=== PATIENT | female | born 1980 | race Caucasian/White ===

== ENCOUNTER 2023-07-26 16:45 | Outpatient (OUT) | payer OTHER, SELFPAY ==
[2023-07-26 17:04] LABS: Basophils Absolute Auto 0.1 10^3/uL (0.0-0.1); Basophils Percent Auto 1.8 % (0.2-2.0); Eosinophils Percent Auto 0.5 % (0.9-7.0); Hematocrit 41.1 % (36.0-48.0); Hemoglobin 13.7 g/dL (12.0-16.0); Lymphocytes Absolute Auto 1.6 10^3/uL (1.2-3.8); Lymphocytes Percent Auto 27.5 % (20.5-60.0); Mean Corpuscular HGB Conc 33.3 g/dL (29.9-35.2); Mean Corpuscular Hemoglobin 30.1 pg (26.7-34.0); Mean Corpuscular Volume 90.3 fL (81.0-99.0); Mean Platelet Volume 9.7 fL (9.5-13.5); Monocytes Absolute Auto 0.6 10^3/uL (0.3-0.8); Monocytes Percent Auto 10.4 % (1.7-12.0); Neutrophils Absolute Auto 3.4 10^3/uL (1.4-6.5); Neutrophils Percent Auto 59.8 % (43.0-75.0); Platelet Count 326 10^3/uL (150-450); Red Blood Count 4.55 10^6/uL (4.20-5.40); Red Cell Distribution Width 12.1 % (11.0-15.0); White Blood Count 5.7 10^3/uL (4.0-11.0)
[2023-07-26 17:48] LABS: Anion Gap 15.7; BUN Creatinine Ratio 18.1; Calcium 8.6 mg/dL (8.5-10.1); Carbon Dioxide 25.7 mmol/L (21.0-32.0); Chloride 101 mmol/L (98-107); Estimated GFR (African America >60 (>=60); Estimated GFR (Non-African Ame >60 (>=60); Glucose 77 mg/dL (74-106); Potassium 3.4 mmol/L (3.5-5.1); Sodium 139 mmol/L (136-145)
[2023-07-28 12:09] LABS: ANA Direct Negative (Negative)
== END 2023-07-26 16:46 | disposition home or self-care (01) ==
LOC: LAB 16:47
PROVIDERS: PCP Family Medicine; Visit Provider Family Medicine
DX: D89.89 Other specified disorders involving the immune mechanism, not elsewhere classified (principal)
CPT/HCPCS: 36415; 80048; 84443; 85025; 86038

== ENCOUNTER 2024-03-07 20:02 | Outpatient (REF) | payer OTHER, SELFPAY ==
--- OUTSIDE RECORDS SUMMARY | 2024-03-07 20:10 | XMS_ITS | CCD ---
Author Organization [facility] Care Team Providers Care Solid Die Cutter Name Role Phone Leslie Bates Unavailable LEONA ., DR PERALTA Admitting Unavailable LEONA ., DR PERALTA Attending Unavailable JANA, DR LESLIE Worrell Primary Care Unavailable LEONA ., DR PERALTA Consulting Unavailable ZIEBER, DR MADI Crow Consulting Unavailable KATHYA MENDOZA Consulting Unavailable LEONA ., DR PERALTA Admitting Unavailable LEONA ., DR PERALTA Attending Unavailable JANA, DR LESLIE Worrlel Primary Care Unavailable LEONA ., DR PERALTA Consulting Unavailable LEONA ., DR PERALTA Admitting Unavailable LEONA ., DR PERALTA Attending Unavailable BATES, DR LESLIE Worrell Primary Care Unavailable LEONA ., DR PERALTA Consulting Unavailable ANNA GOULD Consulting Unavailable ALVINIKE ROBERSON Consulting Unava ilable LEONA ., DR PERALTA Admitting Unavailable LEONA ., DR PERALTA Attending Unavailable BATES, DR LESLIE Worrell Primary Care Unavailable LEONA ., DR PERALTA Consulting Unavailable LEONA ., DR PERALTA Admitting Unavailable LEONA ., DR PERALTA Attending Unavailable LEONA ., DR PERALTA Primary Care Unavailable SHOBONIER, DR RICK Chi Consulting Unavailable LEONA ., DR PERALTA Consulting Unavailable LEONA ., DR PERALTA Admitting Unavailable LEONA ., DR PERALTA Attending Unavailable LEONA ., DR PERALTA Primary Care Unavailable LEONA ., DR PERALTA Consulting Unavailable ZIEBER, DR MADI Crow Consulting Unavailable JANA, DR LESLIE Worrell Admitting Unavailable JANA, DR LESLIE Worrell Attending Unavailable JANA, DR LESLIE Worrell Primary Care Unavailable JANA, DR LESLIE Worrell Consulting Unavailable Jesús Gallardo Unavailable Lorena Newell Unavailable MD Leslie Bates Primary Care Provider MD Kylie Sands Attending Provider Leslie Bates Primary Care Unavailable Kylie Sands Attending Unavailable Kylie Sands Admitting Unavailable FABIAN MEEKS Attending Unavailable ANDREA GRIMM Attending Unavailable KYLIE SANDS Referring Unavailable KELBLEY, PAULETTE Attending Unavailable HALSAMREEN, KYLIE G Referring Unavailable KELBLEY, PAULETTE Attending Unavailable HALADAY, KYLIE G Referring Unavailable KELBLEY, PAULETTE Attending Unavailable HALADAY, KYLIE G Referring Unavailable KELBLEY, PAULETTE Attending Unavailable HALADANaheed, KYLIE G Referring Unavailable KELBLEY, PAULETTE Attending Unavailable HALADANaheed, KYLIE G Referring Unavailable KELBLEY, PAULETTE Attending Unavailable HALADANaheed, KYLIE G Referring Unavailable KELBLEY, PAULETTE Attending Unavailable HALADANaheed, KYLIE G Referring Unavailable Allergies Allergy Classification Reported Allergen(s) Allergy Type Date of Onset Reaction(s) Facility (3 sources) patient allergy list reviewed by nurse or physicia Propensity to adverse reactions 6 Comment:Done [facility] Other (3 sources) Allergies Reconciled Propensity to adverse reactions 1 Unknown [facility] Other Medications Current Medications Medication Drug Class(es) Dates Sig (Normalized) Sig (Original) [id number] 200 actuat albuterol 0.09 mg/actuat metered dose inhaler (19 sources) beta2-Adrenergic Agonist Start: 11-23-2023 take 1 puff(s) by inhalation every four hours Albuterol Sulfate Active 2 PUFF INHALATION Every 4 hours November 23, 2023 1:00am Start: 09-28-2022 take 2 puff(s) by in halation every four hours as needed Albuterol Sulfate HFA 108 (90 Base) MCG/ACT 2 puff Inhalation every 4 hrs prn Sep, Not-Taking/PRN Start: 09-28-2022 take 2 puff(s) by in halation every four hours as needed Albuterol Sulfate HFA 108 (90 Base) MCG/ACT 2 puff Inhalation every 4 hrs prn Sep, Not-Taking Start: 09-28-2022 take 2 puff(s) by in halation every four hours as needed Albuterol Sulfate HFA 108 (90 Base) MCG/ACT 2 puff Inhalation every 4 hrs prn Sep, Not-Taking ALPRAZolam 0.25 mg oral tablet (19 sources) Benzodiazepine Start: 11-23-2023 take 0.25 mg by mouth four times daily Alprazolam Active 0.25 MG PO Four times daily November 23, 2023 1:00am Start: 04-09-2023 take 1 tablet by scot th four times daily ALPRAZolam 0.25 MG take 1 tablet by mouth four times a day if needeD for 7 Mar, Active Start: 12-21-2022 take 1 tablet by scot th four times daily ALPRAZolam 0.25 MG take 1 tablet by mouth four times a day if needed for 7 Dec, Active amoxicillin 875 mg / clavulanate 125 mg oral tablet (1 source) Penicillin-class Antibacterial Start: 11-23-2023 take 1 tablet by mouth twice daily Amoxicillin-Pot Clavulanate Active 1 TAB PO Twice daily November 23, 2023 1:00am amphetamine aspartate 5 mg / amphetamine sulfate 5 mg / dextroamphetamine saccharate 5 mg / dextroamphetamine sulfate 5 mg oral tablet (20 sources) Central Nervous System Stimulant Start: 11-09-2023 End: 01-06-2024 take 20 mg by mouth twice daily Dextroamphetamine-A mphetamine Active 20 MG PO Twice daily 60 January 06, 2024 Start: 10-11-2023 take 1 tablet by scot every twelve hours Adderall 20 MG 1 tablet Orally Twice a day for 30 days Sep, Active Start: 09-09-2023 take 1 tablet by scot th every twelve hours Adderall 20 MG 1 tablet Orally Twice a day for 30 days Aug, Active Start: 08-14-2023 take 1 tablet by scot th every twelve hours Adderall 20 MG 1 tablet Orally Twice a day for 30 days Jul, Active Start: 07-16-2023 take 1 tablet by scot th every twelve hours Adderall 20 MG 1 tablet Orally Twice a day for 30 days Jun, Active Start: 06-14-2023 take 1 tablet by scot every twelve hours Adderall 20 MG 1 tablet Orally Twice a day for 30 days May, Active Start: 05-17-2023 take 1 tablet by scot th every twelve hours Adderall 20 MG 1 tablet Orally Twice a day for 30 days Apr, Active Start: 04-21-2023 take 1 tablet by scot th every twelve hours Adderall 20 MG 1 tablet Orally Twice a day for 30 days Apr, Active Start: 02-22-2023 take 1 tablet by scot th every twelve hours Adderall 20 MG 1 tablet Orally Twice a day for 30 days Feb, Active Start: 01-22-2023 take 1 tablet by scot th every twelve hours Adderall 20 MG 1 tablet Orally Twice a day for 30 days January, Active Start: 12-28-2022 take 1 tablet by scot th every twelve hours Adderall 20 MG 1 tablet Orally Twice a day for 30 days Dec, Active Start: 12-28-2022 take 1 tablet by scot th every twelve hours Adderall 15 MG 1 tablet Orally Twice a day for 30 days Dec, Active Aspirin / butalbital / Caffeine (18 sources) take 1 capsule by mouth every four hours as needed Fiorinal 50-325-40 MG 1 capsule as needed Orally every 4 hrs Active aspirin 325 mg / butalbital 50 mg / caffeine 40 mg oral capsule (1 source) Platelet Aggregation Inhibitor, Barbiturate, Nonsteroidal Anti-inflammatory Drug, Central Nervous System Stimulant, Methylxanthine Start: 11-23-19 take 1 capsule by mouth every four hours Butalbital-Aspiri n-Caffeine Active 1 CAP PO Every 4 hours November 23, 2023 1:00am ciprofloxacin 3 mg/ml ophthalmic solution (15 sources) Quinolone Antimicrobial Start: 01-29-20 Start: 01-28-2023 Claritin-D 12 Hour 5-120 MG (15 sources) Start: 01-19-2023 take 5-120 mg by mouth twice daily Claritin-D 12 Hour 5-120 MG 1 tablet Orally twice a day for 30 days January, Active ketoconazole 20 mg/ml medicated shampoo (10 sources) Azole Antifungal Start: 11-23-2023 Ketoconazole Active 1 APPLIC TOPICAL EVERY 2 WEEKS November 23, 2023 1:00am Start: 06-17-2023 Ketoconazole 2 % as directed Externally twice a week for 30 days May, Active Start: 06-17-2023 Ketoconazole 2 % as directed Externally twice a week for 30 days May, Active 12 hr loratadine 5 mg / pseudoephedrine sulfate 120 mg extended release oral tablet (2 sources) alpha-Adrenergic Agonist Start: 01-19-2023 take 1 tablet by mouth every twelve hours Claritin-D 12 Hour 5-120 MG 1 tablet Orally twice a day for 30 days January, Active mupirocin 0.02 mg/mg topical ointment (10 sources) RNA Synthetase Inhibitor Antibacterial Start: 11-23-2023 Mupirocin Active 1 APPLIC TOPICAL Three times daily November 23, 2023 1:00am Start: 06-17-2023 Mupirocin 2 % 1 application Externally Three times a day for 10 days May, Active tiZANidine 4 mg oral tablet (19 sources) Central alpha-2 Adrenergic Agonist Start: 11-23-2023 take 1 tablet by mouth once daily at bedtime Tizanidine (Zanaflex) 4 mg tablet Active 4 MG PO Daily at bedtime November 23, 2023 1:00am take 1 tablet by scot once daily at bedtime Zanaflex 4 mg 1 tablet Orally qhs PRN Active 24 hr venlafaxine 75 mg extended release oral capsule (19 sources) Serotonin and Norepinephrine Reuptake Inhibitor Start: 11-23-2023 take 1 capsule by mouth once daily Venlafaxine (Effexor Xr) 75 mg capsule,extended release 24hr Active 75 MG PO Daily November 23, 2023 1:00am take 1 capsule by mo [facility] every twenty-four hours Effexor XR 75 MG 1 capsule with food Orally Once a day Active Completed/Discontinued Medications Medication Drug Class(es) Dates Sig (Normalized) Sig (Original) azithromycin 250 mg oral tablet (6 sources) Macrolide Antimicrobial Start: 3 Azithromycin 250 MG as directed Orally 2 tabs po today, then 1 tab daily x 4 more days for 5 Sep, Not-Taking biotin 1 mg oral tablet (6 sources) take 1 tablet by mouth every twelve hours Biotin 1000 MCG 1 tablet Orally bid Not-Taking cefdinir 300 mg oral capsule (18 sources) Cephalosporin Antibacterial Start: 3 Cefdinir 300 MG as directed Orally bid for 7 days Dec, Not-Taking/PRN cyproheptadine hydrochloride 4 mg oral tablet (6 sources) take 1 tablet by mouth once daily at bedtime Cyproheptadine HCl 4 mg 1 tablet Orally qhs Not-Taking methIMAzole 5 mg oral tablet (6 sources) Thyroid Hormone Synthesis Inhibitor Start: 6 take 1 tablet by mouth once daily at mealtime methIMAzole 5 mg 1 tablet with food Orally Once a day except Wednesday for 30 day(s) Nov, Not-Taking methylPREDNISolone 4 mg oral tablet (18 sources) Corticosteroid Start: 3 methylPREDNISolone 4 MG as directed Orally daily for 6 days Apr, Not-Taking/PRN Start: 09-28-2022 methylPREDNISo lone 4 MG as directed Orally for 6 days Sep, Not-Taking 24 hr metoprolol succinate 25 mg extended release oral tablet (6 sources) beta-Adrenergic Phuc Start: 11-19-2015 take 1 tablet by mouth every twelve hours Toprol XL 25 MG 1 tablet Orally bid for 90 days Nov, Not-Taking ondansetron 4 mg oral tablet (6 sources) Serotonin-3 Receptor Antagonist Start: 10-13-2022 take 1 tablet by mouth three times daily as needed Ondansetron HCl 4 MG 1 tablet Orally tid prn for 5 days Sep, Not-Taking predniSONE 20 mg oral tablet (6 sources) Start: 11-19-2015 take 1 tablet by mouth every twenty-four hours predniSONE 20 MG 1 tablet with food or milk Orally Once a day for 30 days Nov, Not-Taking sulfamethoxazole 800 mg / trimethoprim 160 mg oral tablet (10 sources) Dihydrofolate Reductase Inhibitor Antibacterial, Sulfonamide Antimicrobial Start: 05-26-2023 take 1 tablet by mouth every twelve hours Bactrim DS 800-160 MG 1 tablet Orally Twice a day for 10 day(s) May, Not-Taking/PRN sprinkle 24 hr topiramate 150 mg extended release oral capsule (6 sources) take 1 tablet by mouth once daily at bedtime Topamax 150 mg 1 tablet Orally qhs Not-Taking triamcinolone acetonide 1 mg/ml topical cream (12 sources) Corticosteroid Start: 04-30-2023 Triamcinolone Acetonide 0.1 % 1 application Externally Twice a day for 10 days Apr, Not-Taking/PRN Start: 04-30-2023 Triamcinolone Acetonide 0.1 % 1 application Externally Twice a day for 10 days Apr, Not-Taking Problems Active Problems Problem Classification Problem Date Documented Da te Episodic/Chronic Abdominal pain (3 sources) Pelvic and perineal pain; Translations: [Pelvic and perineal pain] Episodic Allergic reactions (1 source) Unspecified contact dermatitis, unspecified cause Episodic Anxiety disorders (7 sources) Anxiety disorder; Translations: [Anxiety disorder, unspecified] Onset: 10-11-2015 11-23-2023 Chronic Attention-deficit, conduct, and disruptive behavior disorders (20 sources) Adult attention deficit hyperactivity disorder ; Translations: [Attention-deficit hyperactivity disorder, unspecified type] 11-09-2023 Chronic Attention-deficit, conduct, and disruptive behavior disorders (9 sources) Attention-deficit hyperactivity disorder, unspecified type Chronic Attention-deficit, conduct, and disruptive behavior disorders (3 sources) Attention deficit hyperactivity disorder; Translations: [Attention-deficit hyperactivity disorder, unspecified type] Chronic Cardiac dysrhythmias (20 sources) Palpitations; Translations: [Palpitations] Onset: 04-20-2017 11-23-2023 Episodic Chronic obstructive pulmonary disease and bronchiectasis (3 sources) Bronchitis; Translations: [Bronchitis, not specified as acute or chronic] Episodic Genitourinary symptoms and ill-defined conditions (3 sources) Genuine stress incontinence; Translations: [Stress incontinence (female) (male)] Chronic Headache; including migraine (4 sources) Migraine without aura, not refractory ; Translations: [Migraine, unspecified, not intractable, without status migrainosus] Onset: 10-11-2015 11-23-2023 Chronic Immunity disorders (9 sources) Autoimmune disease; Translations: [Other specified disorders involving the immune mechanism, not elsewhere classified] Chronic Lymphadenitis (1 source) Nonspecific lymphadenitis, unspecified Episodic Malaise and fatigue (12 sources) Other fatigue; Translations: [Malaise and fatigue] Onset: 10-11-2015 Episodic Menstrual disorders (20 sources) Irregular periods; Translations: [Irregular menstruation, unspecified] Onset: 07-31-2022 Chronic Mood disorders (4 sources) Premenstrual dysphoric disorder; Translations: [Premenstrual dysphoric disorder] Onset: 08-03-2022 Chronic Nausea and vomiting (3 sources) Nausea; Translations: [Nausea] Episodic Other connective tissue disease (1 source) Myalgia, unspecified site; Translations: [Myalgia, unspecified site] Onset: 01-11-2024 Episodic Other female genital disorders (1 source) Abnormal uterine and vaginal bleeding, unspecified; Translations: [ABNORMAL UTERINE VAGINAL BLEED UNS] Onset: 08-03-2022 Chronic Other female genital disorders (3 sources) Premenstrual tension syndrome; Translations: [Premenstrual tension syndromes] Onset: 05-06-2017 Chronic Other female genital disorders (3 sources) Abnormal uterine bleeding; Translations: [Abnormal uterine and vaginal bleeding, unspecified] Chronic Other gastrointestinal disorders (1 source) Irritable bowel syndrome with diarrhea; Translations: [IRRITABLE BOWEL SYND W/DIARRHEA] Onset: 08-03-2022 Chronic Other gastrointestinal disorders (3 sources) Irritable bowel syndrome with diarrhea; Translations: [Irritable bowel syndrome with diarrhea] Chronic Other gastrointestinal disorders (3 sources) Flatulence, eructation and gas pain; Translations: [Abdominal distension (gaseous)] Episodic Other gastrointestinal disorders (3 sources) Diarrhea; Translations: [Diarrhea, unspecified] Episodic Other lower respiratory disease (3 sources) Cough; Translations: [Cough, unspecified] Episodic Other nutritional; endocrine; and metabolic disorders (19 sources) Weight loss; Translations: [Abnormal weight loss] 11-23-2023 Episodic Other nutritional; endocrine; and metabolic disorders (3 sources) Body mass index less than 20; Translations: [Body mass index (BMI) 19.9 or less, adult] Episodic Other skin disorders (2 sources) Rash and other nonspecific skin eruption Episodic Other upper respiratory disease (3 sources) Allergic rhinitis; Translations: [Allergic rhinitis, unspecified] Chronic Other upper respiratory infections (3 sources) Chronic sinusitis; Translations: [Chronic sinusitis, unspecified] Chronic Other upper respiratory infections (6 sources) Acute pharyngitis; Translations: [Acute pharyngitis, unspecified] Onset: 11-01-2015 Episodic Ovarian cyst (4 sources) Unspecified ovarian cyst, left side; Translations: [Cyst of left ovary] Onset: 07-23-2022 Episodic Skin and subcutaneous tissue infections (1 source) Impetigo, unspecified Episodic Substance-related disorders (4 sources) Nicotine dependence, cigarettes, uncomplicated; Translations: [Tobacco user] Onset: 08-03-2022 Chronic Thyroid disorders (20 sources) Subclinical hyperthyroidism; Translations: [Thyrotoxicosis, unspecified without thyrotoxic crisis or storm] Onset: 10-11-2015 11-23-2023 Chronic Unclassified (1 source) CONTACT W/AND (SUSP) EXPOS COVID-19; Translations: [CONTACT W/AND (SUSP) EXPOS COVID-19] Onset: 08-03-2022 Past or Other Problems Problem Classification Problem Date Documented Date Episodic/Chronic Acute bronchitis (3 sources) Acute bronchitis; Translations: [Acute bronchitis, unspecified] Onset: 09-17-2017 Episodic Immunizations and screening for infectious disease (1 source) Encounter for screening for human papillomavirus (HPV); Translations: [ENC SCREENING HUMAN PAPILLOMAVIRUS] Onset: 04-08-2022 Episodic Influenza (3 sources) Upper respiratory tract infection due to Influenza; Translations: [Influenza due to unidentified influenza virus with other respiratory manifestations] Onset: 12-17-2015 Episodic Other nutritional; endocrine; and metabolic disorders (3 sources) Underweight; Translations: [Underweight] Onset: 04-20-2017 Episodic Other nutritional; endocrine; and metabolic disorders (3 sources) Abnormal weight loss; Translations: [Abnormal weight loss] Onset: 04-20-2017 Episodic Other screening for suspected conditions (not mental disorders or infectious disease) (16 sources) Other abnormal and inconclusive findings on diagnostic imaging of breast; Translations: [Encounter for screening mammogram for malignant neoplasm of breast] Onset: 10-11-2015 Episodic Residual codes; unclassified (3 sources) Sleep disorder; Translations: [Persistent disorder of initiating or maintaining sleep] Onset: 04-20-2017 Episodic Unclassified (3 sources) care; Translations: [Supervision of other normal ] Onset: 02-02-2007 Results Test Name Value Interpretation Reference Range Facility Alanine aminotransferase [En zymatic activity/volume] in Serum or PlasmaOrdered By: Kylie Sands on 01-11-2024 ALT [Catalytic activity/Vol] 24 U/L [facility] Albumin [Mass/volume] in Ser um or Plasma by Bromocresol green (BCG) dye binding methoOrdered By: Kylie Sands on 01-11-2024 Albumin BCG dye [Mass/Vol] 4.2 g/dL 3.5-5.7 [facility] Alkaline phosphatase [Enzyma tic activity/volume] in Serum or PlasmaOrdered By: Kylie Sands on 01-11-2024 ALP [Catalytic activity/Vol] 65 U/L 34-104 [facility] Aspartate aminotransferase [ Enzymatic activity/volume] in Serum or PlasmaOrdered By: Kylie Sands on 01-11-2024 AST [Catalytic activity/Vol] 22 U/L 13-39 [facility] Basophils Auto (Bld) [#/Vol] Ordered By: Kylie Sands on 01-11-2024 Basophils (Bld) [#/Vol] 0.1 10*3/uL 0.0-0.2 [facility] Basophils/100 WBC Auto (Bld) Ordered By: Kylie Sands on 01-11-2024 Basophils/100 WBC (Bld) 2.4 % . F [facility] Bilirubin.total [Mass/volume ] in Serum or PlasmaOrdered By: Kylie Sands on 01-11-2024 Bilirubin [Mass/Vol] 0.3 mg/dL 0.3-1.0 [facility] C reactive protein [Mass/vol ume] in Serum or PlasmaOrdered By: Kylie Sands on 01-11-2024 CRP [Mass/Vol] < 0.5 mg/dL 0.0-0.5 [facility] C-Reactive Proteinon 024 CRP [Mass/Vol] mg/L Normal 0.0-0.5 [facility] Comment on above: Result Comment: PERF ORMED BY: [place] [id number] PATHOLOGIST CONSULTING SOFTWARE ENGINEER DARIUS LOPEZ M.D. Performed By: #### E SR, CK, CMP, CRP, CBC #### [address] Calcium [Mass/volume] in Ser um or PlasmaOrdered By: Kylie Sands on 01-11-2024 Calcium [Mass/Vol] 8.9 mg/dL 8.6-10.3 [facility] Carbon dioxide, total [Moles /volume] in Serum or PlasmaOrdered By: Kylie Sands on 01-11-2024 CO2 [Moles/Vol] 31.6 mmol/L 21.0-31.0 [facility] Chloride [Moles/volume] in S asad or PlasmaOrdered By: Kylie Sands on 01-11-2024 Chloride [Moles/Vol] 103 mmol/L 98-107 [facility] Complete Blood Count Auto Di ffon 01-11-2024 Basophils (Bld) [#/Vol] 0.1 10*3/uL Normal 0.0-0.2 [facility] Comment on above: Performed By: #### E SR, CK, CMP, CRP, CBC #### [facility] [address] Basophils/100 WBC (Bld) 2.4 % Normal . T efr [facility] Comment on above: Performed By: #### E SR, CK, CMP, CRP, CBC #### [facility] [address] Eosinophils (Bld) [#/Vol] 0.1 10*3/uL Normal 0.0-0.45 [facility] Comment on above: Performed By: #### E SR, CK, CMP, CRP, CBC #### [address] Eosinophils/100 WBC (Bld) 1.8 % Normal . [facility] Comment on above: Performed By: #### E SR, CK, CMP, CRP, CBC #### [address] Erythrocyte distribution width (RBC) [Ratio] 13.4 % Normal 11.9-15.3 [facility] Comment on above: Performed By: #### E SR, CK, CMP, CRP, CBC #### [address] Hematocrit (Bld) [Volume fraction] 39.2 % Normal 34.0-46.4 [facility] Comment on above: Performed By: #### E SR, CK, CMP, CRP, CBC #### [address] Hemoglobin (Bld) [Mass/Vol] 13.1 g/dL Normal 11.8-15.4 [facility] Comment on above: Performed By: #### E SR, CK, CMP, CRP, CBC #### [address] Lymphocytes (Bld) [#/Vol] 1.4 10*3/uL Normal 1.00-4.8 [facility] Comment on above: Performed By: #### E SR, CK, CMP, CRP, CBC #### [address] Lymphocytes/100 WBC (Bld) 25.1 % Normal . [facility] Comment on above: Performed By: #### E SR, CK, CMP, CRP, CBC #### [address] MCH (RBC) [Entitic mass] 29.7 pg Normal 24.7-34.3 [facility] Comment on above: Performed By: #### E SR, CK, CMP, CRP, CBC #### [address] MCV (RBC) [Entitic vol] 89.2 fL Normal 80-100 [facility] Comment on above: Performed By: #### E SR, CK, CMP, CRP, CBC #### [address] Mean Corpuscular HGB Conc 33.4 g/dL Normal 32.0-35.0 [facility] Comment on above: Performed By: #### E SR, CK, CMP, CRP, CBC #### [address] Monocytes (Bld) [#/Vol] 0.5 10*3/uL Normal 0.0-0.8 [facility] Comment on above: Performed By: #### E SR, CK, CMP, CRP, CBC #### [address] Monocytes/100 WBC (Bld) 8.3 % Normal . T fer [facility] Comment on above: Performed By: #### E SR, CK, CMP, CRP, CBC #### [address] Neutrophils (Bld) [#/Vol] 3.4 10*3/uL Normal 1.8-7.7 [facility] Comment on above: Performed By: #### E SR, CK, CMP, CRP, CBC #### [address] Neutrophils/100 WBC (Bld) 62.4 % Normal . [facility] Comment on above: Performed By: #### E SR, CK, CMP, CRP, CBC #### [address] NRBC% 0.1 /100{WBC} Normal 0-0.5 [facility] Comment on above: Performed By: #### E SR, CK, CMP, CRP, CBC #### [address] Platelet mean volume (Bld) [Entitic vol] 9.0 fL Normal 6.3-10.7 [facility] Comment on above: Performed By: #### E SR, CK, CMP, CRP, CBC #### [place] [address] [place] Platelets (Bld) [#/Vol] 322 10*3/uL Normal 150-450 [facility] Comment on above: Performed By: #### E SR, CK, CMP, CRP, CBC #### [place] [address] [place] RBC (Bld) [#/Vol] 4.39 10*6/uL Normal 3.60-5.00 [facility] Comment on above: Performed By: #### E SR, CK, CMP, CRP, CBC #### [place] [address] [place] WBC (Bld) [#/Vol] 5.5 10*3/uL Normal 3.8-11.6 [facility] Comment on above: Performed By: #### E SR, CK, CMP, CRP, CBC #### [address] Comprehensive Metabolic Pane tyron 01-11-2024 Albumin [Mass/Vol] 4.2 g/dL Normal 3.5-5.7 [facility] Comment on above: Performed By: #### E SR, CK, CMP, CRP, CBC #### [address] Albumin/Globulin [Mass ratio] 1.8 {ratio} Normal [facility] Comment on above: Performed By: #### E SR, CK, CMP, CRP, CBC #### [address] ALP [Catalytic activity/Vol] 65 U/L Normal 34-104 [facility] Comment on above: Performed By: #### E SR, CK, CMP, CRP, CBC #### [address] ALT [Catalytic activity/Vol] 24 U/L Normal 7-52 [facility] Comment on above: Performed By: #### E SR, CK, CMP, CRP, CBC #### [address] Anion gap [Moles/Vol] 8.7 mmol/L Normal 6.0-15.0 [facility] Comment on above: Performed By: #### E SR, CK, CMP, CRP, CBC #### [address] AST [Catalytic activity/Vol] 22 U/L Normal 13-39 [facility] Comment on above: Performed By: #### E SR, CK, CMP, CRP, CBC #### [address] Bilirubin [Mass/Vol] 0.3 mg/dL Normal 0.3-1.0 [facility] Comment on above: Performed By: #### E SR, CK, CMP, CRP, CBC #### [address] Calcium [Mass/Vol] 8.9 mg/dL Normal 8.6-10.3 [facility] Comment on above: Performed By: #### E SR, CK, CMP, CRP, CBC #### [address] Chloride [Moles/Vol] 103 mmol/L Normal 98-107 [facility] Comment on above: Performed By: #### E SR, CK, CMP, CRP, CBC #### [address] CO2 [Moles/Vol] 31.6 mmol/L High 21.0-31.0 [facility] Comment on above: Performed By: #### E SR, CK, CMP, CRP, CBC #### [address] Creatinine [Mass/Vol] 0.60 mg/dL Normal 0.60-1.20 [facility] Comment on above: Performed By: #### E SR, CK, CMP, CRP, CBC #### [address] GFR/1.73 sq M.predicted MDRD (S/P/Bld) [Vol rate/Area] mL/min/{1.73_m2} Normal [facility] Comment on above: Performed By: #### E SR, CK, CMP, CRP, CBC #### [address] Globulin (S) [Mass/Vol] 2.4 g/dL Normal T [facility] Comment on above: Performed By: #### E SR, CK, CMP, CRP, CBC #### [address] Glucose [Mass/Vol] 82 mg/dL Normal 70-100 [facility] Comment on above: Result Comment: [place] Glucose Reference Range is dependent on time and content of last meal. Glucose of more than 200 mg/dL in a nonstressed, ambulatory subject supports the diagnosis of Diabetes Mellitus. ADA recommended reference range Performed By: #### E SR, CK, CMP, CRP, CBC #### [address] Potassium [Moles/Vol] 4.3 mmol/L Normal 3.5-5.1 [facility] Comment on above: Performed By: #### E SR, CK, CMP, CRP, CBC #### [facility] [address] [place] [address] [place] Protein [Mass/Vol] 6.6 g/dL Normal 6.4-8.9 [facility] Comment on above: Performed By: #### E SR, CK, CMP, CRP, CBC #### [address] Sodium [Moles/Vol] 139 mmol/L Normal 136-145 [facility] Comment on above: Performed By: #### E SR, CK, CMP, CRP, CBC #### [place] [address] [place] Urea nitrogen [Mass/Vol] 18 mg/dL Normal 7-25 [facility] Comment on above: Performed By: #### E SR, CK, CMP, CRP, CBC #### [address] Creatine Kinaseon 01-11-2024 CK [Catalytic activity/Vol] 257 U/L High [facility] Comment on above: Result Comment: PERF ORMED BY: [place] [id number] PATHOLOGIST CONSULTING SOFTWARE ENGINEER DARIUS LOPEZ M.D. Performed By: #### E SR, CK, CMP, CRP, CBC #### [place] [address] [place] Creatine kinase [Enzymatic a ctivity/volume] in Serum or PlasmaOrdered By: Kylie Sands on 01-11-2024 CK [Catalytic activity/Vol] 257 U/L - [facility] Creatinine [Mass/volume] in Serum or PlasmaOrdered By: Kylie Sands on 01-11-2024 Creatinine [Mass/Vol] 0.60 mg/dL 0.60-1.20 [facility] Eosinophils Auto (Bld) [#/Vo l]Ordered By: Kylie Sands on 01-11-2024 Eosinophils (Bld) [#/Vol] 0.1 10*3/uL 0.0-0.45 [facility] Eosinophils/100 WBC Auto (Bl d)Ordered By: Kylie Sands on 01-11-2024 Eosinophils/100 WBC (Bld) 1.8 % . [facility] Erythrocyte Sedimentation Ra shekhar 01-11-2024 ESR (Bld) [Velocity] 3 mm/h Normal 0-19 [facility] Comment on above: Result Comment: PERF ORMED BY: [place] [id number] PATHOLOGIST CONSULTING SOFTWARE ENGINEER DARIUS LOPEZ M.D. Performed By: #### E SR, CK, CMP, CRP, CBC #### [facility] [address] Erythrocyte distribution wid th Auto (RBC) [Ratio]Ordered By: Kylie Sands on 01-11-2024 Erythrocyte distribution width (RBC) [Ratio] 13.4 % 11.9-15.3 [facility] Erythrocyte sedimentation ra te by Photometric methodOrdered By: Klyie Sands on 01-11-2024 ESR Photometric method (Bld) [Velocity] 3 mm/hr 0-19 [facility] Globulin Calc (S) [Mass/Vol] Ordered By: Kylie Sands on 01-11-2024 Globulin (S) [Mass/Vol] 2.4 g/dL [facility] Glucose [Mass/volume] in Ser um or PlasmaOrdered By: Kylie Sands on 01-11-2024 Glucose [Mass/Vol] 82 mg/dL 70-100 [facility] Comment on above: ADA recommended refe rence rangeRandom Glucose Reference Range is dependent on time and content of last meal. Glucose of more than 200 mg/dL in a nonstressed, ambulatory subject supports the diagnosis of Diabetes Mellitus. Hematocrit Auto (Bld) [Volum e fraction]Ordered By: Kylie Sands on 01-11-2024 Hematocrit (Bld) [Volume fraction] 39.2 % 34.0-46.4 [facility] Hemoglobin [Mass/volume] in BloodOrdered By: Kylie Sands on 01-11-2024 Hemoglobin (Bld) [Mass/Vol] 13.1 g/dL 11.8-15.4 [facility] Leukocytes [#/volume] correc maurice for nucleated erythrocytes in Blood by Automated counOrdered By: Kylie Sands on 01-11-2024 WBC corrected for nucl RBC Auto (Bld) [#/Vol] 5.5 10*3/uL 3.8-11.6 [facility] Lymphocytes Auto (Bld) [#/Vo l]Ordered By: Kylie Sands on 01-11-2024 Lymphocytes (Bld) [#/Vol] 1.4 10*3/uL 1.00-4.8 [facility] Lymphocytes/100 WBC Auto (Bl d)Ordered By: Kylie Sands on 01-11-2024 Lymphocytes/100 WBC (Bld) 25.1 % . [facility] MCH Auto (RBC) [Entitic mass ]Ordered By: Kylie Sands on 01-11-2024 MCH (RBC) [Entitic mass] 29.7 pg 24.7-34.3 [facility] MCHC Auto (RBC) [Mass/Vol]Or dered By: Kylie Sands on 01-11-2024 MCHC (RBC) [Mass/Vol] 33.4 g/dL 32.0-35.0 [facility] MCV Auto (RBC) [Entitic vol] Ordered By: Kylie Sands on 01-11-2024 MCV (RBC) [Entitic vol] 89.2 fL 80-100 [facility] Monocytes Auto (Bld) [#/Vol] Ordered By: Kylie Sands on 01-11-2024 Monocytes (Bld) [#/Vol] 0.5 10*3/uL 0.0-0.8 [facility] Monocytes/100 WBC Auto (Bld) Ordered By: Kylie Sands on 01-11-2024 Monocytes/100 WBC (Bld) 8.3 % . [facility] Neutrophils Auto (Bld) [#/Vo l]Ordered By: Kylie Sands on 01-11-2024 Neutrophils (Bld) [#/Vol] 3.4 10*3/uL 1.8-7.7 [facility] Neutrophils/100 WBC Auto (Bl d)Ordered By: Kylie Sands on 01-11-2024 Neutrophils/100 WBC (Bld) 62.4 % . [facility] No Panel InformationOrdered By: Kylie Sands on 01-11-2024 Estimated GFR (CKD-EPI) > 60.0 mL/Min [facility] Creatinine Clearance (Chem N/A [facility] Nucleated erythrocytes [Pres ence] in Blood by Automated countOrdered By: Kylie Sands on 01-11-2024 Nucleated RBC Auto Ql (Bld) 0.1 /100{WBC} 0-0.5 [facility] Platelet mean volume Auto (B ld) [Entitic vol]Ordered By: Kylie Sands on 01-11-2024 Platelet mean volume (Bld) [Entitic vol] 9.0 fL 6.3-10.7 [facility] Platelets Auto (Bld) [#/Vol] Ordered By: Kylie Sands on 01-11-2024 Platelets (Bld) [#/Vol] 322 10*3/uL 150-450 [facility] Potassium [Moles/volume] in Serum or PlasmaOrdered By: Kylie Sands on 01-11-2024 Potassium [Moles/Vol] 4.3 mmol/L 3.5-5.1 [facility] Protein [Mass/volume] in Ser um or PlasmaOrdered By: Kylie Sands on 01-11-2024 Protein [Mass/Vol] 6.6 g/dL 6.4-8.9 [facility] RBC Auto (Bld) [#/Vol]Ordere d By: Kylie Sands on 01-11-2024 RBC (Bld) [#/Vol] 4.39 10*6/uL 3.60-5.00 [place] Serum or plasma albumin/glob ulin mass ratioOrdered By: Kylie Sands on 01-11-2024 Albumin/Globulin [Mass ratio] 1.8 {ratio} [facility] Serum or plasma anion gap de terminationOrdered By: Kylie Sands on 01-11-2024 Anion gap [Moles/Vol] 8.7 mmol/L 6.0-15.0 [facility] Sodium [Moles/volume] in Ser um or PlasmaOrdered By: Kylie Sands on 01-11-2024 Sodium [Moles/Vol] 139 mmol/L 136-145 [facility] Urea nitrogen [Mass/volume] in Serum or PlasmaOrdered By: Kylie Sands on 01-11-2024 Urea nitrogen [Mass/Vol] 18 mg/dL 7-25 [facility] WBC Auto (Bld) [#/Vol]Ordere d By: Kylie Sands on 01-11-2024 WBC (Bld) [#/Vol] 5.5 10*3/uL 3.8-11.6 [facility] FSHon 01-19-2023 FSH 8.7 mIU/mL Normal [facility] Comment on above: Result Comment: Adul t Female: Follicular phase 3.5 - 12.5 Ovulation phase 4.7 - 21.5 Luteal phase 1.7 - 7.7 Postmenopausal 25.8 - 134.8 Performed By: #### [facility] #### [facility] [address] [address] [address] Haydee Chne LUTEINIZING HORMONE (LH)on 0 01-19-2023 LH 9.1 mIU/mL Normal [facility] Comment on above: Result Comment: Adul t Female: Follicular phase 2.4 - 12.6 Ovulation phase 14.0 - 95.6 Luteal phase 1.0 - 11.4 Postmenopausal 7.7 - 58.5 Performed By: #### L [facility] ####[facility] [address] [place], [place] [address]RfDr. Haydee Chen CBC AUTO DIFFon 01-18-2023 BASO # 0.1 103/ul Normal 0.0-0.1 [facility] Comment on above: Performed By: #### C BC #### [facility] [address] [place], [place] [address] Dr. Haydee Chen Basophils/100 WBC (Bld) 1.3 % Normal 0.2-2.0 [facility] Comment on above: Performed By: #### C BC #### [facility] [address] [place] [address] Dr. Haydee Chen EO # 0.1 103/ul Normal 0.0-0.7 [facility] Comment on above: Performed By: #### C BC #### [facility] [address] [place] [address] Dr. Haydee Chen Eosinophils/100 WBC (Bld) 1.3 % Normal 0.9-7.0 [facility] Comment on above: Performed By: #### C BC #### [facility] [address] [place] [address] Dr. Haydee Chen Erythrocyte distribution width (RBC) [Ratio] 12.3 % Normal 11.0-15.0 [facility] Comment on above: Performed By: #### C BC #### [facility] [address] [place] [address] Dr. Haydee Chne Hematocrit (Bld) [Volume fraction] 37.0 % Normal 36.0-48.0 [facility] Comment on above: Performed By: #### C BC #### [facility] [address] [place] [address] Dr. Haydee Chen Hemoglobin (Bld) [Mass/Vol] 12.1 g/dL Normal 12.0-16.0 [facility] Comment on above: Performed By: #### C BC #### [facility] [address] [place] [address] Dr. Haydee Chen IG # 0.01 10e3/ul Normal 0.00-0.03 [facility] Comment on above: Performed By: #### C BC #### [facility] [address] [place] [address] Dr. Haydee Chen IG % 0.2 % Normal 0.0-0.5 [facility] Comment on above: Performed By: #### C BC #### [facility] [address] [place] [address] Dr. Haydee Chen LYMPH # 1.6 103/ul Normal 1.2-3.8 [facility] Comment on above: Performed By: #### C BC #### [facility] [address] [place] [address] Dr. Haydee Chen Lymphocytes/100 WBC (Bld) 29.9 % Normal 20.5-60.0 [facility] Comment on above: Performed By: #### C BC #### [facility] [address] [place] [address] Dr. Haydee Chen MANUAL DIFF REQ NO Normal [facility] Comment on above: Performed By: #### C BC #### [facility] [address] [place] [address] Dr. Haydee Chen MCH (RBC) [Entitic mass] 29.6 pg Normal 26.7-34.0 [facility] Comment on above: Performed By: #### C BC #### [facility] [address] [place] [address] Dr. Haydee Chen MCHC (RBC) [Mass/Vol] 32.7 g/dL Normal 29.9-35.2 [facility] Comment on above: Performed By: #### C BC #### [facility] [address] [place] [address] Dr. Haydee Chen MCV (RBC) [Entitic vol] 90.5 fL Normal 81.0-99.0 [facility] Comment on above: Performed By: #### C BC #### [facility] [address] [place] [address] Dr. Haydee Chen MONO # 0.3 103/ul Normal 0.3-0.8 [facility] Comment on above: Performed By: #### C BC #### [facility] [address] [place] [address] Dr. Haydee Chen Monocytes/100 WBC (Bld) 6.0 % Normal 1.7-12.0 [facility] Comment on above: Performed By: #### C BC #### [facility] [address] [place] [address] Dr. Haydee Chen NEUT # 3.2 103/ul Normal 1.4-6.5 [facility] Comment on above: Performed By: #### C BC #### [facility] [address] [address] [address] Haydee Chen Neutrophils/100 WBC (Bld) 61.3 % Normal 43.0-75.0 [facility] Comment on above: Performed By: #### C BC #### [facility] [address] [address] [address] Haydee Chen Platelet mean volume (Bld) [Entitic vol] 9.8 fL Normal 9.5-13.5 [facility] Comment on above: Performed By: #### C BC #### [facility] [address] [address] [address] Haydee Chen PLT 294 103/ul Normal 150-450 [facility] Comment on above: Performed By: #### C BC #### [facility] [address] [place] [address] Dr. Haydee Chen RBC 4.09 106/ul Critically low 4.20-5.40 [facility] Comment on above: Performed By: #### C BC #### [facility] [address] [place] [address] Dr. Haydee Chen WBC 5.2 103/ul Normal 4.0-11.0 [facility] Comment on above: Performed By: #### C BC #### [facility] [address] [place] [address] Dr. Haydee Chen FERRITINon 01-18-2023 Ferritin [Mass/Vol] 8.0 ng/mL Normal 6.2-137.0 [facility] Comment on above: Performed By: #### F ERR, FT4 #### [facility] [address] [place] [address] Dr. Haydee Chen FREE T4on 01-18-2023 Free T4 [Mass/Vol] 0.72 ng/dL Critically low 0.76-1.46 [facility] Comment on above: Performed By: #### F ERR, FT4 #### [facility] [address] [place] [address] Dr. Haydee Chen TSHon 01-18-2023 TSH 1.127 uIU/mL Normal 0.358-3.740 [facility] [place] Comment on above: Performed By: #### T #### [facility] [address] [address] [address] Haydee Chen MG MAMM DX 3D LT CADon 11-30 MG MAMM DX 3D LT CAD Patient: AGUSTO MADDOX Exam Date: 11/30/2022 : 1980 Gender:F Ordering : DR FABIAN MEEKS . Admission #: [id number] Family : Order #: [id number] CLICK HERE TO VIEW EXAM RADIOLOGY REPORT PROCEDURE: MAMMOGRAM DIAGNOSTIC 3D LEFT CAD, 11/30/2022, 09:57 ULTRASOUND BREAST LEFT LIMITED, 11/30/2022, 10:40 COMPARISON: MG MAMM SCREEN HARMONY W CAD, 04/25/2020. MG MAMM SCREEN HARMONY W CAD, 11/11/2018. MG MAMM HARMONY SCRN W CAD DIG, 05/20/2015. MG MAMM SCREEN 3D HARMONY CAD, 08/06/2022. INDICATIONS: Abnormal findings on diagnostic imaging of breast Calculator Name NCI Breast Cancer Risk Assessment Tool 5 Year Breast Cancer Risk 0.90% Lifetime Breast Cancer Risk 10.70% Personal Breast Cancer No Personal Ovarian Cancer No Treatments None Family Cancers None LOCATION: [facility] BREAST COMPOSITION: Extremely dense, which lowers the sensitivity of mammography. FINDINGS: DIAGNOSTIC CATEGORY 2--BENIGN FINDING: LEFT BREAST: Mammographic views demonstrate a 2.1 cm partially circumscribed mass versus cyst within the mid breast. Ultrasound evaluation demonstrates a 2.1 x 1.7 x 1.0 cm benign appearing simple cyst at the 12 o'clock position, 0.5 cm from the nipple. Annual screening mammography is recommended. RECOMMENDATIONS: ROUTINE MAMMOGRAM AND CLINICAL EVALUATION IN 12 MONTHS. PLEASE NOTE: A NORMAL MAMMOGRAM DOES NOT EXCLUDE THE POSSIBILITY OF BREAST CANCER. A CLINICALLY SUSPICIOUS PALPABLE LUMP SHOULD BE BIOPSIED. Dictated by: Madi Mason M.D. on 11/30/2022 at 10:38 Approved by: Madi Mason M.D. on 11/30/2022 at 10:47 Normal [facility] US BREAST LEFT LIMITEDon US BREAST LEFT LIMITED Patient: AGUSTO MADDOX Exam Date: 11/30/2022 : 1980 Gender:F Ordering : DR FABIAN MEEKS . Admission #: [id number] Family : Order #: [id number] CLICK HERE TO VIEW EXAM RADIOLOGY REPORT PROCEDURE: MAMMOGRAM DIAGNOSTIC 3D LEFT CAD, 11/30/2022, 09:57 ULTRASOUND BREAST LEFT LIMITED, 11/30/2022, 10:40 COMPARISON: MG MAMM SCREEN HARMONY W CAD, 04/25/2020. MG MAMM SCREEN HARMONY W CAD, 11/11/2018. MG MAMM HARMONY SCRN W CAD DIG, 05/20/2015. MG MAMM SCREEN 3D HARMONY CAD, 08/06/2022. INDICATIONS: Abnormal findings on diagnostic imaging of breast Calculator Name NCI Breast Cancer Risk Assessment Tool 5 Year Breast Cancer Risk 0.90% Lifetime Breast Cancer Risk 10.70% Personal Breast Cancer No Personal Ovarian Cancer No Treatments None Family Cancers None LOCATION: [facility] BREAST COMPOSITION: Extremely dense, which lowers the sensitivity of mammography. FINDINGS: DIAGNOSTIC CATEGORY 2--BENIGN FINDING: LEFT BREAST: Mammographic views demonstrate a 2.1 cm partially circumscribed mass versus cyst within the mid breast. Ultrasound evaluation demonstrates a 2.1 x 1.7 x 1.0 cm benign appearing simple cyst at the 12 o'clock position, 0.5 cm from the nipple. Annual screening mammography is recommended. RECOMMENDATIONS: ROUTINE MAMMOGRAM AND CLINICAL EVALUATION IN 12 MONTHS. PLEASE NOTE: A NORMAL MAMMOGRAM DOES NOT EXCLUDE THE POSSIBILITY OF BREAST CANCER. A CLINICALLY SUSPICIOUS PALPABLE LUMP SHOULD BE BIOPSIED. Dictated by: Madi Mason M.D. on 11/30/2022 at 10:38 Approved by: Madi Mason M.D. on 11/30/2022 at 10:47 Normal [facility] MG MAMM SCREEN 3D HARMONY CADon 08-06-2022 MG MAMM SCREEN 3D HARMONY CAD Patient: AGUSTO MADDOX Exam Date: 08/06/2022 : 1980 Gender:F Ordering : DR FABIAN MEEKS . Admission #: [id number] Family : Order #: [id number] CLICK HERE TO VIEW EXAM RADIOLOGY REPORT PROCEDURE: MAMMOGRAM SCREENING 3D BILATERAL CAD COMPARISON: MG MAMM SCREEN HARMONY W CAD, 11/11/2018. MG MAMM SCREEN HARMONY W CAD, 04/25/2020. INDICATIONS: Screening for malignant neoplasm of breast Calculator Name NCI Breast Cancer Risk Assessment Tool 5 Year Breast Cancer Risk 0.90% Lifetime Breast Cancer Risk 10.70% Personal Breast Cancer No Personal Ovarian Cancer No Treatments None Family Cancers None LOCATION: [facility] BREAST COMPOSITION: Extremely dense, which lowers the sensitivity of mammography. FINDINGS: DIAGNOSTIC CATEGORY 0--INCOMPLETE: NEED ADDITIONAL IMAGING EVALUATION. Scattered benign-appearing calcifications are present. RIGHT BREAST: No significant suspicious finding. LEFT BREAST: New well-circumscribed 1.5 cm nodule identified in the upper inner quadrant anterior mid breast. Spot imaging and ultrasound follow-up recommended. RECOMMENDATIONS: ADDITIONAL MAMMOGRAPHIC VIEWS REQUIRED: LEFT BREAST - compression upper inner ULTRASOUND: LEFT BREAST PLEASE NOTE: A NORMAL MAMMOGRAM DOES NOT EXCLUDE THE POSSIBILITY OF BREAST CANCER. A CLINICALLY SUSPICIOUS PALPABLE LUMP SHOULD BE BIOPSIED. Dictated by: Rick Wilson MD on 08/07/2022 at 10:32 Approved by: Rick Wilson MD on 08/07/2022 at 10:35 Normal [facility] CBC AUTO DIFFon 07-29-2022 BASO # 0.1 103/ul Normal 0.0-0.1 [facility] Comment on above: Performed By: #### C BC #### [facility] [address] [place] [address] Dr. Haydee Chen Basophils/100 WBC (Bld) 1.2 % Normal 0.2-2.0 [facility] Comment on above: Performed By: #### C BC #### [facility] [address] [place] [address] Dr. Haydee Chen EO # 0.1 103/ul Normal 0.0-0.7 [facility] Comment on above: Performed By: #### C BC #### [facility] [address] [place] [address] Dr. Haydee Chen Eosinophils/100 WBC (Bld) 1.6 % Normal 0.9-7.0 [facility] Comment on above: Performed By: #### C BC #### [facility] [address] [place] [address] Dr. Haydee Chen Erythrocyte distribution width (RBC) [Ratio] 12.2 % Normal 11.0-15.0 [facility] Comment on above: Performed By: #### C BC #### [facility] [address] [place] [address] Dr. Haydee Chen Hematocrit (Bld) [Volume fraction] 36.6 % Normal 36.0-48.0 [facility] Comment on above: Performed By: #### C BC #### [facility] [address] [place] [address] Dr. Haydee Chen Hemoglobin (Bld) [Mass/Vol] 12.1 g/dL Normal 12.0-16.0 [facility] Comment on above: Performed By: #### C BC #### [facility] [address] [place] [address] Dr. Haydee Chen IG # 0.01 10e3/ul Normal 0.00-0.03 [facility] Comment on above: Performed By: #### C BC #### [facility] [address] [place] [address] Dr. Haydee Chen IG % 0.2 % Normal 0.0-0.5 [facility] Comment on above: Performed By: #### C BC #### [facility] [address] [place] [address] Dr. Haydee Chen LYMPH # 1.9 103/ul Normal 1.2-3.8 [facility] Comment on above: Performed By: #### C BC #### [facility] [address] [place] [address] Dr. Haydee Chen Lymphocytes/100 WBC (Bld) 32.2 % Normal 20.5-60.0 [facility] Comment on above: Performed By: #### C BC #### [facility] [address] [place] [address] Dr. Haydee Chen MANUAL DIFF REQ NO Normal [facility] Comment on above: Performed By: #### C BC #### [facility] [address] [place] [address] Dr. Haydee Chen MCH (RBC) [Entitic mass] 29.7 pg Normal 26.7-34.0 [facility] Comment on above: Performed By: #### C BC #### [facility] [address] [address] [address] Haydee Chen MCHC (RBC) [Mass/Vol] 33.1 g/dL Normal 29.9-35.2 [facility] Comment on above: Performed By: #### C BC #### [facility] [address] [place] [address] Dr. Haydee Chen MCV (RBC) [Entitic vol] 89.7 fL Normal 81.0-99.0 [facility] Comment on above: Performed By: #### C BC #### [facility] [address] [place] [address] Dr. Haydee Chen MONO # 0.5 103/ul Normal 0.3-0.8 [facility] Comment on above: Performed By: #### C BC #### [facility] [address] [place] [address] Dr. Haydee Chen Monocytes/100 WBC (Bld) 9.2 % Normal 1.7-12.0 [facility] Comment on above: Performed By: #### C BC #### [facility] [address] [place] [address] Dr. Haydee Chen NEUT # 3.2 103/ul Normal 1.4-6.5 [facility] Comment on above: Performed By: #### C BC #### [facility] [address] [place] [address] Dr. Haydee Chen Neutrophils/100 WBC (Bld) 55.6 % Normal 43.0-75.0 [facility] Comment on above: Performed By: #### C BC #### [facility] [address] [place] [address] Dr. Haydee Chen Platelet mean volume (Bld) [Entitic vol] 9.4 fL Critically low 9.5-13.5 [facility] Comment on above: Performed By: #### C BC #### [facility] [address] [place] [address] Dr. Haydee Chen PLT 316 103/ul Normal 150-450 [facility] Comment on above: Performed By: #### C BC #### [facility] [address] [place], [place] [id number] Dr. Haydee Chen RBC 4.08 106/ul Critically low 4.20-5.40 [facility] Comment on above: Performed By: #### C BC #### [facility] [address] [address] [address] Haydee Chen WBC 5.8 103/ul Normal 4.0-11.0 [facility] Comment on above: Performed By: #### C BC #### [facility] [address] [place] [address] Dr[address] Haydee Chen [facility]on SARS-CoV-2 (COVID-19) RNA SARAH+probe Ql (Unsp spec) Not detected Normal NOT DETECTED [facility] Comment on above: Result Comment: This test is not yet approved or cleared by the [place] FDA. When there are no FDA-approved or cleared tests available, and other criteria are met, FDA can make tests available under an emergency access mechanism called an Emergency Use Authorization (EUA). The EUA for this test is supported by the [employer] Sales Representative of Health and Human Service's (HHS's) declaration that circumstances exist to justify the emergency use of in vitro diagnostics for the detection and/or diagnosis of the virus that causes COVID-19. This EUA will remain in effect (meaning this test can be used) for the duration of the COVID-19 declaration justifying emergency of IVDs, unless it is terminated or revoked by FDA (after which the test may no longer be used). When diagnostic testing is negative, the possibility of a false negative should be considered in the context of a patient's recent exposures and the presence of clinical signs and symptoms consistent with SARS-CoV-2. Performed By: #### C VDTBH ####[facility] [address] [place] [id number] Chen PREG QUANT HCGon 07-29-2022 HCG QUANT <1 Normal [facility] Comment on above: Performed By: #### T SH, PREGQNT ####[facility] [address] [place] [id number] Chen HCG RANGE SEE BELOW Normal [facility] Comment on above: Result Comment: 5-50 0.2-1 WEEK 50-500 1-2 WEEKS 100-5,000 2-3 WEEKS 500-10,000 3-4 WEEKS 1,000-50,000 4-5 WEEKS 10,000-100,000 5-6 WEEKS 15,000-200,000 6-8 WEEKS 10,000-100,000 2-3 MONTHS Performed By: #### T SH, PREGQNT ####[facility] [address] [place] [address]Dr. Haydee Chen PROTIMEon 07-29-2022 INR Coag (PPP) [Relative time] 0.97 {INR} Normal [facility] Comment on above: Performed By: #### P T, PTT #### [facility] [address] [place] [address] Dr. Haydee Chen INR GUIDELINES SEE BELOW Normal [facility] Comment on above: Result Comment: VINCE RED INR: 2.0 - 3.0 CONDITIONS NOT LISTED BELOW 2.5 - 3.5 FOR PROSTHETIC HEART VALVE REPLACEMENT 2.5 - 3.5 RECURRENT THROMBOSIS Performed By: #### P T, PTT #### [facility] [address] [place] [address] Dr. Haydee Chen PT Coag (PPP) [Time] 10.5 s Normal 9.0-11.6 [facility] Comment on above: Performed By: #### P T, PTT #### [facility] [address] [place] [address] Dr. Haydee Chen PTTon 07-29-2022 aPTT Coag (Bld) [Time] 30.2 s Normal 22.3-36.2 [facility] Comment on above: Performed By: #### P T, PTT #### [facility] [address] [place] [address] Dr. Haydee Chen TSHon 07-29-2022 TSH 1.062 uIU/mL Normal 0.358-3.740 [facility] [place] Comment on above: Performed By: #### T SH, PREGQNT ####[facility] [address] [place] [address]Dr. Haydee Chen US PELVIS AND TRANSVAGon US PELVIS AND TRANSVAG EXAMINATION: US PELVIS AND TRANSVAG HISTORY: Pelvic and perineal pain ; heavy, irregular periods for one and half years COMPARISON: Ultrasound pelvis 04/25/2020 TECHNIQUE: Transabdominal and transvaginal sonographic examination. FINDINGS: UTERUS: Normal size and appearance. Uterus size: 8.4 x 4.1 x 7.1 cm ENDOMETRIUM: Normal homogeneous appearance. Endometrial thickness: 7 mm RIGHT OVARY: Normal size and appearance. Duplex Doppler demonstrates normal waveform and flow; resistive index 0.7. Ovary size: 3.3 x 1.8 x 2.4 cm LEFT OVARY: Contains a 3.3 cm predominantly anechoic cyst. Duplex Doppler demonstrates normal waveform and flow; resistive index 0.7. Ovary size: 4.8 x 2.8 x 4.1 cm CUL-DE-SAC: Unremarkable. No significant free fluid. BLADDER: Unremarkable. OTHER: None. IMPRESSION: 1. Left ovary contains a 3.3 cm cyst favoring benign etiology. Consider follow-up ultrasound evaluation in 6 weeks to document regression. 2. Unremarkable uterus and endometrium. No suspicious findings to account for patient's symptoms. Electronically authenticated by: MADI MASON Date: 2022-07-21 11:45 Normal [facility] PAP ACOG PANEL 2: 30 to 65on 04-11-2022 . . Normal [facility] Comment on above: Result Comment: Perf ormed at: WB Performed By: #### [id number] ####[facility] [address] [place] [id number] Chen Age Gdln ACOG Testing 30-65 Normal [facility] Comment on above: Performed By: #### [id number] ####[facility] [address] [place], [place] [address]GeAshley Chen DIAGNOSIS: Comment Normal [facility] Comment on above: Result Comment: NEGA TIVE FOR INTRAEPITHELIAL LESION OR MALIGNANCY. Performed at: WB Performed By: #### [id number] ####[facility] [address] [place] [id number] Chen HPV Aptima Negative Normal Negative [facility] Comment on above: Result Comment: This nucleic acid amplification test detects fourteen high-risk HPV types (16,18,31,33,35,39,45,51,52,56,58,59,66,68) without differentiation. Performed at: =G Performed By: #### [id number] ####[facility] [address] [place] [address]DrAshley Chen Methodology: Comment [facility] [place] [facility] Comment on above: Result Comment: This liquid based ThinPrep(R) pap test was screened with the use of an image guided system. Performed at: WB Performed By: #### [id number] ####[facility] [address] [place] [address]DrAshley Chen Note: Comment [facility] [place] [facility] Comment on above: Result Comment: The Pap smear is a screening test designed to aid in the detection of premalignant and malignant conditions of the uterine cervix. It is not a diagnostic procedure and should not be used as the sole means of detecting cervical cancer. Both false-positive and false-negative reports do occur. . Performed at: WB Performed By: #### [id number] ####[facility] [address] [place] [address]Dr. Haydee Chen Performed by: Comment Normal [facility] [place] Comment on above: Result Comment: Tracy Sweeney, Independent Insurance Adjuster (ASCP) Performed at: WB Performed By: #### [id number] ####[facility] [address] [place], [place] [address]DrAshley Chen Specimen adequacy: Comment Normal [facility] Comment on above: Result Comment: Sati sfactory for evaluation. Endocervical and/or squamous metaplastic cells (endocervical component) are present. Performed at: WB Performed By: #### 4 [id number] ####[facility] [address] [place] [address]DrAshley Chen Physician Referralon 021 Physician Referral [id number] #1.00CD:127 Normal [facility] Physician Referralon 021 Physician Referral [id number] #1.00CD:127 Normal [facility] Vital Signs Date Time Vital Sign Value Performing Clinician Facility 11-23-2023 11:37-0500 Body height 162.56 cm MD Leslie Bates Work Phone: [facility] 11-23-2023 11:37-0500 Body mass index (BMI) [Ratio] 19.1 kg/m2 MD Leslie Bates Work Phone: [facility] 11-23-2023 11:37-0500 Body weight 50.4 kg MD Leslie Bates Work Phone: [facility] 11-23-2023 11:37-0500 Diastolic blood pressure 88 mm[Hg] MD Leslie Bates Work Phone: [facility] 11-23-2023 11:37-0500 Heart rate 96 /min MD Leslie Bates Work Phone: [facility] 11-23-2023 11:37-0500 Systolic blood pressure 125 mm[Hg] MD Leslie Bates Work Phone: [facility] 07-23-2023 11:45-0400 Body height 162.56 cm Leslie Bates Other [facility] Other 07-23-2023 11:45-0400 Body mass index (BMI) [Ratio] 19.36 kg/m2 Leslie Bates Other [facility] Other 07-23-2023 11:45-0400 Body weight 51.17 kg Leslie Bates Other [facility] Other 07-23-2023 11:45-0400 Diastolic blood pressure 70 mm[Hg] Leslie Bates Other [facility] Other 07-23-2023 11:45-0400 Systolic blood pressure 142 mm[Hg] Leslie Bates Other [facility] Other 06-17-2023 15:40-0400 Body height 162.56 cm Lorena Newell Other [facility] Other 06-17-2023 15:40-0400 Body mass index (BMI) [Ratio] 19.12 kg/m2 Lorena Newell Other [facility] Other 06-17-2023 15:40-0400 Body temperature 97.8 [degF] Lorena Newell Other [facility] Other 06-17-2023 15:40-0400 Body weight 50.53 kg Lorena Newell Other [facility] Other 06-17-2023 15:40-0400 Diastolic blood pressure 78 mm[Hg] Lorena Newell Other [facility] Other 06-17-2023 15:40-0400 Respiratory rate 18 /min Lorena Newell Other [facility] Other 06-17-2023 15:40-0400 SaO2% (BldA) [Mass fraction] 98 % Lorena Newell Other [facility] Other 06-17-2023 15:40-0400 Systolic blood pressure 134 mm[Hg] Lorena Newell Other [facility] Other 01-14-2023 15:45-0400 Body height 162.56 cm Leslie Bates Other [facility] Other 01-14-2023 15:45-0400 Body mass index (BMI) [Ratio] 19.39 kg/m2 Leslie Bates Other [facility] Other 01-14-2023 15:45-0400 Body weight 51.26 kg Leslie Bates Other [facility] Other 01-14-2023 15:45-0400 Diastolic blood pressure 60 mm[Hg] Leslie Bates Other [facility] Other 01-14-2023 15:45-0400 SaO2% (BldA) [Mass fraction] 99 % Leslie Bates Other [facility] Other 01-14-2023 15:45-0400 Systolic blood pressure 108 mm[Hg] Leslie Bates Other [facility] Other Encounters Encounter Date Encounter Type Care Provider Facility Start: 02-17-2024 End: 02-17-2024 ambulatory PAULETTE KELBLEY Not Available Start: 02-15-2024 End: 02-15-2024 ambulatory PAULETTE KELBLEY Not Available Start: 02-10-2024 End: 02-10-2024 ambulatory PAULETTE KELBLEY Not Available Start: 02-08-2024 End: 02-08-2024 ambulatory PAULETTE KELBLEY Not Available Start: 02-03-2024 End: 02-03-2024 ambulatory PAULETTE KELBLEY Not Available Start: 02-01-2024 End: 02-01-2024 ambulatory PAULETTE KELBLEY Not Available Start: 01-27-2024 End: 01-27-2024 ambulatory PAULETTE KELBLEY Not Available Start: 01-25-2024 End: 01-26-2024 ambulatory ANDREA GRIMM Not Available Start: 01-11-2024 End: 01-11-2024 ambulatory Leslie Bates Facility:[facility] Start: 01-11-2024 End: 01-11-2024 ambulatory MD Leslie Bates Work Phone: [facility] Work Phone: Start: 01-11-2024 End: 01-11-2024 Patient encounter procedure MD Leslie Bates Work Phone: [facility] [address] Work Phone: Start: 11-23-2023 End: 11-23-2023 Patient encounter procedure MD Leslie Bates Work Phone: [facility] Physician [facility] Work Phone: Start: 11-15-2023 End: 11-15-2023 ambulatory FABIAN MEEKS Not Available Start: 11-09-2023 Non-patient / Non-visit MD Adeline Bates Work Phone: [facility] Physician [facility] Professional [employer] Work Phone: Start: 10-08-2023 End: 10-08-2023 ambulatory Leslie Bates Other [facility] Other Start: 10-08-2023 Encounter by [employer] Leslie Bates [facility] Start: 09-09-2023 End: 09-09-2023 ambulatory Leslie Bates Other [facility] Other Start: 09-09-2023 Encounter by [employer] Leslie Bates [facility] Start: 08-13-2023 End: 08-13-2023 ambulatory Leslie Bates Other [facility] Other Start: 08-13-2023 Telephone encounter Leslie Bates [facility] Start: 08-05-2023 End: 08-05-2023 ambulatory Leslie Bates Other [facility] Other Start: 08-05-2023 Telephone encounter Leslie Bates [facility] Start: 07-27-2023 End: 07-27-2023 ambulatory Leslie Bates Other [facility] Other Start: 07-27-2023 Telephone encounter Leslie Bates [facility] Start: 07-23-2023 End: 07-23-2023 ambulatory Leslie Bates Other [facility] Other Start: 07-23-2023 Office outpatient vi sit 15 minutes Leslie Bates [facility] Start: 07-20-2023 End: 07-20-2023 ambulatory Leslie Bates Other [facility] Other Start: 07-20-2023 Telephone encounter Leslie Bates [facility] [place] Start: 07-16-2023 End: 07-16-2023 ambulatory Leslie Bates Other [facility] Other Start: 07-16-2023 Telephone encounter Leslie Bates [facility] Start: 06-17-2023 End: 06-17-2023 ambulatory Lorena Newell Other [facility] Other Start: 06-17-2023 Office outpatient vi sit 15 minutes Lorena Newell [facility] Start: 05-26-2023 End: 05-26-2023 ambulatory Leslie Bates Other [facility] Other Start: 05-26-2023 Office outpatient vi sit 15 minutes Leslie Bates [facility] Start: 05-17-2023 End: 05-17-2023 ambulatory Leslie Bates Other [facility] Other Start: 05-17-2023 Encounter by deja Bates [facility] Start: 05-04-2023 End: 05-04-2023 ambulatory Leslie Bates Other [facility] Other Start: 05-04-2023 Telephone encounter Leslie Bates [facility] Start: 04-21-2023 End: 04-21-2023 ambulatory Jesús Gallardo Other [facility] Other Start: 04-21-2023 Telephone encounter Jesús Gallardo [facility] Start: 02-22-2023 End: 02-22-2023 ambulatory Leslie Bates Other [facility] Other Start: 02-22-2023 Telephone encounter Leslie Bates [facility] Start: 01-28-2023 End: 01-28-2023 ambulatory Leslie Bates Other [facility] Other Start: 01-28-2023 Telephone encounter Leslie Bates [facility] Start: 01-22-2023 End: 01-22-2023 ambulatory Leslie Bates Other [facility] Other Start: 01-22-2023 Telephone encounter Leslie Bates [facility] Start: 01-19-2023 End: 01-19-2023 ambulatory Leslie Bates Other [facility] Other Start: 01-19-2023 Telephone encounter Leslie Bates [facility] Start: 01-18-2023 End: 01-19-[address] LESLIE BATES Facility:[facility] Start: 01-14-2023 End: 01-14-2023 ambulatory Leslie Bates Other [facility] Other Start: 01-14-2023 Office outpatient vi sit 25 minutes Leslie Bates [facility] Start: 11-30-2022 End: 12-01-[address] FABIAN MEEKS . Facility:[facility] Start: 09-13-2022 Gynecological examination normal Jesús Gallardo Other [facility] Other Start: 09-13-2022 Pre-procedure evalua tion check Jesús Gallardo Other [facility] Other Start: 08-06-2022 End: 08-07-[address] FABIAN MEEKS . Facility:[facility] Start: 08-03-2022 Encounter for preprocedural laboratory examination DR FABIAN MEEKS . [facility] Start: 07-31-2022 End: 07-31-[address] FABIAN MEEKS . Facility:[facility] Start: 07-29-2022 End: 07-30-[address] FABIAN MEEKS . Facility:[facility] Start: 07-29-2022 End: 07-30-2022 Encounter for preprocedural laboratory examination DR FABIAN MEEKS . Facility:[facility] Start: 07-23-2022 Encounter for other preprocedural examination DR FABIAN MEEKS . [facility] Start: 07-21-2022 End: 07-22-[address] FABIAN MEEKS . Facility:[facility] Start: 07-21-2022 End: 07-22-2022 Encounter for other preprocedural examination DR FABIAN MEEKS . Facility:[facility] Start: 06-25-2022 Adult health examination Yaya landers Sami Other [facility] Other Start: 04-07-2022 End: 04-07-[address] FABIAN MEEKS . Facility: Procedures Date Procedure Procedure Detail Performing Clinician Depression screening Arely Galladro Other Screening for malign ant neoplasm of breast Jesús Sami Other Viral screening Jesús gonzalez Other Plan of Treatment Date Care Activity Detail Author Start: 11-25-2023 Patient referral [facility] [place] [facility] Work Phone: Patient referral [facility] Work Phone: Immunizations Immunization Date Immunization Notes Care Provider Fa cili 05-25-2020 influenza virus vaccine, split virus (incl. purified surface antigen) Jesús Sami Other [facility] Other 05-25-2020 influenza virus vaccine, unspecified formulation MD Leslie Bates Work Phone: [facility] 05-22-2014 influenza, seasonal, injectable Leslie Bates Other [facility] NEGATED: Highlighted row has not occurred!11-19-2015 pneumococcal polysaccharide vaccine, 23 valent Leslie Bates Other [facility] Other Payers Date Payer Category Payer Self-pay 1980 Unknown [id number] 2.16.84 [id number] 1978 Unknown [id number] 2.16.84 0.1.128435.3.579.2.593 1978 Unknown [id number] 2.16.84 0.1.972828.3.579.2.593 1978 Unknown [id number] 2.16.84 0.1.424390.3.579.2.593 1978 Unknown [id number] 2.16.84 0.1.175125.3.579.2.593 1978 Unknown [id number] 2.16.84 0.1.990035.3.579.2.593 1978 Unknown [id number] 2.16.84 0.1.978499.3.579.2.593 1978 Unknown [id number] 2.16.84 0.1.946124.3.579.2.1259 1978 Unknown [id number] 2.16.84 0.1.390307.3.579.2.9 1978 Unknown [id number] 2.16.84 0.1.104221.3.579.2.1259 1978 Unknown [id number] 2.16.84 0.1.680831.3.579.2.1259 1978 Unknown [id number] 2.16.84 0.1.292939.3.579.2.1259 1978 Unknown [id number] 2.16.84 0.1.324323.3.579.2.1259 1978 Unknown [id number] 2.16.84 0.1.359888.3.579.2.1259 1978 Unknown [id number] 2.16.84 0.1.103781.3.579.2.1259 1978 Unknown [id number] 2.16.84 0.1.145946.3.579.2.1259 1959 Unknown [id number] 2. 16.840.1.486823.19 Unknown [id number] 2.16.8 40.1.764380.3.579.2.531 Social History Date Type Detail Facility Sex Assigned At [facility] Other Start: 07-23-2023 Tobacco smoking stat [facility] Smoker (finding) [facility] Start: 1980 Sex Assigned At Female F [facility] Clinical Notes 07-31-2022 to 10-08-2023 Note Date & Type Note Facility 10-08-2023 Evaluation note Encounter Date Diagnosis Assessment Notes Sep, Adult ADHD (ICD-10 - F90.9) [facility] Other 12-21-2023 Evaluation note* Encounter Date Diagnosis Assessment Notes Treatment Notes Treatment Clinical Notes Aug, Adult ADHD (ICD-10 - F90.9) [facility] Other 11-24-2023 Evaluation note* Encounter Date Diagnosis Assessment Notes Treatment Notes Treatment Clinical Notes Jul, Adult ADHD (ICD-10 - F90.9) [facility] Other 11-03-2023 Evaluation note* Encounter Date Diagnosis Assessment Notes Treatment Notes Treatment Clinical Notes Jul, Autoimmune disorder (ICD-10 - D89.89) She has been to dermatology several times. She states she had a pathology report after a punch biopsy was done on her scalp. She was told that the pathology report was normal. She has understandably been under stress questioning if she has mold in her house, her pets are ill. She questions if her family members have this problem as well. Agrees to blood test to rule out any other autoimmune abnormalities as she has sores in her mouth as well as linear areas of erythema on her arms bald area in the center of her scalp. Jul, Rash and nonspecific skin eruption (ICD-10 - R21) Advise she is very mild shampoo such as baby shampoo or dove products Gave her the number for Dr. Chavarria's office for a second opinion. No further antifungal creams or shampoos on her scalp at this time she gave me verbal consent to forward this information to Dr. Chavarria [facility] Other 10-27-2023 Evaluation note* Encounter Date Diagnosis Assessment Notes Treatment Notes Treatment Clinical Notes Jun, Adult ADHD (ICD-10 - F90.9) [facility] Other 09-28-2023 Evaluation note* Encounter Date Diagnosis Assessment Notes Treatment Notes Treatment Clinical Notes May, Rash and nonspecific skin eruption (ICD-10 - R21) Discussed diagnosis with patient today in office. Patient has finished steroids and antibiotics with no improvement of symptoms. I advised patient that I can send her in Rx of mupirocin to apply to laceration that has been caused by surface trauma. Advised patient that she needs to stop picking at the area, as she is causing herself an increase in infection. Advised patient that we can send in Rx of ketoconazole shampoo to see if this improves symptoms overall. Recommended follow-up with PCP or Derm in 1 week. Advised patient that she needs to monitor for worsening signs/symptoms of infection, pus or drainage from site, odor, red streaking, fevers, or if any new or concerning symptoms arise. Patient verbalizes understanding and is agreeable with treatment plan [facility] Other 09-06-2023 Evaluation note* Encounter Date Diagnosis Assessment Notes Treatment Notes Treatment Clinical Notes May, Impetigo (ICD-10 - L01.00) Discussed differential. Unsure how she could have impetigo but will treat based on the yellow appearance at the surface of the dermis. She will call and followup w dermatology. [facility] Other 08-28-2023 Evaluation note* Encounter Date Diagnosis Assessment Notes Treatment Notes Treatment Clinical Notes Apr, Adult ADHD (ICD-10 - F90.9) [facility] Other 08-15-2023 Evaluation note* Encounter Date Diagnosis Assessment Notes Treatment Notes Treatment Clinical Notes Apr, Contact dermatitis, unspecified contact dermatitis type, unspecified trigger (ICD-10 - L25.9) [facility] Other 08-02-2023 Evaluation note* Encounter Date Diagnosis Assessment Notes Treatment Notes Treatment Clinical Notes Apr, Adult ADHD (ICD-10 - F90.9) [facility] Other 06-05-2023 Evaluation note* Encounter Date Diagnosis Assessment Notes Treatment Notes Treatment Clinical Notes Feb, Adult ADHD (ICD-10 - F90.9) [facility] Other 05-05-2023 Evaluation note* Encounter Date Diagnosis Assessment Notes Treatment Notes Treatment Clinical Notes January, Adult ADHD (ICD-10 - F90.9) [facility] Other 04-27-2023 Evaluation note* Encounter Date Diagnosis Assessment Notes Treatment Notes Treatment Clinical Notes Dec, Other fatigue (ICD-10 - R53.83) Discussed possible metabolic causes Dec, Irregular menses (ICD-10 - N92.6) will check hormones - followup w cotton opener Dec, Adult ADHD (ICD-10 - F90.9) will increase dose with next rx Dec, Cervical lymphadenitis (ICD-10 - I88.9) antibiotic prescribed. Work note given. [facility] Other 11-11-2022 NoteOPERATIVE NOTE OPERATION DATE: 07/31/2022 PROCEDURE: Kathe endometrial ablation. PREOPERATIVE DIAGNOSIS: Menorrhagia. POSTOPERATIVE DIAGNOSIS: Menorrhagia. ANESTHESIA: General. SURGEON: Fabian Meeks D.O. [employer] INTERNSHIP: None. BLOOD LOSS: 5 mL. URINE OUTPUT: Yellow and clear. SPECIMEN: None. FINDING: Normal appearing cavity. No gross evidence of polyps, fibroids, malignancy. Both ostia seen. PROCEDURE: The patient was taken back to the OR where she was prepped and draped in the normal sterile fashion after being placed in the dorsal lithotomy position, after being placed under general anesthesia without difficulty. A weighted speculum was placed into the vagina. The anterior lip was grasped with a single tooth tenaculum. The patient was then sounded to approximated 8 cm. The patient's cervix was gently dilated using Hegar dilators. The hysteroscope was passed through the cervix into the uterus where both ostia were seen. No gross evidence of polyps, fibroids or malignancy. The cervical length was noted to be 4 cm. The total cavity length is 4 cm. The Kathe ablation apparatus was set to approximately 4 cm in length. This was placed through the cervix and into the uterus. After the seal was tested, at that time the total ablation of 120 seconds was performed with the Kathe without difficulty. All instruments were removed from the vagina. Excellent hemostasis noted. Sponge and lap count correct times 2. Patient taken to recovery in stable condition.[facility] complaint+Reason for visit Narrative* Chief Complaint Amb Documentation autoimmune issues - referrals Reason for Visit Autoimmune disorder [facility] Work Phone[facility] Other Evaluation note* Diagnosis Onset Date Resolution Status Autoimmune disorder acute [facility] Work Phone: History general Narrative - Reported* Type Description Date Medical History ANXIETY Medical History FATIGUE Medical History MIGRAINE Medical History subclinical hyperthyroidism Surgical History 2006 Hospitalization History SEE SURGICAL HX [facility] Other Summary Purpose Family History No Family History Records Found Relationship Condition Age at Onset Recorded Date/T laury Not Specified Hypertension Unknown Family history of mental disorder Unknown Advance Directives No Advanced Directives Records Found Advance Directive Response Recorded Date/ Time Advance Directives No November 22 24 10:18am Reason for Referral Reason *FU 05/11 Puritis and response from OV on 04/30. Diagnosis 1 Contact dermatitis, unspecified contact dermatitis type, unspecified trigger (L25.9) Referral Organization [facility] Referring Provider First Name Leslie Referring Provider Last Name Jana Referring Provider [facility] Referred Organization [facility] Referred Provider Kim Fuentes Referred Address [address],[place], [place],[address] Referred Provider Specialty Dermatology Referral Priority Routine General Notes Ema Mensah 12:57:31 PM >received today, attachments made, notes locked, referral faxed Additional Source Comments INFORMATION SOURCE (unrecogn ized section and content) DATE CREATED AUTHOR 11/04/2021 Reaves Meiaoju [facility] DATE CREATED AUTHOR AUTHOR'S ORGANIZ ATION 01/23/2023 [facility] DATE CREATED AUTHOR AUTHOR'S ORGANIZ ATION 01/18/2024 [facility] DATE CREATED AUTHOR AUTHOR'S ORGANANA ATION 02/18/2024 [facility] EPIC REASON FOR VISIT (unrecogniz ed section and content) not feeling well, medication discussionrefillrefillPink EyerefillrefillreferralNew Refill RequestRash getting worseRASH ON SCALP SPREADING TO ARMSRefillPTRashlabslabRefillNew Refill RequestNew Refill Request Care Teams (unrecognized sec tion and content) Team Status: Active Member Role Status Dates Leslie Bates MD Primary Care Provider Active Team Status: Active Member Role Status Dates Leslie Bates MD Primary Care Provider Active Start: November 09, 2023 BARRETT Lindsey Attending Provider Active Start : November 09, 2023 Team Status: Inactive Member Role Status Dates Leslie Bates MD Primary Care Provide r, Attending Provider Active Start: November 23, 2023 End: November 23, 2023 Team Status: Inactive Member Role Status Dates Leslie Bates MD Primary Care Provider Active Start: January 11, 2024 End: January 11, 2024 Kylie Sands MD Attending Provider Active St art: January 11, 2024 End: January 11, 2024 Goals (unrecognized section and content) Goals may be documented in a n alternate section FOR RECORDS PERTAINING TO PATIENTS WHO ARE OR HAVE BEEN ENROLLED IN A CHEMICAL DEPENDENCY/SUBSTANCEABUSE PROGRAM, SOME INFORMATION MAY BE OMITTED. This clinical summary was aggregated from multiple sources. Caution should be exercised in using it in the provision of clinical care. This summary normalizes information from multiple sources, and as a consequence, information in this document may materially change the coding, format and clinical context of patient data. In addition, data may be omitted in some cases. CLINICAL DECISIONS SHOULD BE BASED ON THE PRIMARY CLINICAL RECORDS. [facility] [employer] [facility]. provides no warranty or guarantee of the accuracy or completeness of information in this document.
[2024-03-13 11:08] LABS: Age Gdln ACOG Testing Note (.); HPV Aptima Negative (Negative); IGP, Aptima HPV, rfx 16/18,45 Note (.)
== END 2024-03-07 20:03 | disposition home or self-care (01) ==
LOC: LAB 20:02
PROVIDERS: PCP Family Medicine; Visit Provider Obstetrics & Gynecology
DX: Z01.419 Encounter for gynecological examination (general) (routine) without abnormal findings (principal)
CPT/HCPCS: 87624; 88175

== ENCOUNTER 2024-06-29 15:59 | Outpatient (OUT) | payer OTHER, SELFPAY ==
--- OUTSIDE RECORDS SUMMARY | 2024-06-29 16:05 | XMS_ITS | CCD ---
Author Organization [facility] Care Team Providers Care Branch Maker Name Role Phone Leslie Bates Unavailable LEONA [...] LEONA ., DR PERALTA Primary Care Unavailable FRANKLIN, DR RICK Chi Consulting Unavailable LEONA ., [...] Sands Attending Unavailable Kylie Sands Admitting Unavailable LEONADALLASY Attending Unavailable SOLTON, ANDREA T Attending Unavailable HELIO, KYLIE Edmonds Referring Unavailable KELBLEY, PAULETTE Attending Unavailable HALADAY, [...] Attending Unavailable HALADAY, KYLIE G Referring Unavailable LEONADALLASY Attending Unavailable Allergies Allergy Classification Reported Allergen(s) Allergy Type Date of Onset Reaction(s) Facility (3 sources) patient allergy list reviewed by nurse or physicia Propensity to adverse reactions 6 Comment:Done Mabaya Other (3 sources) Allergies Reconciled Propensity to adverse reactions 1 Unknown Mabaya Other Medications Current Medications Medication Drug Class(es) Dates Sig (Normalized) Sig (Original) [id number] 200 actuat albuterol 0.09 mg/actuat metered dose [...] Start: 10-11-2023 take 1 tablet by scot th every [...] Start: 06-14-2023 take 1 tablet by scot th every [...] solution (15 sources) Quinolone Antimicrobial Start: 01-29-20 23 Start: 01-28-2023 Claritin-D 12 Hour 5-120 MG [...] 2023 1:00am take 1 capsule by mo [facility] every twenty-four hours Effexor XR 75 MG [...] on 01-11-2024 ALT [Catalytic activity/Vol] 24 U/L 7-52 [facility] Albumin [Mass/volume] in Ser um or Plasma by Bromocresol green (BCG) dye binding methoOrdered By: Kylie Sands on 01-11-2024 Albumin BCG dye [Mass/Vol] 4.2 g/dL 3.5-5.7 [facility] Alkaline phosphatase [Enzyma tic activity/volume] in Serum or PlasmaOrdered By: Kylie Sands on 01-11-2024 ALP [Catalytic activity/Vol] 65 U/L 34-104 [facility] Aspartate aminotransferase [ Enzymatic activity/volume] in Serum or PlasmaOrdered By: Kylie Sands on 01-11-2024 AST [Catalytic activity/Vol] 22 U/L 13-39 [facility] Basophils Auto (Bld) [#/Vol] Ordered By: Kylie Sands on 01-11-2024 Basophils (Bld) [#/Vol] 0.1 10*3/uL 0.0-0.2 [facility] Basophils/100 WBC Auto (Bld) Ordered By: Kylie Sands on 01-11-2024 Basophils/100 WBC (Bld) 2.4 % . [facility] Bilirubin.total [Mass/volume ] in Serum or PlasmaOrdered By: Kylie Sands on 01-11-2024 Bilirubin [Mass/Vol] 0.3 mg/dL 0.3-1.0 [facility] C reactive protein [Mass/vol ume] in Serum or PlasmaOrdered By: Kylie Sands on 01-11-2024 CRP [Mass/Vol] < 0.5 mg/dL 0.0-0.5 [facility] C-Reactive Proteinon 024 CRP [Mass/Vol] mg/L Normal 0.0-0.5 [facility] Comment on above: Result Comment: PERF ORMED BY: [place] [address] PATHOLOGIST PLATE STRAIGHTENER DARIUS LOPEZ M.D. Performed By: #### E SR, CK, CMP, CRP, CBC #### [address] Calcium [Mass/volume] in Ser um or PlasmaOrdered By: Kylie Sands on 01-11-2024 Calcium [Mass/Vol] 8.9 mg/dL 8.6-10.3 [facility] Carbon dioxide, total [Moles /volume] in Serum or PlasmaOrdered By: Kylie Sands on 01-11-2024 CO2 [Moles/Vol] 31.6 mmol/L 21.0-31.0 [facility] Chloride [Moles/volume] in S asad or PlasmaOrdered By: Kylie Sands on 01-11-2024 Chloride [Moles/Vol] 103 mmol/L 98-107 [facility] Complete Blood Count Auto Di ffon 01-11-2024 Basophils (Bld) [#/Vol] 0.1 10*3/uL Normal 0.0-0.2 [facility] Comment on above: Performed By: #### E SR, CK, CMP, CRP, CBC #### [facility] [address] Basophils/100 WBC (Bld) 2.4 % Normal . T fer [facility] Comment on above: Performed By: #### E SR, CK, CMP, CRP, CBC #### [facility] [address] Eosinophils (Bld) [#/Vol] 0.1 10*3/uL Normal 0.0-0.45 [facility] Comment on above: Performed By: #### E SR, CK, CMP, CRP, CBC #### [address] Eosinophils/100 WBC (Bld) 1.8 % Normal . [facility] Comment on above: Performed By: #### E SR, CK, CMP, CRP, CBC #### [facility] [address] Erythrocyte distribution width (RBC) [Ratio] 13.4 % Normal 11.9-15.3 [facility] Comment on above: Performed By: #### E SR, CK, CMP, CRP, CBC #### [facility] [address] Hematocrit (Bld) [Volume fraction] 39.2 % Normal 34.0-46.4 [facility] Comment on above: Performed By: #### E SR, CK, CMP, CRP, CBC #### [address] Hemoglobin (Bld) [Mass/Vol] 13.1 g/dL Normal 11.8-15.4 [facility] Comment on above: Performed By: #### E SR, CK, CMP, CRP, CBC #### [address] Lymphocytes (Bld) [#/Vol] 1.4 10*3/uL Normal 1.00-4.8 [facility] Comment on above: Performed By: #### E SR, CK, CMP, CRP, CBC #### [address] Lymphocytes/100 WBC (Bld) 25.1 % Normal . [facility] Comment on above: Performed By: #### E SR, CK, CMP, CRP, CBC #### [address] MCH (RBC) [Entitic mass] 29.7 pg Normal 24.7-34.3 [facility] Comment on above: Performed By: #### E SR, CK, CMP, CRP, CBC #### [address] MCV (RBC) [Entitic vol] 89.2 fL Normal 80-100 [facility] Comment on above: Performed By: #### E SR, CK, CMP, CRP, CBC #### [address] Mean Corpuscular HGB Conc 33.4 g/dL Normal 32.0-35.0 [facility] Comment on above: Performed By: #### E SR, CK, CMP, CRP, CBC #### [address] Monocytes (Bld) [#/Vol] 0.5 10*3/uL Normal 0.0-0.8 [facility] Comment on above: Performed By: #### E SR, CK, CMP, CRP, CBC #### [place] [id number] [place] Monocytes/100 WBC (Bld) 8.3 % Normal . [facility] Comment on above: Performed By: #### E SR, CK, CMP, CRP, CBC #### [address] Neutrophils (Bld) [#/Vol] 3.4 10*3/uL Normal 1.8-7.7 [facility] Comment on above: Performed By: #### E SR, CK, CMP, CRP, CBC #### [address] Neutrophils/100 WBC (Bld) 62.4 % Normal . [facility] Comment on above: Performed By: #### E SR, CK, CMP, CRP, CBC #### [address] NRBC% 0.1 /100{WBC} Normal 0-0.5 [facility] Comment on above: Performed By: #### E SR, CK, CMP, CRP, CBC #### [address] Platelet mean volume (Bld) [Entitic vol] 9.0 fL Normal 6.3-10.7 [facility] Comment on above: Performed By: #### E SR, CK, CMP, CRP, CBC #### [place] [address] [place] Platelets (Bld) [#/Vol] 322 10*3/uL Normal 150-450 [facility] Comment on above: Performed By: #### E SR, CK, CMP, CRP, CBC #### [place] [address] [place] RBC (Bld) [#/Vol] 4.39 10*6/uL Normal 3.60-5.00 [facility] Comment on above: Performed By: #### E SR, CK, CMP, CRP, CBC #### [place] [address] [place] WBC (Bld) [#/Vol] 5.5 10*3/uL Normal 3.8-11.6 [facility] Comment on above: Performed By: #### E SR, CK, CMP, CRP, CBC #### [address] Comprehensive Metabolic Pane tyron 01-11-2024 Albumin [Mass/Vol] 4.2 g/dL Normal 3.5-5.7 [facility] Comment on above: Performed By: #### E SR, CK, CMP, CRP, CBC #### [address] Albumin/Globulin [Mass ratio] 1.8 {ratio} Normal [facility] Comment on above: Performed By: #### E SR, CK, CMP, CRP, CBC #### [address] ALP [Catalytic activity/Vol] 65 U/L Normal 34-104 [facility] Comment on above: Performed By: #### E SR, CK, CMP, CRP, CBC #### [address] ALT [Catalytic activity/Vol] 24 U/L Normal 7-52 [facility] Comment on above: Performed By: #### E SR, CK, CMP, CRP, CBC #### [address] Anion gap [Moles/Vol] 8.7 mmol/L Normal 6.0-15.0 [facility] Comment on above: Performed By: #### E SR, CK, CMP, CRP, CBC #### [address] AST [Catalytic activity/Vol] 22 U/L Normal 13-39 [facility] Comment on above: Performed By: #### E SR, CK, CMP, CRP, CBC #### [address] Bilirubin [Mass/Vol] 0.3 mg/dL Normal 0.3-1.0 [facility] Comment on above: Performed By: #### E SR, CK, CMP, CRP, CBC #### [address] Calcium [Mass/Vol] 8.9 mg/dL Normal 8.6-10.3 [facility] Comment on above: Performed By: #### E SR, CK, CMP, CRP, CBC #### [address] Chloride [Moles/Vol] 103 mmol/L Normal 98-107 [facility] Comment on above: Performed By: #### E SR, CK, CMP, CRP, CBC #### [address] CO2 [Moles/Vol] 31.6 mmol/L High 21.0-31.0 [facility] Comment on above: Performed By: #### E SR, CK, CMP, CRP, CBC #### [address] Creatinine [Mass/Vol] 0.60 mg/dL Normal 0.60-1.20 [facility] Comment on above: Performed By: #### E SR, CK, CMP, CRP, CBC #### [address] GFR/1.73 sq M.predicted MDRD (S/P/Bld) [Vol rate/Area] mL/min/{1.73_m2} Normal [facility] Comment on above: Performed By: #### E SR, CK, CMP, CRP, CBC #### [address] Globulin (S) [Mass/Vol] 2.4 g/dL Normal [facility] Comment on above: Performed By: #### E SR, CK, CMP, CRP, CBC #### [address] Glucose [Mass/Vol] 82 mg/dL Normal 70-100 [facility] Comment on above: Result Comment: [place] Glucose Reference Range is dependent on time and content of last meal. Glucose of more than 200 mg/dL in a nonstressed, ambulatory subject supports the diagnosis of Diabetes Mellitus. ADA recommended reference range Performed By: #### E SR, CK, CMP, CRP, CBC #### [address] Potassium [Moles/Vol] 4.3 mmol/L Normal 3.5-5.1 [facility] Comment on above: Performed By: #### E SR, CK, CMP, CRP, CBC #### [address] Protein [Mass/Vol] 6.6 g/dL Normal 6.4-8.9 [facility] Comment on above: Performed By: #### E SR, CK, CMP, CRP, CBC #### [address] Sodium [Moles/Vol] 139 mmol/L Normal 136-145 [facility] Comment on above: Performed By: #### E SR, CK, CMP, CRP, CBC #### [address] Urea nitrogen [Mass/Vol] 18 mg/dL Normal 7-25 [facility] Comment on above: Performed By: #### E SR, CK, CMP, CRP, CBC #### [address] Creatine Kinaseon 01-11-2024 CK [Catalytic activity/Vol] 257 U/L High [facility] Comment on above: Result Comment: PERF ORMED BY: [place] [address] PATHOLOGIST PLATE STRAIGHTENER DARIUS LOPEZ M.D. Performed By: #### E SR, CK, CMP, CRP, CBC #### [place] [address] [place] Creatine kinase [Enzymatic a ctivity/volume] in Serum or PlasmaOrdered By: Kyile Sands on 01-11-2024 CK [Catalytic activity/Vol] 257 U/L 30-223 [facility] Creatinine [Mass/volume] in Serum or PlasmaOrdered By: Kylie Sands on 01-11-2024 Creatinine [Mass/Vol] 0.60 mg/dL 0.60-1.20 [facility] Eosinophils Auto (Bld) [#/Vo l]Ordered By: Kylie Sands on 01-11-2024 Eosinophils (Bld) [#/Vol] 0.1 10*3/uL 0.0-0.45 [facility] Eosinophils/100 WBC Auto (Bl d)Ordered By: Kylie Sands on 01-11-2024 Eosinophils/100 WBC (Bld) 1.8 % . [facility] Erythrocyte Sedimentation Ra shekhar 01-11-2024 ESR (Bld) [Velocity] 3 mm/h Normal 0-19 [facility] Comment on above: Result Comment: PERF ORMED BY: [place] [address] PATHOLOGIST PLATE STRAIGHTENER DARIUS LOPEZ M.D. Performed By: #### E SR, CK, CMP, CRP, CBC #### [address] Erythrocyte distribution wid th Auto (RBC) [Ratio]Ordered By: Kylie Sands on 01-11-2024 Erythrocyte distribution width (RBC) [Ratio] 13.4 % 11.9-15.3 [facility] Erythrocyte sedimentation ra te by Photometric methodOrdered By: Kylie Sands on 01-11-2024 ESR Photometric method (Bld) [Velocity] 3 mm/hr 0-19 [facility] Globulin Calc (S) [Mass/Vol] Ordered By: Kylie Sands on 01-11-2024 Globulin (S) [Mass/Vol] 2.4 g/dL [facility] Glucose [Mass/volume] in Ser um or PlasmaOrdered By: Kylie Sands on 01-11-2024 Glucose [Mass/Vol] 82 mg/dL 70-100 [facility] Comment on above: ADA recommended refe rence rangeRandom Glucose Reference Range is dependent on time and content of last meal. Glucose of more than 200 mg/dL in a nonstressed, ambulatory subject supports the diagnosis of Diabetes Mellitus. Hematocrit Auto (Bld) [Volum e fraction]Ordered By: Kylie Sands on 01-11-2024 Hematocrit (Bld) [Volume fraction] 39.2 % 34.0-46.4 [facility] Hemoglobin [Mass/volume] in BloodOrdered By: Kylie Sands on 01-11-2024 Hemoglobin (Bld) [Mass/Vol] 13.1 g/dL 11.8-15.4 [facility] Leukocytes [#/volume] correc maurice for nucleated erythrocytes in Blood by Automated counOrdered By: Kylie Sands on 01-11-2024 WBC corrected for nucl RBC Auto (Bld) [#/Vol] 5.5 10*3/uL 3.8-11.6 [facility] Lymphocytes Auto (Bld) [#/Vo l]Ordered By: Kylie Sands on 01-11-2024 Lymphocytes (Bld) [#/Vol] 1.4 10*3/uL 1.00-4.8 [facility] Lymphocytes/100 WBC Auto (Bl d)Ordered By: Kylie Sands on 01-11-2024 Lymphocytes/100 WBC (Bld) 25.1 % . [facility] MCH Auto (RBC) [Entitic mass ]Ordered By: Kylie Sands on 01-11-2024 MCH (RBC) [Entitic mass] 29.7 pg 24.7-34.3 [facility] MCHC Auto (RBC) [Mass/Vol]Or dered By: Kylie Sands on 01-11-2024 MCHC (RBC) [Mass/Vol] 33.4 g/dL 32.0-35.0 [facility] MCV Auto (RBC) [Entitic vol] Ordered By: Kylie Sands on 01-11-2024 MCV (RBC) [Entitic vol] 89.2 fL 80-100 [facility] Monocytes Auto (Bld) [#/Vol] Ordered By: Kylie Sands on 01-11-2024 Monocytes (Bld) [#/Vol] 0.5 10*3/uL 0.0-0.8 [facility] Monocytes/100 WBC Auto (Bld) Ordered By: Kylie Sands on 01-11-2024 Monocytes/100 WBC (Bld) 8.3 % . [facility] Neutrophils Auto (Bld) [#/Vo l]Ordered By: Kylie Sands on 01-11-2024 Neutrophils (Bld) [#/Vol] 3.4 10*3/uL 1.8-7.7 [facility] Neutrophils/100 WBC Auto (Bl d)Ordered By: Kylie Sands on 01-11-2024 Neutrophils/100 WBC (Bld) 62.4 % . [facility] No Panel InformationOrdered By: Kylie Sands on 01-11-2024 Estimated GFR (CKD-EPI) > 60.0 mL/Min [facility] Creatinine Clearance (Chem N/A [facility] Nucleated erythrocytes [Pres ence] in Blood by Automated countOrdered By: Kylie Sands on 01-11-2024 Nucleated RBC Auto Ql (Bld) 0.1 /100{WBC} 0-0.5 [facility] Platelet mean volume Auto (B ld) [Entitic vol]Ordered By: Kylie Sands on 01-11-2024 Platelet mean volume (Bld) [Entitic vol] 9.0 fL 6.3-10.7 [facility] Platelets Auto (Bld) [#/Vol] Ordered By: Kylie Sands on 01-11-2024 Platelets (Bld) [#/Vol] 322 10*3/uL 150-450 [facility] Potassium [Moles/volume] in Serum or PlasmaOrdered By: Kylie Sands on 01-11-2024 Potassium [Moles/Vol] 4.3 mmol/L 3.5-5.1 [facility] Protein [Mass/volume] in Ser um or PlasmaOrdered By: Kylie Sands on 01-11-2024 Protein [Mass/Vol] 6.6 g/dL 6.4-8.9 [facility] RBC Auto (Bld) [#/Vol]Ordere d By: Kylie Sands on 01-11-2024 RBC (Bld) [#/Vol] 4.39 10*6/uL 3.60-5.[address] [facility] Serum or plasma albumin/glob ulin mass ratioOrdered By: Kylie Sands on 01-11-2024 Albumin/Globulin [Mass ratio] 1.8 {ratio} [facility] Serum or plasma anion gap de terminationOrdered By: Kylie Sands on 01-11-2024 Anion gap [Moles/Vol] 8.7 mmol/L 6.0-15.0 [facility] Sodium [Moles/volume] in Ser um or PlasmaOrdered By: Kylie Sands on 01-11-2024 Sodium [Moles/Vol] 139 mmol/L 136-145 [facility] Urea nitrogen [Mass/volume] in Serum or PlasmaOrdered By: Kylie Sands on 01-11-2024 Urea nitrogen [Mass/Vol] 18 mg/dL 7-25 [facility] WBC Auto (Bld) [#/Vol]Ordere d By: Kylie Sands on 01-11-2024 WBC (Bld) [#/Vol] 5.5 10*3/uL 3.8-11.6 [facility] FSHon 01-19-2023 FSH 8.7 mIU/mL Normal [facility] Comment on above: Result Comment: Adul t Female: Follicular phase 3.5 - 12.5 Ovulation phase 4.7 - 21.5 Luteal phase 1.7 - 7.7 Postmenopausal 25.8 - 134.8 Performed By: #### L [facility] #### [facility] [address] [address] [address] Haydee Chen LUTEINIZING HORMONE (LH)on 0 01-19-2023 LH 9.1 mIU/mL Normal [facility] Comment on above: Result Comment: Adul t Female: Follicular phase 2.4 - 12.6 Ovulation phase 14.0 - 95.6 Luteal phase 1.0 - 11.4 Postmenopausal 7.7 - 58.5 Performed By: #### L [facility] ####[facility] [address], [place] [address]SrDr. Haydee Chen CBC AUTO DIFFon 01-18-2023 BASO # 0.1 103/ul Normal 0.0-0.1 [facility] Comment on above: Performed By: #### C BC #### [facility] [address] [place], [place] [address] Dr. Haydee Chen Basophils/100 WBC (Bld) 1.3 % Normal 0.2-2.0 [facility] Comment on above: Performed By: #### C BC #### [facility] [address] [place] [address] Dr. Haydee Chen EO # 0.1 103/ul Normal 0.0-0.7 [facility] Comment on above: Performed By: #### C BC #### [facility] [address] [place] [address] Dr. Haydee Chen Eosinophils/100 WBC (Bld) 1.3 % Normal 0.9-7.0 [facility] Comment on above: Performed By: #### C BC #### [facility] [address] [place] [address] Dr. Haydee Chen Erythrocyte distribution width (RBC) [Ratio] 12.3 % Normal 11.0-15.0 [facility] Comment on above: Performed By: #### C BC #### [facility] [address] [place] [address] Dr. Haydee Chen Hematocrit (Bld) [Volume fraction] 37.0 % Normal 36.0-48.0 [facility] Comment on above: Performed By: #### C BC #### [facility] [address] [place] [address] Dr. Haydee Chen Hemoglobin (Bld) [Mass/Vol] 12.1 g/dL Normal 12.0-16.0 [facility] Comment on above: Performed By: #### C BC #### [facility] [address] [place] [address] Dr. Haydee Chen IG # 0.01 10e3/ul Normal 0.00-0.03 [facility] Comment on above: Performed By: #### C BC #### [facility] [address] [place] [address] Dr. Haydee Chen IG % 0.2 % Normal 0.0-0.5 [facility] Comment on above: Performed By: #### C BC #### [facility] [address] [place] [address] Dr. Haydee Chen LYMPH # 1.6 103/ul Normal 1.2-3.8 [facility] Comment on above: Performed By: #### C BC #### [facility] [address] [place] [address] Dr. Haydee Chen Lymphocytes/100 WBC (Bld) 29.9 % Normal 20.5-60.0 [facility] Comment on above: Performed By: #### C BC #### [facility] [address] [place] [address] Dr. Haydee Chen MANUAL DIFF REQ NO Normal [facility] Comment on above: Performed By: #### C BC #### [facility] [address] [place] [address] Dr. Haydee Chen MCH (RBC) [Entitic mass] 29.6 pg Normal 26.7-34.0 [facility] Comment on above: Performed By: #### C BC #### [facility] [address] [place] [address] Dr. Haydee Chen MCHC (RBC) [Mass/Vol] 32.7 g/dL Normal 29.9-35.2 [facility] Comment on above: Performed By: #### C BC #### [facility] [address] [place] [address] Dr. Haydee Chen MCV (RBC) [Entitic vol] 90.5 fL Normal 81.0-99.0 [facility] Comment on above: Performed By: #### C BC #### [facility] [address] [place] [address] Dr. Haydee Chen MONO # 0.3 103/ul Normal 0.3-0.8 [facility] Comment on above: Performed By: #### C BC #### [facility] [address] [place] [address] Dr. Haydee Chen Monocytes/100 WBC (Bld) 6.0 % Normal 1.7-12.0 [facility] Comment on above: Performed By: #### C BC #### [facility] [address] [place] [address] Dr. Haydee Chen NEUT # 3.2 103/ul Normal 1.4-6.5 [facility] Comment on above: Performed By: #### C BC #### [facility] [address] [place] [address] Dr. Haydee Chen Neutrophils/100 WBC (Bld) 61.3 % Normal 43.0-75.0 [facility] Comment on above: Performed By: #### C BC #### [facility] [address] [place] [address] Dr. Haydee Chen Platelet mean volume (Bld) [Entitic vol] 9.8 fL Normal 9.5-13.5 [facility] Comment on above: Performed By: #### C BC #### [facility] [address] [place] [address] Dr. Haydee Chen PLT 294 103/ul Normal 150-450 [facility] Comment on above: Performed By: #### C BC #### [facility] [address] [place] [address] Dr. Haydee Chen RBC 4.09 106/ul Critically low 4.20-5.40 [facility] Comment on above: Performed By: #### C BC #### [facility] [address] [place] [address] Dr. Haydee Chen WBC 5.2 103/ul Normal 4.0-11.0 [facility] Comment on above: Performed By: #### C BC #### [facility] [address] [place] [address] Dr. Haydee Chen FERRITINon 01-18-2023 Ferritin [Mass/Vol] 8.0 ng/mL Normal 6.2-137.0 [facility] Comment on above: Performed By: #### F ERR, FT4 #### [facility] [address] [place] [address] Dr. Haydee Chen FREE T4on 01-18-2023 Free T4 [Mass/Vol] 0.72 ng/dL Critically low 0.76-1.46 [facility] Comment on above: Performed By: #### F ERR, FT4 #### [facility] [address] [place] [address] Dr. Haydee Chen TSHon 01-18-2023 TSH 1.127 uIU/mL Normal 0.358-3.740 [facility] Comment on above: Performed By: #### T #### [facility] [address] [address] [address] Haydee Chen MG MAMM DX 3D LT CADon 11-30 MG MAMM DX 3D LT CAD Patient: AGUSTO MADDOX Exam Date: 11/30/2022 : 1980 Gender:F Ordering : DR FABIAN MEEKS . Admission #: [id number] Family : Order #: [id number] CLICK HERE TO VIEW EXAM RADIOLOGY REPORT [...] Treatments None Family Cancers None LOCATION: The [facility] BREAST COMPOSITION: Extremely dense, which lowers the [...] M.D. on 11/30/2022 at 10:47 Normal [facility] US BREAST LEFT LIMITEDon US BREAST LEFT LIMITED Patient: AGUSTO MADDOX Exam Date: 11/30/2022 : 1980 Gender:F Ordering : DR FABIAN MEEKS . Admission #: [id number] Family : Order #: [id number] CLICK HERE TO VIEW EXAM RADIOLOGY REPORT [...] Treatments None Family Cancers None LOCATION: The [facility] BREAST COMPOSITION: Extremely dense, which lowers the [...] M.D. on 11/30/2022 at 10:47 Normal [facility] MG MAMM SCREEN 3D HARMONY CADon 08-06-2022 MG MAMM SCREEN 3D HARMONY CAD Patient: AGUSTO MADDOX Exam Date: 08/06/2022 : 1980 Gender:F Ordering : DR FABIAN MEEKS . Admission #: [id number] Family : Order #: [id number] CLICK HERE TO VIEW EXAM RADIOLOGY REPORT [...] Treatments None Family Cancers None LOCATION: The [facility] BREAST COMPOSITION: Extremely dense, which lowers the [...] MD on 08/07/2022 at 10:35 Normal [facility] CBC AUTO DIFFon 07-29-2022 BASO # 0.1 103/ul Normal 0.0-0.1 [facility] Comment on above: Performed By: #### C BC #### [facility] [address] [address] [address] Haydee Chen Basophils/100 WBC (Bld) 1.2 % Normal 0.2-2.0 [facility] Comment on above: Performed By: #### C BC #### [facility] [address] [address] [address] Haydee Chen EO # 0.1 103/ul Normal 0.0-0.7 [facility] Comment on above: Performed By: #### C BC #### [facility] [address] [address] [address] Haydee Chen Eosinophils/100 WBC (Bld) 1.6 % Normal 0.9-7.0 [facility] Comment on above: Performed By: #### C BC #### [facility] [address] [address] [address] Haydee Chen Erythrocyte distribution width (RBC) [Ratio] 12.2 % Normal 11.0-15.0 [facility] Comment on above: Performed By: #### C BC #### [facility] [address] [place] [address] Dr. Haydee Chen Hematocrit (Bld) [Volume fraction] 36.6 % Normal 36.0-48.0 [facility] Comment on above: Performed By: #### C BC #### [facility] [address] [place] [address] Dr. Haydee Chen Hemoglobin (Bld) [Mass/Vol] 12.1 g/dL Normal 12.0-16.0 [facility] Comment on above: Performed By: #### C BC #### [facility] [address] [place] [address] Dr. Haydee Chen IG # 0.01 10e3/ul Normal 0.00-0.03 [facility] Comment on above: Performed By: #### C BC #### [facility] [address] [place] [address] Dr. Haydee Chen IG % 0.2 % Normal 0.0-0.5 [facility] Comment on above: Performed By: #### C BC #### [facility] [address] [place] [address] Dr. Haydee Chen LYMPH # 1.9 103/ul Normal 1.2-3.8 [facility] Comment on above: Performed By: #### C BC #### [facility] [address] [place] [address] Dr. Haydee Chen Lymphocytes/100 WBC (Bld) 32.2 % Normal 20.5-60.0 [facility] Comment on above: Performed By: #### C BC #### [facility] [address] [place] [address] Dr. Haydee Chen MANUAL DIFF REQ NO Normal [facility] Comment on above: Performed By: #### C BC #### [facility] [address] [place] [address] Dr. Haydee Chen MCH (RBC) [Entitic mass] 29.7 pg Normal 26.7-34.0 [facility] Comment on above: Performed By: #### C BC #### [facility] [address] [address] [address] Haydee Chen MCHC (RBC) [Mass/Vol] 33.1 g/dL Normal 29.9-35.2 [facility] Comment on above: Performed By: #### C BC #### [facility] [address] [address] [address] Haydee Chen MCV (RBC) [Entitic vol] 89.7 fL Normal 81.0-99.0 [facility] Comment on above: Performed By: #### C BC #### [facility] [address] [place] [address] Dr. Haydee Chen MONO # 0.5 103/ul Normal 0.3-0.8 [facility] Comment on above: Performed By: #### C BC #### [facility] [address] [place] [address] Dr. Haydee Chen Monocytes/100 WBC (Bld) 9.2 % Normal 1.7-12.0 [facility] Comment on above: Performed By: #### C BC #### [facility] [address] [place] [address] Dr. Haydee Chen NEUT # 3.2 103/ul Normal 1.4-6.5 [facility] Comment on above: Performed By: #### C BC #### [facility] [address] [place] [address] Dr. Haydee Chen Neutrophils/100 WBC (Bld) 55.6 % Normal 43.0-75.0 [facility] Comment on above: Performed By: #### C BC #### [facility] [address] [place] [address] Dr. Haydee Chen Platelet mean volume (Bld) [Entitic vol] 9.4 fL Critically low 9.5-13.5 [facility] Comment on above: Performed By: #### C BC #### [facility] [address] [place] [address] Dr. Haydee Chen PLT 316 103/ul Normal 150-450 [facility] Comment on above: Performed By: #### C BC #### [facility] [address] [place], [place] [address] Dr. Haydee Chen RBC 4.08 106/ul Critically low 4.20-5.[address] [facility] Comment on above: Performed By: #### C BC #### [facility] [address] [place], [place] [address] Dr. Haydee Chen WBC 5.8 103/ul Normal 4.0-11.0 [facility] Comment on above: Performed By: #### C BC #### [facility] [id number] Haydee Chen [facility]on SARS-CoV-2 (COVID-19) RNA SARAH+probe Ql (Unsp spec) Not detected Normal NOT DETECTED [facility] Comment on above: Result Comment: This test is not yet approved or cleared by the [place] FDA. When there are no FDA-approved or cleared tests available, and other criteria are met, FDA can make tests available under an emergency access mechanism called an Emergency Use Authorization (EUA). The EUA for this test is supported by the Assessment Coordinator of Health and Human Service's (HHS's) declaration [...] with SARS-CoV-2. Performed By: #### C VDTBH ####[facility] [address] [id number] Chen PREG QUANT HCGon 07-29-2022 HCG QUANT <1 Normal [facility] Comment on above: Performed By: #### T SH, PREGQNT ####[facility] [address] [id number] Chen HCG RANGE SEE BELOW Normal [facility] Comment on above: Result Comment: 5-50 0.2-1 WEEK 50-500 1-2 WEEKS 100-5,000 2-3 WEEKS 500-10,000 3-4 WEEKS 1,000-50,000 4-5 WEEKS 10,000-100,000 5-6 WEEKS 15,000-200,000 6-8 WEEKS 10,000-100,000 2-3 MONTHS Performed By: #### T SH, PREGQNT ####[facility] [address] [address]Dr. Haydee Chen PROTIMEon 07-29-2022 INR Coag (PPP) [Relative time] 0.97 {INR} Normal [facility] Comment on above: Performed By: #### P T, PTT #### [facility] [address] [place] [address] Dr. Haydee Chen INR GUIDELINES SEE BELOW Normal [facility] Comment on above: Result Comment: VINCE RED INR: 2.0 - 3.0 CONDITIONS NOT LISTED BELOW 2.5 - 3.5 FOR PROSTHETIC HEART VALVE REPLACEMENT 2.5 - 3.5 RECURRENT THROMBOSIS Performed By: #### P T, PTT #### [facility] [address] [place] [address] Dr. Haydee Chen PT Coag (PPP) [Time] 10.5 s Normal 9.0-11.6 [facility] Comment on above: Performed By: #### P T, PTT #### [facility] [address] [place] [address] Dr. Haydee Chen PTTon 07-29-2022 aPTT Coag (Bld) [Time] 30.2 s Normal 22.3-36.2 [facility] Comment on above: Performed By: #### P T, PTT #### [facility] [address] [place] [address] Dr. Haydee Chen TSHon 07-29-2022 TSH 1.062 uIU/mL Normal 0.358-3.740 [facility] Comment on above: Performed By: #### T SH, PREGQNT ####[facility] [address] [address]DrAshley Chen US PELVIS AND TRANSVAGon US PELVIS [...] by: MADI MASON Date: 2022-07-21 11:45 Normal [facility] PAP ACOG PANEL 2: 30 to 65on 04-11-2022 . . Normal [facility] Comment on above: Result Comment: Perf ormed at: WB Performed By: #### 4 [id number] ####[facility] [address] [address]DrAshley Chen Age Gdln ACOG Testing 30-65 Normal [facility] Comment on above: Performed By: #### 4 [id number] ####[facility] [address] [place], [place] [address]VlAshley Chen DIAGNOSIS: Comment Normal [facility] Comment on above: Result Comment: NEGA TIVE FOR INTRAEPITHELIAL LESION OR MALIGNANCY. Performed at: WB Performed By: #### 4 [id number] ####[facility] [address] [place], [place] [address]YsAshley Chen HPV Aptima Negative Normal Negative [facility] Comment on above: Result Comment: This nucleic acid amplification test detects fourteen high-risk HPV types (16,18,31,33,35,39,45,51,52,56,58,59,66,68) without differentiation. Performed at: =G Performed By: #### 4 [id number] ####[facility] [address] [address]DrAshley Chen Methodology: Comment Normal [facility] Comment on above: Result Comment: This liquid based ThinPrep(R) pap test was screened with the use of an image guided system. Performed at: WB Performed By: #### 4 [id number] ####[facility] [address] [place], [place] [address]DrAshley Chen Note: Comment [facility] Comment on above: Result Comment: The Pap smear is a screening test designed to aid in the detection of premalignant and malignant conditions of the uterine cervix. It is not a diagnostic procedure and should not be used as the sole means of detecting cervical cancer. Both false-positive and false-negative reports do occur. . Performed at: WB Performed By: #### 4 [id number] ####[facility] [address] [place], [place] [address]DrAshley Chen Performed by: Comment Normal [facility] Comment on above: Result Comment: Tracy Sweeney, Manufacturing Quality Inspector (ASCP) Performed at: WB Performed By: #### 4 [id number] ####[facility] [address] [place], [place] [address]DrAshley Chen Specimen adequacy: Comment Normal [facility] Comment on above: Result Comment: Sati sfactory for evaluation. Endocervical and/or squamous metaplastic cells (endocervical component) are present. Performed at: WB Performed By: #### 4 [id number] ####[facility] [address] [address]DrAshley Chen Physician Referralon 021 Physician Referral [id number] #1.00CD:127 Normal [facility] Physician Referralon 021 Physician Referral [id number] #1.00CD:127 Normal [facility] Vital Signs Date Time Vital Sign Value Performing Clinician Facility 11-23-2023 11:37-0500 Body height 162.56 cm MD Leslie Bates Work Phone: [facility] 11-23-2023 11:37-0500 Body mass index (BMI) [Ratio] 19.1 kg/m2 MD Leslie Bates Work Phone: [facility] 11-23-2023 11:37-0500 Body weight 50.4 kg MD Leslie Bates Work Phone: [facility] 11-23-2023 11:37-0500 Diastolic blood pressure 88 mm[Hg] MD Leslie Bates Work Phone: [facility] 11-23-2023 11:37-0500 Heart rate 96 /min MD Leslie Bates Work Phone: [facility] 11-23-2023 11:37-0500 Systolic blood pressure 125 mm[Hg] MD Leslie Bates Work Phone: [facility] 07-23-2023 11:45-0400 Body height 162.56 cm Leslie Bates Other [facility] [employer] Other 07-23-2023 11:45-0400 Body mass index (BMI) [Ratio] 19.36 kg/m2 Leslie Bates Other [employer] [facility] [employer] Other 07-23-2023 11:45-0400 Body weight 51.17 kg Leslie Bates Other [facility] Other 07-23-2023 11:45-0400 Diastolic blood pressure 70 mm[Hg] Leslie Bates Other [facility] Other 07-23-2023 11:45-0400 Systolic blood pressure 142 mm[Hg] Leslie Bates Other [facility] Other 06-17-2023 15:40-0400 Body height 162.56 cm Lorena Newell Other [facility] Other 06-17-2023 15:40-0400 Body mass index (BMI) [Ratio] 19.12 kg/m2 Lorena Newell Other [facility] Other 06-17-2023 15:40-0400 Body temperature 97.8 [degF] Lorena Newell Other [facility] Other 06-17-2023 15:40-0400 Body weight 50.53 kg Lorena Newell Other [facility] Other 06-17-2023 15:40-0400 Diastolic blood pressure 78 mm[Hg] Lorena Newell Other [facility] Other 06-17-2023 15:40-0400 Respiratory rate 18 /min Lorena Newell Other [facility] Other 06-17-2023 15:40-0400 SaO2% (BldA) [Mass fraction] 98 % Lorena Newell Other [facility] Other 06-17-2023 15:40-0400 Systolic blood pressure 134 mm[Hg] Lorena Newell Other [facility] Other 01-14-2023 15:45-0400 Body height 162.56 cm Leslie Bates Other [facility] Other 01-14-2023 15:45-0400 Body mass index (BMI) [Ratio] 19.39 kg/m2 Leslie Bates Other [facility] Other 01-14-2023 15:45-0400 Body weight 51.26 kg Leslie Bates Other [facility] Other 01-14-2023 15:45-0400 Diastolic blood pressure 60 mm[Hg] Leslie Bates Other [facility] Other 01-14-2023 15:45-0400 SaO2% (BldA) [Mass fraction] 99 % Leslie Bates Other [facility] Other 01-14-2023 15:45-0400 Systolic blood pressure 108 mm[Hg] Leslie Bates Other [facility] Other Encounters Encounter Date Encounter Type Care Provider Facility Start: 03-07-2024 End: 03-07-2024 ambulatory FABIAN LEONA Not Available Start: 02-17-2024 End: 02-17-2024 ambulatory PAULETTE KELBLEY [...] Start: 01-11-2024 End: 01-11-2024 ambulatory Leslie Bates Facility:[facility] Start: 01-11-2024 End: 01-11-2024 ambulatory MD Leslie Bates Work Phone: [facility] Work Phone: Start: 01-11-2024 End: 01-11-2024 Patient encounter procedure MD Leslie Bates Work Phone: [facility] [address] Work Phone: Start: 11-23-2023 End: 11-23-2023 Patient encounter procedure MD Leslie Bates Work Phone: [facility] Phys[facility] Work Phone: Start: 11-15-2023 End: 11-15-2023 ambulatory FABIAN MEEKS Not Available Start: 11-09-2023 Non-patient / Non-visit MD Adeline Bates Work Phone: [facility] [employer] Work Phone: Start: 10-08-2023 End: 10-08-2023 ambulatory Leslie Bates Other [facility] Other Start: 10-08-2023 Encounter by [employer] Leslie Bates [facility] Start: 09-09-2023 End: 09-09-2023 ambulatory Leslie Bates Other [facility] Other Start: 09-09-2023 Encounter by [email or web address] link Leslie Bates [facility] Start: 08-13-2023 End: 08-13-2023 ambulatory Leslie Bates Other [facility] Other Start: 08-13-2023 Telephone encounter Leslie Bates [facility] Start: 08-05-2023 End: 08-05-2023 ambulatory Leslie Bates Other [facility] Other Start: 08-05-2023 Telephone encounter Leslie Bates [facility] Start: 07-27-2023 End: 07-27-2023 ambulatory Leslie Bates Other [facility] Other Start: 07-27-2023 Telephone encounter Leslie Jana [facility] Start: 07-23-2023 End: 07-23-2023 ambulatory Leslie Bates Other [facility] Other Start: 07-23-2023 Office outpatient vi sit 15 minutes Leslie Bates [facility] Start: 07-20-2023 End: 07-20-2023 ambulatory Leslie Bates Other [facility] Other Start: 07-20-2023 Telephone encounter Leslie Jana [facility] [place] Start: 07-16-2023 End: 07-16-2023 ambulatory Leslie Bates Other [facility] Other Start: 07-16-2023 Telephone encounter Leslie Jana [facility] Start: 06-17-2023 End: 06-17-2023 ambulatory Lorena New[place] Other [facility] Other Start: 06-17-2023 Office outpatient vi sit 15 minutes Lorena New[place] [facility] [place] Start: 05-26-2023 End: 05-26-2023 ambulatory Leslie Bates Other [facility] Other Start: 05-26-2023 Office outpatient vi sit 15 minutes Leslie Bates [facility] Start: 05-17-2023 End: 05-17-2023 ambulatory Leslie Bates Other [facility] Other Start: 05-17-2023 Encounter by compute [employer] link Leslie Bates [facility] Start: 05-04-2023 End: 05-04-2023 ambulatory Leslie Bates Other [facility] Other Start: 05-04-2023 Telephone encounter Leslie Jana [facility] Start: 04-21-2023 End: 04-21-2023 ambulatory Jesús Gallardo Other [facility] Other Start: 04-21-2023 Telephone encounter Jesús Gallardo FP [facility] Start: 02-22-2023 End: 02-22-2023 ambulatory Leslie Bates Other [facility] Other Start: 02-22-2023 Telephone encounter Leslie Bates [facility] Start: 01-28-2023 End: 01-28-2023 ambulatory Leslie Bates Other [facility] Other Start: 01-28-2023 Telephone encounter Leslie Bates [facility] Start: 01-22-2023 End: 01-22-2023 ambulatory Leslie Bates Other [facility] Other Start: 01-22-2023 Telephone encounter Leslie Bates [facility] Start: 01-19-2023 End: 01-19-2023 ambulatory Leslie Bates Other [facility] Other Start: 01-19-2023 Telephone encounter Leslie Bates [facility] Start: 01-18-2023 End: 01-19-[address] LESLIE BATES Facility:[facility] Start: 01-14-2023 End: 01-14-2023 ambulatory Leslie Bates Other [facility] Other Start: 01-14-2023 Office outpatient vi sit 25 minutes Leslie Bates [facility] Start: 11-30-2022 End: 12-01-[address] FABIAN MEEKS . Facility:[facility] Start: 09-13-2022 Gynecological examination normal Jesús Gallardo Other [facility] Other Start: 09-13-2022 Pre-procedure evalua tion check Jesús Gallardo Other [facility] Other Start: 08-06-2022 End: 08-07-[address] FABIAN MEEKS . Facility:[facility] Start: 08-03-2022 Encounter for preprocedural laboratory examination DR FABIAN MEEKS . [facility] Start: 07-31-2022 End: 07-31-[address] FABIAN MEEKS . Facility:[facility] Start: 07-29-2022 End: 07-30-[address] FABIAN MEEKS . Facility:[facility] Start: 07-29-2022 End: 07-30-2022 Encounter for preprocedural laboratory examination DR FABIAN MEEKS . Facility:[facility] Start: 07-23-2022 Encounter for other preprocedural examination DR FABIAN MEEKS . [facility] Start: 07-21-2022 End: 07-22-[address] FABIAN MEEKS . Facility: Start: 07-21-2022 End: 07-22-2022 Encounter for other preprocedural examination DR FABIAN MEEKS . Facility: Start: 06-25-2022 Adult health examination Yaya Gallardo Other [facility] Other Start: 04-07-2022 End: 04-07-[address] FABIAN MEEKS . Facility: Procedures Date Procedure Procedure Detail Performing Clinician Depression screening Arely Gallardo Other Screening for malign ant neoplasm of breast Jesús Gallardo Other Viral screening Jesús gonzalez Other Plan of Treatment Date Care Activity Detail Author Start: 11-25-2023 Patient referral [facility] Work Phone: Patient referral [facility] Work Phone: Immunizations Immunization Date Immunization Notes Care Provider Fa cility 05-25-2020 influenza virus vaccine, split virus (incl. purified surface antigen) Jesús Gallardo Other [facility] Other 05-25-2020 influenza virus vaccine, unspecified formulation MD Leslie Bates Work Phone: [facility] 05-22-2014 influenza, seasonal, injectable Leslie Bates Other [facility] NEGATED: Highlighted row has not occurred!11-19-2015 pneumococcal polysaccharide vaccine, 23 valent Leslie Jana Other [facility] [employer] Other Payers Date Payer Category Payer Self-pay 1980 Unknown [id number] 2.16.84 [id number] 1980 Unknown [id number] 2.16.84 0.1.928559.3.579.2.593 1980 Unknown [id number] 2.16.84 0.1.383412.3.579.2.593 1980 Unknown [id number] 2.16.84 0.1.552610.3.579.2.593 1980 Unknown [id number] 2.16.84 0.1.715518.3.579.2.593 1980 Unknown [id number] 2.16.84 0.1.278274.3.579.2.593 1980 Unknown [id number] 2.16.84 0.1.951656.3.579.2.593 1980 Unknown [id number] 2.16.84 0.1.693097.3.579.2.1259 1980 Unknown [id number] 2.16.84 0.1.850669.3.579.2.1259 1978 Unknown [id number] 2.16.84 0.1.986914.3.579.2.1259 1978 Unknown [id number] 2.16.84 0.1.092100.3.579.2.1259 1978 Unknown [id number] 2.16.84 0.1.322690.3.579.2.1259 1978 Unknown [id number] 2.16.84 0.1.558264.3.579.2.1259 1978 Unknown [id number] 2.16.84 0.1.355857.3.579.2.1259 1978 Unknown [id number] 2.16.84 0.1.303715.3.579.2.1259 1978 Unknown [id number] 2.16.84 0.1.734528.3.579.2.1259 1978 Unknown [id number] 2.16.84 0.1.933798.3.579.2.1259 1978 Unknown [id number] 2.16.84 0.1.927935.3.579.2.1259 1959 Unknown [id number] 2. 16.840.1.087128.19 Unknown [id number] 2.16.8 40.1.751596.3.579.2.531 Social History Date Type Detail Facility Sex Assigned At [facility] [employer] Other Start: 07-23-2023 Tobacco smoking stat [facility] Smoker (finding) [facility] Start: 1980 Sex Assigned At Female [facility] Clinical Notes 07-31-2022 to 10-08-2023 Note Date & Type Note Facility 10-08-2023 Evaluation note Encounter Date Diagnosis Assessment Notes Sep, Adult ADHD (ICD-10 - F90.9) [facility] [facility] [employer] Other 12-21-2023 Evaluation note* Encounter Date Diagnosis Assessment Notes Treatment Notes Treatment Clinical Notes Aug, Adult ADHD (ICD-10 - F90.9) [facility] [employer] Other 11-24-2023 Evaluation note* Encounter Date Diagnosis Assessment Notes Treatment Notes Treatment Clinical Notes Jul, Adult ADHD (ICD-10 - F90.9) [facility] [employer] Other 11-03-2023 Evaluation note* Encounter Date Diagnosis [...] to forward this information to Dr. Chavarria Mabaya Other 10-27-2023 Evaluation note* Encounter Date Diagnosis Assessment Notes Treatment Notes Treatment Clinical Notes Jun, Adult ADHD (ICD-10 - F90.9) [facility] Other 09-28-2023 Evaluation note* Encounter Date Diagnosis [...] understanding and is agreeable with treatment plan [facility] Other 09-06-2023 Evaluation note* Encounter Date Diagnosis Assessment Notes Treatment Notes Treatment Clinical Notes May, Impetigo (ICD-10 - L01.00) Discussed differential. Unsure how she could have impetigo but will treat based on the yellow appearance at the surface of the dermis. She will call and followup w dermatology. [facility] Other 08-28-2023 Evaluation note* Encounter Date Diagnosis Assessment Notes Treatment Notes Treatment Clinical Notes Apr, Adult ADHD (ICD-10 - F90.9) [facility] Other 08-15-2023 Evaluation note* Encounter Date Diagnosis Assessment Notes Treatment Notes Treatment Clinical Notes Apr, Contact dermatitis, unspecified contact dermatitis type, unspecified trigger (ICD-10 - L25.9) [facility] Other 08-02-2023 Evaluation note* Encounter Date Diagnosis Assessment Notes Treatment Notes Treatment Clinical Notes Apr, Adult ADHD (ICD-10 - F90.9) [facility] Other 06-05-2023 Evaluation note* Encounter Date Diagnosis Assessment Notes Treatment Notes Treatment Clinical Notes Feb, Adult ADHD (ICD-10 - F90.9) [facility] Other 05-05-2023 Evaluation note* Encounter Date Diagnosis Assessment Notes Treatment Notes Treatment Clinical Notes January, Adult ADHD (ICD-10 - F90.9) [facility] Other 04-27-2023 Evaluation note* Encounter Date Diagnosis Assessment Notes Treatment Notes Treatment Clinical Notes Dec, Other fatigue (ICD-10 - R53.83) Discussed possible metabolic causes Dec, Irregular menses (ICD-10 - N92.6) will check hormones - followup w tow motor driver Dec, Adult ADHD (ICD-10 - F90.9) will increase dose with next rx Dec, Cervical lymphadenitis (ICD-10 - I88.9) antibiotic prescribed. Work note given. M[facility]aya Other 11-11-2022 NoteOPERATIVE NOTE OPERATION DATE: 07/31/2022 PROCEDURE: Kathe endometrial ablation. PREOPERATIVE DIAGNOSIS: Menorrhagia. POSTOPERATIVE DIAGNOSIS: Menorrhagia. ANESTHESIA: General. SURGEON: Fabian Meeks D.O. WHOLESALE REPRESENTATIVE: None. BLOOD LOSS: 5 mL. URINE OUTPUT: [...] Patient taken to recovery in stable condition.[facility] complaint+Reason for visit Narrative* Chief Complaint Amb Documentation autoimmune issues - referrals Reason for Visit Autoimmune disorder [facility] Work Phone: Evaluation noteNo InformationNortNew [facility]ec[facility] [employer] Other Evaluation note* Diagnosis Onset Date Resolution Status Autoimmune disorder acute [facility] Work Phone: History general Narrative - Reported* Type Description Date Medical History ANXIETY Medical History FATIGUE Medical History MIGRAINE Medical History subclinical hyperthyroidism Surgical History 2006 Hospitalization History SEE SURGICAL HX [facility] [employer] Other Summary Purpose Family History No Family [...] dermatitis type, unspecified trigger (L25.9) [facility]erral [facility] Referring Provider First Name Leslie Referring Provider Last Name Jana Referring Provider Specialty Family [facility] Referred Organization Dermatology Denisse schafer Referred Provider Kim Fuentes Referred Address [address],[place],[address] Referred Provider Specialty Dermatology Referral Priority Routine General Notes Ema Mensah 12:57:31 PM >received today, attachments made, notes locked, referral faxed Additional Source Comments INFORMATION SOURCE (unrecogn ized section and content) DATE CREATED AUTHOR 11/04/2021 Jean Paul Ramirez [facility] DATE CREATED AUTHOR AUTHOR'S ORGANIZ ATION 01/23/2023 [facility] DATE CREATED AUTHOR AUTHOR'S ORGANIZ ATION 01/18/2024 [facility] DATE CREATED AUTHOR AUTHOR'S ORGANIZ ATION 03/08/2024 [facility] EPIC REASON FOR VISIT [...] BE BASED ON THE PRIMARY CLINICAL RECORDS. [facility] [employer] provides no warranty or guarantee of the accuracy or completeness of information in this document.
[2024-06-29 17:01] LABS: Alanine Aminotransferase 30 U/L (14-59); Albumin Level 3.4 g/dL (3.4-5.0); Alkaline Phosphatase 74 U/L (46-116); Anion Gap 10.3; Aspartate Amino Transferase 16 U/L (15-37); Bilirubin Total 0.5 mg/dL (0.2-1.0); C Reactive Protein <0.50 mg/dL (<=0.50); Carbon Dioxide 30.1 mmol/L (21.0-32.0); Chloride 101 mmol/L (98-107); Estimated GFR (African America >60 (>=60 mL/min/1.73m^2); Estimated GFR (Non-African Ame >60 (>=60 mL/min/1.73m^2); Globulin 3.3 g/dL; Glucose 98 mg/dL (74-106); Potassium 3.4 mmol/L (3.5-5.1); Sodium 138 mmol/L (136-145); TSH W/ REFLEX FT4 0.703 uIU/mL (0.358-3.740); Total Protein 6.7 g/dL (6.4-8.2)
[2024-07-01 07:13] LABS: Rheumatoid Factor (RF) <10.0 IU/mL (<14.0)
[2024-07-03 12:08] LABS: Antinuclear Antibodies, IFA Positive (.)
== END 2024-06-29 16:00 | disposition home or self-care (01) ==
LOC: LAB 16:01
PROVIDERS: PCP Family Medicine; Visit Provider Family Medicine
DX: D89.89 Other specified disorders involving the immune mechanism, not elsewhere classified (principal); R53.83 Other fatigue; R00.2 Palpitations; I88.9 Nonspecific lymphadenitis, unspecified
CPT/HCPCS: 36415; 80053; 84443; 85652; 86038; 86140; 86431

== ENCOUNTER 2025-06-07 13:47 | Outpatient (REF) | payer OTHER, SELFPAY ==
--- OUTSIDE RECORDS SUMMARY | 2025-06-07 09:30 | XMS_ITS | Encounter Summary ---
Author Organization [facility] Address [address] [place] [address] Care Team Providers Care Upper Stitcher Name Role Phone Leslie Norman MD Unavailable Leslie Norman MD Primary Care Provider [phone] Reason for Visit * Reason Comments Well Women Visit Encounter Details Date Type Department Care Team (Latest Contact Info) Description 06/07/2025 9:30 AM EDT Procedure Visit [facility] [address] [place] [phone] Zaira Altman PA [address] [place], [place] [id number] Well woman exam with routine gynecological exam; Breast cancer screening by mammogram; Mood changes Social History Tobacco Use Types Packs/Day Years Used Date Smoking Tobacco: Former Cigarettes 0.5 29 1 09/30/1993 - 07/31/2023 Smokeless Tobacco: Never Alcohol Use Standard Drinks/Week Comments Not Currently 0 (1 standard drink = 0.6 oz pur e alcohol) Comments No Sex and Gender Information Value Date Recorded Sex Assigned at Female 06/28/2023 2:02 PM EDT Legal Sex Female 7:12 PM EDT Gender Identity Female 06/28/2023 2:02 PM EDT Sexual Orientation Straight 06/28/2023 2: 02 PM EDT documented as of this encounter Progress Notes * TRESSA Lord - 06/07/2025 9:30 AM EDT Reason for Appointment: Patient ID: Glenny King is a 44 y.o. female who presents for Well Women Visit Patient presents today for Annual Exam. MEDICATIONS Current Outpatient Medications Medication Instructions amphetamine-dextroamphetamine (Adderall) 20 MG tablet 1 tablet, 2 times daily buPROPion SR (WELLBUTRIN SR) 300 mg, Oral, Nightly, Do not crush, chew, or split. cetirizine-pseudoephedrine (ZyrTEC-D) 5-120 MG 12 hr tablet 1 tablet, Oral, 2 times daily fluticasone (Flonase) 50 MCG/ACT nasal spray 2 sprays, Each Nostril, Daily, Shake gently. Before first use, prime pump. After use, clean tip and replace cap. Ubrogepant (UBRELVY PO) As needed venlafaxine XR (EFFEXOR XR) 150 mg, Oral, Daily, Do not crush or chew. ALLERGIES No Known Allergies PROBLEMS Active Ambulatory Problems Diagnosis Date Noted Abnormal mammogram of left breast 06/22/2024 Adult ADHD 06/22/2024 Anxiety 06/22/2024 Cervical lymphadenitis 06/22/2024 Chronic sinusitis 06/22/2024 Cyst of ovary 06/22/2024 Resolved Ambulatory Problems Diagnosis Date Noted No Resolved Ambulatory Problems Past Medical History: Diagnosis Date ADHD (attention deficit hyperactivity disorder) Allergic rhinitis 2008 Dental disease 2008 Dizziness Occasionally since childhood Dysmenorrhea Ear problems March 2023 Fatigue 2013 Fibroid Fibromyalgia GERD (gastroesophageal reflux disease) 2004 Headache Frequent headaches since childhood HL (hearing loss) Occasional hearing impacted by ear wax. 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 FAMILY HISTORY Family History Problem Relation Name Age of Onset Hyperlipidemia Mother Venus Mendoza Hypertension Mother Venus Mendoza Migraines Mother Venus Mendoza Breast cancer Mother Venus Mendoza Cancer Mother Venus Mendoza Rashes / Skin problems Mother Venus Mendoza Hypertension Father Carlyle Samuel Hyperlipidemia Father Carlyle Samuel Hearing loss Father Carlyle Samuel Arthritis Maternal Grandmother Depression Maternal Grandmother Other (Degenerative Disc Disease) Maternal Grandmother Cancer Paternal Grandmother Chantell Samuel Alcohol abuse Paternal Grandfather Cancer Mother's Brother Bill Tea Thyroid disease Father's Sister Mikaela Fields Rashes / Skin problems Sister Mayuri Bupp SURGICAL HISTORY Past Surgical History: Procedure Laterality Date SECTION, LOW TRANSVERSE 08/29/2007 ENDOMETRIAL ABLATION 07/31/2022 OTHER SURGICAL HISTORY 07/31/2022 Ablation SINUS SURGERY WISDOM TOOTH EXTRACTION 1994 wisdom teeth REVIEW OF SYSTEMS Review of Systems: Review of Systems Constitutional: Negative. HENT: Negative. Eyes: Negative. Respiratory: Negative. Cardiovascular: Negative. Gastrointestinal: Negative. Genitourinary: Negative. Musculoskeletal: Negative. Skin: Negative. Neurological: Negative. All other systems reviewed and are negative. Hematological: Negative. Endocrine: Negative. Allergic/Immunologic: Negative. OBJECTIVE Objective: Physical Exam Constitutional: Appearance: Normal appearance. She is well-developed. Genitourinary: Vulva normal. Right Adnexa: not tender and no mass present. Left Adnexa: not tender and no mass present. No cervical discharge. Breasts: Breasts are soft. Right: Normal. Left: Normal. HENT: Head: Normocephalic. Nose: Nose normal. Mouth/Throat: Mouth: Mucous membranes are moist. Cardiovascular: Rate and Rhythm: Normal rate and regular rhythm. Pulmonary: Effort: Pulmonary effort is normal. Breath sounds: Normal breath sounds. Abdominal: General: Bowel sounds are normal. There is no distension. Palpations: Abdomen is soft. Tenderness: There is no abdominal tenderness. There is no guarding or rebound. Musculoskeletal: General: No swelling. Normal range of motion. Cervical back: Normal range of motion. Right lower leg: No edema. Left lower leg: No edema. Neurological: General: No focal deficit present. Mental Status: She is alert and oriented to person, place, and time. Skin: General: Skin is warm and dry. Psychiatric: Mood and Affect: Mood normal. Behavior: Behavior normal. Vitals and nursing note reviewed. Exam conducted with a caddie supervisor present. Vitals: Estimated body mass index is 19.74 kg/m?? as calculated from the following: Height as of 10/06/24: 5' 4 . Weight as of 10/06/24: 115 lb. BP: No LMP recorded. ASSESSMENT & PLAN ICD-10-CM 1. Well woman exam with routine gynecological exam Z01.419 THIN PREP TIS PAP AND HR HPV DNA 2. Breast cancer screening by mammogram Z12.31 Bilateral screening mammogram Bilateral screening mammogram 3. Mood changes R45.86 buPROPion SR (Wellbutrin SR) 150 MG 12 hr tablet Annual: Patient presents today for an annual exam. Patient states she is doing well and has complaints of having periods even after her ablation. Pt states she had an ablation over 2 yrs ago and is still having periods, although her periods are not as heavy as they were prior to the ablation. Nevertheless,she is over the fact of still having a period. Zaira Altman discussed a Hysterectomy procedure and patient desires to go forth with the Hysterectomy procedure. Pt will see our supervisor webbing at this visit to set up a Pre-op. Pt also discussed that the Wellbutrin is not helping her mood. Pt is currently at 150 mg tablet along w/Effexor. Zaira Altman raised her Wellbutrin to 300 mg. Pap was obtained without difficulty and patient given mammogram order to have scheduled/obtained. Orders Placed This Encounter Procedures Bilateral screening mammogram Follow Up: Patient is to return in one year for annual unless needed otherwise. Documented by Alice Buchanan MA on behalf of: TRESSA Lord documented in this encounter Plan of Treatment Upcoming Encounters Date Type Department Care Team (Late st Contact Info) Description 08/27/2025 8:50 AM EST Consult [facility] [place] [facility] [address] [place] [address] [place] [phone] Wilbur Meeks DO [address] [place], [place] [id number] 06/12/2026 11:00 AM EDT Procedure Visit [facility] [place] [facility] [address] [place] [address] Zaria Altman PA [address] [place] [address] Scheduled Orders Name Type Priority Associated Diagnoses Orde r Schedule Bilateral screening mammogram Imaging Routine Breast cancer screening by mammogram Expected: 06/07/2025 (Approximate), Expires: 08/07/2026 THIN PREP TIS PAP AND HR HPV DNA Pathology and Cytology Routine Well woman exam with routine gynecological exam Ordered: 06/07/2025 documented as of this encounter Visit Diagnoses Diagnosis Well woman exam with routine gynecological exam Routine gynecological examination Breast cancer screening by mammogram Mood changes Unspecified episodic mood disorder documented in this encounter Care Teams Upper Stitcher Relationship Specialty Start Date End Date Leslie Norman MD [address] [facility] [place] [phone] PCP - General Family Medicine 08/22/24 Leslie Norman MD Referring Physician Family Medicine 07/03/24 documented as of this encounter
--- OUTSIDE RECORDS SUMMARY | 2025-06-07 13:50 | XMS_ITS | Encounter Summary ---
Author Organization [facility] Address [address] [place] [address] Care Team Providers Care Dry Goods Clerk Name Role Phone Leslie Norman MD Unavailable Leslie Norman MD Primary Care Provider [phone] Encounter Details Date Type Department Care Team (Late Contact Info) Description 06/07/2025 Bamboo flowsheet [facility] [place] [facility] [address] [facility] [place] [address] Zaira Altman PA [address] [place], [place] [address] Social History Tobacco Use Types Packs/Day Years [...] PM EDT documented as of this encounter Plan of Treatment Upcoming Encounters Date Type Department Care Team (Late st Contact Info) Description 08/27/2025 8:50 AM EST Consult [facility] [place] [facility] [address] [place] [address] Wilbur Meeks DO [address] [facility] [place] [address] 06/12/2026 11:00 AM EDT Procedure Visit [facility] [place] [facility] [address] [facility] [place] [phone] Zaira Altman PA [address] [place] [address] documented as of this encounter Visit Diagnoses Not on filedocumented in this encounter Care Teams Dry Goods Clerk Relationship Specialty Start Date End Date Leslie Norman MD [address] [facility] [place] [phone] PCP - General Family Medicine 08/22/24 Leslie Norman MD Referring Physician Family Medicine 07/03/24 documented as of this encounter
--- OUTSIDE RECORDS SUMMARY | 2025-06-07 13:50 | XMS_ITS | Encounter Summary ---
Author Organization [facility] Address [address] [place] [address] Care Team Providers Care Network Cable Installer Name Role Phone Leslie Norman MD Unavailable Leslie Norman MD Primary Care Provider [phone] Reason for Visit * Reason Onset Date Comments Med Refill 11/19/2023 Encounter Details Date Type Department Care Team (Late st Contact Info) Description 11/19/2023 Refill [facility] [place] [address] Wilbur Meeks DO [facility] [place], [place] [address] Social History Tobacco Use Types Packs/Day Years Used Date Smoking Tobacco: Never Smokeless Tobacco: Never Alcohol Use Standard Drinks/Week Comments Never 0 (1 standard drink = 0.6 oz pur e alcohol) Comments Unknown Sex and Gender Information Value Date Recorded Sex Assigned at Female 06/28/2023 2:02 PM EDT Legal Sex Female 7:12 PM EDT Gender Identity Female 06/28/2023 2:02 PM EDT Sexual Orientation Straight 06/28/2023 2: 02 PM EDT documented as of this encounter Plan of Treatment Upcoming Encounters Date Type Department Care Team (Late st Contact Info) Description 08/27/2025 8:50 AM EST Consult N[facility] [address] [place] [address] Wilbur Meeks DO [address] [place] [address] 06/12/2026 11:00 AM EDT Procedure Visit [facility] [place] [facility] [address] [facility] [place] [address] Zaira Altman PA [address] [facility] [place] [address] documented as of this encounter Visit Diagnoses Not on filedocumented in this encounter Care Teams Network Cable Installer Relationship Specialty Start Date End Date Leslie Norman MD [address] [facility] [place] [address] PCP - General Family Medicine 08/22/24 Leslie Norman MD Referring Physician Family Medicine 07/03/24 documented as of this encounter
--- OUTSIDE RECORDS SUMMARY | 2025-06-07 13:50 | XMS_ITS | Clinical Summary ---
Author Organization [facility] Address [id number] [address] [place] [address] Care Team Providers Care Cloth Desizing Range Operator Chief Name Role Phone Unavailable Primary Care Provider Unavailabl e Social History Tobacco Use Types Packs/Day Years Used Date Smoking Tobacco: Never Assessed Childcare Answer Date Recorded Childcare Unknown 03/01/2019 Employment Answer Date Recorded Employment Unknown 03/01/2019 Comments Unknown Sex and Gender Information Value Date Recorded Sex Assigned at Not on file Legal Sex Female 12:08 PM EDT Gender Identity Not on file Sexual Orientation Not on file Plan of Treatment Health Maintenance Due Date Last Done Comments Depression Screening 1990 Tobacco Screening 1990 Adult BMI Screening 1996 DTaP,Tdap and Td Vaccines (1 - Tdap) 1997 Pap Smear 1999 Influenza Vaccine 05/21/2025 Medical Devices Not on file
--- OUTSIDE RECORDS SUMMARY | 2025-06-07 13:50 | XMS_ITS | Encounter Summary ---
Author Organization [facility] Address [address] [place] [address] Care Team Providers Care Courier Delivery Driver Name Role Phone Leslie Norman MD Unavailable Leslie Norman MD Primary Care Provider [phone] Encounter Details Date Type Department Care Team (Late st Contact Info) Description 08/07/2024 Abstract [facility] [address] [place] [address] Wilbur Meeks DO [address] [place] [address] Rosanne [place], [place] [address] Social History Tobacco Use Types Packs/Day Years [...] 08/27/2025 8:50 AM EST Consult [facility] [address] [place] [address] Wilbur Meeks DO [address] [place] [address] 06/12/2026 11:00 AM EDT Procedure Visit [facility] [place] [facility] [address] [facility] [place] [address] Zaira Altman PA [address] [facility] [place] [address] documented as of this encounter Visit Diagnoses Not on filedocumented in this encounter Care Teams Courier Delivery Driver Relationship Specialty Start Date End Date Leslie Norman MD [address] [facility] [place] [address] PCP - General Family Medicine 08/22/24 Leslie Norman MD Referring Physician Family Medicine 07/03/24 documented as of this encounter
--- OUTSIDE RECORDS SUMMARY | 2025-06-07 13:50 | XMS_ITS | Encounter Summary ---
Author Organization [facility] Address [address] [place] [address] Care Team Providers Care Sample Tailor Name Role Phone Leslie Norman MD Unavailable Leslie Norman MD Primary Care Provider [phone] Encounter Details Date Type Department Care Team (Late st Contact Info) Description 03/14/2024 Orders Only [facility] [place] [facility] [address] [place] [address] Rosemarie Carpenter LPN [address] [place] [address] Social History Tobacco Use Types Packs/Day Years [...] 8:50 AM EST Consult [facility] [place] [facility] [address] [place] [address] Wilbur Meeks DO [address] [facility] [place] [address] 06/12/2026 11:00 AM EDT Procedure Visit [facility] [place] [facility] [address] [facility] [place] [phone] Zaira Altman PA [address] [facility] [place] [address] documented as of this encounter Procedures Procedure Name Priority Date/Time Associated Diagnosis Comments PAP SMEAR Routine 03/07/2024 12:00 AM EDT documented in this encounter Results * Pap Smear (03/07/2024 12:00 AM EDT) Swab Cervical swab / Unknown us Constantino Nurse [facility] LAB CYTOLOGY ORDERABLES Final Result EXTERNAL LAB documented in this encounter Visit Diagnoses Not on filedocumented in this encounter Care Teams Sample Tailor Relationship Specialty Start Date End Date Leslie Norman MD [address] [facility] [place] [address] PCP - General Family Medicine 08/22/24 Leslie Norman MD Referring Physician Family Medicine 07/03/24 documented as of this encounter
--- OUTSIDE RECORDS SUMMARY | 2025-06-07 13:50 | XMS_ITS | Encounter Summary ---
Author Organization [facility] Address [address] [place] [address] Care Team Providers Care Reference Librarian Name Role Phone Leslie Norman MD Unavailable Leslie Norman MD Primary Care Provider [phone] Encounter Details Date Type Department Care Team (Late st Contact Info) Description 03/08/2024 Abstract [facility] [address] [place] [address] Wilbur Meeks DO [address] [place] [address] [place], [place] [address] Social History Tobacco Use Types Packs/Day Years [...] 08/27/2025 8:50 AM EST Consult [facility] [address] [facility] [place] [address] Wilbur Meeks DO [address] [place] [address] 06/12/2026 11:00 AM EDT Procedure Visit [facility] [place] [facility] [address] [facility] [place] [phone] Zaira Altman PA [address] [facility] [place] [address] documented as of this encounter Visit Diagnoses Not on filedocumented in this encounter Care Teams Reference Librarian Relationship Specialty Start Date End Date Leslie Norman MD [address] [facility] [place] [address] PCP - General Family Medicine 08/22/24 Leslie Norman MD Referring Physician Family Medicine 07/03/24 documented as of this encounter
--- OUTSIDE RECORDS SUMMARY | 2025-06-07 13:50 | XMS_ITS | Clinical Summary ---
Author Organization [facility] Healthcare Address [address] [place] [address] Care Team Providers Care Gambreler Helper Name Role Phone Leslei Norman MD Unavailable Leslie Norman MD Primary Care Provider [phone] Allergies No known active allergies Medications amphetamine-dext roamphetamine (Adderall) 20 MG tablet Take 1 tablet by mouth in the morning and 1 tablet before bedtime. 4 Active Ubrogepant (UBRELVY PO) Take by mouth if needed Active fluticasone (Flonase) 50 MCG/ACT nasal sprayIndications :Chronic pansinusitis Administer 2 sprays into each nostril Daily Shake gently. Before first use, prime pump. After use, clean tip and replace cap. 48 g 3 4 025 Active cetirizine-pseud oephedrine (ZyrTEC-D) 5-120 MG 12 hr tabletIndication s:Chronic pansinusitis Take 1 tablet by mouth in the morning and 1 tablet before bedtime. 60 tablet 11 4 025 Active venlafaxine XR (Effexor XR) 150 MG 24 hr capsuleIndicatio ns:Depression with anxiety Take 1 capsule (150 mg) by mouth Daily Do not crush or chew. 30 capsule 3 5 Active buPROPion SR (Wellbutrin SR) 150 MG 12 hr tabletIndication s:Mood changes Take 2 tablets (300 mg) by mouth at bedtime Do not crush, chew, or split. 30 tablet 11 5 026 Active buPROPion SR (Wellbutrin SR) 150 MG 12 hr tabletIndication s:Mood changes Take 1 tablet (150 mg) by mouth at bedtime Do not crush, chew, or split. 30 tablet 11 5 025 Discontin ued(Reord er) Active Problems Problem Noted Date Diagnosed Date Abnormal mammogram of left breast 06/22/2024 Adult ADHD 06/22/2024 Anxiety 06/22/2024 Cervical lymphadenitis 06/22/2024 Chronic sinusitis 06/22/2024 Cyst of ovary 06/22/2024 Encounters Date Type Department Care Team Description 06/07/2025 9:30 AM EDT Procedure Visit [facility] [address] [address] [place] [address] Zaira Altman PA Well woman exam with routine gynecological exam; Breast cancer screening by mammogram; Mood changes 06/07/2025 Bamboo flowsheet [facility] [address] [place] [address] Zaira Altman PA 05/07/2025 [facility]ill [facility] [address] [facility] [place] [address] Alice Buchanan MA Mood changes from Last 3 Months Immunizations Immunization Administration Dates Next Due Influenza, injectable, quadrivalent, preservativ e free 05/25/2020,05/22/2019 Family History Medical History Relation Name Comments Hearing loss Father Carlyle Samuel Hyperlipidemia Father Carlyle Samuel Hypertension Father Carlyle Samuel Thyroid disease Father's Sister Mikaela Fields Arthritis Maternal Grandmother Degenerative Disc Disease Maternal Grandmother Depression Maternal Grandmother Breast cancer Mother Venus Gressman Cancer Mother Venus Gressman Hyperlipidemia Mother Venus Gressman Hypertension Mother Venus Gressman Migraines Mother Venus Gressman Rashes / Skin problems Mother Venus Gressman Cancer Mother's Brother Bill Tea Alcohol abuse Paternal Grandfather Cancer Paternal Grandmother Chantell Samuel Rashes / Skin problems Sister Mayuri Bupp Relation Name Status Comments Father Carlyle Samuel Alive Father's Sister Mikaela Diamond Maternal Grandfather Maternal Grandmother Mother Venus Mendoza Alive Mother's Brother Felipe Tea Paternal Grandfather Paternal Grandmother Chantell Samuel Sibling Alive Sister Mayuri Bupp Social History Tobacco Use Types Packs/Day Years Used Date Smoking Tobacco: Former Cigarettes 0.5 29 1 09/30/1993 - 07/31/2023 Smokeless Tobacco: Never Tobacco Cessation:Counseling Given: Not Answered Alcohol Use Standard Drinks/Week Comments Not Currently 0 (1 standard drink = 0.6 oz pur e alcohol) Comments No Sex and Gender Information Value Date Recorded Sex Assigned at Female 06/28/2023 2:02 PM EDT Legal Sex Female 7:12 PM EDT Gender Identity Female 06/28/2023 2:02 PM EDT Sexual Orientation Straight 06/28/2023 2: 02 PM EDT Last Filed Vital Signs Vital Sign Reading Time Taken Comments Blood Pressure 124/76 10/06/2024 1:07 PM EST Pulse 117 10/06/2024 1:07 PM EST Temperature - - Respiratory Rate - - Oxygen Saturation - - Inhaled Oxygen Concentration - - Weight 52.2 kg (115 lb) 10/06/2024 1:07 PM EST Height 162.6 cm (5' 4 ) 10/06/2024 1:07 PM EST Body Mass Index 19.74 10/06/2024 1:07 PM EST Plan of Treatment Upcoming Encounters Date Type Department Care Team (Late st Contact Info) Description 08/27/2025 8:50 AM EST Consult [facility] [address] [facility] [place] [address] Fabian Meeks DO [address] [facility] [address] [place], [place] [id number] 06/12/2026 11:00 AM EDT Procedure Visit [facility] [address] [facility] [place] [address] Zaira Altman PA [address] [facility] [address] [place], [place] [id number] Health Maintenance Due Date Last Done Comments CT Colonography 1978 Colonoscopy 1978 Colorectal Cancer Screening 1978 FIT-DNA 1978 FIT 1978 FOBT 1978 Sigmoidoscopy 1978 HPV/Cotest 2008 Mammogram 12/01/2023 11/30/2022, 08/17/2022, 07/21 Influenza Vaccine (#1) 2025 , 05/22/2019, 05/22/2014, Additional history exists Cervical Cancer Screening 03/07/2027 Pap Smear 03/07/2027 03/07/2024 Procedures Procedure Name Priority Date/Time Associated Diagnosis Comments PAP SMEAR Routine 03/07/2024 12:00 AM EDT BI MAMMOGRAM DIAGNOSTIC TOMOSYNTHESIS LEFT Routine 11/30/2022 from Last 3 Months or Most Recently Relevant to Health Maintenance Results * Pap Smear (03/07/2024 12:00 AM EDT) Swab Cervical swab / Unknown Constantino Nurse [facility] LAB CYTOLOGY ORDERABLES Final Result EXTERNAL LAB * Left diagnostic mammogram with tomosynthesis (11/30/2022) Anatomical Region Laterality Modality Breast Left Mammography Narrative 11/30/2022 12:00 AM EDT PERFORMED AT [facility] LOCATION:[address] Patient: VARSHA Sandra Exam Date: 11/30/2022 : 1980 Gender:F Ordering : DR FABIAN MEEKS . Admission #: [id number] Family : Order #: [id number] CLICK HERE TO VIEW EXAM RADIOLOGY REPORT PROCEDURE: MAMMOGRAM DIAGNOSTIC 3D LEFT CAD 11/30/2022 09:57 ULTRASOUND BREAST LEFT LIMITED 11/30/2022 10:40 COMPARISON: MG MAMM SCREEN HARMONY W CAD 04/25/2020. MG MAMM SCREEN HARMONY W CAD 11/11/2018. MG MAMM HARMONY SCRN W CAD DIG 05/20/2015. MG MAMM SCREEN 3D HARMONY CAD 08/06/2022. INDICATIONS: Abnormal findings on diagnostic imaging of breast Calculator Name NCI Breast Cancer Risk Assessment Tool 5 Year Breast Cancer Risk 0.90% Lifetime Breast Cancer Risk 10.70% Personal Breast Cancer No Personal Ovarian Cancer No Treatments None Family Cancers None LOCATION: [facility] BREAST COMPOSITION: Extremely dense which lowers the sensitivity of mammography. FINDINGS: DIAGNOSTIC CATEGORY 2--BENIGN FINDING: LEFT BREAST: Mammographic views demonstrate a 2.1 cm partially circumscribed mass versus cyst within the mid breast. Ultrasound evaluation demonstrates a 2.1 x 1.7 x 1.0 cm benign appearing simple cyst at the 12 o''clock position 0.5 cm from the nipple. Annual screening mammography is recommended. RECOMMENDATIONS: ROUTINE MAMMOGRAM AND CLINICAL EVALUATION IN 12 MONTHS. PLEASE NOTE: A NORMAL MAMMOGRAM DOES NOT EXCLUDE THE POSSIBILITY OF BREAST CANCER. A CLINICALLY SUSPICIOUS PALPABLE LUMP SHOULD BE BIOPSIED. Dictated by: Madi Mason M.D. on 11/30/2022 at 10:38 Approved by: Madi Mason M.D. on 11/30/2022 at 10:47 Procedure Note CONVERSION, GENERIC - 03/26/2023 PERFORMED AT [facility] LOCATION:[address] Patient: VARSHA Sandra Exam Date: 11/30/2022 : 1980 Gender:F Ordering : DR FABIAN MEEKS . Admission #: [id number] Family : Order #: [id number] CLICK HERE TO VIEW EXAM RADIOLOGY REPORT PROCEDURE: MAMMOGRAM DIAGNOSTIC 3D LEFT CAD 11/30/2022 09:57 ULTRASOUND BREAST LEFT LIMITED 11/30/2022 10:40 COMPARISON: MG MAMM SCREEN HARMONY W CAD 04/25/2020. MG MAMM SCREEN HARMONY W CAD 11/11/2018. MG MAMM HARMONY SCRN W CAD DIG 05/20/2015. MG MAMM SCREEN 3D HARMONY CAD 08/06/2022. INDICATIONS: Abnormal findings on diagnostic imaging of breast Calculator Name NCI Breast Cancer Risk Assessment Tool 5 Year Breast Cancer Risk 0.90% Lifetime Breast Cancer Risk 10.70% Personal Breast Cancer No Personal Ovarian Cancer No Treatments None Family Cancers None LOCATION: [facility] BREAST COMPOSITION: Extremely dense which lowers the sensitivity of mammography. FINDINGS: DIAGNOSTIC CATEGORY 2--BENIGN FINDING: LEFT BREAST: Mammographic views demonstrate a 2.1 cm partiallycircumscribed mass versus cyst within the mid breast. Ultrasound evaluation demonstrates a 2.1 x 1.7 x 1.0 cm benign appearing simple cyst at the 12 o''clock position 0.5 cm from the nipple. Annual screening mammography is recommended. RECOMMENDATIONS: ROUTINE MAMMOGRAM AND CLINICAL EVALUATION IN 12 MONTHS. PLEASE NOTE: A NORMAL MAMMOGRAM DOES NOT EXCLUDE THE POSSIBILITY OFBREAST CANCER. A CLINICALLY SUSPICIOUS PALPABLE LUMP SHOULD BE BIOPSIED. Dictated by: Madi Mason M.D. on 11/30/2022 at 10:38 Approved by: Madi Mason M.D. on 11/30/2022 at 10:47 Fabian Meeks DO IMG BI PROCEDURES Final Result from Last 3 Months or Most Recently Relevant to Health Maintenance Insurance [employer] Care Teams Gambreler Helper Relationship Specialty Start Date End Date Leslie Norman MD [address] [place] [id number] PCP - General Family Medicine 08/22/24 Leslie Norman MD Referring Physician Family Medicine 07/03/24
--- OUTSIDE RECORDS SUMMARY | 2025-06-07 13:58 | XMS_ITS | CCD ---
Author Organization [facility] Care Team Providers Care Counseling Aide Name Role Phone Tyler Bates Unavailable LEONA ., DR PERALTA Admitting Unavailable LEONA ., DR PERALTA Attending Unavailable BATES, DR TYLER Worrell Primary Care Unavailable LEONA ., DR PERALTA Consulting Unavailable ZIEBER, DR YOLANDA Crow Consulting Unavailable MENDOZAKATHYA AMECZUA Consulting Unavailable LEONA ., DR PERALTA Admitting Unavailable LEONA ., DR PERALTA Attending Unavailable BATES, DR TYLER Worrell Primary Care Unavailable LEONA ., DR PERALTA Consulting Unavailable LEONA ., DR PERALTA Admitting Unavailable LEONA ., DR PERALTA Attending Unavailable BATES, DR TYLER Worrell Primary Care Unavailable LEONA ., DR PERALTA Consulting Unavailable ANNA GOULD Consulting Unavailable ALVIN, IKE CANDELARIA Consulting Unava ilable LEONA ., DR PERALTA Admitting Unavailable LEONA ., DR PERALTA Attending Unavailable BATES, DR TYLER Worrell Primary Care Unavailable LEONA ., DR PERALTA Consulting Unavailable LEONA ., DR PERALTA Admitting Unavailable LEONA ., DR PERALTA Attending Unavailable LEONA ., DR PERALTA Primary Care Unavailable [place], DR RICK Chi Consulting Unavailable LEONA ., DR PERALTA Consulting Unavailable LEONA ., DR PERALTA Admitting Unavailable LEONA ., DR PERALTA Attending Unavailable LEONA ., DR PERALTA Primary Care Unavailable LEONA ., DR PERALTA Consulting Unavailable ZIEBER, DR YOLANDA Crow Consulting Unavailable JANA, DR TYLER Worrell Admitting Unavailable JANA, DR TYLER Worrell Attending Unavailable JANA, DR TYLER Worrell Primary Care Unavailable BATES, DR TYLER Worrell Consulting Unavailable Jesús Gallardo Unavailable Lorena Newell Unavailable MD Tyler Bates Primary Care Provider MD Kylie Sands Attending Provider [phone] Tyler Bates Primary Care Unavailable Haladay, Kylie Attending Unavailable Haladay, Kylie Admitting Unavailable Tyler Bates MD Unavailable Tyler Bates MD Primary Care Provider Timmis, Perri H Admitting Unavailable Timmis, Perri H Attending Unavailable Timmis, Perri H Referring Unavailable TYLER BATES Primary Care Physician [phone] Timmis, Perri H Admitting Unavailable Timmis, Perri H Attending Unavailable Timmis, Perri H Referring Unavailable Timmis, Perri H Admitting Unavailable Timmis, Perri H Attending Unavailable Timmis, Perri H Referring Unavailable Timmis, Perri H Admitting Unavailable Timmis, Perri H Attending Unavailable Timmis, Perri H Referring Unavailable LEONA, WILBUR Attending [facility]available [facility] Attending Unavailable HALADAY, KYLIE G Referring Unavailable [...] Attending Unavailable HALADAY, KYLIE G Referring Unavailable LEONA, WILBUR Attending Unavailable TIMMIS, PERRI H Attending Unavailable TYLER BATES Referring Unavailable TIMMIS, PERRI H Referring Unavailable TIMMIS, PERRI H Attending Unavailable TIMMIS, PERRI H Attending Unavailable TIMMIS, PERRI H Attending Unavailable Tyler Bates MD Unavailable Tyler Bates MD Primary Care Provider Allergies Allergy Classification Reported Allergen(s) Allergy Type Date of Onset Reaction(s) Facility (3 sources) patient allergy list reviewed by nurse or physicia Propensity to adverse reactions 6 Comment:Done Months Of Me Other (3 sources) Allergies Reconciled Propensity to adverse reactions 1 Unknown Months Of Me Other (1 source) No Known Medication Allergies; Translations: [No Known Medication Allergies] Propensity to adverse reactions (disorder) [facility] Repository Medications Current Medications Medication Drug Class(es) Dates Sig (Normalized) Sig (Original) [id number] 200 actuat albuterol 0.09 mg/actuat metered dose [...] if needed for 7 Dec, Active amoxicillin 500 mg oral capsule (3 sources) Penicillin-class Antibacterial Start: 06-19-2024 End: 07-03-2024 amoxicillin (Amoxil) 500 MG capsule Twice daily 06/19/2024 07/03/2024 Discontinued (Therapy completed) amoxicillin 875 mg / clavulanate 125 mg oral tablet (6 sources) Penicillin-class Antibacterial Start: 10-04-2024 End: 10-18-2024 take 1 tablet by mouth in the morning amoxicillin-clavu lanate (Augmentin) 875-125 MG tablet Indications: Chronic pansinusitis Take 1 tablet (875 mg) by mouth in the morning and 1 tablet (875 mg) before bedtime. Do all this for 14 days. 28 tablet 10/04/2024 10/18/2024 Active Start: 07-03-2024 End: 08-02-2024 take 1 tablet by mouth in the morning amoxicillin-clavulanate (Augmentin) 875-125 MG tablet Indications: Chronic pansinusitis Take 1 tablet (875 mg) by mouth in the morning and 1 tablet (875 mg) before bedtime. 60 tablet 07/03/2024 08/02/2024 Active Start: 11-23-2023 take 1 tablet by scot th twice daily Amoxicillin-Pot Clavulanate Active 1 TAB PO Twice daily November 23, 2023 1:00am amphetamine aspartate 5 mg / amphetamine sulfate 5 mg / dextroamphetamine saccharate 5 mg / dextroamphetamine sulfate 5 mg oral tablet (20 sources) Central Nervous System Stimulant Start: 11-09-2023 End: 01-06-2024 take 1 tablet by mouth in the morning amphetamine-dextroamphetamine (Adderall) 20 MG tablet Take 1 tablet by mouth in the morning and 1 tablet before bedtime. 11/09/2023 Active Start: 10-11-2023 take 1 tablet by scot [...] Every 4 hours November 23, 2023 1:00am 12 hr buPROPion hydrochloride 150 mg extended release oral tablet (18 sources) Aminoketone Start: 06-07-20 End: 06-07-20 26 take 2 tablets by mouth every twelve hours at bedtime buPROPion SR (Wellbutrin SR) 150 MG 12 hr tablet Indications: Mood changes Take 2 tablets (300 mg) by mouth at bedtime Do not crush, chew, or split. 30 tablet 11 06/07/2025 06/07/2026 Active Start: 08-29-2024 take 1 tablet by scot once daily buPROPion 150 mg ER Tab 150 mg = 1 tab(s), Oral, Daily, Refills(s) 0, Depression Start Date: 08/29/24 Status: Ordered Start: 05-08-2024 End: 05-07-2026 take 1 tablet by mouth every twelve hours at bedtime buPROPion SR (Wellbutrin SR) 150 MG 12 hr tablet Indications: Mood changes Take 1 tablet (150 mg) by mouth at bedtime Do not crush, chew, or split. 30 tablet 11 05/07/2025 06/07/2025 Discontinued (Reorder) cetirizine hydrochloride 10 mg oral tablet (3 sources) Histamine-1 Receptor Antagonist End: 07-03-2024 cetirizine (ZyrTEC) 10 MG tablet Take by mouth. 07/03/2024 Discontinued Zyrtec-D (16 sources) alpha-Adrenergic Agonist, Histamine-1 Receptor Antagonist Start: 08-29-2024 take 1 tablet by mouth once daily Zyrtec-D 1 tab(s), Oral, Daily, Refill(s) 0, Allergy symptoms Start Date: 08/29/24 Status: Ordered Start: 07-03-2024 End: 07-03-2025 take 1 tablet by mouth once in the morning, then take 1 tablet by mouth every twelve hours at bedtime cetirizine-pseudoephedrine (ZyrTEC-D) 5-120 MG 12 hr tablet Indications: Chronic pansinusitis Take 1 tablet by mouth in the morning and 1 tablet before bedtime. 60 tablet 11 07/03/2024 07/03/2025 Active ciprofloxacin 3 mg/ml ophtha lmic solution (15 sources) Quinolone Antimicrobial Start: 01-28-2023 Start: 01-28-2023 Claritin-D 12 Hour 5-120 MG (15 sources) Start: 01-19-2023 take 5-120 mg by mouth twice daily Claritin-D 12 Hour 5-120 MG 1 tablet Orally twice a day for 30 days January, Active Flonase (16 sources) Corticosteroid Start: 08-29-2024 Flonase Refill (s) 0, Allergy symptoms Start Date: 08/29/24 Status: Ordered Start: 07-03-2024 End: 07-03-2025 take 2 spray(s) nasal route once daily fluticasone (Flonase) 50 MCG/ACT nasal spray Indications: Chronic pansinusitis Administer 2 sprays into each nostril Daily Shake gently. Before first use, prime pump. After use, clean tip and replace cap. 48 g 3 07/03/2024 07/03/2025 Active ketoconazole 20 mg/ml medicated shampoo (10 [...] a day for 10 days May, Active predniSONE 20 mg oral tablet (8 sources) Start: 07-03-2024 End: 07-09-2024 take 1 tablet by mouth in the morning predniSONE (Deltasone) 20 MG tablet Indications: Chronic pansinusitis Take 1 tablet (20 mg) by mouth in the morning and 1 tablet (20 mg) before bedtime. Do all this for 6 days. 12 tablet 07/03/2024 07/09/2024 Active Start: 11-19-2015 take 1 tablet by scot th every twenty-four hours predniSONE 20 MG 1 tablet with food or milk Orally Once a day for 30 days Nov, Not-Taking Probiotic Formula (Bacillus Coagulans) (2 sources) Start: 08-29-2024 Probiotic Form chun (Bacillus Coagulans) Refill(s) 0, Prophylaxis Start Date: 08/29/24 Status: Ordered tiZANidine 4 mg oral tablet (19 sources) Central alpha-2 Adrenergic Agonist Start: 11-23-2023 take 1 tablet by mouth once daily at bedtime Tizanidine (Zanaflex) 4 mg tablet Active 4 MG PO Daily at bedtime November 23, 2023 1:00am take 1 tablet by [facility] once daily at bedtime Zanaflex 4 mg 1 tablet Orally qhs PRN Active Ubrogepant (UBRELVY PO) (15 sources) Ubrogepant (UBRE LVY PO) Take by mouth if needed Active 24 hr venlafaxine 150 mg extended release oral capsule (20 sources) Serotonin and Norepinephrine Reuptake Inhibitor Start: 02-22-20 take 1 capsule by mouth once daily venlafaxine XR (Effexor XR) 150 MG 24 hr capsule Indications: Depression with anxiety Take 1 capsule (150 mg) by mouth Daily Do not crush or chew. 30 capsule 3 02/21/2025 Active Start: 05-17-2024 End: 10-15-2024 take 1 capsule by mouth once daily venlafaxine XR (Effexor XR) 150 MG 24 hr capsule Indications: Depression with anxiety Take 1 capsule (150 mg) by mouth Daily Do not crush or chew. 30 capsule 3 07/17/2024 10/15/2024 Active Start: 11-23-2023 take 1 capsule by [facility] once daily Venlafaxine (Effexor Xr) 75 mg capsule,extended release 24hr Active 75 MG PO Daily November 23, 2023 1:00am take 1 capsule by [facility] every twenty-four hours Effexor XR 75 MG [...] mg oral tablet (18 sources) Corticosteroid Start: methylPREDNISolone 4 MG as directed Orally daily [...] tid prn for 5 days Sep, Not-Taking sulfamethoxazole 800 mg / trimethoprim 160 [...] contact dermatitis, unspecified cause Episodic Anxiety disorders (20 sources) Anxiety disorder; Translations: [Anxiety disorder, unspecified] Onset: 10-11-2015 11-23-2023 Chronic Attention-deficit, conduct, and disruptive behavior disorders (20 sources) Adult attention deficit hyperactivity disorder ; Translations: [Attention-deficit hyperactivity disorder, unspecified type] Onset: 06-22-2024 11-09-2023 Chronic Attention-deficit, conduct, and disruptive behavior disorders (9 sources) Attention-deficit hyperactivity disorder, unspecified type Chronic Attention-deficit, conduct, and disruptive behavior disorders (3 sources) Attention deficit hyperactivity disorder; Translations: [Attention-deficit hyperactivity disorder, unspecified type] Chronic Attention-deficit, conduct, and disruptive behavior disorders (2 sources) Attention deficit hyperactivity disorder, predominantly inattentive type 08-29-2024 Chronic Cardiac dysrhythmias (20 sources) Palpitations; Translations: [Palpitations] Onset: 04-20-2017 11-23-2023 Episodic Chronic obstructive pulmonary disease and bronchiectasis (3 sources) Bronchitis; Translations: [Bronchitis, not specified as acute or chronic] Episodic Genitourinary symptoms and ill-defined conditions (3 sources) Genuine stress incontinence; Translations: [Stress incontinence (female) (male)] Chronic Headache; including migraine (6 sources) Migraine without aura, not refractory ; Translations: [Migraine, unspecified, not intractable, without status migrainosus] Onset: 10-11-2015 11-23-2023 Chronic Headache; including migraine (4 sources) Headache; Translations: [Nonintractable headache, unspecified chronicity pattern, unspecified headache type] 07-03-2024 Episodic Immunity disorders (11 sources) Autoimmune disease; Translations: [Other specified disorders involving the immune mechanism, not elsewhere classified] Chronic Malaise and fatigue (12 sources) Other fatigue; Translations: [Malaise and fatigue] Onset: 10-11-2015 Episodic Menstrual disorders (20 sources) Irregular periods; Translations: [Irregular menstruation, unspecified] Onset: 07-31-2022 Chronic Mood disorders (6 sources) Premenstrual dysphoric disorder; Translations: [Premenstrual dysphoric disorder] Onset: 08-03-2022 08-29-2024 Chronic Mood disorders (1 source) Disturbance in mood; Translations: [Emotional lability] 06-07-2025 Episodic Nausea and vomiting (3 sources) Nausea; Translations: [Nausea] Episodic Other connective tissue disease (1 source) Myalgia, unspecified site; Translations: [Myalgia, unspecified site] Onset: 01-11-2024 Episodic Other ear and sense organ disorders (2 sources) Bilateral hearing loss; Translations: [Unspecified hearing loss, bilateral] 07-03-2024 Chronic Other female genital disorders (1 source) Abnormal [...] sources) Cough; Translations: [Cough, unspecified] Episodic Other nervous system disorders (2 sources) Atypical facial pain; Translations: [Atypical facial pain] 10-06-2024 Episodic Other nutritional; endocrine; and metabolic disorders (19 sources) Weight loss; Translations: [Abnormal weight loss] 11-23-2023 Episodic Other nutritional; endocrine; and metabolic disorders (3 sources) Body mass index less than 20; Translations: [Body mass index (BMI) 19.9 or less, adult] Episodic Other screening for suspected conditions (not mental disorders or infectious disease) (20 sources) Other abnormal and inconclusive findings on diagnostic imaging of breast; Translations: [Encounter for screening mammogram for malignant neoplasm of breast] Onset: 10-11-2015 Episodic Other skin disorders (2 sources) Rash and other nonspecific skin eruption Episodic Other upper respiratory disease (3 sources) Allergic rhinitis; Translations: [Allergic rhinitis, unspecified] Chronic Other upper respiratory disease (5 sources) Deviated nasal septum; Translations: [Deviated nasal septum] Onset: 09-07-2024 08-22-2024 Episodic Other upper respiratory disease (4 sources) Alvaro bullosa; Translations: [Other specified disorders of nose and nasal sinuses] 08-22-2024 Episodic Other upper respiratory disease (5 sources) Hypertrophy of nasal turbinates; Translations: [Hypertrophy of nasal turbinates] Onset: 09-07-2024 08-22-2024 Episodic Other upper respiratory disease (1 source) Disorder of the nose; Translations: [Other specified disorders of nose and nasal sinuses] Onset: 09-07-2024 Episodic Other upper respiratory infections (20 sources) Chronic sinusitis; Translations: [Chronic sinusitis, unspecified] Onset: 06-22-2024 06-22-2024 Chronic Other upper respiratory infections (6 sources) Acute pharyngitis; Translations: [Acute pharyngitis, unspecified] Onset: 11-01-2015 Episodic Skin and subcutaneous tissue infections (1 [...] with other respiratory manifestations] Onset: 12-17-2015 Episodic Lymphadenitis (16 sources) Nonspecific lymphadenitis, unspecified; Translations: [Cervical lymphadenitis] Onset: 06-22-2024 Episodic Other nutritional; endocrine; and metabolic disorders (3 sources) Underweight; Translations: [Underweight] Onset: 04-20-2017 Episodic Other nutritional; endocrine; and metabolic disorders (3 sources) Abnormal weight loss; Translations: [Abnormal weight loss] Onset: 04-20-2017 Episodic Ovarian cyst (19 sources) Unspecified ovarian cyst, left side; Translations: [Cyst of left ovary] Onset: 07-23-2022 06-22-2024 Episodic Residual codes; unclassified (3 sources) Sleep disorder; Translations: [Persistent disorder of initiating or maintaining sleep] Onset: 04-20-2017 Episodic Unclassified (3 sources) care; Translations: [Supervision of other normal ] Onset: 02-02-2007 Results Test Name Value Interpretation Reference Range Facility Operative Reporton Operative Report Operative Report SURGERY DATE: 09/07/2024 PREOPERATIVE DIAGNOSIS: Deviated nasal septum, right alvaro bullosa, right inferior turbinate hypertrophy POSTOPERATIVE DIAGNOSIS: Deviated nasal septum, right alvaro bullosa, right inferior turbinate hypertrophy OPERATION: Septoplasty, removal of right alvaro bullosa, and right inferior turbinate mucosal resection ANESTHESIA: General endotracheal COMPLICATIONS: None FINDINGS: Deviated nasal septum to the left with a large septal spur impacting the lateral nasal wall, right alvaro bullosa, and right inferior turbinate hypertrophy INDICATIONS: This 44-year-old woman presented with chronic left facial pain and pressure consistent with Sluder pain due to a large nasal septal spur. She also had a large alvaro bullosa and inferior turbinate hypertrophy on the opposite side which needed to be removed in order to allow for reduction of the septal deviation. PROCEDURE: The patient identified in the Holding Area and taken back to the Operating Room, where she was placed in a supine position after induction of general endotracheal anesthesia. The face was draped in a sterile fashion. Afrin-soaked pledgets were placed in each side of the nose, and after allowing adequate time for decongestion the nose was copiously irrigated bilaterally. Attention was then turned to the right nose. The nose was approached with the nasoendoscope and lidocaine 1% with 1:100,000 epinephrine injected into the alvaro bullosa. After waiting adequate time for hemostasis, the alvaro bullosa was incised with curved scissors to the right and removed with ethmoid forceps. The posterior root of the turbinate was prophylactically cauterized to minimize the risk of postoperative bleeding. Then lidocaine 1% with 1:100,000 epinephrine was injected into the nasal septum bilaterally as well as the right inferior turbinate. After waiting adequate time for hemostasis, the right inferior turbinate was approached with a nasal speculum. A stab incision was made anteriorly and a Crane elevator used to create a tunnel on the medial surface of the turbinate bone. Then a 2.0 mm microdebrider was used to incinerate the submucosal tissues of the turbinate, and the turbinate was outfractured with a long nasal speculum. A left-sided [place] incision was then made, and a mucoperichondrial and mucoperiosteal flap was elevated on the left-hand side. The bony cartilaginous junction was then , and the mucoperiosteal flap was elevated on the right-hand side. Then, using cutting and grabbing Adarsh-Fly forceps, the bony septum was removed. Careful dissection around the large septal spur was performed in order to minimize tearing of the septal mucosa. Then, using a chisel anteriorly, the deviated anterior portion of the septum was freed, and a large septal spur was removed. A small inferior strut of cartilaginous septum was incised with a 15 blade to allow the nasal septum to lie more freely over the premaxilla crest. The septal flaps on both sides of the nose were then copiously irrigated. The [place] incision was closed with a 5-0 Caprosyn suture, and then bilateral ventilating Silastic splints were coated with antibiotic ointment, placed in the nose, and then sutured in place using a 2-0 nylon transseptal stitch. There was good dorsal and tip support at the end of the procedure, and the patient was awakened and taken to the Recovery Room in good condition. Padma Pedroza Jr. Dictated: 09/07/2024 [id number] Transcribed: 09/07/2024 [facility] Comment on above: Result Comment: Elec tronically Signed By: Madeline SAMANIEGO, Perri Phelps\.br\Date and Time Signed: 09/28/24 08:31 EST Surgical Pathology Reporton 09-12-2024 Surgical Pathology Report [facility] [address] [place] [address]- Surgical Pathology Report Collected Date/Time: 09/07/2024 09:54 EST Pathologist: Kylie Varela MD Received Date/Time: 09/07/2024 11:10 EST Madeline SAMANIEGO, Perri Walker MD, Perri Phelps 07 Surgical Pathology Report - 09/12/2024 15:08 EST - Auth (Verified) Final Diagnosis A: RIGHT ALVARO BULLOSA, EXCISION: MILD TO FOCAL MODERATE NONSPECIFIC CHRONIC SINUSITIS; ALVARO BULLOSA EXCISION B: SEPTUM, REMOVAL: GROSS ONLY SEGMENTS OF PRINCIPALLY FLAT CARTILAGINOUS AND OSSEOUS TISSUE CONSISTENT WITH NASAL SEPTUM: CLINICALLY DEVIATED NASAL SEPTUM C: RIGHT INFERIOR TURBINATE SOCK, CURETTAGE: SPARSE FRAGMENTS OF RESPIRATORY EPITHELIUM AND GLANDULAR MUCOSA WITH FOCAL MILD NONSPECIFIC CHRONIC INFLAMMATION; MILD NONSPECIFIC CHRONIC SINUSITIS (Electronic Signature) Kylie Varela MD 09/12/2024 15:08 Clinical Information Deviated nasal septum Pre-Op Diagnosis: Deviated nasal septum Procedure: Septoplasty Post-Op Diagnosis: Deviated nasal septum, right alvaro bullosa, right inferior turbinate hypertrophy Specimen(s) Received A.Right alvaro bullosa B.Septum C.Right inferior turbinate sock Gross Description A: Received in formalin labeled with patient name, number, and right alvaro bullosa is a segment of turbinate measuring 3 x 0.8 x 0.8 cm. Specimen is serially sectioned and submitted in one cassette after decalcification. B: Received in formalin labeled with patient name, number, and septum. The specimen consists of multiple segments of osseous and cartilaginous tissue which in aggregate measure 3 x 2 x 1 cm. No lesions are grossly identified. No tissue is submitted. (Gross only) C: Received in formalin labeled with patient name, number, and right inferior turbinate sock. Received in a sock-like material are multiple fragments of cameron/red/pink tissue measuring in aggregate 2.7 x 1 x 0.1 cm. The specimen is entirely submitted in one cassette. (DC) DC:[facility] Microscopic Description Microscopic examination performed unless gross only specified. Normal [facility] Comment on above: Performed By: #### [id number] #### [facility] [address] [place] [address] Main OR Intraoperative Recor don 09-11-2024 Main OR Intraoperative Record Main OR Intraoperative Record IntraOp Document Type FT Summary Primary Physician: Perri Walker MD Finalized Date/Time: 09/11/24 07:22:26 Pt. Name: AGUSTO KING /Sex: 1980 Female Med Rec #: [id number] Physician: Perri Walker MD Financial #: [id number] Pt. Type: A Room/Bed: [facility] Admit/Disch: 09/07/24 07:36:37 - 09/07/24 12:25:00 Institution: Case Times FT Entry 1 Patient Times In Room 09/07/24 09:24:00 Out Room 09/07/24 10:28:00 Procedure Times Start 09/07/24 09:50:00 Stop 09/07/24 10:22:00 Anesthesia Times Start 09/07/24 09:24:00 Stop 09/07/24 10:28:00 Last Modified By: Demetrius Oden Ii 09/07/24 10:28:19 General Comments: 09/11/24 Chart opened to review and send charges [facility]oth CSFA Case Attendance FT Entry 1 Entry 2 Entry 3 Case Attendee Candie TAO, PROMOTIONS MANAGER, Perri Lynn MD, Alfons Ii F NAshley Role Performed PROMOTIONS MANAGER Surgeon - Primary Supervisor Laboratory Animal Facility - Primary Time In 09/07/24 09:24:00 09/07/24 09:24:00 09/07/24 09:25:00 Time Out 09/07/24 10:28:00 09/07/24 10:28:00 09/07/24 10:28:00 Procedure SEPTOPLASTY(.), SEPTOPLASTY(.), SEPTOPLASTY(.), ANTROSTOMY TURBINECTOMY ANTROSTOMY TURBINECTOMY ANTROSTOMY TURBINECTOMY ETHMOIDECTOMY(Right ) ETHMOIDECTOMY(Right ) ETHMOIDECTOMY(Right ) Comments , ANESTHESIA PRECEPTOR PIPE FITTER AMMONIA Last Modified By: Jeniffer Jones CST, Alfons Ii F Letrondo, Alfons Ii F 09/11/24 07:15:35 09/07/24 10:28:20 09/07/24 10:28:20 Entry 4 Entry 5 Entry 6 Case Attendee Myke LAMBERT, Lucero Castillo CST, Marianna Hamm RN, Fritz Gonzalez Role Performed Supervisor Laboratory Animal Facility - Primary Scrub - Primary Supervisor Laboratory Animal Facility - Relief Time In 09/07/24 09:24:00 09/07/24 09:24:00 09/07/24 09:24:00 Time Out 09/07/24 10:28:00 09/07/24 10:28:00 09/07/24 09:42:00 Procedure SEPTOPLASTY(.), SEPTOPLASTY(.), SEPTOPLASTY(.), ANTROSTOMY TURBINECTOMY ANTROSTOMY TURBINECTOMY ANTROSTOMY TURBINECTOMY ETHMOIDECTOMY(Right ) ETHMOIDECTOMY(Right ) ETHMOIDECTOMY(Right ) Comments IN ORIENTATION BREAK RELIEF Last Modified By: Demetrius Oden Ii, Alfons Ii F Roth CST, Liane E 09/07/24 10:28:20 09/07/24 10:28:20 09/11/24 07:15:35 Perioperative Protocols FT Pre-Care Text: Implements protective measures prior to operative or invasive procedure, confirms identity before the operative or invasive procedure, verifies operative procedure, surgical site, and laterality Entry 1 Procedure(s) SEPTOPLASTY(.), Patient Identity Birthday, ID Band ANTROSTOMY TURBINECTOMY Verified (select at Check, Patient ETHMOIDECTOMY(Right ) least 2): Participation Consents / H and P Anesthesia Consent, Operative Site Present Verified H&P, Surgery/Procedure Marking Verified Consent Surgical Site Yes Laterality Verified Yes Verified Procedure Verified Yes Correct Patient Yes Position Verified Availability Equipment, Medication, Prep Dry No Verified (If X-ray Applicable) PreOp Antibiotic No Time Out Candie TAO, PROMOTIONS MANAGER, Madeline Becerril MD, Perri , Demetrius Oden Ii, Myke LAMBERT, Jonathan Melendez CST, Hansel Pierre RN, Fritz Gonzalez Time Out Complete 09/07/24 09:41:00 Outcomes Met? Yes Last Modified By: Demetrius Oden Ii 09/07/24 09:43:01 Post-Care Text: The patient is free from signs and symptoms of injury caused by extraneous objects Allergy Information FT Pre-Care Text: Verifies allergies Entry 1 Allergies Reviewed? Yes Allergies Reviewed Self/Patient With Outcomes Met? Yes Last Modified By: Nickdo Demetrius Dayton Hernandez 09/07/24 09:13:49 Post-Care Text: The patient received appropriate medication(s) safely administered during the perioperative period Surgical Procedures FT Entry 1 Entry 2 Procedure Description Procedure SEPTOPLASTY ANTROSTOMY TURBINECTOMY ETHMOIDECTOMY Modifiers . Right Surgeon Description SEPTOPLASTY, RIGHT SEPTOPLASTY, RIGHT REMOVAL CONCHAE REMOVAL CONCHAE BULLOSA, RIGHT INFERIOR BULLOSA, RIGHT INFERIOR TURBINATE SUBMUCOSAL TURBINATE SUBMUCOSAL RESECTION RESECTION Primary Procedure Yes No Primary Surgeon Madeline SAMANIEGO, Perri Walker MD, Perri Phelps Start 09/07/24 09:50:00 09/07/24 09:50:00 Stop 09/07/24 10:22:00 09/07/24 10:22:00 Anesthesia Type General General Surgical Service ENT ENT Wound Class 2 - Clean-Contaminated 2 - Clean-Contaminated Last Modified By: Demetrius Oden Ii, Alfons Ii F 09/07/24 10:23:07 09/07/24 10:23:04 General Case Data FT Pre-Care Text: Classifies surgical wound, implements aseptic technique, initiates traffic control Entry 1 Case Information OR OR 2 FT Case Level Level 3 Wound Class 2 - Clean-Contaminated Specialty ENT ASA Class 2 Preop Diagnosis DEVIATED NASAL SEPTUM Postop Same As Preop Yes Postop Diagnosis DEVIATED NASAL SEPTUM Outcomes Met? Yes Last Modified By: Jeniffer Jones CST 09/11/24 07:22:24 Post-Care Text: The patient is free from signs and symptoms of infection Skin Assessment (Pre Procedure) FT (more content not included)... Normal [facility] B hCG [place] 09-07-2024 Beta HCG ( test) Ql Negative Normal [facility] Comment on above: Performed By: #### 2 [id number] #### [facility] [address] [place] [address] Discharge Instructionson Discharge Instructions Discharge Instructions AGUSTO KING :1980 Visit Date:09/07/2024 Inpatient Discharge Instructions Your Care Team Admitting Physician - Perri Walker MD Referring Physician - Madeline SAMANIEGO, Perri Phelps Reason for Your Visit DEVIATED NASAL SEPTUM Your Diagnosis Alvaro bullosa DNS (deviated nasal septum) Hypertrophy of inferior nasal turbinate This Is Your Medications List amphetamine-dextroa mphetamine (Adderall 20 mg Tab) bacillus coagulans-inulin (Probiotic Formula (Bacillus Coagulans)) buPROPion (buPROPion 150 mg ER Tab) cetirizine-pseudoep hedrine (Zyrtec-D) fluticasone nasal (Flonase) venlafaxine (venlafaxine 150 mg Cap-ER) Procedure History section, Extraction of wisdom tooth, Laparoscopy, surgical, ablation of uterine fibroid(s) including intraoperative ultrasound guidance and monitoring, radiofrequency. What to do next Instructions From Your Doctor Event Name Event Result Discharge Instructions Freetext Keep head elevatedNo strenuous activityNo nose blowing Discharge Activity Expect mild pain, Expect minimal amount of drainage and/or bleeding, Activity as tolerated Discharge Diet(s) Regular Call Your Doctor For Persistent or heavy bleeding Discharge Instructions Discharge Instructions New Follow Up Appointments after Discharge Follow Up with Perri Walker When: In 8 days 09/15/2024 EST Where: [address] [place] [address], [address] [place] [id number] Business (1) Medications What How Much When Instructions Next Dose Unchanged amphetamine-dextroa mphetamine (Adderall 20 mg Tab) 1 Tablets By Mouth 2 times a day Unchanged bacillus coagulans-inulin (Probiotic Formula (Bacillus Coagulans)) Unchanged buPROPion (buPROPion 150 mg ER Tab) 1 Tablets By Mouth Every day Unchanged cetirizine-pseudoep hedrine (Zyrtec-D) 1 Tablets By Mouth Every day Unchanged fluticasone nasal (Flonase) Unchanged venlafaxine (venlafaxine 150 mg Cap-ER) 1 Capsules By Mouth Every day Test Results No qualifying data available. Allergies No Known Medication Allergies Problems Ongoing - Any problem that you are currently receiving treatment for. ADD (attention deficit disorder) Anxiety Autoimmune disease Depression Migraines Education Materials Septoplasty, Care After The following information offers guidance on how to care for yourself after your procedure. Your health care provider may also give you more specific instructions. If you have problems or questions, contact your health care provider. What can I expect after the procedure? After the procedure, it is common to have: ??? A mild headache. ??? A stuffy nose. ??? A feeling of fullness in your ears. ??? Bloody fluid coming from your nose. Follow these instructions at home: Medicines ??? Take [id number] and prescription medicines only as told by your health care provider. ??? If you were prescribed an antibiotic medicine, take it as told by your health care provider. Do not stop using the antibiotic even if you start to feel better. ??? Ask your health care provider if the medicine prescribed to you: ? Requires you to avoid driving or using machinery. ? Can cause constipation. You may need to take these actions to prevent or treat constipation: ? Drink enough fluid to keep your urine pale yellow. ? Take [id number]-[id number] or prescription medicines. ? Eat foods that are high in fiber, such as beans, whole grains, and fresh fruits and vegetables. ? Limit foods that are high in fat and processed sugars, such as fried or sweet foods. What to avoid ??? Avoid eating hot and spicy foods for several days after surgery or as told by your health care provider. ??? Do not blow your nose for 2 weeks after surgery or as told by your health care provider. ??? Avoid strenuous activities for 2 weeks. These include activities such as running or playing sports. These activities can cause nosebleeds. ??? Avoid straining when having a bowel movement. Straining can cause a nosebleed. ??? Avoid very hot or steamy showers for several days after surgery or as told by your health care provider. ??? Do not lift anything that is heavier than 10 lb (4.5 kg) until your health care provider says that it is safe. General instructions ??? Raise (elevate) your head while you are lying down. ??? If you have nasal splints, follow your health care provider's instructions about removal. ??? If your nose was packed with gauze, follow your health care provider's instructions about removal. ??? Do not push a dressing into your nose or replace the removable packing after it has been removed. ??? Keep all follow-up visits. This is important. Contact a health care provider if you: ??? Develop swelling or increased pain in your nose. ??? Have yel (more content not included)... Normal [facility] Comment on above: Result Comment: Elec tronically Signed By: Mattie LAMBERT, Vida Hernandez\.br\Date and Time Signed: 09/07/24 11:26 EST Inpatient Patient Summaryon 09-07-2024 Inpatient Patient Summary Inpatient Patient Summary [address] [address] [facility] Clinical Discharge Instructions PERSON INFORMATION Name: AGUSTO KING PHYSICIANS Admitting Physician: Perri Walker MD Attending Physician: Perri Walker MD PCP: TYLER BATES MD Discharge Diagnosis: Alvaro bullosa; DNS (deviated nasal septum); Hypertrophy of inferior nasal turbinate Comment: PATIENT EDUCATION INFORMATION Instructions: Medication Leaflets: Follow up: With: Address: When: Perir Walker [address] [place] [address], [facility] [address], [address] [place] [address] Business (1) In 8 days 09/15/2024 MEDICATION LIST Medications to Continue with No Changes Other Medications amphetamine-dextroa mphetamine (Adderall 20 mg Tab) 1 Tablets By Mouth 2 times a day., ADD bacillus coagulans-inulin (Probiotic Formula (Bacillus Coagulans)) buPROPion (buPROPion 150 mg ER Tab) 1 Tablets By Mouth every day. cetirizine-pseudoep hedrine (Zyrtec-D) 1 Tablets By Mouth every day. fluticasone nasal (Flonase) venlafaxine (venlafaxine 150 mg Cap-ER) 1 Capsules By Mouth every day. Comment: Normal [facility] Main OR PACU I Recordon 08-20 Main OR PACU I Record Main OR PACU I Record PACU Phase I Document Type FT Summary Primary Physician: Perri Walker MD Finalized Date/Time: 09/07/24 10:57:55 Pt. Name: AGUSTO KING /Sex: 1980 Female Med Rec #: [id number] Physician: Perri Walker MD Financial #: [id number] Pt. Type: A Room/Bed: [place] [address] Admit/Disch: 09/07/24 07:36:37 - Institution: Case Times PACU I FT Pre-Care Text: Identifies barriers to communication and implements measures to provide psychological support Develops individualized plan of care, and ensures continuity of care Maintains patient's dignity and privacy, and maintains patient confidentiality Identifies and reports philosophical, cultural, and spiritual beliefs and values Identifies individual values and wishes concerning care Implements aseptic technique, and administers prescribed antibiotic therapy and immunizing agents as ordered Evaluates postoperative tissue perfusion Implements thermoregulation measures, and monitors body temperature Evaluates postoperative respiratory status Evaluates postoperative cardiac status Evaluates postoperative neurological status Assesses pain control, collaborated in initiating patient-controlled analgesia and implements alternative methods of pain control Verifies allergies, administers prescribed medications and solutions, evaluates response to medications Entry 1 In PACU I 09/07/24 10:28:00 Discharge from PACU 09/07/24 10:58:00 I Outcomes Met? Yes Last Modified By: Nadine Joyce RN 09/07/24 10:57:31 Post-Care Text: The patient demonstrates knowledge of the expected response to the operative or invasive procedure The patient's care is consistent with the individualized perioperative plan of care The patient's right to privacy is maintained The patient's value system, lifestyle, ethnicity, and culture are considered, respected, and incorporated into the perioperative plan of care The patient participates in decisions affecting his or her perioperative plan of care The patient is free from signs and symptoms of infection The patient has wound/tissue perfusion consistent with or improved from baseline levels established preoperatively The patient is at or returning to normothermia at the conclusion of the immediate postoperative period The patient's respiratory function is consistent with or improved from baseline levels established preoperatively The patient's cardiovascular status is consistent with or improved from baseline levels established preoperatively The patient's cardiovascular status is consistent with or improved from baseline levels established preoperatively The patient demonstrates and/or reports adequate pain control throughout the perioperative period The patient received appropriate medication(s), safely administered during the perioperative period Acuity Level PACU I FT Entry 1 Start Time 09/07/24 10:28:00 Stop Time 09/07/24 10:58:00 Acuity Level Acuity Level I Last Modified By: Nadine Joyce RN 09/07/24 10:57:47 Finalized By: Nadine Joyce RN Document Signatures Signed By: Nadine Joyce RN 09/07/24 10:57 Nadine Joyce RN 09/07/24 10:57 Normal [facility] Main OR PACU II Recordon Main OR PACU II Record Main OR PACU II Record PACU Phase II Document Type FT Summary Primary Physician: Perri Walker MD Finalized Date/Time: 09/07/24 12:26:42 Pt. Name: FERNANDOAGUSTO/Sex: 1980 Female Med Rec #: [id number] Physician: Perri Walker MD Financial #: [id number] Pt. Type: A Room/Bed: [facility] Admit/Disch: 09/07/24 07:36:37 - Institution: Case Times PACU II FT Pre-Care Text: Identifies barriers to communication and implements measures to provide psychological support and determines knowledge level Develops individualized plan of care, and ensures continuity of care Maintains patient's dignity and privacy, and maintains patient confidentiality Identifies and reports philosophical, cultural, and spiritual beliefs and values Identifies individual values and wishes concerning care administers prescribed antibiotic therapy and immunizing agents as ordered, Evaluates postoperative tissue perfusion Implements thermoregulation measures, and monitors body temperature Evaluates postoperative respiratory status Evaluates postoperative cardiac status Evaluates postoperative neurological status Assesses pain control, collaborated in initiating patient-controlled analgesia and implements alternative methods of pain control Verifies allergies, administers prescribed medications and solutions, evaluates response to medications Entry 1 In PACU II 09/07/24 11:05:00 Discharge from PACU 09/07/24 12:25:00 II Last Modified By: Maddi Lau RN 09/07/24 12:26:40 Post-Care Text: The patient demonstrates knowledge of the expected response to the operative or invasive procedure The patient's care is consistent with the individualized perioperative plan of care The patient's right to privacy is maintained The patient's value system, lifestyle, ethnicity, and culture are considered, respected, and incorporated into the perioperative plan of care The patient participates in decisions affecting his or her perioperative plan of care. The patient is free from signs and symptoms of infection The patient has wound/tissue perfusion consistent with or improved from baseline levels established preoperatively The patient is at or returning to normothermia at the conclusion of the immediate postoperative period The patient's respiratory function is consistent with or improved from baseline levels established preoperatively The patient's cardiovascular status is consistent with or improved from baseline levels established preoperatively The patient's neurological status is consistent with or improved from baseline levels established preoperatively The patient demonstrates and/or reports adequate pain control throughout the perioperative period The patient received appropriate medication(s), safely administered during the perioperative period Finalized By: Maddi Lau RN Document Signatures Signed By: Maddi Lau RN 09/07/24 12:26 [facility] Main OR Preoperative Recordo n 09-07-2024 Main OR Preoperative Record Main OR Preoperative Record PreOp Document Type FT Summary Primary Physician: Perri Walker MD Finalized Date/Time: 09/07/24 10:28:36 Pt. Name: FERNANDOAGUSTO./Sex: 1980 Female Med Rec #: [id number] Physician: Perri Walker MD Financial #: [id number] Pt. Type: A Room/Bed: [place] [address] Admit/Disch: 09/07/24 07:36:37 - Institution: Case Times PreOp FT Pre-Care Text: Verifies consent for planned procedure, identifies individual values and wishes concerning care, includes family members in perioperative teaching Entry 1 Patient Times. In Pre Surgery 09/07/24 07:40:00 Out Pre Surgery 09/07/24 09:22:00 Outcomes Met? Yes Last Modified By: Demetrius Oden Ii 09/07/24 10:28:35 Post-Care Text: The patient participates in decisions affecting his or her perioperative plan of care Finalized By: Demetrius Oden Ii Document Signatures Signed By: Demetrius Oden Ii 09/07/24 10:28 [facility] Outpatient Surgery Discharge Instructionon 09-07-2024 Outpatient Surgery Discharge Instruction Outpatient Surgery Discharge Instruction [address] [address] Patient Discharge Instructions PERSON INFORMATION Name: AGUSTO KING Date of : 1980 Current Date: 09/07/2024 10:47:25 PHYSICIANS Admitting Physician: Perri Walker MD Discharge Diagnosis: Alvaro bullosa; DNS (deviated nasal septum); Hypertrophy of inferior nasal turbinate AGUSTO KING has been given the following list of follow-up instructions, prescriptions, and patient education materials: PATIENT FOLLOW-UP INFORMATION Diet: Regular Discharge Activity: Expect mild pain, Expect minimal amount of drainage and/or bleeding, Activity as tolerated Call Your Doctor For: Persistent or heavy bleeding Additional Instructions: Keep head elevated No strenuous activity No nose blowing IF UNABLE TO CONTACT YOUR PHYSICIAN AND YOU FEEL IT IS AN EMERGENCY, GO TO THE NEAREST EMERGENCY ROOM OR CALL 911 I, AGUSTO KING, have received the attached patient education materials/instructi ons and have verbalized understanding: May we do a follow up call? Yes No I was present when discharge instructions were given Patient Signature Date Clinican/Nurse Signature Date Follow up: With: Address: When: Perri Walker [address] [place] [address] [address], [address] [place] [address] Business (1) In 8 days 09/15/2024 Pharmacy Information: You may receive a survey from Yanci Connor asking you to rate your care experience. Your feedback is important and will help us understand what we do well and how we can improve the quality of care we provide to you, your loved ones and our community. It???s an honor to serve you. Thank you for choosing [facility] HERE ARE THE MEDICATION CHANGES THAT OCCURRED DURING YOUR HOSPITAL STAY Medications to Continue with No Changes Other Medications amphetamine-dextroa mphetamine (Adderall 20 mg Tab) 1 Tablets By Mouth 2 times a day., ADD bacillus coagulans-inulin (Probiotic Formula (Bacillus Coagulans)) buPROPion (buPROPion 150 mg ER Tab) 1 Tablets By Mouth every day. cetirizine-pseudoep hedrine (Zyrtec-D) 1 Tablets By Mouth every day. fluticasone nasal (Flonase) venlafaxine (venlafaxine 150 mg Cap-ER) 1 Capsules By Mouth every day. PATIENT EDUCATION INFORMATION Instructions: Medication Leaflets: Normal [facility] SEROLOGYOrdered By: Antonella stovall on 09-07-2024 Beta HCG ( test) Ql Negative (09/07/24 8:19 AM) Normal [facility] BMPon 08-29-2024 Anion gap [Moles/Vol] 10 mmol/L Normal 6-16 [facility] Comment on above: Performed By: #### 2 [id number] #### [facility] [address] [place] [address] Calcium [Mass/Vol] 8.9 mg/dL Normal 8.9-11.1 [facility] Comment on above: Performed By: #### 2 [id number] #### [facility] [address] [place] [address] Chloride [Moles/Vol] 105 mmol/L Normal 101-111 [facility] Comment on above: Performed By: #### 2 [id number] #### [facility] [address] [place] [address] CO2 [Moles/Vol] 27 mmol/L Normal 21-31 [facility] Comment on above: Performed By: #### 2 [id number] #### [facility] [address] [place] [address] Creatinine [Mass/Vol] 0.6 mg/dL Normal 0.5-1.3 [facility] Comment on above: Performed By: #### 2 [id number] #### [facility] [address] [place] [address] Glucose [Mass/Vol] 112 mg/dL Normal 55-199 [facility] Comment on above: Performed By: #### 2 [id number] #### [facility] [address] [place] [address] Potassium [Moles/Vol] 3.5 mmol/L Normal 3.5-5.3 [facility] Comment on above: Performed By: #### 2 [id number] #### [facility] [address] [place] [address] Sodium [Moles/Vol] 138 mmol/L Normal 135-145 [facility] Comment on above: Performed By: #### 2 [id number] #### [facility] [address] [place] [address] Urea nitrogen [Mass/Vol] 16 mg/dL Normal 5-21 [facility] Comment on above: Performed By: #### 2 [id number] #### [facility] [address] [place] [address] Urea nitrogen/Creatinine [Mass ratio] 27 No Units High 10-20 [facility] Comment on above: Performed By: #### 2 [id number] #### [facility] [address] [place] [address] CBC w/ Auto Diffon 4 Basophils/100 WBC (Bld) 1.5 % Normal 0.0-2.0 [facility] Comment on above: Performed By: #### 2 [id number] #### [facility] [address] [place] [address] Basophils/Leukocytes Auto (Bld) [Pure # fraction] 0.1 E9/L Normal 0.0-0.2 [facility] Comment on above: Performed By: #### 2 [id number] #### [facility] [address] [place] [address] Eosinophils (Bld) [#/Vol] 0.1 E9/L Normal 0.0-0.5 [facility] Comment on above: Performed By: #### 2 [id number] #### [facility] [address] [place] [address] Eosinophils/100 WBC (Bld) 2.2 % Normal 0.0-8.0 [facility] Comment on above: Performed By: #### 2 [id number] #### [facility] [address] [place] [address] Erythrocyte distribution width (RBC) [Ratio] 13.2 % Normal 10.9-14.2 [facility] Comment on above: Performed By: #### 2 [id number] #### [facility] [address] [place] [address] Hematocrit (Bld) [Volume fraction] 39.8 % Normal 34.0-46.0 [facility] Comment on above: Performed By: #### 2 [id number] #### [facility] [address] [place] [address] Hemoglobin (Bld) [Mass/Vol] 13.7 g/dL Normal 12.0-16.0 [facility] Comment on above: Performed By: #### 2 [id number] #### [facility] [address] [place] [address] Lymphocytes (Bld) [#/Vol] 1.3 E9/L Normal 1.0-4.0 [facility] Comment on above: Performed By: #### 2 [id number] #### [facility] [address] [place] [address] Lymphocytes/100 WBC (Bld) 21.9 % Normal 14.0-50.0 [facility] Comment on above: Performed By: #### 2 [id number] #### [facility] [address] [place] [address] MCH (RBC) [Entitic mass] 31.3 pg Normal 27.0-34.0 [facility] Comment on above: Performed By: #### 2 [id number] #### [facility] [address] [place] [address] MCHC (RBC) [Mass/Vol] 34.4 g/dL Normal 31.4-36.0 [facility] Comment on above: Performed By: #### 2 [id number] #### [facility] [address] [place] [address] MCV (RBC) [Entitic vol] 90.9 fL Normal 80.0-100.0 [facility] Comment on above: Performed By: #### 2 [id number] #### [facility] [address] [place] [address] Monocytes (Bld) [#/Vol] 0.4 E9/L Normal 0.2-1.0 [facility] Comment on above: Performed By: #### 2 [id number] #### [facility] [address] [place] [address] Neutrophils (Bld) [#/Vol] 3.8 E9/L Normal 2.0-7.5 [facility] Comment on above: Performed By: #### 2 [id number] #### [facility] [address] [place] [address] Neutrophils/100 WBC (Bld) 67.2 % Normal 36.0-75.0 [facility] Comment on above: Performed By: #### 2 [id number] #### [facility] [address] [place] [address] Platelet mean volume (Bld) [Entitic vol] 8.4 fL Normal 6.4-10.8 [facility] Comment on above: Performed By: #### 2 [id number] #### [facility] [address] [place] [address] Platelets (Bld) [#/Vol] 330.0 E9/L Normal 150.0-500.0 [facility] Comment on above: Performed By: #### 2 [id number] #### [facility] [address] [place] [address] RBC (Bld) [#/Vol] 4.4 E12/L Normal 4.3-5.9 [facility] Comment on above: Performed By: #### 2 [id number] #### [facility] [address] [place] [address] WBC corrected for nucl RBC Auto (Bld) [#/Vol] 5.7 E9/L Normal 4.0-11.0 [facility] Comment on above: Performed By: #### 2 [id number] #### [facility] [address] [place] [address] CHEMISTRYOrdered By: SYSTEM SYSTEM on 08-29-2024 Anion gap [Moles/Vol] 10 mmol/L Normal 6 - 16 mEq/L R emisol Chem Calcium [Mass/Vol] 8.9 mg/dL Normal 8.9 - 11. 1 mg/dL [facility] Chloride [Moles/Vol] 105 mmol/L Normal 101 - 1 11 mmol/L [facility] CO2 [Moles/Vol] 27 mmol/L Normal 21 - 31 mmol/L [facility] Creatinine [Mass/Vol] 0.6 mg/dL Normal 0.5 - 1.3 mg/dL [facility] eGFR 112 mL/min/1.73 m2 Normal >=59mL/mi n/1 .73 m2 [facility] Glucose [Mass/Vol] 112 mg/dL Normal 55 - 199 mg/dL [facility] Potassium [Moles/Vol] 3.5 mmol/L Normal 3.5 - 5.3 mmol/L [facility] Sodium [Moles/Vol] 138 mmol/L Normal 135 - 145 mmol/L [facility] Urea nitrogen [Mass/Vol] 16 mg/dL Normal 5 - 21 mg/d L [facility] Urea nitrogen/Creatinine [Mass ratio] 27 mg/mg High 10 - 20 [facility] COAGULATIONOrdered By: Magalis Arellano on 08-29-2024 aPTT Coag (PPP) [Time] 31.2 s Normal 25.1 - 36.5 second(s) [facility] Auto Coag Comment on above: Interpretive Data: P arameter 15 days - 4 weeks 1 - 5 months 6 - 11 months 1 - 5 years 6 - 10 years 11 - 17 years PTT Mean: 35.4 (27.6-45.6) Mean: 33.5 (24.8-40.7) Mean: 32.4 (25.1-40.7) Mean: 31.6 (24.0-39.2) Mean: 31.6 (26.9-38.7) Mean: 31.0 (24.6-38.4) Pediatric Reference ranges were obtained from a study by Ty Stovall et al. prepared from 1437 samples obtained at 7 different centers using the same coagulation reagent and instrumentation as [facility]. Currently there are no coagulation studies available worldwide for children to 14 days, and no normal ranges. Heparin therapeutic range (represented by Anti-Factor Xa activity of 0.2 - 0.4 U/mL) corresponds to PTT of 56.6 - 109.0 sec. INR Coag (PPP) [Relative time] 0.89 {INR} Invalid Interpretation Code [facility] Auto Coag Comment on above: Interpretive Data: I NR results are specifically intended to assess patients stabilized on long-term Anticoagulation therapy suggested INR s Less Intensive Anticoagulation 2.0 3.0 Conventional Range 3.0 4.5 PT Coag (PPP) [Time] 10.0 s Normal 9.4 - 1 2.5 second(s) [facility] Auto Coag Comment on above: Interpretive Data: 1 5 days - 4 weeks 1 - 5 months 6 -11 months 1-5 years 6-10 years 11 -17 years Mean: 11.2 (9.5-12.6) Mean: 11.0 (9.7-12.8) Mean: 11.0 (9.8-13.0) Mean: 11.3 (9.9-13.4) Mean: 11.7 (10.0-14.6) Mean: 11.8 (10.0 - 14.1) Pediatric Reference ranges were obtained from a study by Ty Stovall et al. prepared from 1437 samples obtained at 7 different centers using the same coagulation reagent and instrumentation as [facility]. Currently there are no coagulation studies available worldwide for children to 14 days, and no normal ranges. [facility] CBC W/ AUTO DIFFon 08-20 EOSINOPHILS/100 LEUKOCYTES:NFR:PT:BLD:QN :AUTOMATED COUNT 2.2 % 0.0 - 8.0 % [facility] EOSINOPHILS:NCNC:PT:BLD: QN: 0.1 [facility] BASOPHILS/LEUKOCYTES:NFR .DF:PT:BLD:QN:AUTOMATED COUNT 0.1 [facility] ERYTHROCYTE MEAN CORPUSCULAR HEMOGLOBIN CONCENTRATION:MCNC:PT:RB C:QN 34.4 [facility] ERYTHROCYTE MEAN CORPUSCULAR HEMOGLOBIN:ENTMASS:PT:RB C:QN 31.3 pg 27.0 - 34.0 pg [facility] ERYTHROCYTE MEAN CORPUSCULAR VOLUME:ENTVOL:PT:RBC:QN: AUTOMATED COUNT 90.9 fL 80.0 - 100.0 fL [facility] ERYTHROCYTES:NCNC:PT:BLD :QN:AUTOMATED COUNT 4.4 [facility] HEMOGLOBIN:MCNC:PT:BLD:Q N: 13.7 [facility] LEUKOCYTES 5.7 [facility] MONOCYTES:NCNC:PT:BLD:QN :AUTOMATED COUNT 0.4 [facility] NEUTROPHILS:NCNC:PT:BLD: QN:AUTOMATED COUNT 3.8 [facility] PLATELETS:NCNC:PT:BLD:QN :AUTOMATED COUNT 330 [facility] LYMPHOCYTES:NCNC:PT:BLD: QN: 1.3 [facility] Original Ordering Provider: MD Perri ROMO [facility] HEMATOLOGYOrdered By: SYSTEM SYSTEM on 08-29-2024 Basophils/100 WBC (Bld) 1.5 % Normal 0.0 - 2.0 % [facility] Basophils/Leukocytes Auto (Bld) [Pure # fraction] 0.1 E9/L Normal 0.0 - 0.2 E9/L [facility] Eosinophils (Bld) [#/Vol] 0.1 E9/L Normal 0.0 - 0.5 E9/L [facility] Eosinophils/100 WBC (Bld) 2.2 % Normal 0.0 - 8.0 % [facility] Erythrocyte distribution width (RBC) [Ratio] 13.2 % Normal 10.9 - 14.2 % [facility] Hematocrit (Bld) [Volume fraction] 39.8 % Normal 34.0 - 46.0 % [facility] Hemoglobin (Bld) [Mass/Vol] 13.7 g/dL Normal 12.0 - 16.0 gm/dL [facility] Lymphocytes (Bld) [#/Vol] 1.3 E9/L Normal 1.0 - 4.0 E9/L [facility] Lymphocytes/100 WBC (Bld) 21.9 % Normal 14.0 - 50.0 % [facility] MCH (RBC) [Entitic mass] 31.3 pg Normal 27. 0 - 34.0 pg [facility] MCHC (RBC) [Mass/Vol] 34.4 g/dL Normal 31.4 - 36.0 gm/dL [facility] MCV (RBC) [Entitic vol] 90.9 fL Normal 80.0 - 100.0 fL [facility] Monocytes (Bld) [#/Vol] 0.4 E9/L Normal 0.2 - 1.0 E9/L [facility] Monocytes/100 WBC (Bld) 7.2 % Normal 4.0 - 14.0 % [facility] Neutrophils (Bld) [#/Vol] 3.8 E9/L Normal 2.0 - 7.5 E9/L [facility] Neutrophils/100 WBC (Bld) 67.2 % Normal 36.0 - 75.0 % [facility] Platelet mean volume (Bld) [Entitic vol] 8.4 fL Normal 6.4 - 10.8 fL [facility] Platelets (Bld) [#/Vol] 330.0 E9/L Normal 150. 0 - 500.0 E9/L [facility] RBC (Bld) [#/Vol] 4.4 E12/L Normal 4.3 - 5.9 E12/L [facility] WBC corrected for nucl RBC Auto (Bld) [#/Vol] 5.7 E9/L Normal 4.0 - 11.0 E9/L [facility]e PT & PTTon 08-29-2024 aPTT Coag (PPP) [Time] 31.2 second(s) Normal 25.1-36.5 [facility] Comment on above: Result Comment: Para meter 15 days - 4 weeks 1 - 5 months 6 - 11 months 1 - 5 years 6 - 10 years 11 - 17 years PTT Mean: 35.4 (27.6-45.6) Mean: 33.5 (24.8-40.7) Mean: 32.4 (25.1-40.7) Mean: 31.6 (24.0-39.2) Mean: 31.6 (26.9-38.7) Mean: 31.0 (24.6-38.4) Pediatric Reference ranges were obtained from a study by Ty Stovall et al. prepared from 1437 samples obtained at 7 different centers using the same coagulation reagent and instrumentation as [facility]. Currently there are no coagulation studies available worldwide for children to 14 days, and no normal ranges. Heparin therapeutic range (represented by Anti-Factor Xa activity of 0.2 - 0.4 U/mL) corresponds to PTT of 56.6 - 109.0 sec. Performed By: #### 1 [id number] #### [facility] [address] [place] [address] INR Coag (PPP) [Relative time] 0.89 {INR} Invalid Interpretation Code [facility] Comment on above: Result Comment: INR results are specifically intended to assess patients stabilized on long-term Anticoagulation therapy suggested INR???s ???Less Intensive Anticoagulation??? 2.0 ??? 3.0 Conventional Range 3.0 ??? 4.5 Performed By: #### 1 [id number] #### [facility] [address] [place] [address] PT Coag (PPP) [Time] 10.0 second(s) Normal 9.4-12.5 [facility] Comment on above: Result Comment: 15 d ays - 4 weeks 1 - 5 months 6 -11 months 1-5 years 6-10 years 11 -17 years Mean: 11.2 (9.5-12.6) Mean: 11.0 (9.7-12.8) Mean: 11.0 (9.8-13.0) Mean: 11.3 (9.9-13.4) Mean: 11.7 (10.0-14.6) Mean: 11.8 (10.0 - 14.1) Pediatric Reference ranges were obtained from a study by Ty Stovall et al. prepared from 1437 samples obtained at 7 different centers using the same coagulation reagent and instrumentation as [facility]. Currently there are no coagulation studies available worldwide for children to 14 days, and no normal ranges. Performed By: #### 1 [id number] #### [facility] [address] [place] [address] eGFRon 08-29-2024 eGFR 112 mL/min/1.73 m2 Normal >=59 [facility] Comment on above: Performed By: #### 1 [id number] #### [facility] [address] [place] [address] CT MAXILLOFACIAL WO IV CONTR Harry 08-10-2024 CT MAXILLOFACIAL WO IV CONTRAST CT MAXILLOFACIAL WO IV CONTRAST INDICATION: Chronic pansinusitis, hearing loss, headaches COMPARISONS: None TECHNIQUE: 2.5 mm axial images were obtained through the paranasal sinuses. Coronal and sagittal reformatted images were produced and reviewed. FINDINGS: MAXILLARY SINUSES: Clear. ETHMOID AIR CELLS: Clear. FRONTAL SINUSES: Clear. SPHENOID SINUSES: Clear. INFUNDIBULUM/OSTIOM EATAL COMPLEX: The infundibula are patent. SPHENOETHMOIDAL RECESSES: Clear. NASAL CAVITY: No mass or osseous destructive lesion. Small alvaro bullosa of the right middle nasal turbinate is seen. NASAL SEPTUM: There is leftward deviation of the mid nasal septum with prominent leftward spurring. TMJ: Normal. IMPRESSION: No paranasal sinusitis identified. Nasal septal deviation/spurring. Incidental small alvaro bullosa of the right middle nasal turbinate. Dictated on: 08/11/2024 2:55 PM This report has been electronically signed and approved by the interpreting Radiologist. Normal Not Available Comment on above: Order Comment: Rachael edwards pt for [employer] CT maxillofacial without contrast at [facility] for mid 2023 Alanine aminotransferase [En zymatic activity/volume] in Serum or PlasmaOrdered By: Kylie Sands on 04-23-2024 ALT [Catalytic activity/Vol] 24 U/L 7-52 [facility] Albumin [Mass/volume] in Ser um or Plasma by Bromocresol green (BCG) dye binding methoOrdered By: Kylie Sands on 01-11-2024 Albumin BCG dye [Mass/Vol] 4.2 g/dL 3.5-5.7 [facility] Alkaline phosphatase [Enzyma tic activity/volume] in Serum or PlasmaOrdered By: Kylie Sands on 01-11-2024 ALP [Catalytic activity/Vol] 65 U/L 34-104 [facility] Aspartate aminotransferase [ Enzymatic activity/volume] in Serum or PlasmaOrdered By: Kylie Sands on 01-11-2024 AST [Catalytic activity/Vol] 22 U/L 13-39 [facility] Basophils Auto (Bld) [#/Vol] Ordered By: Kylie Sands on 01-11-2024 Basophils (Bld) [#/Vol] 0.1 10*3/uL 0.0-0.2 [facility] Basophils/100 WBC Auto (Bld) Ordered By: Kylie Sands on 01-11-2024 Basophils/100 WBC (Bld) 2.4 % . [facility] Bilirubin.total [Mass/volume ] in Serum or PlasmaOrdered By: Kylie Sands on 01-11-2024 Bilirubin [Mass/Vol] 0.3 mg/dL 0.3-1.0 [facility] C reactive protein [Mass/vol ume] in Serum or PlasmaOrdered By: Kylie Sands on 01-11-2024 CRP [Mass/Vol] < 0.5 mg/dL 0.0-0.5 [facility] C-Reactive Proteinon 024 CRP [Mass/Vol] mg/L Normal 0.0-0.5 [facility] Comment on above: Result Comment: PERF ORMED BY: [place] [address] PATHOLOGIST NURSE ORTHOPEDIC DARIUS LOPEZ M.D. Performed By: #### E SR, CK, CMP, CRP, CBC #### [address] Calcium [Mass/volume] in Ser um or PlasmaOrdered By: Kylie Sands on 01-11-2024 Calcium [Mass/Vol] 8.9 mg/dL 8.6-10.3 [facility] Carbon dioxide, total [Moles /volume] in Serum or PlasmaOrdered By: Kylie Sands on 01-11-2024 CO2 [Moles/Vol] 31.6 mmol/L 21.0-31.0 [facility] Chloride [Moles/volume] in S asad or PlasmaOrdered By: Kylie Sands on 01-11-2024 Chloride [Moles/Vol] 103 mmol/L 98-107 [facility] Complete Blood Count Auto Di ffon 01-11-2024 Basophils (Bld) [#/Vol] 0.1 10*3/uL Normal 0.0-0.2 [facility] Comment on above: Performed By: #### E SR, CK, CMP, CRP, CBC #### [facility] [address] Basophils/100 WBC (Bld) 2.4 % Normal . T fer [facility] Comment on above: Performed By: #### E SR, CK, CMP, CRP, CBC #### [facility] [address] [place] [address] [place] Eosinophils (Bld) [#/Vol] 0.1 10*3/uL Normal 0.0-0.45 [facility] Comment on above: Performed By: #### E SR, CK, CMP, CRP, CBC #### [facility] [address] [place] [address] [place] Eosinophils/100 WBC (Bld) 1.8 % Normal . [facility] Comment on above: Performed By: #### E SR, CK, CMP, CRP, CBC #### [facility] [address] [place] [address] [place] Erythrocyte distribution width (RBC) [Ratio] 13.4 % Normal 11.9-15.3 [facility] Comment on above: Performed By: #### E SR, CK, CMP, CRP, CBC #### [facility] [address] [place] [address] [place] Hematocrit (Bld) [Volume fraction] 39.2 % Normal 34.0-46.4 [facility] Comment on above: Performed By: #### E SR, CK, CMP, CRP, CBC #### [address] Hemoglobin (Bld) [Mass/Vol] 13.1 g/dL Normal 11.8-15.4 [facility] Comment on above: Performed By: #### E SR, CK, CMP, CRP, CBC #### [address] Lymphocytes (Bld) [#/Vol] 1.4 10*3/uL Normal 1.00-4.8 [facility] Comment on above: Performed By: #### E SR, CK, CMP, CRP, CBC #### [address] Lymphocytes/100 WBC (Bld) 25.1 % Normal . [facility] Comment on above: Performed By: #### E SR, CK, CMP, CRP, CBC #### [address] MCH (RBC) [Entitic mass] 29.7 pg Normal 24.7-34.3 [facility] Comment on above: Performed By: #### E SR, CK, CMP, CRP, CBC #### [address] MCV (RBC) [Entitic vol] 89.2 fL Normal 80-100 T he [facility] Comment on above: Performed By: #### E SR, CK, CMP, CRP, CBC #### [address] Mean Corpuscular HGB Conc 33.4 g/dL Normal 32.0-35.0 [facility] Comment on above: Performed By: #### E SR, CK, CMP, CRP, CBC #### [address] Monocytes (Bld) [#/Vol] 0.5 10*3/uL Normal 0.0-0.8 [facility] Comment on above: Performed By: #### E SR, CK, CMP, CRP, CBC #### [address] Monocytes/100 WBC (Bld) 8.3 % Normal . T he [facility] Comment on above: Performed By: #### E SR, CK, CMP, CRP, CBC #### [address] Neutrophils (Bld) [#/Vol] 3.4 10*3/uL Normal 1.8-7.7 [facility] Comment on above: Performed By: #### E SR, CK, CMP, CRP, CBC #### [address] Neutrophils/100 WBC (Bld) 62.4 % Normal . [facility] Comment on above: Performed By: #### E SR, CK, CMP, CRP, CBC #### [address] NRBC% 0.1 /100{WBC} Normal 0-0.5 [facility] Comment on above: Performed By: #### E SR, CK, CMP, CRP, CBC #### [address] Platelet mean volume (Bld) [Entitic vol] 9.0 fL Normal 6.3-10.7 [facility] Comment on above: Performed By: #### E SR, CK, CMP, CRP, CBC #### [address] Platelets (Bld) [#/Vol] 322 10*3/uL Normal 150-450 [facility] Comment on above: Performed By: #### E SR, CK, CMP, CRP, CBC #### [address] RBC (Bld) [#/Vol] 4.39 10*6/uL Normal 3.60-5.00 [facility] Comment on above: Performed By: #### E SR, CK, CMP, CRP, CBC #### [address] WBC (Bld) [#/Vol] 5.5 10*3/uL Normal 3.8-11.6 [facility] Comment on above: Performed By: #### E SR, CK, CMP, CRP, CBC #### [address] Comprehensive Metabolic Pane tyron 01-11-2024 Albumin [Mass/Vol] 4.2 g/dL Normal 3.5-5.7 [facility] Comment on above: Performed By: #### E SR, CK, CMP, CRP, CBC #### [address] Albumin/Globulin [Mass ratio] 1.8 {ratio} Normal [facility] Comment on above: Performed By: #### E SR, CK, CMP, CRP, CBC #### [address] ALP [Catalytic activity/Vol] 65 U/L Normal 34-104 [facility] Comment on above: Performed By: #### E SR, CK, CMP, CRP, CBC #### [address] ALT [Catalytic activity/Vol] 24 U/L Normal 7-52 [facility] Comment on above: Performed By: #### E SR, CK, CMP, CRP, CBC #### [address] Anion gap [Moles/Vol] 8.7 mmol/L Normal 6.0-15.0 [facility] Comment on above: Performed By: #### E SR, CK, CMP, CRP, CBC #### [address] AST [Catalytic activity/Vol] 22 U/L Normal 13-39 [facility] Comment on above: Performed By: #### E SR, CK, CMP, CRP, CBC #### [address] Bilirubin [Mass/Vol] 0.3 mg/dL Normal 0.3-1.0 [facility] Comment on above: Performed By: #### E SR, CK, CMP, CRP, CBC #### [address] Calcium [Mass/Vol] 8.9 mg/dL Normal 8.6-10.3 [facility] Comment on above: Performed By: #### E SR, CK, CMP, CRP, CBC #### [address] Chloride [Moles/Vol] 103 mmol/L Normal 98-107 [facility] Comment on above: Performed By: #### E SR, CK, CMP, CRP, CBC #### [address] CO2 [Moles/Vol] 31.6 mmol/L High 21.0-31.0 [facility] Comment on above: Performed By: #### E SR, CK, CMP, CRP, CBC #### [address] Creatinine [Mass/Vol] 0.60 mg/dL Normal 0.60-1.20 [facility] Comment on above: Performed By: #### E SR, CK, CMP, CRP, CBC #### [address] GFR/1.73 sq M.predicted MDRD (S/P/Bld) [Vol rate/Area] mL/min/{1.73_m2} Normal [facility] Comment on above: Performed By: #### E SR, CK, CMP, CRP, CBC #### [place] [address] [place] Globulin (S) [Mass/Vol] 2.4 g/dL Normal [facility] Comment on above: Performed By: #### E SR, CK, CMP, CRP, CBC #### [address] Glucose [Mass/Vol] 82 mg/dL Normal 70-100 [facility] Comment on above: Result Comment: [place] om Glucose Reference Range is dependent on time and content of last meal. Glucose of more than 200 mg/dL in a nonstressed, ambulatory subject supports the diagnosis of Diabetes Mellitus. ADA recommended reference range Performed By: #### E SR, CK, CMP, CRP, CBC #### [facility] [address] Potassium [Moles/Vol] 4.3 mmol/L Normal 3.5-5.1 [facility] Comment on above: Performed By: #### E SR, CK, CMP, CRP, CBC #### [facility] [address] [place] [address] [place] Protein [Mass/Vol] 6.6 g/dL Normal 6.4-8.9 [facility] Comment on above: Performed By: #### E SR, CK, CMP, CRP, CBC #### [place] [address] [place] Sodium [Moles/Vol] 139 mmol/L Normal 136-145 [facility] Comment on above: Performed By: #### E SR, CK, CMP, CRP, CBC #### [place] [address] [place] Urea nitrogen [Mass/Vol] 18 mg/dL Normal 7-25 [facility] Comment on above: Performed By: #### E SR, CK, CMP, CRP, CBC #### [place] [address] [place] Creatine Kinaseon 01-11-2024 CK [Catalytic activity/Vol] 257 U/L High 30-223 [facility] Comment on above: Result Comment: PERF ORMED BY: [place] [address] PATHOLOGIST NURSE ORTHOPEDIC DARIUS LOPEZ M.D. Performed By: #### E SR, CK, CMP, CRP, CBC #### [place] [address] [place] Creatine kinase [Enzymatic a ctivity/volume] in Serum or PlasmaOrdered By: Kylie Sands on 01-11-2024 CK [Catalytic activity/Vol] 257 U/L 30-223 [facility] Creatinine [Mass/volume] in Serum or PlasmaOrdered By: Kylie Sands on 01-11-2024 Creatinine [Mass/Vol] 0.60 mg/dL 0.60-1.20 [facility] Eosinophils Auto (Bld) [#/Vo l]Ordered By: Kylie Sands on 01-11-2024 Eosinophils (Bld) [#/Vol] 0.1 10*3/uL 0.0-0.45 [facility] Eosinophils/100 WBC Auto (Bl d)Ordered By: Kylie Sands on 01-11-2024 Eosinophils/100 WBC (Bld) 1.8 % . [facility] Erythrocyte Sedimentation Ra shekhar 01-11-2024 ESR (Bld) [Velocity] 3 mm/h Normal 0-19 [facility] Comment on above: Result Comment: PERF ORMED BY: [facility] [address] [place] [id number] PATHOLOGIST NURSE ORTHOPEDIC DARIUS LOPEZ M.D. Performed By: #### E SR, CK, CMP, CRP, CBC #### [facility] [address] Erythrocyte distribution wid th Auto (RBC) [Ratio]Ordered By: Kylie Sands on 01-11-2024 Erythrocyte distribution width (RBC) [Ratio] 13.4 % 11.9-15.3 [facility] Erythrocyte sedimentation ra te by Photometric methodOrdered By: Kylie Sands on 01-11-2024 ESR Photometric method (Bld) [Velocity] 3 mm/hr 0-19 [facility] Globulin Calc (S) [Mass/Vol] Ordered By: Kylie Sands on 01-11-2024 Globulin (S) [Mass/Vol] 2.4 g/dL [facility] Glucose [Mass/volume] in Ser um or PlasmaOrdered By: Kylie Sands on 01-11-2024 Glucose [Mass/Vol] 82 mg/dL 70-100 [facility] Comment on above: ADA recommended refe rence rangeRandom Glucose Reference Range is dependent on time and content of last meal. Glucose of more than 200 mg/dL in a nonstressed, ambulatory subject supports the diagnosis of Diabetes Mellitus. Hematocrit Auto (Bld) [Volum e fraction]Ordered By: Kylie Sands on 01-11-2024 Hematocrit (Bld) [Volume fraction] 39.2 % 34.0-46.4 [facility] Hemoglobin [Mass/volume] in BloodOrdered By: Kylie Sands on 01-11-2024 Hemoglobin (Bld) [Mass/Vol] 13.1 g/dL 11.8-15.4 [facility] Leukocytes [#/volume] correc maurice for nucleated erythrocytes in Blood by Automated counOrdered By: Kylie Sands on 01-11-2024 WBC corrected for nucl RBC Auto (Bld) [#/Vol] 5.5 10*3/uL 3.8-11.6 [facility] Lymphocytes Auto (Bld) [#/Vo l]Ordered By: Kylie Sands on 01-11-2024 Lymphocytes (Bld) [#/Vol] 1.4 10*3/uL 1.00-4.8 [facility] Lymphocytes/100 WBC Auto (Bl d)Ordered By: Kylie Sands on 01-11-2024 Lymphocytes/100 WBC (Bld) 25.1 % . [facility] MCH Auto (RBC) [Entitic mass ]Ordered By: Kylie Sadns on 01-11-2024 MCH (RBC) [Entitic mass] 29.7 pg 24.7-34.3 [facility] MCHC Auto (RBC) [Mass/Vol]Or dered By: Kylie Sands on 01-11-2024 MCHC (RBC) [Mass/Vol] 33.4 g/dL 32.0-35.0 [facility] MCV Auto (RBC) [Entitic vol] Ordered By: Kylie Sands on 01-11-2024 MCV (RBC) [Entitic vol] 89.2 fL 80-100 [facility] Monocytes Auto (Bld) [#/Vol] Ordered By: Kylie Sands on 01-11-2024 Monocytes (Bld) [#/Vol] 0.5 10*3/uL 0.0-0.8 [facility] Monocytes/100 WBC Auto (Bld) Ordered By: Kylie Sands on 01-11-2024 Monocytes/100 WBC (Bld) 8.3 % . [facility] Neutrophils Auto (Bld) [#/Vo l]Ordered By: Kylie Sands on 01-11-2024 Neutrophils (Bld) [#/Vol] 3.4 10*3/uL 1.8-7.7 [facility] Neutrophils/100 WBC Auto (Bl d)Ordered By: Kylie Sands on 01-11-2024 Neutrophils/100 WBC (Bld) 62.4 % . [facility] No Panel InformationOrdered By: Kylie Sands on 01-11-2024 Estimated GFR (CKD-EPI) > 60.0 mL/Min [facility] Creatinine Clearance (Chem N/A [facility] Nucleated erythrocytes [Pres ence] in Blood by Automated countOrdered By: Kylie Sands on 01-11-2024 Nucleated RBC Auto Ql (Bld) 0.1 /100{WBC} 0-0.5 [facility] Platelet mean volume Auto (B ld) [Entitic vol]Ordered By: Kylie Sands on 01-11-2024 Platelet mean volume (Bld) [Entitic vol] 9.0 fL 6.3-10.7 [facility] Platelets Auto (Bld) [#/Vol] Ordered By: Kylie Sands on 01-11-2024 Platelets (Bld) [#/Vol] 322 10*3/uL 150-450 [facility] Potassium [Moles/volume] in Serum or PlasmaOrdered By: Kylie Sands on 01-11-2024 Potassium [Moles/Vol] 4.3 mmol/L 3.5-5.1 [facility] Protein [Mass/volume] in Ser um or PlasmaOrdered By: Kylie Sands on 01-11-2024 Protein [Mass/Vol] 6.6 g/dL 6.4-8.9 [facility] [facility] RBC Auto (Bld) [#/Vol]Ordere d By: Kylie Sands on 01-11-2024 RBC (Bld) [#/Vol] 4.39 10*6/uL 3.60-5.00 [facility] Serum or plasma albumin/glob ulin mass ratioOrdered By: Kylie Sands on 01-11-2024 Albumin/Globulin [Mass ratio] 1.8 {ratio} [facility] Serum or plasma anion gap de terminationOrdered By: Kylie Sands on 01-11-2024 Anion gap [Moles/Vol] 8.7 mmol/L 6.0-15.0 [facility] Sodium [Moles/volume] in Ser um or PlasmaOrdered By: Kylie Sands on 01-11-2024 Sodium [Moles/Vol] 139 mmol/L 136-145 [facility] Urea nitrogen [Mass/volume] in Serum or PlasmaOrdered By: Kylie Sands on 01-11-2024 Urea nitrogen [Mass/Vol] 18 mg/dL 7-25 [facility] WBC Auto (Bld) [#/Vol]Ordere d By: Kylie Sands on 01-11-2024 WBC (Bld) [#/Vol] 5.5 10*3/uL 3.8-11.6 [facility] FSHon 01-19-2023 FSH 8.7 mIU/mL Normal [facility] Comment on above: Result Comment: Adul t Female: Follicular phase 3.5 - 12.5 Ovulation phase 4.7 - 21.5 Luteal phase 1.7 - 7.7 Postmenopausal 25.8 - 134.8 Performed By: #### L BCFS #### [facility] [address], [place] [address] Dr. Haydee Chen LUTEINIZING HORMONE (LH)on 0 01-19-2023 LH 9.1 mIU/mL Normal [facility] Comment on above: Result Comment: Adul t Female: Follicular phase 2.4 - 12.6 Ovulation phase 14.0 - 95.6 Luteal phase 1.0 - 11.4 Postmenopausal 7.7 - 58.5 Performed By: #### L BCLH ####[facility] [address] [place], [place] [address]KkDr. Haydee Chen CBC AUTO DIFFon 01-18-2023 BASO # 0.1 103/ul Normal 0.0-0.1 [facility] Comment on above: Performed By: #### C BC #### [facility] [address] [place] [address] Dr. Haydee Chen Basophils/100 WBC (Bld) 1.3 % Normal 0.2-2.0 [facility] Comment on above: Performed By: #### C BC #### [facility] [address] [place] [address] Dr. Haydee Chen EO # 0.1 103/ul Normal 0.0-0.7 [facility] Comment on above: Performed By: #### C BC #### [facility] [address] [place] [address] Dr. Haydee Chen Eosinophils/100 WBC (Bld) 1.3 % Normal 0.9-7.0 [facility] Comment on above: Performed By: #### C BC #### [facility] [address] [place] [address] Dr. Haydee Chen Erythrocyte distribution width (RBC) [Ratio] 12.3 % Normal 11.0-15.0 [facility] Comment on above: Performed By: #### C BC #### [facility] [address] [place] [address] Dr. Haydee Chen Hematocrit (Bld) [Volume fraction] 37.0 % Normal 36.0-48.0 [facility] Comment on above: Performed By: #### C BC #### [facility] [address] [place] [address] Dr. Haydee Chen Hemoglobin (Bld) [Mass/Vol] 12.1 g/dL Normal 12.0-16.0 [facility] Comment on above: Performed By: #### C BC #### [facility] [address] [place] [address] Dr. Haydee Chen IG # 0.01 10e3/ul Normal 0.00-0.03 [facility] Comment on above: Performed By: #### C BC #### [facility] [address] [place] [address] Dr. Haydee Chen IG % 0.2 % Normal 0.0-0.5 [facility] Comment on above: Performed By: #### C BC #### [facility] [address] [address] [address] Haydee Chen LYMPH # 1.6 103/ul Normal 1.2-3.8 [facility] Comment on above: Performed By: #### C BC #### [facility] [address] [place] [address] Dr. Haydee Chen Lymphocytes/100 WBC (Bld) 29.9 % Normal 20.5-60.0 [facility] Comment on above: Performed By: #### C BC #### [facility] [address] [place] [address] Dr. Haydee Chen MANUAL DIFF REQ NO Normal [facility] Comment on above: Performed By: #### C BC #### [facility] [address] [place] [address] Dr. Haydee Chen MCH (RBC) [Entitic mass] 29.6 pg Normal 26.7-34.0 [facility] Comment on above: Performed By: #### C BC #### [facility] [address] [place] [address] Dr. Haydee Chen MCHC (RBC) [Mass/Vol] 32.7 g/dL Normal 29.9-35.2 [facility] Comment on above: Performed By: #### C BC #### [facility] [address] [place] [address] Dr. Haydee Chen MCV (RBC) [Entitic vol] 90.5 fL Normal 81.0-99.0 [facility] Comment on above: Performed By: #### C BC #### [facility] [address] [place] [address] Dr. Haydee Cehn MONO # 0.3 103/ul Normal 0.3-0.8 [facility] Comment on above: Performed By: #### C BC #### [facility] [address] [place] [address] Dr. Haydee Chen Monocytes/100 WBC (Bld) 6.0 % Normal 1.7-12.0 [facility] Comment on above: Performed By: #### C BC #### [facility] [address] [address] [address] Haydee Chen NEUT # 3.2 103/ul Normal 1.4-6.5 [facility] Comment on above: Performed By: #### C BC #### [facility] [address] [place] [address] Dr. Haydee Chen Neutrophils/100 WBC (Bld) 61.3 % Normal 43.0-75.0 [facility] Comment on above: Performed By: #### C BC #### [facility] [address] [place] [address] Dr. Haydee Chen Platelet mean volume (Bld) [Entitic vol] 9.8 fL Normal 9.5-13.5 [facility] Comment on above: Performed By: #### C BC #### [facility] [address] [place] [address] Dr. Haydee Chen PLT 294 103/ul Normal 150-450 [facility] Comment on above: Performed By: #### C BC #### [facility] [address] [place] [address] Dr. Haydee Chen RBC 4.09 106/ul Critically low 4.20-5.40 [facility] Comment on above: Performed By: #### C BC #### [facility] [address] [place] [address] Dr. Haydee Chen WBC 5.2 103/ul Normal 4.0-11.0 [facility] Comment on above: Performed By: #### C BC #### [facility] [address] [place] [address] Dr. Haydee Chen FERRITINon 01-18-2023 Ferritin [Mass/Vol] 8.0 ng/mL Normal 6.2-137.0 [facility] Comment on above: Performed By: #### F ERR, FT4 #### [facility] [address] [place] [address] Dr. Haydee Chen FREE T4on 01-18-2023 Free T4 [Mass/Vol] 0.72 ng/dL Critically low 0.76-1.46 [facility] Comment on above: Performed By: #### F ERR, FT4 #### [facility] [address], [place] [address] Dr. Haydee Chen TSHon 01-18-2023 TSH 1.127 uIU/mL Normal 0.358-3.740 [facility] Comment on above: Performed By: #### T #### [facility] [address], [place] [address] Dr. Haydee Chen MG MAMM DX 3D LT CADon 11-30 MG MAMM DX 3D LT CAD Patient: AGUSTO KING Exam Date: 11/30/2022 : 1980 Gender:F Ordering : DR WILBUR MEEKS . Admission #: [id number] Family : Order #: [id number] CLICK HERE TO VIEW EXAM RADIOLOGY REPORT PROCEDURE: MAMMOGRAM DIAGNOSTIC 3D LEFT CAD, 11/30/2022, 09:57 ULTRASOUND BREAST LEFT LIMITED, 11/30/2022, 10:40 COMPARISON: MG MAMM SCREEN ENIO W CAD, 04/25/2020. MG MAMM SCREEN ENIO W CAD, 11/11/2018. MG MAMM ENIO SCRN W CAD DIG, 05/20/2015. MG MAMM SCREEN 3D ENIO CAD, 08/06/2022. INDICATIONS: Abnormal findings on diagnostic imaging of breast Calculator Name NCI Breast Cancer Risk Assessment Tool 5 Year Breast Cancer Risk 0.90% Lifetime Breast Cancer Risk 10.70% Personal Breast Cancer No Personal Ovarian Cancer No Treatments None Family Cancers None LOCATION: [facility] BREAST COMPOSITION: Extremely dense, which lowers the [...] PALPABLE LUMP SHOULD BE BIOPSIED. Dictated by: Yolanda Vela M.D. on 11/30/2022 at 10:38 Approved by: Yolanda Vela M.D. on 11/30/2022 at 10:47 Normal [facility] US BREAST LEFT LIMITEDon US BREAST LEFT LIMITED Patient: AGUSTO KING Exam Date: 11/30/2022 : 1980 Gender:F Ordering : DR WILBUR MEEKS . Admission #: [id number] Family : Order #: [id number] CLICK HERE TO VIEW EXAM RADIOLOGY REPORT PROCEDURE: MAMMOGRAM DIAGNOSTIC 3D LEFT CAD, 11/30/2022, 09:57 ULTRASOUND BREAST LEFT LIMITED, 11/30/2022, 10:40 COMPARISON: MG MAMM SCREEN ENIO W CAD, 04/25/2020. MG MAMM SCREEN ENIO W CAD, 11/11/2018. MG MAMM ENIO SCRN W CAD DIG, 05/20/2015. MG MAMM SCREEN 3D ENIO CAD, 08/06/2022. INDICATIONS: Abnormal findings on diagnostic imaging of breast Calculator Name NCI Breast Cancer Risk Assessment Tool 5 Year Breast Cancer Risk 0.90% Lifetime Breast Cancer Risk 10.70% Personal Breast Cancer No Personal Ovarian Cancer No Treatments None Family Cancers None LOCATION: [facility] BREAST COMPOSITION: Extremely dense, which lowers the [...] PALPABLE LUMP SHOULD BE BIOPSIED. Dictated by: Yolanda Vela M.D. on 11/30/2022 at 10:38 Approved by: Yolanda Vela M.D. on 11/30/2022 at 10:47 Normal [facility] MG MAMM SCREEN 3D ENIO CADon 08-06-2022 MG MAMM SCREEN 3D ENIO CAD Patient: AGUSTO KING Exam Date: 08/06/2022 : 1980 Gender:F Ordering : DR WILBUR MEEKS . Admission #: [id number] Family : Order #: [id number] CLICK HERE TO VIEW EXAM RADIOLOGY REPORT PROCEDURE: MAMMOGRAM SCREENING 3D BILATERAL CAD COMPARISON: MG MAMM SCREEN ENIO W CAD, 11/11/2018. MG MAMM SCREEN ENIO W CAD, 04/25/2020. INDICATIONS: Screening for malignant neoplasm of breast Calculator Name NCI Breast Cancer Risk Assessment Tool 5 Year Breast Cancer Risk 0.90% Lifetime Breast Cancer Risk 10.70% Personal Breast Cancer No Personal Ovarian Cancer No Treatments None Family Cancers None LOCATION: [facility] BREAST COMPOSITION: Extremely dense, which lowers the [...] MD on 08/07/2022 at 10:35 Normal [facility] CBC AUTO DIFFon 07-29-2022 BASO # 0.1 103/ul Normal 0.0-0.1 [facility] Comment on above: Performed By: #### C BC #### [facility] [address] [place] [address] Dr. Haydee Chen Basophils/100 WBC (Bld) 1.2 % Normal 0.2-2.0 [facility] Comment on above: Performed By: #### C BC #### [facility] [address] [place] [address] Dr. Haydee Chen EO # 0.1 103/ul Normal 0.0-0.7 [facility] Comment on above: Performed By: #### C BC #### [facility] [address] [place] [address] Dr. Haydee Chen Eosinophils/100 WBC (Bld) 1.6 % Normal 0.9-7.0 [facility] Comment on above: Performed By: #### C BC #### [facility] [address] [place] [address] Dr. Haydee Chen Erythrocyte distribution width (RBC) [Ratio] 12.2 % Normal 11.0-15.0 [facility] Comment on above: Performed By: #### C BC #### [facility] [address] [place] [address] Dr. Haydee Chen Hematocrit (Bld) [Volume fraction] 36.6 % Normal 36.0-48.0 [facility] Comment on above: Performed By: #### C BC #### [facility] [address] [place] [address] Dr. Haydee Chen Hemoglobin (Bld) [Mass/Vol] 12.1 g/dL Normal 12.0-16.0 [facility] Comment on above: Performed By: #### C BC #### [facility] [address] [place] [address] Dr. Haydee Chen IG # 0.01 10e3/ul Normal 0.00-0.03 [facility] Comment on above: Performed By: #### C BC #### [facility] [address] [place] [address] Dr. Haydee Chen IG % 0.2 % Normal 0.0-0.5 [facility] Comment on above: Performed By: #### C BC #### [facility] [address] [place] [address] Dr. Haydee Chen LYMPH # 1.9 103/ul Normal 1.2-3.8 [facility] Comment on above: Performed By: #### C BC #### [facility] [address] [place] [address] Dr. Haydee Chen Lymphocytes/100 WBC (Bld) 32.2 % Normal 20.5-60.0 [facility] Comment on above: Performed By: #### C BC #### [facility] [address] [place] [address] Dr. Haydee Chen MANUAL DIFF REQ NO Normal [facility] Comment on above: Performed By: #### C BC #### [facility] [address] [place] [address] Dr. Haydee Chen MCH (RBC) [Entitic mass] 29.7 pg Normal 26.7-34.0 [facility] Comment on above: Performed By: #### C BC #### [facility] [address] [place] [address] Dr. Haydee Chen MCHC (RBC) [Mass/Vol] 33.1 g/dL Normal 29.9-35.2 [facility] Comment on above: Performed By: #### C BC #### [facility] [address] [place] [address] Dr. Haydee Chen MCV (RBC) [Entitic vol] 89.7 fL Normal 81.0-99.0 [facility] Comment on above: Performed By: #### C BC #### [facility] [address] [place] [address] Dr. Haydee Chen MONO # 0.5 103/ul Normal 0.3-0.8 [facility] Comment on above: Performed By: #### C BC #### [facility] [address] [place] [address] Dr. Haydee Chen Monocytes/100 WBC (Bld) 9.2 % Normal 1.7-12.0 [facility] Comment on above: Performed By: #### C BC #### [facility] [address] [place] [address] Dr. Haydee Chen NEUT # 3.2 103/ul Normal 1.4-6.5 [facility] Comment on above: Performed By: #### C BC #### [facility] [address] [place] [address] Dr. Haydee Chen Neutrophils/100 WBC (Bld) 55.6 % Normal 43.0-75.0 [facility] Comment on above: Performed By: #### C BC #### [facility] [address] [place] [address] Dr. Haydee Chen Platelet mean volume (Bld) [Entitic vol] 9.4 fL Critically low 9.5-13.5 [facility] Comment on above: Performed By: #### C BC #### [facility] [address] [place] [address] Dr. Haydee Chen PLT 316 103/ul Normal 150-450 [facility] Comment on above: Performed By: #### C BC #### [facility] [address] [id number] Haydee Chen RBC 4.08 106/ul Critically low 4.20-5.40 [facility] Comment on above: Performed By: #### C BC #### [facility] [address] [id number] Haydee Chen WBC 5.8 103/ul Normal 4.0-11.0 [facility] Comment on above: Performed By: #### C BC #### [facility] [address] [id number] Haydee Chen [facility]19 [facility] ([facility])on SARS-CoV-2 (COVID-19) RNA SARAH+probe Ql (Unsp spec) Not detected Normal NOT DETECTED [facility] Comment on above: Result Comment: This test is not yet approved or cleared by the [place] FDA. When there are no FDA-approved or cleared tests available, and other criteria are met, FDA can make tests available under an emergency access mechanism called an Emergency Use Authorization (EUA). The EUA for this test is supported by the [place] of Health and Human Service's (HHS's) declaration [...] with SARS-CoV-2. Performed By: #### C VDTBH ####[facility] [address] [place], [place] [address]KzDr. Haydee Chen PREG QUANT HCGon 07-29-2022 HCG QUANT <1 Normal [facility] Comment on above: Performed By: #### T SH, PREGQNT ####[facility] [address] [place], [place] [address]DyDr. Haydee Chen HCG RANGE SEE BELOW Normal [facility] Comment on above: Result Comment: 5-50 0.2-1 WEEK 50-500 1-2 WEEKS 100-5,000 2-3 WEEKS 500-10,000 3-4 WEEKS 1,000-50,000 4-5 WEEKS 10,000-100,000 5-6 WEEKS 15,000-200,000 6-8 WEEKS 10,000-100,000 2-3 MONTHS Performed By: #### T SH, PREGQNT ####[facility] [address] [place] [id number]. Haydee Chen PROTIMEon 07-29-2022 INR Coag (PPP) [Relative time] 0.97 {INR} Normal [facility] Comment on above: Performed By: #### P T, PTT #### [facility] [address] [place] [address] Dr. Haydee Chen INR GUIDELINES SEE BELOW Normal [facility] Comment on above: Result Comment: VINCE RED INR: 2.0 - 3.0 CONDITIONS NOT LISTED BELOW 2.5 - 3.5 FOR PROSTHETIC HEART VALVE REPLACEMENT 2.5 - 3.5 RECURRENT THROMBOSIS Performed By: #### P T, PTT #### [facility] [address] [place] [address] Dr. Haydee Chen PT Coag (PPP) [Time] 10.5 s Normal 9.0-11.6 [facility] Comment on above: Performed By: #### P T, PTT #### [facility] [address] [place] [address] Dr. Haydee Chen PTTon 07-29-2022 aPTT Coag (Bld) [Time] 30.2 s Normal 22.3-36.2 [facility] Comment on above: Performed By: #### P T, PTT #### [facility] [address] [place] [address] Dr. Haydee Chen TSHon 07-29-2022 TSH 1.062 uIU/mL Normal 0.358-3.740 [facility] Comment on above: Performed By: #### T SH, PREGQNT ####[facility] [address] [place] [address]DrAshley Chen US PELVIS AND TRANSVAGon US PELVIS [...] account for patient's symptoms. Electronically authenticated by: YOLANDA VELA Date: 2022-07-21 11:45 Normal [facility] PAP ACOG PANEL 2: 30 to 65on 04-11-2022 . . Normal [facility] Comment on above: Result Comment: Perf ormed at: [facility] Performed By: #### [id number] ####[facility] [address] [place] [address]DrAshley Chen Age Gdln ACOG Testing 30-65 Normal [facility] Comment on above: Performed By: #### [id number] ####[facility] [address] [place] [id number] Chen DIAGNOSIS: Comment Normal [facility] Comment on above: Result Comment: NEGA TIVE FOR INTRAEPITHELIAL LESION OR MALIGNANCY. Performed at: [facility] Performed By: #### [id number] ####[facility] [address] [place], [place] [address]DrAshley Chen HPV Aptima Negative Normal Negative [facility] Comment on above: Result Comment: This nucleic acid amplification test detects fourteen high-risk HPV types (16,18,31,33,35,39,45,51,52,56,58,59,66,68) without differentiation. Performed at: =G Performed By: #### [id number] ####[place] [address]DrAshley Chen Methodology: Comment Normal [facility] Comment on above: Result Comment: This liquid based ThinPrep(R) pap test was screened with the use of an image guided system. Performed at: [facility] Performed By: #### [id number] ####[place] [address]DrAshley Chen Note: Comment Normal [facility] Comment on above: Result Comment: The Pap smear is a screening test designed to aid in the detection of premalignant and malignant conditions of the uterine cervix. It is not a diagnostic procedure and should not be used as the sole means of detecting cervical cancer. Both false-positive and false-negative reports do occur. . Performed at: [facility] Performed By: #### [id number] ####[facility] [address] [place], [place] [address]DrAshley Chen Performed by: Comment Normal [facility] Comment on above: Result Comment: Tracy Sweeney [employer] (ASCP) Performed at: [facility] Performed By: #### [id number] ####[facility] [address] [place], [place] [address]DrAshley Chen Specimen adequacy: Comment Normal [place] Comment on above: Result Comment: Sati sfactory for evaluation. Endocervical and/or squamous metaplastic cells (endocervical component) are present. Performed at: [facility] Performed By: #### [id number] ####[facility] [address] [place], [place] [address]DrAshley Chen Vital Signs Date Time Vital Sign Value Performing Clinician Facility 10-06-2024 13:07-0500 Body height 162.6 cm Perri Walker MD Work Phone: [facility] 10-06-2024 13:07-0500 Body mass index (BMI) [Ratio] 19.74 kg/m2 Perri Walker MD Work Phone: [facility] 10-06-2024 13:07-0500 Body weight 52.16 kg Perri Walker MD Work Phone: [facility] 10-06-2024 13:07-0500 Diastolic blood pressure 76 mm[Hg] Perri Walker MD Work Phone: [facility] 10-06-2024 13:07-0500 Heart rate 117 /min Perri Walker MD Work Phone: [facility] 10-06-2024 13:07-0500 Systolic blood pressure 124 mm[Hg] Perri Walker MD Work Phone: [facility] 09-15-2024 08:08-0500 Body height 162.6 cm Perri Walker MD Work Phone: [facility] 09-15-2024 08:08-0500 Body mass index (BMI) [Ratio] 19.74 kg/m2 Perri Walker MD Work Phone: [facility] 09-15-2024 08:08-0500 Body weight 52.16 kg Perri Walker MD Work Phone: [facility] 09-15-2024 08:08-0500 Diastolic blood pressure 94 mm[Hg] Perri Walker MD Work Phone: [facility] 09-15-2024 08:08-0500 Heart rate 87 /min Perri Walker MD Work Phone: [facility] 09-15-2024 08:08-0500 Systolic blood pressure 161 mm[Hg] Perri Walker MD Work Phone: [facility] 09-07-2024 11:58-0500 Heart rate 79 /min [facility] 09-07-2024 11:58-0500 SaO2% (BldA) [Mass fraction] 97 % Perri [facility] 09-07-2024 11:57-0500 Diastolic blood pressure 86 mm[Hg] Perri [facility] 09-07-2024 11:57-0500 Mean blood pressure 101 mm[Hg] Perri [facility] 09-07-2024 11:57-0500 Systolic blood pressure 131 mm[Hg] Perri [facility] 09-07-2024 11:05-0500 Heart rate 84 /min Perri [facility] 09-07-2024 11:05-0500 SaO2% (BldA) [Mass fraction] 100 % [facility] 09-07-2024 11:05-0500 Respiratory rate 18 /min [facility] 09-07-2024 11:05-0500 Blood Pressure Location Perri [facility] 09-07-2024 11:05-0500 Diastolic blood pressure 81 mm[Hg] [facility] 09-07-2024 11:05-0500 Mean blood pressure 94 mm[Hg] [facility] 09-07-2024 11:05-0500 Systolic blood pressure 121 mm[Hg] [facility] 09-07-2024 10:58-0500 Body temperature 97.7 [degF] [facility] 09-07-2024 10:58-0500 Diastolic blood pressure 76 mm[Hg] [facility] 09-07-2024 10:58-0500 Heart rate 84 /min [facility] 09-07-2024 10:58-0500 Mean blood pressure 90 mm[Hg] [facility] 09-07-2024 10:58-0500 Respiratory rate 20 /min [facility] 09-07-2024 10:58-0500 SaO2% (BldA) [Mass fraction] 100 % [facility] 09-07-2024 10:58-0500 Systolic blood pressure 119 mm[Hg] [facility] 09-07-2024 10:54-0500 Respiratory rate 21 /min [facility] 09-07-2024 10:50-0500 Mean blood pressure 94 mm[Hg] [facility] 09-07-2024 10:50-0500 Respiratory rate 19 /min [facility] 09-07-2024 10:45-0500 Mean blood pressure 103 mm[Hg] [facility] 09-07-2024 10:37-0500 FIO2 50 1 [facility] 09-07-2024 10:35-0500 Blood Pressure Location Perri [facility] 09-07-2024 10:35-0500 Body temperature 97.7 [degF] [facility] 09-07-2024 10:30-0500 FIO2 100 1 [facility] 09-07-2024 10:25-0500 FIO2 100 1 [facility] 09-07-2024 10:25-0500 Respiratory rate 28 /min [facility] 09-07-2024 10:20-0500 Respiratory rate 11 /min [facility] 09-07-2024 07:54-0500 Blood Pressure Location [facility] 09-07-2024 07:54-0500 Mean blood pressure 88 mm[Hg] [facility] 09-07-2024 07:53-0500 Body temperature 97.7 [degF] [facility] 08-29-2024 08:45-0500 Blood Pressure Location [facility] 08-29-2024 08:45-0500 Diastolic blood pressure 82 mm[Hg] [facility] 08-29-2024 08:45-0500 Heart rate 94 /min [facility] 08-29-2024 08:45-0500 Mean blood pressure 98 mm[Hg] [facility] 08-29-2024 08:45-0500 Systolic blood pressure 129 mm[Hg] [facility] 08-29-2024 08:44-0500 Heart rate 100 /min [facility] 08-29-2024 08:44-0500 SaO2% (BldA) [Mass fraction] 97 % [facility] 08-29-2024 08:44-0500 Respiratory rate 18 /min [facility] 08-29-2024 08:44-0500 Blood Pressure Location [facility] 08-29-2024 08:44-0500 Diastolic blood pressure 73 mm[Hg] [facility] 08-29-2024 08:44-0500 Mean blood pressure 86 mm[Hg] [facility] 08-29-2024 08:44-0500 Systolic blood pressure 111 mm[Hg] [facility] 08-22-2024 08:40-0500 Body height 162.6 cm Perri Walker MD Work Phone: [facility] 08-22-2024 08:40-0500 Body mass index (BMI) [Ratio] 19.74 kg/m2 Perri Walker MD Work Phone: [facility] 08-22-2024 08:40-0500 Body weight 52.16 kg Perri Walker MD Work Phone: [facility] 08-22-2024 08:40-0500 Diastolic blood pressure 85 mm[Hg] Perri Walker MD Work Phone: [facility] 08-22-2024 08:40-0500 Systolic blood pressure 117 mm[Hg] Perri Walker MD Work Phone: [facility] 07-03-2024 10:09-0400 Body height 162.6 cm Perri Walker MD Work Phone: [facility] 07-03-2024 10:09-0400 Body mass index (BMI) [Ratio] 19.4 kg/m2 Perri Walker MD Work Phone: [facility] 07-03-2024 10:09-0400 Body weight 51.26 kg Perri Walker MD Work Phone: [facility] 07-03-2024 10:09-0400 Diastolic blood pressure 84 mm[Hg] Perri Walker MD Work Phone: [facility] 07-03-2024 10:09-0400 Systolic blood pressure 123 mm[Hg] Perri Walker MD Work Phone: [facility] 11-23-2023 11:37-0500 Body height 162.56 cm MD Tyler Bates Work Phone: [facility] 11-23-2023 11:37-0500 Body mass index (BMI) [Ratio] 19.1 kg/m2 MD Tyler Bates Work Phone: [facility] 11-23-2023 11:37-0500 Body weight 50.4 kg MD Tyler Bates Work Phone: [facility] 11-23-2023 11:37-0500 Diastolic blood pressure 88 mm[Hg] MD Tyler Bates Work Phone: [facility] 11-23-2023 11:37-0500 Heart rate 96 /min MD Tyler Bates Work Phone: [facility] 11-23-2023 11:37-0500 Systolic blood pressure 125 mm[Hg] MD Tyler Bates Work Phone: [facility] 07-23-2023 11:45-0400 Body height 162.56 cm Tyler Bates Other [facility] [employer] Other 07-23-2023 11:45-0400 Body mass index (BMI) [Ratio] 19.36 kg/m2 Tylre Bates Other [facility] Other 07-23-2023 11:45-0400 Body weight 51.17 kg Tyler Bates Other [facility] Other 07-23-2023 11:45-0400 Diastolic blood pressure 70 mm[Hg] Tyler Bates Other [facility] [employer] Other 07-23-2023 11:45-0400 Systolic blood pressure 142 mm[Hg] Tyler Bates Other [facility] Other 06-17-2023 15:40-0400 Body height 162.56 cm Lorena Newell Other [facility] Other 06-17-2023 15:40-0400 Body mass index (BMI) [Ratio] 19.12 kg/m2 Lorena Newell Other [facility] Other 06-17-2023 15:40-0400 Body temperature 97.8 [degF] Lorena Newell Other [facility] Other 06-17-2023 15:40-0400 Body weight 50.53 kg Lorena Newell Other [facility] Other 06-17-2023 15:40-0400 Diastolic blood pressure 78 mm[Hg] Lorena Newell Other [facility] Other 06-17-2023 15:40-0400 Respiratory rate 18 /min Lorena Newell Other [facility] Other 06-17-2023 15:40-0400 SaO2% (BldA) [Mass fraction] 98 % Lorena Newell Other [facility] Other 06-17-2023 15:40-0400 Systolic blood pressure 134 mm[Hg] Lorena Newell Other [facility] Other 01-14-2023 15:45-0400 Body height 162.56 cm Tyler Bates Other [facility] Other 01-14-2023 15:45-0400 Body mass index (BMI) [Ratio] 19.39 kg/m2 Tyler Bates Other [facility] Other 01-14-2023 15:45-0400 Body weight 51.26 kg Tyler Bates Other [facility] Other 01-14-2023 15:45-0400 Diastolic blood pressure 60 mm[Hg] Tyler Bates Other [facility] Other 01-14-2023 15:45-0400 SaO2% (BldA) [Mass fraction] 99 % Tyler Bates Other [facility] Other 01-14-2023 15:45-0400 Systolic blood pressure 108 mm[Hg] Tyler Btaes Other [facility] Other Encounters Encounter Date Encounter Type Care Provider Facility Start: 06-07-2025 End: 06-07-2025 Bamboo flowsheet Zaira BUSTILLOS Work Phone: [facility] Start: 06-07-2025 End: 06-07-2025 Bamboo flowsheet Zaira BUSTILLOS Work Phone: [facility] Start: 06-07-2025 End: 06-07-2025 Patient encounter procedure Zaira BUSTILLOS Work Phone: [facility] Work Phone: Start: 06-07-2025 End: 06-07-2025 Periodic preventive med est patient 40-64yrs Zaira BUSTILLOS Work Phone: [facility] Comment on above: Well woman exam with routine gynecological exam; Breast cancer screening by mammogram; Mood changes Start: 10-06-2024 End: 10-06-2024 Bamboo flowsmike Walker MD Work Phone: [facility] Start: 10-06-2024 End: 10-06-2024 Bamboo suyapa Walker MD Work Phone: [facility] Start: 10-06-2024 End: 10-06-2024 Postop follow up visit related to original px Perri Walker MD Work Phone: [facility] Comment on above: Atypical face pain ( CMS/HCC) (Primary Dx) Start: 10-06-2024 End: 10-06-2024 ambulatory PERRI WALKER Not Available Start: 09-15-2024 End: 09-15-2024 Slimo suyapa Walekr MD Work Phone: [facility] Start: 09-15-2024 End: 09-15-2024 Kimberly Walker MD Work Phone: [facility] Start: 09-15-2024 End: 09-15-2024 ambulatory PERRI WALKER Not Available Start: 09-15-2024 End: 09-15-2024 Postop follow up visit related to original raina Walker MD Work Phone: [facility] Comment on above: Hypertrophy of infer ior nasal turbinate (Primary Dx); Alvaro bullosa; DNS (deviated nasal septum) Start: 09-07-2024 End: 09-07-2024 Admission to same day surgery center [facility]ri [facility] Start: 09-07-2024 End: 09-07-2024 ambulatory Perri H Timmis Facility:[facility] Start: 08-29-2024 End: 08-29-2024 Clinisync Result Encounter Perri Walker MD Work Phone: [facility] Unsolicited Start: 08-29-2024 End: 08-29-2024 Clinisync Result Encounter Perri Walker MD Work Phone: [facility] Unsolicited Start: 08-29-2024 End: 08-29-2024 ambulatory Perri H Timmis Facility:[facility] Start: 08-29-2024 End: 08-29-2024 Patient encounter procedure Perri Walker [facility] Start: 08-22-2024 End: 08-22-2024 Bamboo flowsheet Perri Walker MD Work Phone: [facility] Start: 08-22-2024 End: 08-22-2024 Bamboo flowsheet Perri Walker MD Work Phone: [facility] Start: 08-22-2024 End: 08-22-2024 Office outpatient visit 40 minutes Perri Walker MD Work Phone: [facility] Comment on above: Nonintractable heada marcy, unspecified chronicity pattern, unspecified headache type (Primary Dx); DNS (deviated nasal septum); Alvaro bullosa; Hypertrophy of inferior nasal turbinate Start: 08-22-2024 End: 08-22-2024 ambulatory PERRI H TIMMIS Not Available Start: 08-10-2024 End: 08-10-2024 ambulatory PERRI H TIMMIS Not Available Start: 07-03-2024 End: 07-03-2024 Bamboo flowsmike Walker MD Work Phone: [facility] Start: 07-03-2024 End: 07-03-2024 Bamboo flowsheet Perri Walker MD Work Phone: [facility] Start: 07-03-2024 End: 07-03-2024 Office outpatient new 45 minutes Perri Walker MD Work Phone: [facility] Comment on above: Chronic pansinusitis (Primary Dx); Bilateral hearing loss, unspecified hearing loss type; Nonintractable headache, unspecified chronicity pattern, unspecified headache type Start: 07-03-2024 End: 07-03-2024 ambulatory PERRI WALKER Not Available Start: 03-07-2024 End: 03-07-2024 ambulatory WILBUR LEONA Not Available Start: 02-17-2024 End: 02-17-2024 [...] Not Available Start: 01-11-2024 End: 01-11-2024 ambulatory Tyler Bates Facility:[facility] Start: 01-11-2024 End: 01-11-2024 ambulatory MD Tyler Bates Work Phone: [facility] Work Phone: Start: 01-11-2024 End: 01-11-2024 Patient encounter procedure MD Tyler Bates Work Phone: [facility] [address] Work Phone: Start: 11-23-2023 End: 11-23-2023 Patient encounter procedure MD Tyler Bates Work Phone: [facility] Work Phone: Start: 11-15-2023 End: 11-15-2023 ambulatory WILBUR MEEKS Not Available Start: 11-09-2023 Non-patient / Non-visit MD Adeline Bates Work Phone: [facility] [employer] Work Phone: Start: 10-08-2023 End: 10-08-2023 ambulatory Tyler Bates Other [facility] Other Start: 10-08-2023 Encounter by compute r [employer] Tyler Bates [facility] Start: 09-09-2023 End: 09-09-2023 ambulatory Tyler Bates Other [facility] Other Start: 09-09-2023 Encounter by compute r link Tyler Bates [facility] Start: 08-13-2023 End: 08-13-2023 ambulatory Tyler Bates Other [facility] Other Start: 08-13-2023 Telephone encounter Tyler Bates [facility] Start: 08-05-2023 End: 08-05-2023 ambulatory Tyler Bates Other [facility] Other Start: 08-05-2023 Telephone encounter Tyler Bates [facility] Start: 07-27-2023 End: 07-27-2023 ambulatory Tyler Bates Other [facility] Other Start: 07-27-2023 Telephone encounter Tyler Jana [facility] Start: 07-23-2023 End: 07-23-2023 ambulatory Tyler Bates Other [facility] Other Start: 07-23-2023 Office outpatient vi sit 15 minutes Tyler Bates [facility] Start: 07-20-2023 End: 07-20-2023 ambulatory Tyler Bates Other [facility] Other Start: 07-20-2023 Telephone encounter Tyler Bates [facility] Start: 07-16-2023 End: 07-16-2023 ambulatory Tyler Bates Other [facility] Other Start: 07-16-2023 Telephone encounter Tyler Bates [facility] Start: 06-17-2023 End: 06-17-2023 ambulatory Lorena Newell Other [facility] Other Start: 06-17-2023 Office outpatient vi sit 15 minutes Lorena Newell [facility] [place] Start: 05-26-2023 End: 05-26-2023 ambulatory Tyler Bates Other [facility] Other Start: 05-26-2023 Office outpatient vi sit 15 minutes Tyler Batse [facility] Start: 05-17-2023 End: 05-17-2023 ambulatory Tyler Bates Other [facility] Other Start: 05-17-2023 Encounter by deja Bates [facility] Start: 05-04-2023 End: 05-04-2023 ambulatory Tyler Bates Other [facility] Other Start: 05-04-2023 Telephone encounter Tyler Bates [facility] Start: 04-21-2023 End: 04-21-2023 ambulatory Jesús Sami Other [facility] Other Start: 04-21-2023 Telephone encounter Jesús Gallardo [facility] Start: 02-22-2023 End: 02-22-2023 ambulatory Tyler Bates Other [facility] Other Start: 02-22-2023 Telephone encounter Tyler Bates [facility] Start: 01-28-2023 End: 01-28-2023 ambulatory Tyler Bates Other [facility] Other Start: 01-28-2023 Telephone encounter Tyler Bates [facility] Start: 01-22-2023 End: 01-22-2023 ambulatory Tyler Bates Other [facility] Other Start: 01-22-2023 Telephone encounter Tyler Bates [facility] Start: 01-19-2023 End: 01-19-2023 ambulatory Tyler Bates Other [facility] Other Start: 01-19-2023 Telephone encounter Tyler Bates [facility] Start: 01-18-2023 End: 01-19-[address] TYLER BATES Facility:[facility] Start: 01-14-2023 End: 01-14-2023 ambulatory Tyler Bates Other [facility] Other Start: 01-14-2023 Office outpatient vi sit 25 minutes Tyler Bates [facility] Start: 11-30-2022 End: 12-01-[address] WILBUR MEEKS . Facility:[facility] Start: 09-13-2022 Gynecological examin ation normal Jesús Gallardo Other [facility] Other Start: 09-13-2022 Pre-procedure evalua tion check Jesús Gallardo Other [facility] Other Start: 08-06-2022 End: 08-07-[address] WILBUR MEEKS . Facility:[facility] Start: 08-03-2022 Encounter for preprocedural laboratory examination DR WILBUR MEEKS . [facility] Start: 07-31-2022 End: 07-31-[address] WILBUR MEEKS . Facility:[facility] Start: 07-29-2022 End: 07-30-[address] WILBUR MEEKS . Facility:[facility] Start: 07-29-2022 End: 07-30-2022 Encounter for preprocedural laboratory examination DR WILBUR MEEKS . Facility:[facility] Start: 07-23-2022 Encounter for other preprocedural examination DR WILBUR MEEKS . [facility] Start: 07-21-2022 End: 07-22-[address] WILBUR MEEKS . Facility: Start: 07-21-2022 End: 07-22-2022 Encounter for other preprocedural examination DR WILBUR MEEKS . Facility: Start: 06-25-2022 Adult health examination Yaya Gallardo Other [facility] Other Start: 04-07-2022 End: 04-07-[address] WILBUR MEEKS . Facility:[facility] Procedures Date Procedure Procedure Detail Performing Clinician Start: 09-07-2024 Endoscopy of nose Zaina Walker Start: 08-29-2024 [facility] CBC W/ AUTO DIFF H monalisa Walker MD Work Phone: Start: 03-07-2024 Microscopic observat ion [Identifier] in Cervix by Cyto stain Perri Walker MD Work Phone: Start: 11-30-2022 Mammography Perri prakash MD Work Phone: section Perri dominguez Comment on above: 2006 Depression screening Arely Gallardo Other Extraction of wisdom tooth H monalisa Walker Comment on above: 1994 Laps abltj uterine fibroids w/intraop us gdn Perri Walker Comment on above: 2021 Screening for malign ant neoplasm of breast Jesús Gallardo Other Viral screening Jesús gonzalez Other Plan of Treatment Date Care Activity Detail Author Start: 03-07-2027 Screening for malignant neoplasm of cervix [facility] Start: 06-12-2026 End: 06-12-2026 Patient encounter procedure 06/12/2026 11:00 AM EDT Procedure Visit [facility] [address] [address] Zaira Altman, PA [address] [place] [address] [facility] Start: 08-27-2025 End: 08-27-2025 Patient encounter procedure 08/27/2025 8:50 AM EST Consult NELY OJEDA [address] [address] Wilbur Meeks, DO [address] [place] [address] [facility] Start: 06-07-2025 End: 08-07-2026 MG Breast - bilateral Screening Bilateral screening mammogram Imaging Routine Breast cancer screening by mammogram Expected: 06/07/2025 (Approximate), Expires: 08/07/2026 [facility] Work Phone: Comment on above: Expected: 06/07/2025 (Approximate), Expires: 08/07/2026 Start: 06-07-2025 End: 06-07-2025 Patient encounter procedure 06/07/2025 9:30 AM EDT Procedure Visit NELY OJEDA [address] [id number] Zaira Altman, PA [address] [place] [address] Arrived [facility] Comment on above: Arrived Start: 05-21-2025 Influenza vaccination Influenza Vacc ine (#1) [facility] Start: 03-12-2025 End: 03-12-2025 Patient encounter procedure 03/12/2025 11:00 AM EDT Office Visit [facility] [address] [place] [id number] Wilbur Meeks, DO [address] [place], [place] [id number] [facility] Start: 10-06-2024 End: 10-06-2024 Patient encounter procedure 10/06/2024 1:00 PM EST Office Visit NELY Lopez [address] [place] [address] Perri Walker MD [address] [place] [address] [facility] Comment on above: Arrived Start: 09-15-2024 End: 09-15-2024 Patient encounter procedure 09/15/2024 8:00 AM EST Office Visit NELY Lopez [address] [place] [phone] Perri Walker MD [address] [facility] [address] [place] [address] NELY NICOLE Start: 07-03-2024 End: 07-03-2024 Patient encounter procedure 07/03/2024 10:00 AM EDT Office Visit NELY Lopez [address] [place] [address] Perri Walker MD [address] [place] [address] Arrived NELY NICOLE Comment on above: Arrived Start: 05-21-2024 Influenza vaccination Influenza Vacc ine (#1) [facility] Start: 12-01-2023 Screening for malignant neoplasm of breast Mammogram [facility] Start: 11-25-2023 Patient referral [facility] Work Phone: Start: 2008 Screening for malignant neoplasm of cervix HPV/Cotest [facility] Start: 1978 Screening for malignant neoplasm of colon [facility] Patient referral [facility] Work Phone: THIN PREP TIS PAP AN D HR HPV DNA THIN PREP TIS PAP AND HR HPV DNA Pathology and Cytology Routine Well woman exam with routine gynecological exam Ordered: 06/07/2025 [facility] Comment on above: Ordered: 06/07/2025 Immunizations Immunization Date Immunization Notes Care Provider Fa latoshaty 05-25-2020 influenza virus vaccine, split virus (incl. purified surface antigen) Jesús Gallardo Other [place] [employer] Other 05-25-2020 influenza virus vaccine, unspecified formulation MD Tyler Bates Work Phone: [facility] 05-25-2020 influenza, injectabl e, quadrivalent, preservative free Perri Walker MD Work Phone: [facility] 05-22-2019 influenza, injectabl e, quadrivalent, preservative free Perri Walker MD Work Phone: [facility] 05-22-2014 influenza, seasonal, injectable Tyler Bates Other [facility] NEGATED: Highlighted row has not occurred!11-19-2015 pneumococcal polysaccharide vaccine, 23 valent Tyler Bates Other [facility] Other Payers Date Payer Category Payer Self-pay 2023 Private Health Insurance [employer] [id number] 1978 Unknown [id number]. 593 1978 Unknown [id number] 840.1.378427.3.579.2. 593 1978 Unknown [id number] 2.16.840.1.056608.3.579.2. 593 1978 Unknown [id number] 2.16.840.1.483959.3.579.2. 593 1978 Unknown [id number] 2.16.840.1.644055.3.579.2. 593 1978 Unknown [id number] 2.16.840.1.616165.3.579.2. 593 1978 Unknown [id number] 2.16.840.1.098414.3.579.2. 593 1978 Unknown [id number] 2.16.840.1.617860.3.579.2. 727 1978 Unknown [id number] 2.16.840.1.923962.3.579.2. 727 1978 Unknown [id number] 2.16.840.1.944141.3.579.2. 727 1978 Unknown [id number] 2.16.840.1.827803.3.579.2. 1259 1978 Unknown [id number] 2.16.840.1.995073.3.579.2. 1259 1978 Unknown [id number] 2.16.840.1.867383.3.579.2. 1259 1978 Unknown [id number] 2.16.840.1.284106.3.579.2. 1259 1978 Unknown [id number] 2.16.840.1.371451.3.579.2. 1259 1978 Unknown [id number] 2.16.840.1.464381.3.579.2. 1259 1978 Unknown [id number] 2.16.840.1.433559.3.579.2. 1259 1978 Unknown [id number] 2.16.840.1.088648.3.579.2. 1259 1978 Unknown [id number] 2.16.840.1.518065.3.579.2. 1259 1978 Unknown [id number] 2.16.840.1.246018.3.579.2. 1259 1978 Unknown [id number] 2.16.840.1.423289.3.579.2. 9 1978 Unknown [id number] 2.16.840.1.328669.3.579.2. 1259 1978 Unknown [id number] 2.16.840.1.579421.3.579.2. 9 1978 Unknown [id number] 2.16.840.1.598174.3.579.2. 1259 1978 Unknown [id number] 2.16.840.1.886453.3.579.2. 1259 1978 Unknown [id number] 2.16.840.1.580033.3.579.2. 1259 1959 Unknown [id number] 2.16.840.1.105959.19 Unknown [id number] 2.16.840.1.654388.3.579.2. 531 Social History Date Type Detail Facility Start: 02-29-2024 End: 10-06-2024 Sex Assigned At [facility] Start: 07-31-1994 End: 07-31-2023 Tobacco smoking status INIS Smoker (finding) [facility] Start: 1980 Sex Assigned At Female [facility] Start: 02-29-2024 Tobacco smoking stat us INIS Ex-smoker [facility] Start: 07-31-1994 End: 07-31-2023 History of tobacco use Cigarette Smoker [facility] Start: 02-29-2024 End: 10-06-2024 Cigarettes smoked current (pack per day) - Reported 0.5 [facility] Start: 02-29-2024 Tobacco use and exposure Smokeless tobacco non-user [facility] Start: 03-07-2024 End: 10-06-2024 Alcoholic beverage intake Ex-drinker (finding) [facility] Start: 06-28-2023 Gender identity Identifies as female gender (finding) [facility] Start: 06-28-2023 Sexual orientation Heterosexual (fin ding) [facility] Tobacco [facility] Comment on above: former smoker quit 1 year ago Tobacco smoking status No Smokin g Status Entered [facility] Functional Status Date Assessment Result Facility 08-29-2024 Functional Status No [facility] Clinical Notes 07-31-2022 to 06-07-2025 TRESSA Lord - 06/07/2025 9:30 AM Pedrito Walker MD - 10/06/2024 1:00 PM Idris Walker MD - 09/15/2024 8:00 AM EST Note Date & Type Note Facility 06-07-2025 History of Presen t illness Narrative Reason for Appointment: Patient ID: Agusto King is a 44 y.o. female who presents for [facility] Women Visit Patient presents today for Annual [...] 2013 Fibroid Fibromyalgia GERD (gastroesophageal reflux disease) 2005 Headache Frequent headaches since childhood HL (hearing [...] Disc Disease) Maternal Grandmother Cancer Paternal Grandmother [place] Samuel Alcohol abuse Paternal Grandfather Cancer Mother's Brother Bill Tea Thyroid disease Father's Sister Mikaela Diamond Rashes / Skin problems Sister Mayuri Bupp SURGICAL HISTORY Past Surgical History: Procedure Laterality Date SECTION, LOW TRANSVERSE 08/29/2007 ENDOMETRIAL ABLATION 07/31/2022 OTHER SURGICAL HISTORY 07/31/2022 Ablation SINUS SURGERY WISDOM TOOTH EXTRACTION 1995 wisdom teeth REVIEW OF SYSTEMS Review of [...] nursing note reviewed. Exam conducted with a buggy ladle tender present. Vitals: Estimated body mass index is 19.74 kg/m as calculated from the following: Height as [...] as they were prior to the ablation. Nevertheless, she is over the fact of still having a period. Zaira Altman discussed a Hysterectomy procedure and patient desires to go forth with the Hysterectomy procedure. Pt will see our professor of surgery at this visit to set up a [...] of: TRESSA Lord documented in this encounter [facility] 10-06-2024 History of Presen t illness Narrative Subjective Patient ID: Agusto King is a 44 y.o. female who presents for Facial Pain (Facial swelling) Pt reports 2 days ago she developed left facial pain and swelling, as well as gum tenderness. Started on augmentin Family History Problem Relation Name Age of Onset Hyperlipidemia Mother Venuschacho Valeman Hypertension Mother Venuschacho Poll[place]man Migraines Mother Venus Gressman Breast cancer Mother Venus Gressman Cancer Mother Venus Gressman Rashes / Skin problems Mother Venus Gressman Hypertension Father Carlyle Samuel Hyperlipidemia Father Carlyle Samuel Hearing loss Father Carlyle Samuel Arthritis Maternal Grandmother Depression Maternal Grandmother Other (Degenerative Disc Disease) Maternal Grandmother Cancer Paternal Grandmother [place] Samuel Alcohol abuse Paternal Grandfather Cancer Mother's Brother Bill Tea Thyroid disease Father's Sister Mikaela Fields Rashes / Skin problems Sister Mayuri Bupp Active Ambulatory Problems Diagnosis Date Noted Abnormal mammogram of left breast 06/22/2024 Adult ADHD (CMS/[facility]ERLY [facility]) 06/22/2024 Anxiety 06/22/2024 Cervical lymphadenitis 06/22/2024 Chronic sinusitis 06/22/2024 Cyst of ovary 06/22/2024 Resolved Ambulatory Problems Diagnosis Date Noted No Resolved Ambulatory Problems Past Medical History: Diagnosis Date ADHD (attention deficit hyperactivity disorder) (CMS/HCC) Allergic rhinitis 2008 Dental disease 2008 Dizziness Occasionally since childhood Dysmenorrhea Ear problems March 2023 Fatigue 2013 Fibroid Fibromyalgia GERD (gastroesophageal reflux disease) 2004 Headache Frequent headaches since childhood HL (hearing loss) Occasional hearing impacted by ear wax. 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 Do all this for 14 days. 28 tablet 0 amphetamine-dextroamphetamine (Adderall) 20 MG tablet Take 1 tablet by mouth in the morning and 1 tablet before bedtime. buPROPion SR (Wellbutrin SR) 150 MG 12 hr tablet Take 1 tablet (150 mg) by mouth at bedtime Do not crush, chew, or split. 30 tablet 11 cetirizine-pseudoephedrine (ZyrTEC-D) 5-120 MG 12 hr tablet Take 1 tablet by mouth in the morning and 1 tablet before bedtime. 60 tablet 11 fluticasone (Flonase) 50 MCG/ACT nasal spray Administer 2 sprays into each nostril Daily Shake gently. Before first use, prime pump. After use, clean tip and replace cap. 48 g 3 Ubrogepant (UBRELVY PO) Take by mouth if needed venlafaxine XR (Effexor XR) 150 MG 24 hr capsule Take 1 capsule (150 mg) by mouth Daily Do not crush or chew. 30 capsule 3 No current facility-administered medications on file prior to visit. Objective Last Recorded Vitals Vitals: 10/06/24 1307 BP: 124/76 Pulse: (!) 117 ENT Physical Exam Nose Nose comments: Widely patent enio Oral Cavity/Oropharynx OC/OP comments: Marked left gingival erosion. Assessment/Plan Diagnoses and all orders for this visit: Atypical face pain (CMS/HCC) Pt's pain is due to a gingival infection. Finish abx as prescribed and F/U with dentist at the earliest opportunity. Nose looks great. F/U prn documented in this encounter [facility] 09-15-2024 History of Presen t illness Narrative Subjective Patient ID: Agusto King is a 44 y.o. female who presents for Sinusitis and Allergic Rhinitis (S/p sinus surgery [facility] 09/07/24) Pt has no more left facial and head pain Family History Problem Relation Name Age of Onset Hyperlipidemia Mother Venus Mendoza Hypertension Mother Venus Mendoza Migraines Mother Venus Gressman Breast cancer Mother Venus Gressman Cancer Mother Venus Mendoza Rashes / Skin problems Mother Venus Mendoza Hypertension Father Carlyle Samuel Hyperlipidemia Father Carlyle Samuel Hearing loss Father Carlyle Samuel Arthritis Maternal Grandmother Depression Maternal Grandmother Other (Degenerative Disc Disease) Maternal Grandmother Cancer Paternal Grandmother [place] Samuel Alcohol abuse Paternal Grandfather Cancer Mother's Brother Bill Tea Thyroid disease Father's Sister Mikaela Fields Rashes / Skin problems Sister Mayuri Bupp Active Ambulatory Problems Diagnosis Date Noted Abnormal mammogram of left breast 06/22/2024 Adult ADHD (CMS/HCC) 06/22/2024 Anxiety 06/22/2024 Cervical lymphadenitis 06/22/2024 Chronic sinusitis 06/22/2024 Cyst of ovary 06/22/2024 Resolved Ambulatory Problems Diagnosis Date Noted No Resolved Ambulatory Problems Past Medical History: Diagnosis Date ADHD (attention deficit hyperactivity disorder) (CMS/HCC) Allergic rhinitis 2008 Dental disease 2008 Dizziness Occasionally since childhood Dysmenorrhea Ear problems March 2023 Fatigue 2014 Fibroid Fibromyalgia GERD (gastroesophageal reflux disease) 2005 Headache Frequent headaches since childhood HL (hearing loss) Occasional hearing impacted by ear wax. 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 buPROPion SR (Wellbutrin SR) 150 MG 12 hr tablet Take 1 tablet (150 mg) by mouth at bedtime Do not crush, chew, or split. 30 tablet 11 cetirizine-pseudoephedrine (ZyrTEC-D) 5-120 MG 12 hr tablet Take 1 tablet by mouth in the morning and 1 tablet before bedtime. 60 tablet 11 fluticasone (Flonase) 50 MCG/ACT nasal spray Administer 2 sprays into each nostril Daily Shake gently. Before first use, prime pump. After use, clean tip and replace cap. 48 g 3 Ubrogepant (UBRELVY PO) Take by mouth if needed venlafaxine XR (Effexor XR) 150 MG 24 hr capsule Take 1 capsule (150 mg) by mouth Daily Do not crush or chew. 30 capsule 3 No current facility-administered medications on file prior to visit. Objective Last Recorded Vitals Vitals: 09/15/24 0808 BP: (!) 161/94 Pulse: 87 ENT Physical Exam Nose Nose comments: Splints removed and nose suctioned. Widely patent enio Assessment/Plan Diagnoses and all orders for this visit: Hypertrophy of inferior nasal turbinate Lavaro bullosa DNS (deviated nasal septum) Excellent surgical result so far. Start saline irrigations and BID abx oint to each side of the nose documented in this encounter [facility] 09-07-2024 Evaluation + Plan note Extrac maurice from: Title:ANES Post-operative Note---General Author: Samm Figueroa MD Date:09/07/24 Plan Transfer/Discharge: Transfer/Discharge Discharge when meets criteria ( To home ). Extracted from: Title:ANES Pre-operative Note 2022 Author:Samm Mahoney Date:09/07/24 Plan [employer] [employer] (ASA) physical status classification: Class II. Anesthetic Preoperative Plan: Anesthesia General. [facility] 12-19-2024 NoteProgress Note-Physician Patient: AGUSTO KING Age: 44 years Sex: Female : 1980 Associated Diagnoses: None Author: Samm Figueroa MD Postoperative Information Postoperative disposition: Postoperative disposition: To PACU. Optimetrix number: Optimetrix number [id number]. Anesthetic utilized: General. Health Status Allergies: Allergic Reactions (Selected) No Known Medication Allergies Physical Examination Vital Signs 09/07/2024 10:58 EST Temperature Temporal Artery 36.5 DegC Heart Rate Monitored 84 bpm Respiratory Rate Monitored 20 br/min Systolic Blood Pressure 119 mmHg Diastolic Blood Pressure 76 mmHg Mean Arterial Pressure, Cuff 90 mmHg SpO2 100 % Pain Assessment: Controlled. General: Awake, Appropriate. Respiratory: Adequate air exchange. Cardiovascular: Stable. Neurological Assessment Anesthetic outcome No anesthetic complications noted. Adequate pain relief. Review / Management Condition: Stable. Plan Transfer/Discharge: Transfer/Discharge Discharge when meets criteria ( To home ).[facility]:Result Comment: Electronically Signed By: Samm Figueroa MD\.br\Date and Time Signed: 09/07/24 13:28 EST 09-07-2024 NoteProgress Note-Physician Patient: AGUSTO KING Age: 44 years Sex: Female : 1980 Associated Diagnoses: None Author: Samm Figueroa MD Preoperative Information Anesthesia Preop Info: Time patient last ate or drank 09/07/2024 00:00:00. Anesthesia history: Patient history: None. Family history+: None. Informed consent: Signed by patient. Re-evaluation prior to induction: Initial evaluation reviewed: No significant change. Review of Systems Eye Ear/Nose/Mouth/Throat Respiratory: No shortness of breath, No cough. Cardiovascular: Negative. Gastrointestinal: No heartburn. Musculoskeletal Neurologic Health Status Allergies: Allergic Reactions (Selected) No Known Medication Allergies, Allergies (1) Active Severity Reaction No Known Medication Allergies None Documented Current medications: (Selected) Inpatient Medications Ordered Sodium Chloride 0.9% IV Deena 1000 mL 1,000 mL: 1,000 mL, IV, 150 mL/hr, Routine, Start date 247:30:00 EST, 6.7 hour(s), Total volume (mL): 1,000, 52 kg, 1.54, m2 Tylenol with Codeine 300 mg-30 mg Tab: 2 tab(s), Tab, Oral, q4hr PRN Pain 8-10, Routine, Start date09/07/24 10:44:00 EST Documented Medications Documented Adderall 20 mg Tab: 20 mg = 1 tab(s), Oral, BID, Refills(s) 0, Other (see comment) Flonase: Refill(s) 0, Allergy symptoms Probiotic Formula (Bacillus Coagulans): Refill(s) 0, Prophylaxis Zyrtec-D: 1 tab(s), Oral, Daily, Refill(s) 0, Allergy symptoms buPROPion 150 mg ER Tab: 150 mg = 1 tab(s), Oral, Daily, Refills(s) 0, Depression venlafaxine 150 mg Cap-ER: 150 mg = 1 cap(s), Oral, Daily, Refills(s) 0, Home Medications (6) Active Adderall 20 mg Tab 20 mg = 1 tab(s), Oral, BID buPROPion 150 mg ER Tab 150 mg = 1 tab(s), Oral, Daily Flonase Probiotic Formula (Bacillus Coagulans) venlafaxine 150 mg Cap-ER 150 mg = 1 cap(s), Oral, Daily Zyrtec-D 1 tab(s), Oral, Daily , Medications (2) Active Scheduled: (0) Continuous: (1) Sodium Chloride 0.9% 1,000 mL 1,000 mL, IV, 150 mL/hr PRN: (1) acetaminophen-codeine 300 mg-30 mg Tab [F] 2 tab(s), Oral, q4hr Problem list: All Problems ADD (attention deficit disorder) / SNOMED CT 95029444 / Confirmed Anxiety / SNOMED CT 99117539 / Confirmed Autoimmune disease / SNOMED CT 935455713 / Confirmed Depression / SNOMED CT 40958401 / Confirmed Migraines / SNOMED CT 32467370 / Confirmed, Active Problems (5) ADD (attention deficit disorder) Anxiety Autoimmune disease Depression Migraines Histories Past Medical History: No active or resolved past medical history items have been selected or recorded. Family History: No family history items have been selected or recorded. Procedure history: Septoplasty, Right removal, conchae bullosa, Right inferior turbinate submucosal resection ([id number]) on 09/07/2024 at 44 Years. Extraction of wisdom tooth ([id number]). Comments: 08/29/2024 8:50 Krissy Weaver RN 1994 section ([id number]). Comments: 08/29/2024 8:49 Krissy Weaver RN 2006 Uterine ablation ([id number]). Comments: 08/29/2024 8:49 Krissy Weaver RN 2021 Social History Social & Psychosocial Habits Alcohol 08/29/2024 Risk Assessment: Denies Alcohol Use Substance Abuse 08/29/2024 Risk Assessment: Denies Substance Abuse Tobacco Comment: former smoker quit 1 year ago - 08/29/2024 08:Krissy Thompson RN 08/29/2024 Risk Assessment: Denies Tobacco Use . Physical Examination Vital Signs 09/07/2024 11:58 EST Heart Rate Monitored 79 bpm SpO2 97 % 09/07/2024 11:57 EST Systolic Blood Pressure 131 mmHg Diastolic Blood Pressure 86 mmHg Mean Arterial Pressure, Monitered 101 mmHg 09/07/2024 11:05 EST Heart Rate Monitored 84 bpm SpO2 100 % 09/07/2024 11:05 EST Respiratory Rate 18 br/min 09/07/2024 11:05 EST Systolic Blood Pressure 121 mmHg Diastolic Blood Pressure 81 mmHg Blood Pressure Location Right arm Mean Arterial Pressure, Monitered 94 mmHg 09/07/2024 10:58 EST Temperature Temporal Artery 36.5 DegC Heart Rate Monitored 84 bpm Respiratory Rate Monitored 20 br/min Systolic Blood Pressure 119 mmHg Diastolic Blood Pressure 76 mmHg Mean Arterial Pressure, Cuff 90 mmHg SpO2 100 % 09/07/2024 10:54 EST Heart Rate Monitored 87 bpm Respiratory Rate Monitored 21 br/min SpO2 99 % 09/07/2024 10:50 EST Heart Rate Monitored 85 bpm Respiratory Rate Monitored 19 br/min Systolic Blood Pressure 123 mmHg Diastolic Blood Pressure 80 mmHg Mean Arterial Pressure, Cuff 94 mmHg SpO2 99 % 09/07/2024 10:45 EST Heart Rate Monitored 87 bpm Respiratory Rate Monitored 16 br/min Systolic Blood Pressure 138 mmHg Diastolic Blood Pressure 85 mmHg Mean Arterial Pressure, Cuff 103 mmHg SpO2 100 % 09/07/2024 10:40 EST Heart Rate Monitored 76 bpm Respiratory Rate Monitored 17 br/min Systolic Blood Pressure 129 mmHg Diastolic Blood Pressure 80 mmHg (more content not included)...[facility] CenterComment on above:Result Comment: Electronically Signed By: Henry SAMANIEGO, Samm Ordaz\.br\Date and Time Signed: 09/07/24 13:26 [id number] Hospital Discharge instructions Patient Education 09/07/2024 11:25:09 Septoplasty, Care After Septoplasty, Care After The following information offers guidance on how to care for yourself after your procedure. Your health care provider may also give you more specific instructions. If you have problems or questions, contact your health care provider. What can I expect after the procedure? After the procedure, it is common to have: A mild headache. A stuffy nose. A feeling of fullness in your ears. Bloody fluid coming from your nose. Follow these instructions at home: Medicines Take djzi-woa-drgmgtd and prescription medicines only as told by your health care provider. If you were prescribed an antibiotic medicine, take it as told by your health care provider. Do notstop using the antibiotic even if you start to feel better. Ask your health care provider if the medicine prescribed to you: ?Requires you to avoid driving or using machinery. ?Can cause constipation. You may need to take these actions to prevent or treat constipation: ?Drink enough fluid to keep your urine pale yellow. ?Take itmk-jqq-acugmtd or prescription medicines. ?Eat foods that are high in fiber, such as beans, whole grains, and fresh fruits and vegetables. ?Limit foods that are high in fat and processed sugars, such as fried or sweet foods. What to avoid Avoid eating hot and spicy foods for several days after surgery or as told by your health care provider. Do not blow your nose for 2 weeks after surgery or as told by your health care provider. Avoid strenuous activities for 2 weeks. These include activities such as running or playing sports.These activities can cause nosebleeds. Avoid straining when having a bowel movement. Straining can cause a nosebleed. Avoid very hot or steamy showers for several days after surgery or as told by your health care provider. Do not lift anything that is heavier than 10 lb (4.5 kg) until your health care provider says that it is safe. General instructions Raise (elevate) your head while you are lying down. If you have nasal splints, follow your health care provider's instructions about removal. If your nose was packed with gauze, follow your health care provider's instructions about removal. Do not push a dressing into your nose or replace the removable packing after it has been removed. Keep all follow-up visits. This is important. Contact a health care provider if you: Develop swelling or increased pain in your nose. Have yellowish-white fluid (pus) coming from your nose. Have a fever. Have nausea that does not go away. Cannot breathe through your nose after nasal packing and splints have been removed. Get help right away if you: Are short of breath. Feel dizzy or you faint. Have vision changes. Are bleeding heavily from your nose. Vomit every time you eat or drink. Have a severe headache or a stiff neck. Summary After the procedure, it is common to have a mild headache, stuffy nose, feeling of fullness in yourears, and bloody fluid coming from your nose. Follow instructions from your health care provider about food and fluids that you should avoid. Do not blow your nose for 2 weeks after the surgery. Do not lift anything that is heavier than 10 lb (4.5 kg) until your health care provider says that it is safe. This information is not intended to replace advice given to you by your health care provider. Make sure you discuss any questions you have with your health care provider. Document Revised: 05/04/2022 Document Reviewed: 05/04/2022 Elsevier Patient Education 2023 [employer]. 09/07/2024 11:24:38 Post Op Patient Instructions - FT (CUSTOM) Follow Up Care 08/22/2024 09:17:04 With:Perri Walker Address: [address] [place] [address], [address] [place] [phone] Business (1) When:09/15/2024 [facility] 12-19-2024 NotePatient Education - Text ENT Septoplasty, Care After The following information offers guidance on how to care for yourself after your procedure. Your health care provider may also give you more specific instructions. If you have problems or questions, contact your health care provider. What can I expect after the procedure? After the procedure, it is common to have: ??? A mild headache. ??? A stuffy nose. ??? A feeling of fullness in your ears. ??? Bloody fluid coming from your nose. Follow these instructions at home: Medicines ??? Take ohoq-gjf-okttqmo and prescription medicines only as told by your health care provider. ??? If you were prescribed an antibiotic medicine, take it as told by your health care provider. Donot stop using the antibiotic even if you start to feel better. ??? Ask your health care provider if the medicine prescribed to you: ? Requires you to avoid driving or using machinery. ? Can cause constipation. You may need to take these actions to prevent or treat constipation: ? Drink enough fluid to keep your urine pale yellow. ? Take xksf-uuc-msugevu or prescription medicines. ? Eat foods that are high in fiber, such as beans, whole grains, and fresh fruits and vegetables. ? Limit foods that are high in fat and processed sugars, such as fried or sweet foods. What to avoid ??? Avoid eating hot and spicy foods for several days after surgery or as told by your health care provider. ??? Do not blow your nose for 2 weeks after surgery or as told by your health care provider. ??? Avoid strenuous activities for 2 weeks. These include activities such as running or playing sports. These activities can cause nosebleeds. ??? Avoid straining when having a bowel movement. Straining can cause a nosebleed. ??? Avoid very hot or steamy showers for several days after surgery or as told by your health care provider. ??? Do not lift anything that is heavier than 10 lb (4.5 kg) until your health care provider says that it is safe. General instructions ??? Raise (elevate) your head while you are lying down. ??? If you have nasal splints, follow your health care provider's instructions about removal. ??? If your nose was packed with gauze, follow your health care provider's instructions about removal. ??? Do not push a dressing into your nose or replace the removable packing after it has been removed. ??? Keep all follow-up visits. This is important. Contact a health care provider if you: ??? Develop swelling or increased pain in your nose. ??? Have yellowish-white fluid (pus) coming from your nose. ??? Have a fever. ??? Have nausea that does not go away. ??? Cannot breathe through your nose after nasal packing and splints have been removed. Get help right away if you: ??? Are short of breath. ??? Feel dizzy or you faint. ??? Have vision changes. ??? Are bleeding heavily from your nose. ??? Vomit every time you eat or drink. ??? Have a severe headache or a stiff neck. Summary ??? After the procedure, it is common to have a mild headache, stuffy nose, feeling of fullness in your ears, and bloody fluid coming from your nose. ??? Follow instructions from your health care provider about food and fluids that you should avoid. ??? Do not blow your nose for 2 weeks after the surgery. ??? Do not lift anything that is heavier than 10 lb (4.5 kg) until your health care provider says that it is safe. This information is not intended to replace advice given to you by your health care provider. Make sure you discuss any questions you have with your health care provider. Document Revised: 05/04/2022 Document Reviewed: 05/04/2022 [employer] Patient Education ??? 2023 [employer].[facility] 08-22-2024 History of Present illness Narrative* Perri Walker MD - 08/22/2024 8:40 AM EST Subjective Patient ID: Agusto King is a 44 y.o. female who presents for Sinusitis (Follow up CT [facility] 08/10/24) Pt reports she continues to have band-like head pain and pressure. States left side seems to be worse. CT sinus shows no sig sinus dz, buit there is a DNS to the left with a large spur and a large RTconcha and severe RT IT hyp. Review of Systems All other systems reviewed and are negative. Family History Problem Relation Name Age of [...] Disc Disease) Maternal Grandmother Cancer Paternal Grandmother [place] Samuel Alcohol abuse Paternal Grandfather Cancer Mother's Brother Felipe Tea Thyroid disease Father's Sister Mikaela Fields Rashes / Skin problems Sister Mayuri Palaciosp Active Ambulatory Problems Diagnosis Date Noted Abnormal mammogram of left breast 06/22/2024 Adult ADHD (CMS/HCC) 06/22/2024 Anxiety 06/22/2024 Cervical lymphadenitis 06/22/2024 Chronic sinusitis 06/22/2024 Cyst of ovary 06/22/2024 Resolved Ambulatory Problems Diagnosis Date Noted No Resolved Ambulatory Problems Past Medical History: Diagnosis Date ADHD (attention deficit hyperactivity disorder) (CMS/HCC) Allergic rhinitis 2007 Dental disease 2007 Dizziness Occasionally since childhood Dysmenorrhea Ear problems March 2023 Fatigue 2013 Fibroid Fibromyalgia GERD (gastroesophageal reflux disease) 2004 Headache Frequent headaches since childhood HL (hearing loss) Occasional hearing impacted by ear wax. 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 buPROPion SR (Wellbutrin SR) 150 MG 12 hr tablet Take 1 tablet (150 mg) by mouth at bedtime Do not crush, chew, or split. 30 tablet 11 cetirizine-pseudoephedrine (ZyrTEC-D) 5-120 MG 12 hr tablet Take 1 tablet by mouth in the morning and 1 tablet before bedtime. 60 tablet 11 fluticasone (Flonase) 50 MCG/ACT nasal spray Administer 2 sprays into each nostril Daily Shake gently. Before first use, prime pump. After use, clean tip and replace cap. 48 g 3 Ubrogepant (UBRELVY PO) Take by mouth if needed venlafaxine XR (Effexor XR) 150 MG 24 hr capsule Take 1 capsule (150 mg) by mouth Daily Do not crush or chew. 30 capsule 3 No current facility-administered medications on file prior to visit. Objective Last Recorded Vitals Vitals: 08/22/24 0840 BP: 117/85 ENT Physical Exam Constitutional Appearance: patient appears well-developed, well-nourished and well-groomed, Communication/Voice: communication appropriate for developmental age; vocal quality normal; Nose Internal Nose: nasal septal deviation present; Nose comments: DNS to left with RT IT hyp. Respiratory Inspection: breathing unlabored; normal breathing rate; Auscultation: breath sounds are clear; Cardiovascular Inspection: extremities are warm and well perfused; no peripheral edema present; Auscultation: regular rate and rhythm; Assessment/Plan Diagnoses and all orders for this visit: Nonintractable headache, unspecified chronicity pattern, unspecified headache type DNS (deviated nasal septum) Alvaro bullosa Hypertrophy of inferior nasal turbinate Pt has chronic headaches c/w sluder pain. Recommend a septoplasty. She will also need the RT conchabullosa removed and the RT inferior turbinate reduced in order to create space for the septal reduction. Pt expresses understanding there is a risk of severe epistaxis, persistent headachj, and that this should not change the appearance of her nose. [id number] History of Present illness Narrative* Perri Walker MD - 07/03/2024 10:00 AM EDT Subjective Patient ID: Agusto King is a 44 y.o. female who presents for Sinusitis Pt states she has been having postauricular LAD and severe frontal pressure and swelling she statesis causing hair loss. Ears are also full and has ear popping. Tx with amox, but sx have persisted over a year. No imaging. Has seen mult dermatologists for scalp excoriation. Long h/o severe bruxism and has broken mult mouth guards Review of Systems All other systems reviewed and are negative. Family History Problem Relation Name Age of Onset Hyperlipidemia Mother Venus Mendoza Hypertension Mother Venus Mendoza Migraines Mother Venus Mendoza Breast cancer Mother Venus Mendoza Hypertension Father Carlyle Samuel Hyperlipidemia Father Carlyle Samuel Arthritis Maternal Grandmother Depression Maternal Grandmother Other (Degenerative Disc Disease) Maternal Grandmother Cancer Paternal Grandmother [place] Samuel Alcohol abuse Paternal Grandfather Cancer Mother's Brother Bill Tea Thyroid disease Father's Sister Mikaela Fields Active Ambulatory Problems Diagnosis Date Noted Abnormal mammogram of left breast 06/22/2024 Adult ADHD (CMS/HCC) 06/22/2024 Anxiety 06/22/2024 Cervical lymphadenitis 06/22/2024 Chronic sinusitis 06/22/2024 Cyst of ovary 06/22/2024 Resolved Ambulatory Problems Diagnosis Date Noted No Resolved Ambulatory Problems Past Medical History: Diagnosis Date ADHD (attention deficit hyperactivity disorder) ([facility]) Dysmenorrhea Fibroid Fibromyalgia Hyperthyroidism ([facility]) Irritable bowel syndrome Menorrhagia Ovarian cyst, left Seasonal allergies Urinary incontinence Past Surgical History: Procedure Laterality Date SECTION, LOW TRANSVERSE 08/29/2007 ENDOMETRIAL ABLATION 07/31/2022 OTHER SURGICAL HISTORY 07/31/2022 Ablation WISDOM TOOTH EXTRACTION 1995 wisdom teeth No Known Allergies Current Outpatient Medications on File Prior to Visit Medication Sig Dispense Refill amphetamine-dextroamphetamine (Adderall) 20 MG tablet Take 1 tablet by mouth in the morning and 1 tablet before bedtime. buPROPion SR (Wellbutrin SR) 150 MG 12 hr tablet Take 1 tablet (150 mg) by mouth at bedtime Do not crush, chew, or split. 30 tablet 11 cetirizine (ZyrTEC) 10 MG tablet Take by mouth. Ubrogepant (UBRELVY PO) Take by mouth if needed venlafaxine XR (Effexor XR) 150 MG 24 hr capsule Take 1 capsule (150 mg) by mouth Daily Do not crush or chew. 30 capsule 2 [DISCONTINUED] amoxicillin (Amoxil) 500 MG capsule Twice daily No current facility-administered medications on file prior to visit. Objective Last Recorded Vitals Vitals: 07/03/24 1009 BP: 123/84 ENT Physical Exam Constitutional Appearance: patient appears well-developed, well-nourished and well-groomed, Head and Face Appearance: head appears normal and face appears atraumatic; Ear Ear Canals: right ear canal normal; left ear canal normal; Tympanic Membranes: right tympanic membrane normal; left tympanic membrane normal; Nose External Nose: nares patent bilaterally; external nose normal; Internal Nose: septum normal; Oral Cavity/Oropharynx Tongue: normal; Oral mucosa: normal; Hard palate: normal; Soft palate: normal; Tonsils: normal; Neck Neck: neck normal; neck palpation normal; Thyroid: thyroid normal; Respiratory Inspection: breathing unlabored; normal breathing rate; Auscultation: breath sounds are clear; Cardiovascular Inspection: extremities are warm and well perfused; no peripheral edema present; Auscultation: regular rate and rhythm; Assessment/Plan Diagnoses and all orders for this visit: Chronic pansinusitis Bilateral hearing loss, unspecified hearing loss type Nonintractable headache, unspecified chronicity pattern, unspecified headache type Pt has sx c/w chronic (>12 weeks) sinusitis. I will tx with a one mo aggressive sinus regimen, including 4 weeks abx, nasal steroids, prednisone, antihistamines, and BID saline irrigations. If sinus sx persist, and pt has followed regimen, in one month I will obtain an IG CT sinus to evaluate for surgical pathology and plan surgical tx. Check audio Restart night time mouth guard [id number] Evaluation note* Encounter Date Diagnosis Assessment Notes Treatment Notes Treatment Clinical Notes Sep, Adult ADHD (ICD-10 - F90.9) [facility] Me Other 12-21-2023 Evaluation note* Encounter Date Diagnosis Assessment Notes Treatment Notes Treatment Clinical Notes Aug, Adult ADHD (ICD-10 - F90.9) [facility] Me Other 11-24-2023 Evaluation note* Encounter Date Diagnosis Assessment Notes Treatment Notes Treatment Clinical Notes Jul, Adult ADHD (ICD-10 - F90.9) [facility] Me Other 11-03-2023 Evaluation note* Encounter Date Diagnosis [...] to forward this information to Dr. Chavarria [facility] Other 10-27-2023 Evaluation note* Encounter Date Diagnosis Assessment Notes Treatment Notes Treatment Clinical Notes Jun, Adult ADHD (ICD-10 - F90.9) [facility] Me Other 09-28-2023 Evaluation note* Encounter Date Diagnosis [...] understanding and is agreeable with treatment plan [facility] Other 09-06-2023 Evaluation note* Encounter Date Diagnosis Assessment Notes Treatment Notes Treatment Clinical Notes May, Impetigo (ICD-10 - L01.00) Discussed differential. Unsure how she could have impetigo but will treat based on the yellow appearance at the surface of the dermis. She will call and followup w dermatology. [facility] Other 08-28-2023 Evaluation note* Encounter Date Diagnosis Assessment Notes Treatment Notes Treatment Clinical Notes Apr, Adult ADHD (ICD-10 - F90.9) [facility] Me Other 08-15-2023 Evaluation note* Encounter Date Diagnosis Assessment Notes Treatment Notes Treatment Clinical Notes Apr, Contact dermatitis, unspecified contact dermatitis type, unspecified trigger (ICD-10 - L25.9) [facility] Me Other 08-02-2023 Evaluation note* Encounter Date Diagnosis Assessment Notes Treatment Notes Treatment Clinical Notes Apr, Adult ADHD (ICD-10 - F90.9) [facility] Me Other 06-05-2023 Evaluation note* Encounter Date Diagnosis Assessment Notes Treatment Notes Treatment Clinical Notes Feb, Adult ADHD (ICD-10 - F90.9) [facility] Other 05-05-2023 Evaluation note* Encounter Date Diagnosis Assessment Notes Treatment Notes Treatment Clinical Notes January, Adult ADHD (ICD-10 - F90.9) [facility] Me Other 04-27-2023 Evaluation note* Encounter Date Diagnosis Assessment Notes Treatment Notes Treatment Clinical Notes Dec, Other fatigue (ICD-10 - R53.83) Discussed possible metabolic causes Dec, Irregular menses (ICD-10 - N92.6) will check hormones - followup w dry kiln feeder Dec, Adult ADHD (ICD-10 - F90.9) will increase dose with next rx Dec, Cervical lymphadenitis (ICD-10 - I88.9) antibiotic prescribed. Work note given. [facility] Me Other 11-11-2022 NoteOPERATIVE NOTE OPERATION DATE: 07/31/2022 PROCEDURE: Kathe endometrial ablation. PREOPERATIVE DIAGNOSIS: Menorrhagia. POSTOPERATIVE DIAGNOSIS: Menorrhagia. ANESTHESIA: General. SURGEON: Wilbur Meeks D.O. LABORATORY DEVELOPMENT TECHNICIAN: None. BLOOD LOSS: 5 mL. URINE OUTPUT: [...] Patient taken to recovery in stable condition.[facility] complaint+Reason for visit Narrative* Chief Complaint Amb Documentation autoimmune issues - referrals Reason for Visit Autoimmune disorder [facility] Work Phone: Evaluation + Plan note Future Appointments Appointment Date:09/07/2024 01:15:00 PM Scheduled Provider: Location:[facility] Surgical Services Appointment Type:Surgery [facility] Evaluwyyou noteNo [facility] [employer] Other Evaluation note* Diagnosis Onset Date Resolution Status Autoimmune disorder acute [facility] [place] [facility] Work Phone: Evaluation note* Diagnosis Chronic pansinusitis- Primary Other chronic sinusitis Bilateral hearing loss, unspecified hearing loss type Nonintractable headache, unspecified chronicity pattern, unspecified headache type [facility] Diagnosis Nonintractable headache, unspecified chronicity pattern, unspecified headache type- Primary DNS (deviated nasal septum) Deviated nasal septum Alvaro bullosa Hypertrophy of inferior nasal turbinate [facility] Diagnosis Hypertrophy of inferior nasal turbinate- Primary Alvaro bullosa DNS (deviated nasal septum) Deviated nasal septum [facility] Diagnosis Atypical face pain (CMS/HCC)- Primary Atypical face pain [facility] Diagnosis Well woman exam with routine gynecological exam Routine gynecological examination Breast cancer screening by mammogram Mood changes Unspecified episodic mood disorder [facility] Narrative - Reported* Type Description Date Medical History ANXIETY Medical History FATIGUE Medical History MIGRAINE Medical History subclinical hyperthyroidism Surgical History 2007 Hospitalization History SEE SURGICAL HX [facility] Other Hospital course Narrative No data available for this section [facility] Hospital Discharge instructions No data available for this section [facility] Progress note No data available for this section [facility] Summary Purpose Family History Relationship Condition Age at Onset Recorded Date/T laury Not Specified Hypertension Unknown Family history of mental disorder Unknown Advance Directives Advance Directive Response Recorded Date/ Time Advance Directives No November 22 24 10:18am Reason for Referral Reason *FU 05/11 Puritis and response from OV on 04/30. Diagnosis 1 Contact dermatitis, unspecified contact dermatitis type, unspecified trigger (L25.9) Referral Organization [facility] Referring Provider First Name Tyler Referring Provider Last Name Jana Referring Provider Specialty Family [facility] Referred Organization [facility] Referred Provider Kim Fuentes Referred Address [address] [facility] [address],[place],[address] Referred Provider Specialty Dermatology Referral Priority Routine General Notes AlconEma amezcua 12:57:31 PM >received today, attachments made, notes locked, referral faxed Additional Source Comments REASON FOR VISIT (unrecogniz ed section and content) Reason Comments Sinusitis Specialty Diagnoses / Procedures Referred By Anna ramsey Referred To Contact Otolaryngology Diagnoses Nonspecific lymphadenitis, unspecified Chronic sinusitis, unspecified Procedures [place] [facility] [address] [address] Perri Walker MD [address] [facility] [address] [place] [address] Phone: tel: fax: Referral ID Status Reason Start Date Expiration Date Visits Re quested Visits Authorized [id number] Closed 06/20/2024 12/17/2024 1 1 Reason Comments Sinusitis Follow up [facility] Reason Comments Sinusitis Allergic Rhinitis S/p sinus surgery [facility] 09/07/24 Reason Comments Facial Pain Facial swelling Reason Comments [facility] Visit INFORMATION SOURCE (unrecogn ized section and content) DATE CREATED AUTHOR 01/23/2023 [facility] DATE CREATED AUTHOR AUTHOR'S ORGANIZ ATION 01/18/2024 [facility] DATE CREATED AUTHOR AUTHOR'S ORGANIZ ATION 09/01/2024 [facility] DATE CREATED AUTHOR AUTHOR'S ORGANIZ ATION 09/10/2024 [facility] DATE CREATED AUTHOR AUTHOR'S ORGANIZ ATION 09/12/2024 [facility] DATE CREATED AUTHOR AUTHOR'S ORGANIZ ATION 10/03/2024 [facility] DATE CREATED AUTHOR AUTHOR'S ORGANIZ ATION 10/09/[address] [facility] [employer] Care Teams (unrecognized sec tion and content) Team Status: Active Member Role Status Dates Tyler Bates MD Primary Care Provider Active Team Status: Active Member Role Status Dates Tyler Bates MD Primary Care Provider Active Start: November 09, 2023 BARRETT Lindsey Attending Provider Active Start : November 09, 2023 Team Status: Inactive Member Role Status Dates Tyler Bates MD Primary Care Provide r, Attending Provider Active Start: November 23, 2023 End: November 23, 2023 Team Status: Inactive Member Role Status Dates Tyler Bates MD Primary Care Provider Active Start: January 11, 2024 End: January 11, 2024 Kylie Sands MD Attending Provider Active St art: January 11, 2024 End: January 11, 2024 Counseling Aide Relationship Specialty Start Date End Date Tyler Bates MD [address] [facility] [place] [address] Referring Physician Family Medicine 07/03/24 Counseling Aide Relationship Specialty Start Date End Date Tyler Bates MD [address] [place] [address] Referring Physician Family Medicine 07/03/24 Counseling Aide Relationship Specialty Start Date End Date Tyler Bates MD [address] [place] [facility] [address] Referring Physician Family Medicine 07/03/24 Counseling Aide Relationship Specialty Start Date End Date Tyler Bates MD [address] [place] [facility] [address] PCP - General Family Medicine 08/22/24 Tyler Bates MD [address] [place] [facility] [address] Referring Physician Family Medicine 07/03/24 Counseling Aide Relationship Specialty Start Date End Date Tyler Bates MD [address] [place] [facility] [address] PCP - General Family Medicine 08/22/24 Tyler Bates MD [address] [place] [facility] [address] Referring Physician Family Medicine 07/03/24 Counseling Aide Relationship Specialty Start Date End Date Tyler Bates MD [address] [place] [facility] [address] PCP - General Family Medicine 08/22/24 Tyler Bates MD [address] [place] [facility] [address] Referring Physician Family Medicine 07/03/24 Counseling Aide Relationship Specialty Start Date End Date Tyler Bates MD [address] [place] [facility] [address] PCP - General Family Medicine 08/22/24 Tyler Bates MD [address] [place] [facility] [address] Referring Physician Family Medicine 07/03/24 Counseling Aide Relationship Specialty Start Date End Date Tyler Bates MD [address] [place] [facility] [address] PCP - General Family Medicine 08/22/24 Tyler Bates MD [address] [place] [facility] [address] Referring Physician Family Medicine 07/03/24 Counseling Aide Relationship Specialty Start Date End Date Tyler Bates MD [address] [place] [facility] [address] PCP - General Family Medicine 08/22/24 Tyler Bates MD Referring Physician Family Medicine 07/03/24 Counseling Aide Relationship Specialty Start Date End Date Tyler Bates MD [address] [place] [facility] [address] PCP - General Family Medicine 08/22/24 Tyler Bates MD Referring Physician Family Medicine 07/03/24 Goals (unrecognized section and content) Goals may [...] BE BASED ON THE PRIMARY CLINICAL RECORDS. [facility] [facility]. provides no warranty or guarantee of the accuracy or completeness of information in this document.
[2025-06-12 17:12] LABS: Age Gdln ACOG Testing Note (.); IGP, Aptima HPV, rfx 16/18,45 Note (.)
== END 2025-06-07 13:48 | disposition home or self-care (01) ==
LOC: LAB 13:47
PROVIDERS: PCP Family Medicine; Visit Provider Physician Assistant
DX: Z01.419 Encounter for gynecological examination (general) (routine) without abnormal findings (principal)
CPT/HCPCS: 87624; 88175

== ENCOUNTER 2025-08-13 13:54 | Outpatient (OUT) | payer OTHER, SELFPAY ==
--- OUTSIDE RECORDS SUMMARY | 2025-08-13 13:57 | XMS_ITS | Clinical Summary ---
Author Organization [facility] Address [address] [place] [address] Care Team Providers Care Chicken Vaccinator Name Role Phone Leslie Norman MD Primary Care Provider [phone] Maikel Church MD Unavailable [phone] Allergies No known active allergies Medications MedicationSigDispense QuantityRefillsLast FilledStart DateEnd DateStatus METOPROLOL 25 MG tab regular release take 25 mg by mouth 2 times daily.. Reported on 01/06/2017Active venlafaxine 150 MG Cap SR 24HR take 150 mg by mouth daily..Active topiramate (TOPAMAX) 200 MG Tab take 200 mg by mouth daily..Active ALPRAZolam 0.25 MG Tab take 0.25 mg by mouth every 6 hours as needed for Anxiety.. Reported on 01/06/2017Active rrspmknhot-iujujmc-bqssizis (FIORINAL) 50-325-40 MG Cap take 1 capsule by mouth every 12 hours as needed for Headaches..Active cyproheptadine 4 MG Tab take 4 mg by mouth daily.. Reported on 01/06/2017Active Kilcfin-Bntcjgmahvcix-Kqhmppsa (EXCEDRIN PO) take by mouth as needed..Active Loratadine-Pseudoephedrine (CLARITIN-D 12 HOUR PO) take by mouth as needed..Active Active Problems ProblemNoted DateDiagnosed DateNonspecific abnormal results of thyroid function study01/06/20179566Hkyxppokkgtjbbn00/13/2016 Family History Medical HistoryRelationNameCommentsHypertensionFatherWayneOsteoporosisMaternal GrandmotherLuettaUterine CancerMaternal GrandmotherLuettaDiabetesMaternal Great GrandmotherProstate CancerMaternal UncleWilliamHypertensionMotherLuannLipid DisorderMotherLuannThyroid DiseasePaternal Aunt 1JaneThyroid DiseasePaternal Aunt 2DianeCancer- OtherPaternal GrandfatherArliept unsure of typeCancer- Other Paternal Grandmothereither uterine or ovarine (pt unsure)RelationNameStatus CommentsFatherWayneAliveMaternal GrandmotherLuettaDeceasedMaternal Great GrandmotherDeceasedMaternal UncleWilliamDeceasedMotherLuannAlivePaternal Aunt 1 JaneAlivePaternal Aunt 2DianeAlivePaternal GrandfatherArlieDeceasedPaternal GrandmotherDeceased Social History Tobacco UseTypesPacks/DayYears UsedDateSmoking Tobacco: Every DayCigarettes0.510 Smokeless Tobacco: NeverAlcohol UseStandard Drinks/WeekCommentsYes0 (1 standard drink = 0.6 oz pure alcohol)occasionallyCommentsNoSex and Gender InformationValueDate RecordedSex Assigned at BirthNot on fileLegal SexFemale 02/28/2016 2:36 PM EDTGender IdentityFemaleSexual OrientationNot on file Last Filed Vital Signs Vital SignReadingTime TakenCommentsBlood Mifndyxm780/8404 1:22 PM EDT Xbbcg294001/06/2017 1:22 PM EDTTemperature--Respiratory Rate--Oxygen Saturation-- Inhaled Oxygen Concentration--Zqjilv57.8 kg (105 lb 6.4 oz)01/06/2017 1:22 PM VGWSppztn331.6 cm (5' 4.02 )09/01/2016 9:20 AM ESTBody Mass Index18.0809/01/2016 9:20 AM EST Plan of Treatment Health MaintenanceDue DateLast DoneCommentsHEPATITIS C VIRUS WGRLTWQVJ1978 FGSPKUJ78 1978HIV SCREENING KFHTLANICQ44/02/1993HEP B VACCINE (1 of 3 - 19+ 3-dose series)1997TDAP (ADULT)1997CERVICAL CANCER SCREENING ZHOTWUZQMO66/02/1999LIPID PSJZZJUHJ79/02/2018MAMMOGRAM SCREENING DISCUSSION 2018COLORECTAL CANCER SCREENING VJVMYHEYLE09/02/2023COVID-19 VACCINE ( season)2025INFLUENZA VACCINE (#1)2025PNEUMOCOCCAL VACCINE SERIESAged OutNo longer eligible based on patient's age to complete this topic Insurance Care Teams Team MemberRelationshipSpecialtyStart DateEnd Date Leslie Norman MD PCP - GeneralFamily Dpqctbns70/13/16 Maikel Church MD [address] [facility] [address] [place] [address] TsqpmgptzznglleUvtgrkbgxgu40/13/16
--- OUTSIDE RECORDS SUMMARY | 2025-08-13 13:57 | XMS_ITS | Clinical Summary ---
Author Organization [facility] Healthcare Address [address] [place] [address] Care Team Providers Care Bleach Liquor Maker Name Role Phone Leslie Norman MD Unavailable Leslie Norman MD Primary Care Provider [phone] Allergies No known active allergies Medications MedicationSigDispense QuantityRefillsLast FilledStart DateEnd DateStatus amphetamine-dextroamphetamine (Adderall) 20 MG tablet Take 1 tablet by mouth in the morning and 1 tablet before bedtime.11/09/2023 Active Ubrogepant (UBRELVY PO) Take by mouth if neededActive fluticasone (Flonase) 50 MCG/ACT nasal spray Indications:Chronic pansinusitisAdminister 2 sprays into each nostril Daily Shake gently. Before first use, prime pump. After use, clean tip and replace cap. 48 g ctive cetirizine-pseudoephedrine (ZyrTEC-D) 5-120 MG 12 hr tablet Indications:Chronic pansinusitisTake 1 tablet by mouth in the morning and 1 tablet before bedtime. 60 tablet ctive buPROPion SR (Wellbutrin SR) 150 MG 12 hr tablet Indications:Mood changesTake 2 tablets (300 mg) by mouth at bedtime Do not crush, chew, or split. 30 tablet 11006/07/637304/ctive venlafaxine XR (Effexor XR) 150 MG 24 hr capsule Indications:Depression with anxietyTake 1 capsule (150 mg) by mouth Daily Do not crush or chew. 90 capsule /216866/ctive venlafaxine XR (Effexor XR) 150 MG 24 hr capsule Indications:Depression with anxietyTake 1 capsule (150 mg) by mouth Daily Do not crush or chew. 30 capsule Discontinued(Reorder) venlafaxine XR (Effexor XR) 150 MG 24 hr capsule Indications:Depression with anxietyTake 1 capsule (150 mg) by mouth Daily Do not crush or chew. 90 capsule Discontinued(Reorder) Active Problems ProblemNoted DateDiagnosed DateAbnormal mammogram of left nlkkva7806/22/2024dult ADHD06/22/20244014Cgxtrtf98/03/2024ervical unsrrqopbuebw08/03/2024hronic sinusitis 06/22/2024yst of ovary06/22/2024 Encounters DateTypeDepartmentCare HkimQaozimjkygs17/29/2025Refill [facility] [address] [facility] [facility] [address] [address] Rosemarie Carpenter LPN Depression with dcjaywu7907/17/2025Refill [facility] [address] [place] [address] Alice Buchanan MA Depression with xwvwrck3306/14/2025Orders Only [facility] [address] [facility] [place] [address] Dawn Walls MA 06/07/2025 9:30 AM EDTProcedure Visit [facility] [address] [facility] [place] [address] Zaira Altman PA Well woman exam with routine gynecological exam; Breast cancer screening by mammogram; Mood ydokqaz8906/07/2025linisync Result Encounter [facility] External Department Unsolicited Zaira Altman PA 06/07/2025amboo flowsheet [facility] [address] [facility] [place] [address] Zaira Altman PA from Last 3 Months Immunizations ImmunizationAdministration DatesNext DueInfluenza, injectable, quadrivalent, preservative free05/25/2020,05/22/2019 Family History Medical HistoryRelationNameCommentsHearing lossFatherWayne CombsHyperlipidemia FatherWayne CombsHypertensionFatherWayne CombsThyroid diseaseFather's Sister Mikaela MohnArthritisMaternal GrandmotherDegenerative Disc DiseaseMaternal GrandmotherDepressionMaternal GrandmotherBreast cancerMotherLuann GressmanCancer MotherLuann GressmanHyperlipidemiaMotherLuann GressmanHypertensionMotherLuann GressmanMigrainesMotherLuann GressmanRashes / Skin problemsMotherLuann Gressman CancerMother's BrotherBill TeaAlcohol abusePaternal GrandfatherCancerPaternal GrandmotherAlberta CombsRashes / Skin problemsSisterJennifer BuppRelationName StatusCommentsFatherWayne CombsAliveFather's SisterDiane MohnMaternal GrandfatherDeceasedMaternal GrandmotherDeceasedMotherLuann GressmanAliveMother's BrotherBill TeaPaternal GrandfatherDeceasedPaternal GrandmotherAlberta Samuel DeceasedSiblingAliveSisterJennifer Bupp Social History Tobacco UseTypesPacks/DayYears UsedDateSmoking Tobacco: FormerCigarettes0.529 07/31/1994 - 07/31/2023Smokeless Tobacco: Never Tobacco Cessation:Counseling Given: Not Answered Alcohol UseStandard Drinks/WeekCommentsNot Currently0 (1 standard drink = 0.6 oz pure alcohol)CommentsNoSex and Gender InformationValueDate RecordedSex Assigned at MpsiaNinjjh46/09/2023 2:02 PM EDTLegal AnfLdzamb72/15/2023 7:12 PM EDTGender RorpszqiXgjuph37/09/2023 2:02 PM EDTSexual OrientationStraight 06/28/2023 2:02 PM EDT Last Filed Vital Signs Vital SignReadingTime TakenCommentsBlood Gboqnccf299/7601 1:07 PM EST Apgcr45225/17/2025 1:07 PM ESTTemperature--Respiratory Rate--Oxygen Saturation-- Inhaled Oxygen Concentration--Stavhb36.2 kg (115 lb)10/06/2024 1:07 PM ESTHeight 162.6 cm (5' 4 )10/06/2024 1:07 PM ESTBody Mass Index19.7410/06/2024 1:07 PM EST Plan of Treatment DateTypeDepartmentCare Team (Latest Contact Info)Zdzeaxgqbxj51/08/2025 1:10 PM ESTConsult [facility] [address] [facility] [address] Fabian Meeks DO [address] [facility] [place] [address] 06/12/2026 11:00 AM EDTProcedure Visit [facility] [address] [facility] [place] [address] Zaira Altman PA [address] [facility] [place] [address] Health MaintenanceDue DateLast DoneCommentsCT Djosrkyiizcq1978Colonoscopy 1978Colorectal Cancer Xdtdidkzl1978FIT-DNA1978FIT1978 FOBT1978 3498Akigcstulvbqb1978HPV/Wgsoym8106/21/20086795Yqlolhgxm05/13/2024 11/30/2022, 08/17/2022, 2COVID-19 Vaccine ( season) , 12/13/2020, 11/13/2020Influenza Vaccine (#1)2025 05/25/2020, 05/22/2019, 05/22/2014, Additional history existsCervical Cancer Ljbqbwvea15/18/2028Pap Smear8006/07/2025, 4Pneumococcal Vaccine: Pediatrics (0 to 5 Years) and At-Risk Patients (6 to 64 Years)Aged Out No longer eligible based on patient's age to complete this topic Procedures Procedure NamePriorityDate/TimeAssociated DiagnosisCommentsIGP,APTIMA HPV,AGE TIZAHuzfmju26/18/2025 9:19 AM EDT PAP QMCNQNgagyit06/18/2025 12:00 AM EDTBI MAMMOGRAM DIAGNOSTIC TOMOSYNTHESIS ZEZFCzeefkr20/13/2023 from Last 3 Months or Most Recently Relevant to Health Maintenance Results * IGP,APTIMA HPV,AGE GDLN (06/07/2025 9:19 AM EDT)ComponentValueRef RangeTest MethodAnalysis TimePerformed AtPathologist SignatureAGE GDLN ACOG TESTINGNote. TBHComment: ?? TESTS ? RESULT ??FLAG ??UNITS ?REF RANGE ??LAB ?? Clinician Provided Cytology Information ?? Source.............Cervix;Endocervix ?? No. of containers..01 ThinPrep Vial Age Algo ACOG Mihaela... ??30-65 ? 01 ?FLAG LEGEND: ?L-Low Normal,H-High Normal,LL-Alert Low,HH-Alert High <-Panic Low,>-Panic High,A-Abnormal,AA-Critical Abnormal Performed at: 01 =G ?[facility] [place] ?? [address] [place] ??[phone] ?? Taylor Ahn MD, IGP, APTIMA HPV, RFX 16/18,45Note.TBHComment: ?? TESTS ? RESULT ??FLAG ??UNITS ?REF RANGE ??LAB DIAGNOSIS: ?02 ?? NEGATIVE FOR INTRAEPITHELIAL LESION OR MALIGNANCY. Specimen adequacy: ?02 ?? Satisfactory for evaluation. No endocervical component is identified. Performed by: ? 02 ?? Jennifer Weston Automobile Contract Clerk (ASCP) . ? 02 Note: ? Note ?02 ?? The Pap smear is a screening test designed to aid in the ?? detection of premalignant and malignant conditions of the ?? uterine cervix. ??It is not a diagnostic procedure and ?? should not be used as the sole means of detecting cervical ?? cancer. ??Both false-positive and false-negative reports do ?? occur. Test Methodology: ? Note ?02 ?? This liquid based ThinPrep(R) pap test was screened with ?? the use of an image guided system. HPV Genotype Reflex ?? Note ?02 ?? Criteria not met, HPV Genotype not performed. ?FLAG LEGEND: ?L-Low Normal,H-High Normal,LL-Alert Low,HH-Alert High <-Panic Low,>-Panic High,A-Abnormal,AA-Critical Abnormal Performed at: 02 WB ?[facility] ?? [address] [place] [address] ??[phone] ?? Taylor Ahn MD, HPV APTIMANegativeNegativeTBHComment: This nucleic acid amplification test detects fourteen high- risk HPV types (16,18,31,33,35,39,45,51,52,56,58,59,66,68) without differentiation. Performed at: ??=G - [address] ??[id number] Tester Waste Disposal Leakage: Taylor Ahn MD, Phone: ??[phone] Performed at: ??WB - [address], [place], [place] ??[id number] Tester Waste Disposal Leakage: Taylor Ahn MD, Phone: ??[phone] Specimen (Source)Anatomical Location / LateralityCollection Method / Volume Collection TimeReceived Time06/07/2025 9:19 AM EDT06/07/2025 2:16 PM EDT Narrative [facility] - 06/12/2025 5:12 PM EDT BRUSH-SPATULA CERVIX ENDOCERVIX Authorizing ProviderResult TypeResult StatusAmy Anupama PALAB BLOOD ORDERABLES Final ResultPerforming OrganizationAddressCity/State/ZIP CodePhone Number [facility]IN[facility] * Pap Smear (06/07/2025 12:00 AM EDT)Specimen (Source)Anatomical Location / LateralityCollection Method / VolumeCollection TimeReceived TimeSwabCervical swab / Unknown Narrative Authorizing ProviderResult TypeResult StatusAmy [place] PALAB CYTOLOGY ORDERABLES Final ResultPerforming OrganizationAddressCity/State/ZIP CodePhone Number EXTERNAL LAB * Left diagnostic mammogram with tomosynthesis (11/30/2022)Anatomical Region LateralityModalityBreastLeftMammographySpecimen (Source)Anatomical Location / LateralityCollection Method / VolumeCollection TimeReceived Time Narrative 11/30/2022 12:00 AM EDT PERFORMED AT [facility] LOCATION:[address] Patient: ? VARSHA Sandra ? Exam Date: ? 11/30/2022 : ? 1980 ?Gender:F ? Ordering : ? DR FABIAN MEEKS . ? Admission #: ? [id number] Family : ?Order #: ? [id number] ? CLICK HERE TO VIEW EXAM RADIOLOGY REPORT PROCEDURE: ? MAMMOGRAM DIAGNOSTIC 3D LEFT CAD 11/30/2022 09:57 ULTRASOUND BREAST LEFT LIMITED 11/30/2022 10:40 COMPARISON: ? MG MAMM SCREEN HARMONY W CAD 04/25/2020. ??MG MAMM SCREEN HARMNOY W CAD 11/11/2018. ??MG MAMM HARMONY SCRN W CAD DIG 05/20/2015. ??MG MAMM SCREEN 3D HARMONY CAD 08/06/2022. INDICATIONS: ? Abnormal findings on diagnostic imaging of breast Calculator Name ? NCI Breast Cancer Risk Assessment Tool 5 Year Breast Cancer Risk ? 0.90% Lifetime Breast Cancer Risk ? 10.70% Personal Breast Cancer ?No Personal Ovarian Cancer ? No Treatments ? None Family Cancers ? None LOCATION: ? [facility] BREAST COMPOSITION: ? Extremely dense which lowers the sensitivity of mammography. FINDINGS: DIAGNOSTIC CATEGORY 2--BENIGN FINDING: LEFT BREAST: ??Mammographic views demonstrate a 2.1 cm partially circumscribed mass versus cyst within the mid breast. Ultrasound evaluation demonstrates a 2.1 x 1.7 x 1.0 cm benign appearing simple cyst at the 12 o''clock position 0.5 cm from the nipple. Annual screening mammography is recommended. RECOMMENDATIONS: ROUTINE MAMMOGRAM AND CLINICAL EVALUATION IN 12 MONTHS. PLEASE NOTE: ??A NORMAL MAMMOGRAM DOES NOT EXCLUDE THE POSSIBILITY OF BREAST CANCER. ??A CLINICALLY SUSPICIOUS PALPABLE LUMP SHOULD BE BIOPSIED. Dictated by: Madi Mason M.D. on 11/30/2022 at 10:38 Approved by: Madi Mason M.D. on 11/30/2022 at 10:47 Procedure Note CONVERSION, GENERIC - 03/26/2023 PERFORMED AT [facility] LOCATION:[address] Patient: VARSHA Sandra Exam Date: 11/30/2022 : 1980 Gender:F Ordering : DR FABIAN MEEKS . Admission #: [id number] Family : Order #: [id number] CLICK HERE TO VIEW EXAM RADIOLOGY REPORT [...] Treatments None Family Cancers None LOCATION: [facility] BREAST COMPOSITION: Extremely dense which lowers [...] Madi Mason M.D. on 11/30/2022 at 10:47 Authorizing ProviderResult TypeResult StatusCorey Constantino DOIMG BI PROCEDURESFinal Result from Last 3 Months or Most Recently Relevant to Health Maintenance Insurance Care Teams Team MemberRelationshipSpecialtyStart DateEnd Date Leslie Norman MD [address] [place] [address] PCP - GeneralFamily Rfpldcwa40/3/24 Leslie Norman MD [address] [facility] [place] [address] Referring PhysicianFamily Huiskefs14/14/24
--- OUTSIDE RECORDS SUMMARY | 2025-08-13 13:57 | XMS_ITS | Clinical Summary ---
Author Organization [facility] tem Address [facility] [id number] [address] [place] [address] Care Team Providers Care Documentation Clerk Name Role Phone Unavailable Primary Care Provider Unavailabl e Social History Tobacco UseTypesPacks/DayYears UsedDateSmoking Tobacco: Never AssessedChildcare AnswerDate YhtjpeqyYmbqavmcgWhgidxf81/12/2019EmploymentAnswerDate Recorded AljglwhrhlEmyrvia17/12/2019CommentsUnknownSex and Gender Information ValueDate RecordedSex Assigned at BirthNot on fileLegal UvkKxfqsk68/06/2015 12:08 PM EDTGender IdentityNot on fileSexual OrientationNot on file Plan of Treatment Health MaintenanceDue DateLast DoneCommentsDepression Dwztajdvv35/02/1990Tobacco Qifjyunce31/02/1990Adult BMI Fjgrroieq20/02/1996DTaP,Tdap and Td Vaccines (1 - Tdap)1997Pap Smear1999Influenza Udsxtgg8205/21/2025 Medical Devices Not on file
--- NOTE | 2025-08-13 13:58 | MM_ITS ---
Patient Name: AGUSTO MADDOX MR#: [id number] : 1980 Exam Date: 08/13/2025 Ordering Doctor: DR TYLER BATES M.D. RADIOLOGY REPORT PROCEDURE: MM TOMOSYNTHESIS SCREENING BI COMPARISON: MG MAMM DX 3D LT CAD, 11/30/2022. MG MAMM SCREEN 3D HARMONY CAD, 08/06/2022. MG MAMM HARMONY SCRN W CAD DIG, 05/20/2015. INDICATIONS: Screening Calculator Name NCI Breast Cancer Risk Assessment Tool 5 Year Breast Cancer Risk 1.00% Lifetime Breast Cancer Risk 10.30% Personal Breast Cancer No Personal Ovarian Cancer No Treatments None Family Cancers None LOCATION: [facility] BREAST COMPOSITION: The breasts are heterogeneously dense, which may obscure small masses. FINDINGS: DIAGNOSTIC CATEGORY 1--NEGATIVE. RIGHT BREAST: No significant suspicious finding. LEFT BREAST: No significant suspicious finding. A presumed waxing and waning cyst is seen involving the left breast . RECOMMENDATIONS: ROUTINE MAMMOGRAM AND CLINICAL EVALUATION IN 12 MONTHS. Dictated by: Jose Drake DO on 08/13/2025 at 15:21 Approved by: Jose Drake DO on 08/13/2025 at 15:23
--- OUTSIDE RECORDS SUMMARY | 2025-08-13 13:58 | XMS_ITS | CCD ---
Author Organization [facility] CliniSytn Care Team Providers Care Machinist/Machine Builder Name Role Phone Tyler Bates Unavailable LEONA ., DR PERALTA Admitting Unavailable LEONA ., DR PERALTA Attending Unavailable JANA, DR TYLER Worrell Primary Care Unavailable LEONA ., DR PERALTA Consulting Unavailable ZIEBER, DR YOLANDA Crow Consulting Unavailable KATHYA MENDOZA Consulting Unavailable [...] LEONA ., DR PERALTA Primary Care Unavailable WOODBINE, DR RICK Chi Consulting Unavailable LEONA ., DR PERALTA Consulting Unavailable LEONA ., DR PERALTA Admitting Unavailable LEONA ., DR PERALTA Attending Unavailable LEONA ., DR PERALTA Primary Care Unavailable LEONA ., DR PERALTA Consulting Unavailable ZIEBER, DR YOLANDA Crow Consulting Unavailable JANA, DR TYLER Worrell Admitting Unavailable JANA, DR TYLER Worrell Attending Unavailable JANA, DR TYLER Worrell Primary Care Unavailable JANA, DR TYLER Worrell Consulting Unavailable Jesús Gallardo Unavailable Lorena Newell Unavailable MD Tyler Bates Primary Care Provider [phone] MD James Sands Attending Provider Tyler Bates Primary Care Unavailable James Sands Attending Unavailable James Sands Admitting Unavailable Tyler Bates MD Unavailable Tyler Bates MD Primary Care Provider Timmis, Perri H Admitting Unavailable Timmis, Perri H Attending Unavailable Timmis, Perri H Referring Unavailable TYLER BATES Primary Care Physician Timmis, Perri H Admitting Unavailable Timmis, Perri H Attending Unavailable Timmis, Perri H Referring Unavailable Timmis, Perri H Admitting Unavailable Timmis, Perri H Attending Unavailable Timmis, Perri H Referring Unavailable Timmis, Perri H Admitting Unavailable Timmis, Perri H Attending Unavailable Timmis, Perri H Referring Unavailable Tyler Bates MD Unavailable Tyler Bates MD Primary Care Provider ZAIRA ALTMAN Attending Unavailable TIMMIS, PERRI H Attending Unavailable TYLER BATES Referring Unavailable TIMMIS, PERRI H Referring Unavailable TIMMIS, PERRI H Attending Unavailable TIMMIS, PERRI H Attending Unavailable TIMMIS, PERRI H Attending Unavailable Tyler Bates MD Primary Care Provider Zaira Altman PA-C Attending Provider Unavailable Tyler Bates MD Attending Provider Allergies Allergy ClassificationReported Allergen(s)Allergy TypeDate of OnsetReaction(s) Facility (3 sources)patient allergy list reviewed by nurse or physiciaPropensity to adverse -[id number][facility] Other (3 sources)Allergies ReconciledPropensity to adverse lcegbypxv46-41-4815Mhskpae Alchemia Oncology Other (1 source)No Known Medication Allergies; Translations: [No Known Medication Allergies]Propensity to adverse reactions (disorder)[facility] Medications Current Medications MedicationDrug Class(es)DatesSig (Normalized)Sig (Original)amoxicillin 500 mg oral capsule (4 sources)Penicillin-class AntibacterialStart: 06-19-2024 End: 71-51-5207xpmgaplylgr (Amoxil) 500 MG capsule Twice daily 06/19/2024 07/03/2024 Discontinued (Therapy completed)amoxicillin 875 mg / clavulanate 125 mg oral tablet (7 sources)Penicillin-class AntibacterialStart: 10-04-2024 End: 93-96-8869tvzb 1 tablet by mouth in the morningamoxicillin-clavulanate (Augmentin) 875-125 MG tablet Indications: Chronic pansinusitis Take 1 tablet (875 mg) by mouth in the morning and 1 tablet (875 mg) before bedtime. Do all this for 14 days. 28 tablet 10/04/2024 10/18/2024 ActiveStart: 07-03-2024 End: 52-91-4655zfjq 1 tablet by mouth in the morningamoxicillin-clavulanate (Augmentin) 875-125 MG tablet Indications: Chronic pansinusitis Take 1 tablet (875 mg) by mouth in the morning and 1 tablet (875 mg) before bedtime. 60 tablet 07/03/2024 08/02/2024 ActiveStart: 11-23-2023 End: 24-10-8594ytwi 1 tablet by mouth twice dailyAmoxicillin-Pot Clavulanate 875-125 mg tablet Discontinued 1 TAB PO Twice daily 20 0 November 23, 2023 12:00am March 07, 2024 2:04pmAspirin / butalbital / Caffeine (18 sources)take 1 capsule by mouth every four hours as neededFiorinal 50-325-40 MG 1 capsule as needed Orally every 4 hrs Usoeej35 hr buPROPion hydrochloride 150 mg extended release oral tablet (20 sources)AminoketoneStart: 55-86-6868xhqd 1 tablet by mouth once daily in the morningBupropion Hcl 150 mg tablet extended release 24 hr Active 150 MG PO Every morning July 24, 2025 12:00am Complies with drug therapyStart: 06-07-2025 End: 97-92-9221qeql 2 tablets by mouth every twelve hours at bedtimebuPROPion SR (Wellbutrin SR) 150 MG 12 hr tablet Indications: Mood changes Take 2 tablets (300 mg) by mouth at bedtime Do not crush, chew, or split. 30 tablet 11 06/07/2025 06/07/2026 ActiveStart: 35-00-4785wlqu 1 tablet by mouth once daily buPROPion 150 mg ER Tab 150 mg = 1 tab(s), Oral, Daily, Refills(s) 0, Depression Start Date: 08/29/24 Status: OrderedStart: 05-08-2024 End: 42-71-2469zbad 1 tablet by mouth every twelve hours at bedtimebuPROPion SR (Wellbutrin SR) 150 MG 12 hr tablet Indications: Mood changes Take 1 tablet (150 mg) by mouth at bedtime Do not crush, chew, or split. 30 tablet 11 05/07/2025 06/07/2025 Discontinued (Reorder)cetirizine hydrochloride 10 mg oral tablet (3 sources)Histamine-1 Receptor Antagonist End: 25-01-4682zwxbzplcmi (ZyrTEC) 10 MG tablet Take by mouth. 07/03/2024 DiscontinuedZyrtec-D (17 sources)alpha-Adrenergic Agonist, Histamine-1 Receptor AntagonistStart: 09-08-8563nswp 1 tablet by mouth once dailyZyrtec-D 1 tab(s), Oral, Daily, Refill(s) 0, Allergy symptoms Start Date: 08/29/24 Status: OrderedStart: 07-03-2024 End: 58-86-5741qrdf 1 tablet by mouth once in the morning, then take 1 tablet by mouth every twelve hours at bedtimecetirizine-pseudoephedrine (ZyrTEC-D) 5-120 MG 12 hr tablet Indications: Chronic pansinusitis Take 1 tablet by mouth in the morning and 1 tablet before bedtime. 60 tablet 11 07/03/2024 07/03/2025 Active ciprofloxacin 3 mg/ml ophthalmic solution (15 sources)Quinolone AntimicrobialStart: 69-14-3531Imstd: 26-13-6561Dbrkuaih-D 12 Hour 5-120 MG (15 sources)Start: 78-45-4904ijaw 5-120 mg by mouth twice dailyClaritin-D 12 Hour 5-120 MG 1 tablet Orally twice a day for 30 days January, ActiveFlonase (17 sources)CorticosteroidStart: 45-99-5790Yoyvyrr Refill(s) 0, Allergy symptoms Start Date: 08/29/24 Status: OrderedStart: 07-03-2024 End: 61-36-3929bafb 2 spray(s) nasal route once dailyfluticasone (Flonase) 50 MCG/ACT nasal spray Indications: Chronic pansinusitis Administer 2 sprays into each nostril Daily Shake gently. Before first use, prime pump. After use, clean tip and replacecap. 48 g 3 07/03/2024 07/03/2025 Fuziip03 hr loratadine 5 mg / pseudoephedrine sulfate 120 mg extended release oral tablet (2 sources)alpha-Adrenergic AgonistStart: 23-66-3491usgs 1 tablet by mouth every twelve hoursClaritin-D 12 Hour 5-120 MG 1 tablet Orally twice a day for 30 days January, ActivepredniSONE 20 mg oral tablet (8 sources)Start: 07-03-2024 End: 37-80-7552rjaf 1 tablet by mouth in the morningpredniSONE (Deltasone) 20 MG tablet Indications: Chronic pansinusitis Take 1 tablet (20 mg) by mouth in the morning and 1 tablet (20 mg) before bedtime. Do all this for 6 days. 12 tablet 07/03/2024 07/09/2024 ActiveStart: 46-82-9159fbji 1 tablet by mouth every twenty-four hourspredniSONE 20 MG 1 tablet with food or milk Orally Once a day for 30 days Nov, Not-TakingProbiotic Formula (Bacillus Coagulans) (2 sources)Start: 02-13-2983Szktqmcio Formula (Bacillus Coagulans) Refill(s) 0, Prophylaxis Start Date: 08/29/24 Status: OrderedUbrogepant (UBRELVY PO) (16 sources)Ubrogepant (UBRELVY PO) Take by mouth if needed Epkpal53 hr venlafaxine 75 mg extended release oral capsule (20 sources)Serotonin and Norepinephrine Reuptake InhibitorStart: 42-76-5596zqat 1 capsule by mouth once dailyvenlafaxine XR (Effexor XR) 150 MG 24 hr capsule Indications: Depression with anxiety Take 1 capsule (150 mg) by mouth Daily Do not crush or chew. 30 capsule 3 02/21/2025 ActiveStart: 05-17-2024 End: 31-88-1272uthq 1 capsule by mouth once dailyvenlafaxine XR (Effexor XR) 150 MG 24 hr capsule Indications: Depression with anxiety Take 1 capsule (150 mg) by mouth Daily Do not crush or chew. 30 capsule 3 07/17/2024 10/15/2024 Active Start: 11-23-2023 End: 73-30-6787uxim 1 capsule by mouth once dailyVenlafaxine (Effexor Xr) 75 mg capsule,extended release 24hr Active 75 MG PO Daily 7 0 April 1:03pm Complies with drug therapytake 1 capsule by mouth every twenty-four hoursEffexor XR 75 MG 1 capsule with food Orally Once a day Active Completed/Discontinued Medications MedicationDrug Class(es)DatesSig (Normalized)Sig (Original)[id number] 200 actuat albuterol 0.09 mg/actuat metered dose inhaler (20 sources)beta2-Adrenergic AgonistStart: 11-23-2023 End: 00-62-6937yiuq 1 puff(s) by inhalation every four hoursAlbuterol Sulfate 90 mcg/actuation HFA aerosol inhaler Discontinued 2 PUFF INHALATION Every 4 hours November 23, 2023 12:00am July 24, 2025 2:09pmStart: 64-70-3383fdgv 2 puff(s) by inhalation every four hours as neededAlbuterol Sulfate HFA 108 (90 Base) MCG/ACT 2 puff Inhalation every 4 hrs prn Sep, Not-Taking/PRNStart: 98-11-8502zids 2 puff(s) by inhalation every four hours as neededAlbuterol Sulfate HFA 108 (90 Base) MCG/ACT 2 puff Inhalation every 4 hrs prn Sep, Not-TakingStart: 95-98-2808hyob 2 puff(s) by inhalation every four hours as neededAlbuterol Sulfate HFA 108 (90 Base) MCG/ACT 2 puff Inhalation every 4 hrs prn Sep, Not-TakingALPRAZolam 0.25 mg oral tablet (20 sources)BenzodiazepineStart: 11-23-2023 End: 71-56-6434qqvo 1 tablet by mouth four times daily as neededAlprazolam 0.25 mg tablet Discontinued 0.25 MG PO Four times daily as needed November 23, 2023 12:00am April 04, 2024 12:53pmStart: 41-91-1376udev 1 tablet by mouth four times dailyALPRAZolam 0.25 MG take 1 tablet by mouth four times a day if needeD for 7 Mar, ActiveStart: 42-37-9063oqrh 1 tablet by mouth four times dailyALPRAZolam 0.25 MG take 1 tablet by mouth four times a day if needed for 7 Dec, Activeamphetamine aspartate 5 mg / amphetamine sulfate 5 mg / dextroamphetamine saccharate 5 mg / dextroamphetamine sulfate 5 mg oral tablet (20 sources)Central Nervous System StimulantStart: 07-30-2024 End: 70-98-9029vigh 1 tablet by mouth twice dailyDextroamphetamine-Amphetamine 20 mg tablet Discontinued 20 MG PO Twice daily 60 30 0 AugustDecember 15, 2024 8:45am Attention deficit disorder of adult with hyperactivity Attention-deficit hyperactivity disorder, unspecified typeStart: 11-09-2023 End: 39-95-2757nwto 1 tablet by mouth twice dailyDextroamphetamine-Amphetamine 20 mg tablet Discontinued 1 TAB PO Twice daily 60 30 0 OctoberNovember 12, 2023 10:05am Attention deficit disorder of adult with hyperactivity Attention-deficit hyperactivity disorder, unspecified type FreeTextSi tablet Orally Twice a day; Note: Source Status: Refill; Refills: 0; Provider: Jana Nelson EStart: 52-73-0875bhls 1 tablet by mouth every twelve hoursAdderall 20 MG 1 tablet Orally Twice a day for 30 days Sep, Active Start: 65-54-4869wsdo 1 tablet by mouth every twelve hoursAdderall 20 MG 1 tablet Orally Twice a day for 30 days Aug, ActiveStart: 22-17-6646abfj 1 tablet by mouth every twelve hoursAdderall 20 MG 1 tablet Orally Twice a day for 30 days Jul, ActiveStart: 71-73-2996aolx 1 tablet by mouth every twelve hoursAdderall 20 MG 1 tablet Orally Twice a day for 30 days Jun, Active Start: 12-10-0863vuhn 1 tablet by mouth every twelve hoursAdderall 20 MG 1 tablet Orally Twice a day for 30 days May, ActiveStart: 74-07-9496xwkk 1 tablet by mouth every twelve hoursAdderall 20 MG 1 tablet Orally Twice a day for 30 days Apr, ActiveStart: 50-89-0005lmyt 1 tablet by mouth every twelve hoursAdderall 20 MG 1 tablet Orally Twice a day for 30 days Apr, Active Start: 76-66-6335egev 1 tablet by mouth every twelve hoursAdderall 20 MG 1 tablet Orally Twice a day for 30 days Feb, ActiveStart: 04-37-4222misk 1 tablet by mouth every twelve hoursAdderall 20 MG 1 tablet Orally Twice a day for 30 days January, ActiveStart: 86-35-7804ublu 1 tablet by mouth every twelve hoursAdderall 20 MG 1 tablet Orally Twice a day for 30 days Dec, Active Start: 01-74-7331hfrc 1 tablet by mouth every twelve hoursAdderall 15 MG 1 tablet Orally Twice a day for 30 days Dec, Activeaspirin 325 mg / butalbital 50 mg / caffeine 40 mg oral capsule (2 sources)Platelet Aggregation Inhibitor, Barbiturate, Nonsteroidal Anti- inflammatory Drug, Central Nervous System Stimulant, MethylxanthineStart: 11-23-2023 End: 81-55-0383kpyp 1 capsule by mouth every four hours Utlnhjgzca-Bykxtdb-Iwernega 50-325-40 mg capsule Discontinued 1 CAP PO Every 4 hours November 23, 2023 12:00am March 07, 2024 2:04pmazithromycin 250 mg oral tablet (6 sources)Macrolide AntimicrobialStart: 04-83-1113Uqmctlrbtdee 250 MG as directed Orally 2 tabs po today, then 1 tab daily x 4 more days for 5 Sep, Not-Takingbiotin 1 mg oral tablet (6 sources)take 1 tablet by mouth every twelve hoursBiotin 1000 MCG 1 tablet Orally bid Not-Takingcefdinir 300 mg oral capsule (18 sources)Cephalosporin AntibacterialStart: 03-23-8830Uxysqibw 300 MG as directed Orally bid for 7 days Dec, Not-Taking/PRNcyproheptadine hydrochloride 4 mg oral tablet (6 sources)take 1 tablet by mouth once daily at bedtimeCyproheptadine HCl 4 mg 1 tablet Orally qhs Not-Takingketoconazole 20 mg/ml medicated shampoo (11 sources)Azole AntifungalStart: 11-23-2023 End: 73-24-5885Rpcwbheqltij 2 % shampoo Discontinued 1 APPLIC TOPICAL EVERY 2 WEEKS November 23, 2023 12:00am July 24, 2025 2:09pmStart: 06-17-2023 Ketoconazole 2 % as directed Externally twice a week for 30 days May, ActiveStart: 03-03-7219Odigrqwdmnuv 2 % as directed Externally twice a week for 30 days May, ActivemethIMAzole 5 mg oral tablet (6 sources)Thyroid Hormone Synthesis InhibitorStart: 52-52-6117flpo 1 tablet by mouth once daily at mealtimemethIMAzole 5 mg 1 tablet with food Orally Once a day except Wednesday for 30 day(s) Nov, Not-TakingmethylPREDNISolone 4 mg oral tablet (18 sources)CorticosteroidStart: 30-95-3951jojajkPWOGTJOgnrtl 4 MG as directed Orally daily for 6 days Apr, Not-Taking/PRNStart: 09-28-2022 methylPREDNISolone 4 MG as directed Orally for 6 days Sep, Not-Xajfje16 hr metoprolol succinate 25 mg extended release oral tablet (6 sources)beta-Adrenergic BlockerStart: 25-66-7274egkw 1 tablet by mouth every twelve hoursToprol XL 25 MG 1 tablet Orally bid for 90 days Nov, Not-Takingmupirocin 0.02 mg/mg topical ointment (11 sources)RNA Synthetase Inhibitor AntibacterialStart: 11-23-2023 End: 18-73-0062Mhpgatcdd 2 % ointment Discontinued 1 APPLIC TOPICAL Three times daily November 23, 2023 12:00am December 15, 2024 8:45amStart: 18-18-6298Gnfhtsoal 2 % 1 application Externally Three times a day for 10 days May, Active ondansetron 4 mg oral tablet (6 sources)Serotonin-3 Receptor AntagonistStart: 59-08-7336oaik 1 tablet by mouth three times daily as neededOndansetron HCl 4 MG 1 tablet Orally tid prn for 5 days Sep, Not-Takingsulfamethoxazole 800 mg / trimethoprim 160 mg oral tablet (10 sources)Dihydrofolate Reductase Inhibitor Antibacterial, Sulfonamide AntimicrobialStart: 93-32-4547soau 1 tablet by mouth every twelve hoursBactrim DS 800-160 MG 1 tablet Orally Twice a day for 10 day(s) May, Not-Taking/PRNtiZANidine 4 mg oral tablet (20 sources)Central alpha-2 Adrenergic AgonistStart: 11-23-2023 End: 54-06-0620mtpm 1 tablet by mouth once daily at bedtimeTizanidine (Zanaflex) 4 mg tablet Discontinued 4 MG PO Daily at bedtime November 23, 2023 12:00am December 15, 2024 8:46amtake 1 tablet by mouth once daily at bedtimeZanaflex 4 mg 1 tablet Orally qhs PRN Activesprinkle 24 hr topiramate 150 mg extended release oral capsule (6 sources)take 1 tablet by mouth once daily at bedtimeTopamax 150 mg 1 tablet Orally qhs Not-Takingtriamcinolone acetonide 1 mg/ml topical cream (12 sources)CorticosteroidStart: 71-84-5830Wheukydzhnvpm Acetonide 0.1 % 1 application Externally Twice a day for 10 days Apr, Not-Taking/PRNStart: 76-25-0684Cczkfezfymfnw Acetonide 0.1 % 1 application Externally Twice a day for 10 days Apr, Not-Taking Problems Active Problems Problem ClassificationProblemDateDocumented DateEpisodic/ChronicAbdominal pain (3 sources)Pelvic and perineal pain; Translations: [Pelvic and perineal pain] EpisodicAllergic reactions (1 source)Unspecified contact dermatitis, unspecified causeEpisodicAnxiety disorders (20 sources)Anxiety disorder; Translations: [Anxiety disorder, unspecified] Onset: 512011-04-7146XyxypiuCtmeyiabv-swpehnv, conduct, and disruptive behavior disorders (20 sources)Adult attention deficit hyperactivity disorder ; Translations: [Attention-deficit hyperactivity disorder, unspecified type]Onset: 06-22-2024 09-17-6148QaunivtPcqlekmle-deficit, conduct, and disruptive behavior disorders (9 sources)Attention-deficit hyperactivity disorder, unspecified typeChronic Attention-deficit, conduct, and disruptive behavior disorders (3 sources)Attention deficit hyperactivity disorder; Translations: [Attention- deficit hyperactivity disorder, unspecified type]ChronicAttention-deficit, conduct, and disruptive behavior disorders (2 sources)Attention deficit hyperactivity disorder, predominantly inattentive hjlq36-42-9659EfligasUvtgyyn dysrhythmias (20 sources)Palpitations; Translations: [Palpitations]Onset: 04-20-2017 03-98-0591RzjrmowdMlsmekj obstructive pulmonary disease and bronchiectasis (3 sources)Bronchitis; Translations: [Bronchitis, not specified as acute or chronic]EpisodicGenitourinary symptoms and ill-defined conditions (3 sources)Genuine stress incontinence; Translations: [Stress incontinence (female) (male)]ChronicHeadache; including migraine (7 sources)Migraine without aura, not refractory ; Translations: [Migraine, unspecified, not intractable, without status migrainosus]Onset: 10-11-2015 38-47-2908EsjchxwSwkptydr; including migraine (4 sources)Headache; Translations: [Nonintractable headache, unspecified chronicity pattern, unspecified headache type]29-54-6024VizdplgqUxcaiqoc disorders (12 sources)Autoimmune disease; Translations: [Other specified disorders involving the immune mechanism, not elsewhere classified]ChronicImmunizations and screening for infectious disease (2 sources)Encounter for screening for human papillomavirus (HPV); Translations: [Anti-nuclear factor positive]Onset: 233980-46-4767WfevxoguHxamaedozdbjl (18 sources)Nonspecific lymphadenitis, unspecified; Translations: [Cervical lymphadenitis]Onset: 28-35-8586CbytsiuoDnitvps and fatigue (13 sources)Other fatigue; Translations: [Malaise and fatigue]Onset: 10-11-2015 EpisodicMenstrual disorders (20 sources)Irregular periods; Translations: [Irregular menstruation, unspecified]Onset: 22-63-4053CeqjkmhIsdv disorders (6 sources)Premenstrual dysphoric disorder; Translations: [Premenstrual dysphoric disorder]Onset: 131765-28-1173ZxldszlQpsv disorders (1 source)Disturbance in mood; Translations: [Emotional lability]06-07-2025 EpisodicNausea and vomiting (3 sources)Nausea; Translations: [Nausea]EpisodicOther connective tissue disease (1 source)Myalgia, unspecified site; Translations: [Myalgia, unspecified site] Onset: 85-71-6491QeufpxfmQqumb connective tissue disease (2 sources)Mass of neck; Translations: [Other specified soft tissue disorders] 67-83-6946VnofyaujUnlpw ear and sense organ disorders (2 sources)Bilateral hearing loss; Translations: [Unspecified hearing loss, bilateral]29-64-6857HbzrbteOeyun female genital disorders (1 source)Abnormal uterine and vaginal bleeding, unspecified; Translations: [ABNORMAL UTERINE VAGINAL BLEED UNS]Onset: 48-69-6426QsxzoiwWliqu female genital disorders (3 sources)Premenstrual tension syndrome; Translations: [Premenstrual tension syndromes]Onset: 72-08-9400ZmyfzgkWhsjs female genital disorders (3 sources)Abnormal uterine bleeding; Translations: [Abnormal uterine and vaginal bleeding, unspecified]ChronicOther gastrointestinal disorders (1 source)Irritable bowel syndrome with diarrhea; Translations: [IRRITABLE BOWEL SYND W/DIARRHEA]Onset: 59-31-0308DiefwtfDpgbm gastrointestinal disorders (3 sources)Irritable bowel syndrome with diarrhea; Translations: [Irritable bowel syndrome with diarrhea]ChronicOther gastrointestinal disorders (3 sources)Flatulence, eructation and gas pain; Translations: [Abdominal distension (gaseous)]EpisodicOther gastrointestinal disorders (3 sources)Diarrhea; Translations: [Diarrhea, unspecified]EpisodicOther lower respiratory disease (3 sources)Cough; Translations: [Cough, unspecified]EpisodicOther nervous system disorders (2 sources)Atypical facial pain; Translations: [Atypical facial pain]10-06-2024 EpisodicOther nutritional; endocrine; and metabolic disorders (19 sources)Weight loss; Translations: [Abnormal weight loss]88-55-5057Xuonwray Other nutritional; endocrine; and metabolic disorders (3 sources)Body mass index less than 20; Translations: [Body mass index (BMI) 19.9 or less, adult]EpisodicOther nutritional; endocrine; and metabolic disorders (1 source)Weight decreased; Translations: [Abnormal weight loss]11-23-2023 EpisodicOther screening for suspected conditions (not mental disorders or infectious disease) (20 sources)Other abnormal and inconclusive findings on diagnostic imaging of breast; Translations: [Encounter for screening mammogram for malignant neoplasm of breast]Onset: 82-85-9792OpnpudzdIkrrr skin disorders (2 sources)Rash and other nonspecific skin eruptionEpisodicOther upper respiratory disease (3 sources)Allergic rhinitis; Translations: [Allergic rhinitis, unspecified] ChronicOther upper respiratory disease (5 sources)Deviated nasal septum; Translations: [Deviated nasal septum]Onset: 552910-45-6062EsvunteoVsbvf upper respiratory disease (4 sources)Alvaro bullosa; Translations: [Other specified disorders of nose and nasal sinuses]66-60-3263KqkklwerUcpnt upper respiratory disease (5 sources)Hypertrophy of nasal turbinates; Translations: [Hypertrophy of nasal turbinates]Onset: 014914-04-1401BwabcqngPeauf upper respiratory disease (1 source)Disorder of the nose; Translations: [Other specified disorders of nose and nasal sinuses]Onset: 57-52-2484UvpmrkoaDhajq upper respiratory disease (2 sources)Disorder of nasal septum; Translations: [Deviated nasal septum] 22-75-8214WdasbhpjNcatn upper respiratory infections (20 sources)Chronic sinusitis; Translations: [Chronic sinusitis, unspecified] Onset: 242164-81-4853DxymjsiWopqn upper respiratory infections (6 sources)Acute pharyngitis; Translations: [Acute pharyngitis, unspecified] Onset: 47-93-8540DxnsdrbzFhnr and subcutaneous tissue infections (1 source)Impetigo, unspecifiedEpisodicSubstance-related disorders (4 sources)Nicotine dependence, cigarettes, uncomplicated; Translations: [Tobacco user]Onset: 35-03-4403WmyvzshUimxryd disorders (20 sources)Subclinical hyperthyroidism; Translations: [Thyrotoxicosis, unspecified without thyrotoxic crisis or storm]Onset: ChronicUnclassified (1 source)CONTACT W/AND (SUSP) EXPOS COVID-19; Translations: [CONTACT W/AND (SUSP) EXPOS COVID-19]Onset: 39-98-1179Fhfqywauexjy (1 source)Patient encounter statusUnclassified (2 sources)Z12.11 - Encounter for screening for malignant neoplasm of colon Past or Other Problems Problem ClassificationProblemDateDocumented DateEpisodic/ChronicAcute bronchitis (3 sources)Acute bronchitis; Translations: [Acute bronchitis, unspecified]Onset: 79-19-7297GckftgbrDwacycoyw (3 sources)Upper respiratory tract infection due to Influenza; Translations: [Influenza due to unidentified influenza virus with other respiratory manifestations]Onset: 68-01-9681GnnmmvqxCsdby nutritional; endocrine; and metabolic disorders (3 sources)Underweight; Translations: [Underweight]Onset: 26-11-7874Hchmipge Other nutritional; endocrine; and metabolic disorders (3 sources)Abnormal weight loss; Translations: [Abnormal weight loss]Onset: 36-04-0969DoqmuwprAujttvu cyst (20 sources)Unspecified ovarian cyst, left side; Translations: [Cyst of left ovary]Onset: 242105-66-4263OuierlijEubuttue codes; unclassified (3 sources)Sleep disorder; Translations: [Persistent disorder of initiating or maintaining sleep]Onset: 81-18-4328YpdnsnpxIktzywixppnx (3 sources) care; Translations: [Supervision of other normal ] Onset: 02-02-2007 Results Test NameValueInterpretationReference RangeFacilityIGP,APTIMA HPV,AGE GDLNon 69-82-6442BSJ GDLN ACOG TESTINGNote.NOMS HealthcareComment on above:TESTS RESULT FLAG UNITS REF RANGE LAB Clinician Provided Cytology Information Source.............Cervix;Endocervix No. of containers..01 ThinPrep Vial Age Algo ACOG Mihaela... 3063 FLAG LEGEND: L-Low Normal,H-High Normal,LL-Alert Low,HH-Alert High <-Panic Low,>-Panic High,A-Abnormal,AA-Critical Abnormal Performed at: 01 =[address] [address] Taylor Ahn MD, HPV APTIMANegativeNegativeNOMS HealthcareComment on above:This nucleic acid amplification test detects fourteen high- risk HPV types (16,18,31,33,35,39,45,51,52,56,58,59,66,68) without differentiation. Performed at: =[address] [id number] Formal Wear Rental Clerk: Taylor Ahn MD, Phone: [phone] Performed at: [address] [id number] Formal Wear Rental Clerk: Taylor Ahn MD, Phone: [phone] IGP, APTIMA HPV, RFX 16/18,45Note.NOMS HealthcareComment on above:TESTS RESULT FLAG UNITS REF RANGE LAB DIAGNOSIS: 02 NEGATIVE FOR INTRAEPITHELIAL LESION OR MALIGNANCY. Specimen adequacy: 02 Satisfactory for evaluation. No endocervical component is identified. Performed by: April Weston, Loop Drier Operator ([facility]) . 02 Note: Note 02 The Pap smear is a screening test designed to aid in the detection of premalignant and malignant conditions of the uterine cervix. It is not a diagnostic procedure and should not be used as the sole means of detecting cervical cancer. Both false-positive and false-negative reports do occur. Test Methodology: Note 02 This liquid based ThinPrep(R) pap test was screened with the use of an image guided system. HPV Genotype Reflex Note 02 Criteria not met, HPV Genotype not performed. FLAG LEGEND: L-Low Normal,H-High Normal,LL-Alert Low,HH-Alert High <-Panic Low,>-Panic High,A-Abnormal,AA-Critical Abnormal Performed at: [address] [address] Taylor Ahn MD, BRUSH-SPATULA CERVIX ENDOCERVIX CLINISYNCNOMS [facility] papilloma virus 16+18+31+33+35+39+45+51+52+56+58+59+66+68 DNA [Presence] in CerOrdered By: Zaira Altman on 14-77-8324NCR 16+18+31+33+35+39+45+51+52+56+58+59+66+68 DNA Probe+sig amp Ql (Cvx)NegativeNegativeVan Wert County HospitalComment on above: This nucleic acid amplification test detects fourteen high-risk HPV types (16,18,31,33,35,39,45,51,52,56,58,59,66,68)without differentiation.Performed at: = - [address] [id number] Director: Taylor Ahn MD, Phone: [phone] at: - [address] [id number] Director: Taylor Ahn MD, Phone: [phone] Panel InformationOrdered By: Zaira Altman on 38-12-7538TKH High Risk Other CommentNote.[facility] Wert County HospitalComment on above:TESTS RESULT FLAG UNITS REF RANGE LAB DIAGNOSIS: 02 NEGATIVE FOR INTRAEPITHELIAL LESION OR MALIGNANCY.Specimen adequacy: 02 Satisfactory forevaluation. No endocervical component is identified.Performed by: 02 Jennifer Weston Loop Drier Operator ([facility]). 02Note: Note 02 The Pap smear is a screening test designed to aid in the detection of premalignant and malignant conditions of the uterine cervix. It is not a diagnostic procedure and should not be used as the sole means of detecting cervical cancer. Both false-positive and false-negative reports do occur.Test Methodology: Note 02 This liquid based ThinPrep(R) pap test was screened with the use of an image guided system.HPV Genotype Reflex Note 02 Criteria not met, HPV Genotype not performed. FLAG LEGEND: L-Low Normal,H-High Normal,LL-Alert Low,HH-Alert High <-Panic Low,>-Panic High,A-Abnormal,AA-Critical Abnormal Performed at:[address] [place] [address] Taylor Ahn MD, Hbmrhpkjr Lab Test Patient AgeNote.[facility] W[facility] County HospitalComment on above:TESTS RESULT FLAG UNITS REF RANGE LAB Clinician Provided Cytology Information Source.............Cervix;Endocervix No. of containers..01 ThinPrep VialAge Emileo THAOOG Mihaela... 30 FLAG LEGEND: L-Low Normal,H-High Normal,LL-Alert Low,HH-Alert High <-Panic Low,>-Panic High,A- Abnormal,AA-Critical Abnormal Performed a t:01 =[address] [address] Taylor Ahn MD, Cljhmwmdl Reporton [id number] Report Operative Report SURGERY DATE: 09/07/2024 PREOPERATIVE [...] with chronic left facial pain and pressure consistentwith Sluder pain due to a large nasal septal spur. She also had a large alvaro bullosa and inferiorturbinate hypertrophy on the opposite side which needed [...] After waiting adequate time for hemostasis, the rightinferior turbinate was approached with a nasal speculum. A stab incision was made anteriorly and a Rod elevator used to create a tunnel on the medial surface of the turbinate bone. Then a 2.0 mm microdebrider was used to incinerate the submucosal tissues of the turbinate, and the turbinate was outfractured with a long nasal speculum. A left-sided [place] incision was then made, and a mucoperichondrial and mucoperiosteal flap was elevated on the left-hand side. The bony cartilaginous junctionwas then , and the mucoperiosteal flap was elevated on the right-hand side. Then, using cutting and grabbing [place]- Bill forceps, the bony septum was removed. Careful dissection around the large septal spur was performed in order to minimize tearing of the septal mucosa. Then, using achisel anteriorly, the deviated anterior portion of the septum was freed, and a large septal spur was removed. A small inferior strut of cartilaginous septum was incised with a 15 blade to allow the nasal septum to lie more freely over the premaxilla crest. The septal flaps on both sides of the nose were then copiously irrigated. The [place] incision was closed with a 5-0 Caprosyn suture, and then bilateral ventilating Silastic splints were coated with antibiotic ointment, placed in the nose, and then sutured in place using a 2-0 nylon transseptal stitch. There was good dorsal and tip supportat the end of the procedure, and the patient was awakened and taken to the Recovery Room in good condition. Padma Pedroza Jr. Dictated: 09/07/2024 [id number] Transcribed: 09/07/2024NoWVUMedicine Harrison Community HospitalComment on above:Result Comment: Electronically Signed By: Madeline SAMANIEGO, Perri Phelps\.br\Date and Time Signed: 09/28/24 08:31 ESTSurgical Pathology Reporton [id number] Pathology ReportCleveland Clinic [facility] [place] [address]- Surgical Pathology Report Collected Date/Time: 09/07/2024 09:54 EST Pathologist: James Varela MD Received Date/Time: 09/07/2024 11:10 EST Madeline SAMANIEGO, Perri Correa MD, Perri Delarosa Surgical Pathology Report - 09/12/2024 15:08 EST [...] INFLAMMATION; MILD NONSPECIFIC CHRONIC SINUSITIS (Electronic Signature) James Varela MD 09/12/2024 15:08 Clinical Information Deviated [...] is entirely submitted in one cassette. (DC) DC:[facility] Microscopic Description Microscopic examination performed unless gross only specified.[facility] Clermont HospitalComment on above:Performed By: #### [id number] #### [facility] [address] [place], [place] [address]Msdo OR Intraoperative Recordon [id number] OR Intraoperative RecordMain OR Intraoperative Record IntraOp Document Type FT Summary Primary Physician: Perri Correa MD Finalized Date/Time: 09/11/24 07:22:26 Pt. Name: AGUSTO KING Amie/Sex: 1980 Female Med Rec #: [id number] Physician: Perri Correa MD Financial #: [id number] Pt. Type: A Room/Bed: [facility] Admit/Disch: 09/07/24 07:36:37 - 09/07/24 12:25:00 [...] 2 Entry 3 Case Attendee Candie TAO, AKSHAT, Perri Lynn MD, Alfons Ii F N. Role Performed MANUFACTURING SYSTEMS ENGINEER Surgeon - Primary Dairy Technologist - Primary Time In 09/07/24 09:24:00 09/07/24 09:24:00 09/07/24 09:25:00 Time Out 09/07/24 10:28:00 09/07/24 10:28:00 09/07/24 10:28:00 Procedure SEPTOPLASTY(.), SEPTOPLASTY(.), SEPTOPLASTY(.), ANTROSTOMY TURBINECTOMY ANTROSTOMY TURBINECTOMY ANTROSTOMY TURBINECTOMY ETHMOIDECTOMY(Right) ETHMOIDECTOMY(Right) ETHMOIDECTOMY(Right) Comments , ANESTHESIA PRECEPTOR FURNACE COMBINATION ANALYST Last Modified By: Jones TRAVELING OPERATOR, Demetrius Friend Ii, Alfons Ii F 09/11/24 07:15:35 09/07/24 10:28:20 09/07/24 10:28:20 Entry 4 Entry 5 Entry 6 Case Attendee Myke RN, Lucero Castillo CST, Marianna Hamm RN, Fritz Norman Role Performed Dairy Technologist - Primary Scrub - Primary Dairy Technologist - Relief Time In 09/07/24 09:24:00 09/07/24 09:24:00 09/07/24 09:24:00 Time Out 09/07/24 10:28:00 09/07/24 10:28:00 09/07/24 09:42:00 Procedure SEPTOPLASTY(.), SEPTOPLASTY(.), SEPTOPLASTY(.), ANTROSTOMY TURBINECTOMY ANTROSTOMY TURBINECTOMY ANTROSTOMY TURBINECTOMY ETHMOIDECTOMY(Right) ETHMOIDECTOMY(Right) ETHMOIDECTOMY(Right) Comments IN ORIENTATION BREAK RELIEF Last Modified By: Demetrius Oden Ii, Alfons Ii David Jones CST, Jeniffer Worrell 09/07/24 10:28:20 09/07/24 10:28:20 09/11/24 07:15:35 Perioperative Protocols FT Pre-Care Text: Implements protective measures prior to operative or invasive procedure, confirms identity before the operative or invasive procedure, verifies operative procedure, surgical site, and laterality Entry 1 Procedure(s) SEPTOPLASTY(.), Patient Identity Birthday, ID Band ANTROSTOMY TURBINECTOMY Verified (select at Check, Patient ETHMOIDECTOMY(Right) least 2): Participation Consents / H and P Anesthesia Consent, Operative Site Present Verified H&P, Surgery/Procedure Marking Verified Consent Surgical Site Yes Laterality Verified Yes Verified Procedure Verified Yes Correct Patient Yes Position Verified Availability Equipment, Medication, Prep Dry No Verified (If X-ray Applicable) PreOp Antibiotic No Time Out Candie TAO, MANUFACTURING SYSTEMS ENGINEER, Queen Fernando Lugo, Madeline SAMANIEGO, Perri Phelps, Demetrius Oden Ii, Myke RN, Jonathan Melendez CST, Hansel Pierre RN, Fritz Norman Time Out Complete 09/07/24 09:41:00 Outcomes Met? Yes Last Modified By: Demetrius Oden Ii 09/07/24 09:43:01 Post-Care Text: The patient is free from signs and symptoms of injury caused by extraneous objects Allergy Information FT Pre-Care Text: Verifies allergies Entry 1 Allergies Reviewed? Yes Allergies Reviewed Self/Patient With Outcomes Met? Yes Last Modified By: CecilleDemetrius Dayton Hernandez 09/07/24 09:13:49 Post-Care Text: The [...] Yes No Primary Surgeon Madeline SAMANIEGO, Perri Correa MD, Perri Phelps Start 09/07/24 09:50:00 09/07/24 [...] Assessment (Pre Procedure) FT (more content not included)...NormalMagruder HospitalB hCG Qualon 62-98-7901Wekp HCG ( test) QlNegativeNormalMagruder Hospital Comment on above:Performed By: #### [id number] #### [facility] [address] [place], [place] [address]Jpodbpbtk Instructionson 77-28-2026Raahobbxj Instructions Discharge Instructions AGUSTO KING :1980 Visit Date:09/07/2024 Inpatient Discharge Instructions Your Care Team Admitting Physician - Perri Correa MD Referring Physician - Madeline SAMANIEGO, Perri Phelps Reason for Your Visit DEVIATED NASAL SEPTUM Your Diagnosis Alvaro bullosa DNS (deviated nasal septum) Hypertrophy of inferior nasal turbinate This Is Your Medications List amphetamine-dextroamphetamine (Adderall 20 mg Tab) bacillus coagulans-inulin (Probiotic Formula (Bacillus Coagulans)) buPROPion (buPROPion 150 mg ER Tab) cetirizine-pseudoephedrine (Zyrtec-D) fluticasone nasal (Flonase) venlafaxine (venlafaxine 150 mg Cap-ER) Procedure History section, Extraction of wisdom tooth, Laparoscopy, surgical, ablation of uterine fibroid(s)including intraoperative ultrasound guidance and monitoring, radiofrequency. What [...] Appointments after Discharge Follow Up with Perri Correa When: In 8 days 09/15/2024 EST Where: [address] [place] [address], [address] [place] [phone] Business (1) Medications What How Much When Instructions Next Dose Unchanged amphetamine-dextroamphetamine (Adderall 20 mg Tab) 1 Tablets By Mouth 2 times a day Unchanged bacillus coagulans-inulin (Probiotic Formula (Bacillus Coagulans)) Unchanged buPROPion (buPROPion 150 mg ER Tab) 1 Tablets By Mouth Every day Unchanged cetirizine-pseudoephedrine (Zyrtec-D) 1 Tablets By Mouth Every day [...] these instructions at home: Medicines ??? Take hvxx-gov-kmxgkdw and prescription medicines only as told by [...] keep your urine pale yellow. ? Take pupo-dnt-edosend or prescription medicines. ? Eat foods that [...] or playing sports.These activities can cause nosebleeds. ??? Avoid straining [...] nose. ??? Have yel (more content not included)...[facility]erm[facility] HospitalComment on above:Result Comment: Electronically Signed By: Mattie LAMBERT, Vida Hernandez\.br\Date and Time Signed: 09/07/24 11:26 ESTInpatient Patient Summaryon [id number] Patient SummaryInpatient Patient Summary [address] [address] [facility] Clinical Discharge Instructions PERSON INFORMATION Name: AGUSTO KING PHYSICIANS Admitting Physician: Perri Correa MD Attending Physician: Perri Correa MD PCP: TYLER BATES MD Discharge Diagnosis: Alvaro bullosa; DNS (deviated nasal septum); Hypertrophy of inferior nasal turbinate Comment: PATIENT EDUCATION INFORMATION Instructions: Medication Leaflets: Follow up: With: Address: When: Perri Correa [address] [place] [address], [address] [place] [address] Business (1) In 8 days 09/15/2024 MEDICATION LIST Medications to Continue with No Changes Other Medications amphetamine-dextroamphetamine (Adderall 20 mg Tab) 1 Tablets By Mouth 2 times a day., ADD bacillus coagulans-inulin (Probiotic Formula (Bacillus Coagulans)) buPROPion (buPROPion 150 mg ER Tab) 1 Tablets By Mouth every day. cetirizine-pseudoephedrine (Zyrtec-D) 1 Tablets By Mouth every day. fluticasone nasal (Flonase) venlafaxine (venlafaxine 150 mg Cap-ER) 1 Capsules By Mouth every day. Comment:[facility] HospitalMain OR PACU I Recordon [id number] OR PACU I RecordMain OR PACU I Record PACU Phase I Document Type FT Summary Primary Physician: Perri Correa MD Finalized Date/Time: 09/07/24 10:57:55 Pt. Name: AGUSTO KING Amie/Sex: 1980 Female Med Rec #: [id number] Physician: Perri Correa MD Financial #: [id number] Pt. Type: A Room/Bed: [facility] Admit/Disch: 09/07/24 07:36:37 - Institution: Case [...] individualized perioperative plan of care The patient's rightto privacy is maintained The patient's value system, [...] with or improved from baseline levels established preoperativelyThe patient's cardiovascular status is consistent with or improved from baseline levels established preoperatively The patient's cardiovascular status is consistent with or improved from baseline levels established preoperatively The patient demonstrates and/or reports adequate pain control throughout the perioperative period The patient received appropriate medication(s), safely administered during the perioperativeperiod Acuity Level PACU I FT Entry 1 Start Time 09/07/24 10:28:00 Stop Time 09/07/24 10:58:00 Acuity Level Acuity Level I Last Modified By: Nadine Joyce RN 09/07/24 10:57:47 Finalized By: Nadine Joyce RN Document Signatures Signed By: Nadine Joyce RN 09/07/24 10:57 Nadine Joyce RN 09/07/24 10:57GenevieveMagruder HospitalMain OR PACU II Recordon [id number] OR PACU II Record Main OR PACU II Record PACU Phase II Document Type FT Summary Primary Physician: Perri Correa MD Finalized Date/Time: 09/07/24 12:26:42 Pt. Name: AGUSTO KING/Sex: 1980 Female Med Rec #: [id number] Physician: Perri Correa MD Financial #: [id number] Pt. Type: A Room/Bed: [facility] Admit/Disch: 09/07/24 07:36:37 - Institution: Case [...] and monitors body temperature Evaluates postoperative respiratory statusEvaluates postoperative cardiac status Evaluates postoperative neurological status [...] individualized perioperative plan of care The patient's rightto privacy is maintained The patient's value system, [...] with or improved from baseline levels established preoperativelyThe patient's cardiovascular status is consistent with or improved from baseline levels established preoperatively The patient's neurological status is consistent with or improved from baseline levels established preoperatively The patient demonstrates and/or reports adequate pain control throughout the perioperative period The patient received appropriate medication(s), safely administered during the perioperativeperiod Finalized By: Maddi Lau RN Document Signatures Signed By: Maddi Lau RN 09/07/24 12:26[facility] HospitalMain OR Preoperative Recordon [id number] OR Preoperative RecordMain OR Preoperative Record PreOp Document Type FT Summary Primary Physician: Perri Correa MD Finalized Date/Time: 09/07/24 10:28:36 Pt. Name: AGUSTO KING /Sex: 1980 Female Med Rec #: [id number] Physician: Perri Correa MD Financial #: [id number] Pt. Type: A Room/Bed: 05/21 Admit/Disch: 09/07/24 07:36:37 - Institution: Case Times [...] Signatures Signed By: Demetrius Oden Ii 09/07/24 10:28GenevieveMagruder HospitalOutpatient Surgery Discharge Instructionon [id number] Surgery Discharge InstructionOutpatient Surgery Discharge Instruction [address] [address] Patient Discharge Instructions PERSON INFORMATION Name: AGUSTO KING Date of : 1980 Current Date: 09/07/2024 10:47:25 PHYSICIANS Admitting Physician: Madeline SAMANIEGO, Perri Phelps Discharge Diagnosis: Alvaro bullosa; DNS (deviated nasal [...] NEAREST EMERGENCY ROOM OR CALL 911 I, VARSHA AGUSTO, have received the attached patient education materials/instructions and have verbalized understanding: May we do a follow up call? Yes No I was present when discharge instructions were given Patient Signature Date Clinican/Nurse Signature Date Follow up: With: Address: When: Perri Correa [address] [place] [address], [facility], [address] [place] [address] Business (1) In 8 days 09/15/2024 Pharmacy Information: You may receive a survey from [employer] asking you to rate your care experience. Your feedback is important and will help us understand what we do well and how we can improve the quality of care we provide to you, your loved ones and our community. It???s an honor to serve you. Thank you for choosing [facility] HERE ARE THE MEDICATION CHANGES THAT OCCURRED DURING YOUR HOSPITAL STAY Medications to Continue with No Changes Other Medications amphetamine-dextroamphetamine (Adderall 20 mg Tab) 1 Tablets By Mouth 2 times a day., ADD bacillus coagulans-inulin (Probiotic Formula (Bacillus Coagulans)) buPROPion (buPROPion 150 mg ER Tab) 1 Tablets By Mouth every day. cetirizine-pseudoephedrine (Zyrtec-D) 1 Tablets By Mouth every day. fluticasone nasal (Flonase) venlafaxine (venlafaxine 150 mg Cap-ER) 1 Capsules By Mouth every day. PATIENT EDUCATION INFORMATION Instructions: Medication Leaflets:[facility] EastEROLOGYOrdered By: Antonella Lou on 53-77-8570Cktn HCG ( test) QlNegative (09/07/24 8:19 AM)[facility] Man SeroBMPon 49-22-6001Aymza gap [Moles/Vol]10 mmol/LNormal6-16Magruder HospitalComment on above:Performed By: #### [id number] #### [facility] [address] [place], [place] [address]Vacyndm [Mass/Vol]8.9 mg/dLNormal8.9-11.1FGood Samaritan HospitalComment on above:Performed By: #### [id number] #### [facility] [address] [place], [place] [address]Qkydwgpj [Moles/Vol]105 mmol/YShbpiu160-302IvwbhbMagruder HospitalComment on above:Performed By: #### [id number] #### [facility] [address] [place], [place] [address]RQ8 [Moles/Vol]27 mmol/KDswmre18-42EfelegMagruder Hospital Comment on above:Performed By: #### [id number] #### [facility] [address] [place], [place] [address]Cffnqsobrn [Mass/Vol]0.6 mg/dLNormal0.5-1.3FGood Samaritan HospitalComment on above:Performed By: #### [id number] #### [facility] [address] [place], [place] [address]Xchgcew [Mass/Vol]112 mg/dWUbllfc16-265UpwwpuMagruder HospitalComment on above:Performed By: #### [id number] #### [facility] [address] [place], [place] [address]Dncxzbozz [Moles/Vol]3.5 mmol/LNormal3.5-5.3FGood Samaritan HospitalComment on above:Performed By: #### [id number] #### [facility] [address] [place], [place] [address]Xitxsn [Moles/Vol]138 mmol/XXqbbco966-098WvfahoMagruder HospitalComment on above:Performed By: #### [id number] #### [facility] [address] [place], [place] [address]Fbge nitrogen [Mass/Vol]16 mg/dLNormal5-21Magruder HospitalComment on above:Performed By: #### [id number] #### [facility] [address] [place], [place] [address]Kqnn nitrogen/Creatinine [Mass ratio]27 No RmrjgHdvw70-33YfouctMagruder HospitalComment on above:Performed By: #### [id number] #### [facility] [address] [place] [address]ANF w/ Auto Diffon 71-88-6622Tdezdoagg/100 WBC (Bld)1.5 %Normal 0.0-2.0NOMS HealthcareComment on above:Performed By: #### [id number] #### [facility] [address] [place] [address]Fhwghgred/Leukocytes Auto (Bld) [Pure # fraction]0.1 E9/LNormal 0.0-0.2FGood Samaritan HospitalComment on above:Performed By: #### [id number] #### [facility] [address] [place] [address]Tzxfgtcpiil (Bld) [#/Vol]0.1 E9/LNormal0.0-0.5Fisher [facility] HospitalComment on above:Performed By: #### [id number] #### [facility] [address] [place] [address]Fdohfwjsjzf/100 WBC (Bld)2.2 %Normal0.0-8.0Magruder HospitalComment on above:Performed By: #### [id number] #### [facility] [address] [place] [address]Yyrcfbnewln distribution width (RBC) [Ratio]13.2 %Normal 10.9-14.2NOMS HealthcareComment on above:Performed By: #### [id number] #### [facility] [address] [place] [address]Atuypmtjlc (Bld) [Volume fraction]39.8 %Qijzmw97.0-46.0NOMS HealthcareComment on above:Performed By: #### [id number] #### [facility] [address] [place] [address]Arpxjsvgts (Bld) [Mass/Vol]13.7 g/pXXdjkkn16.0-16.0Magruder HospitalComment on above:Performed By: #### [id number] #### [facility] [address] [place] [address]Wmsisrffamp (Bld) [#/Vol]1.3 E9/LNormal1.0-4.0Magruder HospitalComment on above:Performed By: #### [id number] #### [facility] [address] [place] [address]Fuogmmcrher/100 WBC (Bld)21.9 %Nnjptn40.0-50.0[facility] Comment on above:Performed By: #### [id number] #### [facility] [address] [place] [address]XIV (RBC) [Entitic mass]31.3 dyUkkias19.0-34.0Magruder HospitalComment on above:Performed By: #### [id number] #### [facility] [address] [place] [address]LAYA (RBC) [Mass/Vol]34.4 g/fRFvuysw61.4-36.0Magruder HospitalComment on above:Performed By: #### [id number] #### [facility] [address] [place] [address]RBB (RBC) [Entitic vol]90.9 uKRhnqzt29.0-100.0Magruder HospitalComment on above:Performed By: #### [id number] #### [facility] [address] [place] [address]Wchvpylbz (Bld) [#/Vol]0.4 E9/LNormal0.2-1.0Magruder HospitalComment on above:Performed By: #### [id number] #### [facility] [address] [place] [address]Kjfxvljhvdw (Bld) [#/Vol]3.8 E9/LNormal2.0-7.5FGood Samaritan HospitalComment on above:Performed By: #### [id number] #### [facility] [address] [place] [address]Pbijilqhhil/100 WBC (Bld)67.2 %Gzoyjg40.0-75.0[facility] Comment on above:Performed By: #### [id number] #### [facility] [address] [place], [place] [address]Mrqwfvcs mean volume (Bld) [Entitic vol]8.4 fLNormal6.4-10.8 NOMS HealthcareComment on above:Performed By: #### [id number] #### [facility] [address] [place] [address]Bcednhirf (Bld) [#/Vol]330.0 E9/JKpfylm797.0-500.0Magruder HospitalComment on above:Performed By: #### [id number] #### [facility] [address] [place] [address]FPE (Bld) [#/Vol]4.4 E12/LNormal4.3-5.9Magruder HospitalComment on above:Performed By: #### [id number] #### [place] [facility] [address] [place] [address]OMT corrected for nucl RBC Auto (Bld) [#/Vol]5.7 E9/LNormal 4.0-11.0Magruder HospitalComment on above:Performed By: #### [id number] #### [place] [facility] [address] [place] [id number] By: SYSTEM SYSTEM on 74-91-8167Nlctn gap [Moles/Vol]10 mmol/LNormal6 - 16 mEq/LRemisol ChemCalcium [Mass/Vol]8.9 mg/dL Normal8.9 - 11.1 mg/dLRemisol ChemChloride [Moles/Vol]105 mmol/UYfflgs710 - 111 mmol/LRemisol ChemCO2 [Moles/Vol]27 mmol/ZGzcost80 - 31 mmol/LRemisol Chem Creatinine [Mass/Vol]0.6 mg/dLNormal0.5 - 1.3 mg/dLRemisol HfehrNEA009 mL/min/1.73 v3Eonbaa>=59mL/min/1.73 z8Rtsdkhy ChemGlucose [Mass/Vol]112 mg/dL Rmlacy12 - 199 mg/dLRemisol ChemPotassium [Moles/Vol]3.5 mmol/LNormal3.5 - 5.3 mmol/LRemisol ChemSodium [Moles/Vol]138 mmol/ZRdwcfq431 - 145 mmol/LRemisol Chem Urea nitrogen [Mass/Vol]16 mg/dLNormal5 - 21 mg/dLRemisol ChemUrea nitrogen/Creatinine [Mass ratio]27 mg/lsFijj42 - 20Remisol ChemCOAGULATION Ordered By: Keyonna Arellano on 44-06-6236eRLL Coag (PPP) [Time]31.2 uOzniio21.1 - 36.5 second(s)[facility] Auto CoagComment on above:Interpretive Data: Parameter 15 days - 4 weeks 1 - [...] the same coagulation reagent and instrumentation as [facility]. Currently there are no coagulation studies available worldwide for children to 14 days, andno normal ranges. Heparin therapeutic range (represented by Anti-Factor Xa activity of 0.2 - 0.4 U/mL) corresponds to PTT of 56.6 - 109.0 sec.INR Coag (PPP) [Relative time]0.89 {INR}Invalid Interpretation CodeSUM[facility] Auto CoagComment on above:Interpretive Data: INR results are specifically intended to assess patients stabilized on long-term Anticoagulation therapy suggested INR s Less Intensive Anticoagulation 2.0 3.0 Conventional Range 3.0 4.5PT Coag (PPP) [Time]10.0 sNormal9.4 - 12.5 second(s) [facility] Auto CoagComment on above:Interpretive Data: 15 days - 4 weeks 1 - [...] the same coagulation reagent and instrumentation as [facility]. Currently there are no coagulation studies available worldwide for children to 14 days, andno normal ranges.[facility] CBC W/ AUTO DIFFon 96-93-1900OWFTKWYZSLN/100 LEUKOCYTES:NFR:PT:BLD:QN:AUTOMATED COUNT2.2 %0.0 - 8.0 %[facility] EOSINOPHILS:NCNC:PT:BLD:QN:0.1NOMS [facility] BASOPHILS/LEUKOCYTES:NFR.DF:PT:BLD:QN:AUTOMATED COUNT0.1NOMS [facility] ERYTHROCYTE MEAN CORPUSCULAR HEMOGLOBIN CONCENTRATION:MCNC:PT:RBC:QN34.4NOSt. [facility] ERYTHROCYTE MEAN CORPUSCULAR HEMOGLOBIN:ENTMASS:PT:RBC:QN31.3 pg 27.0 - 34.0 pgPark[facility] Center ERYTHROCYTE MEAN CORPUSCULAR VOLUME:ENTVOL:PT:RBC:QN:AUTOMATED COUNT90.9 fL80.0 - 100.0 fLParkland Health Center ERYTHROCYTES:NCNC:PT:BLD:QN:AUTOMATED COUNT4.4NOSt. [facility] HEMOGLOBIN:MCNC:PT:BLD:QN:13.7NOSt. [facility] LEUKOCYTES5.7NODayton [facility]opathic [facility] MONOCYTES:NCNC:PT:BLD:QN:AUTOMATED COUNT0.4NOSt. [facility] NEUTROPHILS:NCNC:PT:BLD:QN:AUTOMATED COUNT3.8NOSt. [facility] PLATELETS:NCNC:PT:BLD:QN:AUTOMATED OGZME120CWQUKindred Hospital LYMPHOCYTES:NCNC:PT:BLD:QN:1.3NOKindred HospitalOriginal Ordering Provider: MD Perri Mcmullen [facility] HospitalHEMATOLOGYOrdered By: SYSTEM SYSTEM on 68-52-3784Rmltqqjzc/100 WBC (Bld)1.5 %Normal0.0 - 2.0 %Remisol Heme Basophils/Leukocytes Auto (Bld) [Pure # fraction]0.1 E9/LNormal0.0 - 0.2 E9/L Remisol HemeEosinophils (Bld) [#/Vol]0.1 E9/LNormal0.0 - 0.5 E9/LRemisol Heme Eosinophils/100 WBC (Bld)2.2 %Normal0.0 - 8.0 %Remisol HemeErythrocyte distribution width (RBC) [Ratio]13.2 %Zfhiys28.9 - 14.2 %Remisol HemeHematocrit (Bld) [Volume fraction]39.8 %Nqsadg11.0 - 46.0 %Remisol HemeHemoglobin (Bld) [Mass/Vol]13.7 g/bJJkkadj39.0 - 16.0 gm/dLRemisol HemeLymphocytes (Bld) [#/Vol] 1.3 E9/LNormal1.0 - 4.0 E9/LRemisol HemeLymphocytes/100 WBC (Bld)21.9 %Normal 14.0 - 50.0 %Remisol HemeMCH (RBC) [Entitic mass]31.3 goMkdjay01.0 - 34.0 pg Remisol HemeMCHC (RBC) [Mass/Vol]34.4 g/oLIprtdy57.4 - 36.0 gm/dLRemisol HemeMCV (RBC) [Entitic vol]90.9 nIKaooeu56.0 - 100.0 fLRemisol HemeMonocytes (Bld) [#/Vol]0.4 E9/LNormal0.2 - 1.0 E9/LRemisol HemeMonocytes/100 WBC (Bld)7.2 % Normal4.0 - 14.0 %Remisol HemeNeutrophils (Bld) [#/Vol]3.8 E9/LNormal2.0 - 7.5 E9/LRemisol HemeNeutrophils/100 WBC (Bld)67.2 %Kicktd02.0 - 75.0 %Remisol Heme Platelet mean volume (Bld) [Entitic vol]8.4 fLNormal6.4 - 10.8 fLRemisol Heme Platelets (Bld) [#/Vol]330.0 E9/SQpntwz088.0 - 500.0 E9/LRemisol HemeRBC (Bld) [#/Vol]4.4 E12/LNormal4.3 - 5.9 E12/LRemisol HemeWBC corrected for nucl RBC Auto (Bld) [#/Vol]5.7 E9/LNormal4.0 - 11.0 E9/LRemisol HemePT & PTTon 28-98-4850dPHF Coag (PPP) [Time]31.2 second(s)Uboohg88.1-36.5Fisher [facility] Comment on above:Result Comment: Parameter 15 days - 4 weeks 1 - [...] the same coagulation reagent and instrumentation as [facility]. Currently there are no coagulation studies available worldwide for children to 14 days, andno normal ranges. Heparin therapeutic range (represented by Anti-Factor Xa activity of 0.2 - 0.4 U/mL) corresponds to PTT of 56.6 - 109.0 sec.Performed By: #### [id number] #### [place] [facility] [address] [place], [place] [address]HFC Coag (PPP) [Relative time]0.89 {INR}Invalid Interpretation Sonia [facility] HospitalComment on above:Result Comment: INR results are specifically intended to assess patients stabilized on long-term Anticoagulation therapy suggested INR???s ???Less Intensive Anticoagulation??? 2.0 ??? 3.0 Conventional Range 3.0 ??? 4.5Performed By: #### [id number] #### [place] [facility] [address] [place], [place] [address]UV Coag (PPP) [Time]10.0 second(s)Normal9.4-12.5Fisher [facility] HospitalComment on above:Result Comment: 15 days - 4 weeks 1 - [...] the same coagulation reagent and instrumentation as [facility]. Currently there are no coagulation studies available worldwide for children to 14 days, andno normal ranges.Performed By: #### [id number] #### [place] [facility] [address] [place], [place] [address]nYBVth 10-13-6236fYCS104 mL/min/1.73 h5Ywpitq>=59Fisher [facility] HospitalComment on above:Performed By: #### [id number] #### [place] [facility] [address] [place], [place] [address]QB MAXILLOFACIAL WO IV CONTRASTon 77-51-1864YO MAXILLOFACIAL WO IV CONTRASTCT MAXILLOFACIAL WO IV CONTRAST INDICATION: Chronic pansinusitis, hearing loss, headaches COMPARISONS: None TECHNIQUE: 2.5 mm axial images were obtained through the paranasal sinuses. Coronal and sagittal reformatted images were produced and reviewed. FINDINGS: MAXILLARY SINUSES: Clear. ETHMOID AIR CELLS: Clear. FRONTAL SINUSES: Clear. SPHENOID SINUSES: Clear. INFUNDIBULUM/OSTIOMEATAL COMPLEX: The infundibula are patent. SPHENOETHMOIDAL RECESSES: Clear. NASAL CAVITY: No mass or osseous destructive lesion. Small alvaro bullosa of the right middle nasalturbinate is seen. NASAL SEPTUM: There is leftward deviation of the mid nasal septum with prominent leftward spurring. TMJ: Normal. IMPRESSION: No paranasal sinusitis identified. Nasal septal deviation/spurring. Incidental small alvaro bullosa of the right middle nasal turbinate. Dictated on: 08/11/2024 2:55 PM This report has been electronically signed and approved by the interpreting Radiologist.NormalNot AvailableComment on above:Order Comment: Please schedule pt for [employer] CT maxillofacial without contrast at [facility] for mid lanine aminotransferase [Enzymatic activity/volume] in Serum or Plasma Ordered By: James Sands on 68-90-8147IYG [Catalytic activity/Vol]24 U/L7-52 [facility] HospitalAlbumin [Mass/volume] in Serum or Plasma by Bromocresol green (BCG) dye binding methoOrdered By: James Sands on 57-50-1050Ftgcwtf BCG dye [Mass/Vol]4.2 g/dL3.5-5.7FHocking Valley Community HospitalAlkaline phosphatase [Enzymatic activity/volume] in Serum or PlasmaOrdered By: James Sands on 04-16-9094BFQ [Catalytic activity/Vol]65 U/L34-104 [facility] HospitalAspartate aminotransferase [Enzymatic activity/volume] in Serum or PlasmaOrdered By: James Sands on 81-50-9654CQL [Catalytic activity/Vol]22 U/G64-52XyrmxlrcuVan Wert County HospitalBasophils Auto (Bld) [#/Vol]Ordered By: James Sands on 89-26-4000Zwqqqjypa (Bld) [#/Vol]0.1 10*3/uL0.0-0.2FHocking Valley Community HospitalBasophils/100 WBC Auto (Bld)Ordered By: James Sands on 09-39-2524Vplmmzrfk/100 WBC (Bld)2.4 %. [facility] HospitalBilirubin.total [Mass/volume] in Serum or PlasmaOrdered By: James Sands on 70-70-8266Ccjfgkujq [Mass/Vol]0.3 mg/dL 0.3-1.0[facility] HospitalC reactive protein [Mass/volume] in Serum or PlasmaOrdered By: James Sands on 06-77-8530QWR [Mass/Vol]< 0.5 mg/dL 0.0-0.5FHocking Valley Community HospitalC-Reactive Proteinon 27-79-9605VCF [Mass/Vol]mg/LNormal0.0-0.5The [facility]oke Physician GroupComment on above:Result Comment: PERFORMED BY: [facility] [address] [place] [address] PATHOLOGIST FLOORWORKER LASTING DARIUS LOPEZ M.D.Performed By: #### ESR, CK, CMP, CRP, CBC #### [facility] [address] [place] [address] USACalcium [Mass/volume] in Serum or PlasmaOrdered By: James Sands on 81-40-7032Xukmlga [Mass/Vol]8.9 mg/dL8.6-10.3FHocking Valley Community HospitalCarbon dioxide, total [Moles/volume] in Serum or PlasmaOrdered By: James Sands on 42-20-2303JW8 [Moles/Vol]31.6 mmol/L21.0-31.0[facility] HospitalChloride [Moles/volume] in Serum or PlasmaOrdered By: James Sands on 13-14-4338Dcupgtxe [Moles/Vol]103 mmol/A88-202KbkqmdaycVan Wert County HospitalComplete Blood Count Auto Diffon 35-05-1496Mueuwhhys (Bld) [#/Vol]0.1 10*3/uLNormal0.0-0.2The [facility]oke Physician GroupComment on above:Performed By: #### ESR, CK, CMP, CRP, CBC #### [facility] [address] [place] [address] USABasophils/100 WBC (Bld)2.4 %Normal.The [facility] - Hoke Physician GroupComment on above:Performed By: #### ESR, CK, CMP, CRP, CBC #### [facility] [address] [place] [address] USAEosinophils (Bld) [#/Vol]0.1 10*3/uLNormal0.0-0.45The [facility]oke Physician GroupComment on above:Performed By: #### ESR, CK, CMP, CRP, CBC #### [place] [address] USAEosinophils/100 WBC (Bld)1.8 %Normal.The [facility]oke Physician GroupComment on above:Performed By: #### ESR, CK, CMP, CRP, CBC #### [place] [address] USAErythrocyte distribution width (RBC) [Ratio]13.4 %Normal 11.9-15.3The [facility]oke Physician GroupComment on above:Performed By: #### ESR, CK, CMP, CRP, CBC #### [place] [address] USAHematocrit (Bld) [Volume fraction]39.2 %Triivl75.0-46.4The [facility] Physician GroupComment on above:Performed By: #### ESR, CK, CMP, CRP, CBC #### [place] [address] USAHemoglobin (Bld) [Mass/Vol]13.1 g/zFXxxucp59.8-15.4The [facility] Physician GroupComment on above:Performed By: #### ESR, CK, CMP, CRP, CBC #### [place] [address] USALymphocytes (Bld) [#/Vol]1.4 10*3/uLNormal1.00-4.8The [facility] Physician GroupComment on above:Performed By: #### ESR, CK, CMP, CRP, CBC #### [place] [address] USALymphocytes/100 WBC (Bld)25.1 %Normal.The [facility] Physician GroupComment on above:Performed By: #### ESR, CK, CMP, CRP, CBC #### [place] [address] USAMCH (RBC) [Entitic mass]29.7 nbNdvwno84.7-34.3The [facility] Physician GroupComment on above:Performed By: #### ESR, CK, CMP, CRP, CBC #### [facility] [address] [place] [address] USAMCV (RBC) [Entitic vol]89.2 eUFqyulr12-245Avt [facility] Physician GroupComment on above:Performed By: #### ESR, CK, CMP, CRP, CBC #### [place] [address] USAMean Corpuscular HGB Conc33.4 g/uNYemlrb09.0-35.0The [facility]oke Physician GroupComment on above:Performed By: #### ESR, CK, CMP, CRP, CBC #### [place] [address] USAMonocytes (Bld) [#/Vol]0.5 10*3/uLNormal0.0-0.8The [facility] Physician GroupComment on above:Performed By: #### ESR, CK, CMP, CRP, CBC #### [place] [address] USAMonocytes/100 WBC (Bld)8.3 %Normal.The [facility] Physician GroupComment on above:Performed By: #### ESR, CK, CMP, CRP, CBC #### [place] [address] USANeutrophils (Bld) [#/Vol]3.4 10*3/uLNormal1.8-7.7The [facility] Physician GroupComment on above:Performed By: #### ESR, CK, CMP, CRP, CBC #### [place] [address] USANeutrophils/100 WBC (Bld)62.4 %Normal.The [facility] Physician GroupComment on above:Performed By: #### ESR, CK, CMP, CRP, CBC #### [place] [address] USANRBC%0.1 /100{WBC}Normal0-0.5The [facility] Comment on above:Performed By: #### ESR, CK, CMP, CRP, CBC #### [place] [address] USAPlatelet mean volume (Bld) [Entitic vol]9.0 fLNormal 6.3-10.7The [facility] Physician GroupComment on above:Performed By: #### ESR, CK, CMP, CRP, CBC #### [place] [address] USAPlatelets (Bld) [#/Vol]322 10*3/jZSzvfxm615-697Nlr [facility] Physician GroupComment on above:Performed By: #### ESR, CK, CMP, CRP, CBC #### [place] [address] USARBC (Bld) [#/Vol]4.39 10*6/uLNormal3.60-5.00The [facility] Physician GroupComment on above:Performed By: #### ESR, CK, CMP, CRP, CBC #### [place] [address] USAWBC (Bld) [#/Vol]5.5 10*3/uLNormal3.8-11.6The [facility] Physician GroupComment on above:Performed By: #### ESR, CK, CMP, CRP, CBC #### [place] [address] USAComprehensive Metabolic Panelon 09-80-7001Cbpjtdr [Mass/Vol]4.2 g/dLNormal3.5-5.7The [facility] Physician GroupComment on above: Performed By: #### ESR, CK, CMP, CRP, CBC #### [place] [address] USAAlbumin/Globulin [Mass ratio]1.8 {ratio}NormalThe [facility]oke Physician GroupComment on above:Performed By: #### ESR, CK, CMP, CRP, CBC #### [place] [address] USAALP [Catalytic activity/Vol]65 U/AWqesht61-854Zyr [facility]oke Physician GroupComment on above:Performed By: #### ESR, CK, CMP, CRP, CBC #### [facility] [address] [place] [address] USAALT [Catalytic activity/Vol]24 U/LNormal7-52The [facility]oke Physician GroupComment on above:Performed By: #### ESR, CK, CMP, CRP, CBC #### [facility] [address] [place] [address] USAAnion gap [Moles/Vol]8.7 mmol/LNormal6.0-15.0The [facility] Physician GroupComment on above:Performed By: #### ESR, CK, CMP, CRP, CBC #### [facility] [address] [place] [address] USAAST [Catalytic activity/Vol]22 U/AStniva51-28Bzh [facility] Physician GroupComment on above:Performed By: #### ESR, CK, CMP, CRP, CBC #### [facility] [address] [place] [address] USABilirubin [Mass/Vol]0.3 mg/dLNormal0.3-1.0The [facility]oke Physician GroupComment on above:Performed By: #### ESR, CK, CMP, CRP, CBC #### [facility] [address] [place] [address] USACalcium [Mass/Vol]8.9 mg/dLNormal8.6-10.3The [facility] Physician GroupComment on above:Performed By: #### ESR, CK, CMP, CRP, CBC #### [facility] [address] [place] [address] USAChloride [Moles/Vol]103 mmol/WLyrcjc26-072Mnp [facility] Physician GroupComment on above:Performed By: #### ESR, CK, CMP, CRP, CBC #### [facility] [address] [place] [address] USACO2 [Moles/Vol]31.6 mmol/LHigh21.0-31.0The [facility] Physician GroupComment on above:Performed By: #### ESR, CK, CMP, CRP, CBC #### [facility] [address] [place] [address] USACreatinine [Mass/Vol]0.60 mg/dLNormal0.60-1.20The [facility] Physician GroupComment on above:Performed By: #### ESR, CK, CMP, CRP, CBC #### [facility] [address] [place] [address] USAGFR/1.73 sq M.predicted MDRD (S/P/Bld) [Vol rate/Area] mL/min/{1.73_m2}NormalThe [facility] Physician GroupComment on above:Performed By: #### ESR, CK, CMP, CRP, CBC #### [facility] [address] [place] [address] USAGlobulin (S) [Mass/Vol]2.4 g/dLNormalThe [facility] Physician GroupComment on above:Performed By: #### ESR, CK, CMP, CRP, CBC #### [place] [address] USAGlucose [Mass/Vol]82 mg/dPXctldk68-579Xxl [facility] Physician GroupComment on above:Result Comment: Random Glucose Reference Range is dependent on time and content of last meal. Glucose of more than 200 mg/dL in a nonstressed, ambulatory subject supports the diagnosis of Diabetes Mellitus. ADA recommended reference rangePerformed By: #### ESR, CK, CMP, CRP, CBC #### [place] [address] USAPotassium [Moles/Vol]4.3 mmol/LNormal3.5-5.1The [facility] Physician GroupComment on above:Performed By: #### ESR, CK, CMP, CRP, CBC #### [place] [address] USAProtein [Mass/Vol]6.6 g/dLNormal6.4-8.9The [facility] Physician GroupComment on above:Performed By: #### ESR, CK, CMP, CRP, CBC #### [place] [address] USASodium [Moles/Vol]139 mmol/TUuwkdh259-265Odb [facility] Physician GroupComment on above:Performed By: #### ESR, CK, CMP, CRP, CBC #### [facility] [address] [place] [address] USAUrea nitrogen [Mass/Vol]18 mg/dLNormale [facility] Physician GroupComment on above:Performed By: #### ESR, CK, CMP, CRP, CBC #### [facility] [address] [place] [address] USACreatine Kinaseon 89-53-5225VE [Catalytic activity/Vol]257 U/SPtgm78-677Hjl [facility] Physician GroupComment on above:Result Comment: PERFORMED BY: [place] [address] PATHOLOGIST FLOORWORKER LASTING DARIUS LOPEZ M.D.Performed By: #### ESR, CK, CMP, CRP, CBC #### [facility] [address] [place] [id number] USACreatine kinase [Enzymatic activity/volume] in Serum or PlasmaOrdered By: James Sands on 40-92-1338TU [Catalytic activity/Vol]257 U/L [facility] HospitalCreatinine [Mass/volume] in Serum or PlasmaOrdered By: James Sands on 20-02-6830Vlwullqqxr [Mass/Vol]0.60 mg/dL 0.60-1.20[facility] HospitalEosinophils Auto (Bld) [#/Vol]Ordered By: James Sands on 75-24-3291Ppgtnzbtawp (Bld) [#/Vol]0.1 10*3/uL0.0-0.45 [facility] HospitalEosinophils/100 WBC Auto (Bld)Ordered By: James Sands on 03-60-1409Tgnhfoqgzks/100 WBC (Bld)1.8 %.[facility] HospitalErythrocyte Sedimentation Rateon 95-07-3872FFU (Bld) [Velocity]3 mm/hNormal0-19The [facility] Physician GroupComment on above:Result Comment: PERFORMED BY: [place] [id number] PATHOLOGIST FLOORWORKER LASTING DARIUS LOPEZ M.D.Performed By: #### ESR, CK, CMP, CRP, CBC #### [facility] [address] [place] [id number] [facility] HOSPITALErythrocyte distribution width Auto (RBC) [Ratio]Ordered By: James Sands on 39-89-1663Bbecxrqmrcq distribution width (RBC) [Ratio]13.4 %11.9-15.3FHocking Valley Community HospitalErythrocyte sedimentation rate by Photometric methodOrdered By: James Snads on 14-88-6467YUN Photometric method (Bld) [Velocity]3 mm/hr0-19[facility] HospitalGlobulin Calc (S) [Mass/Vol]Ordered By: James Sands on 26-87-6916Kojsjsrk (S) [Mass/Vol]2.4 g/dLVan Wert County HospitalGlucose [Mass/volume] in Serum or Plasma Ordered By: James Sands on 17-48-2972Kpwijxw [Mass/Vol]82 mg/oY21-852 [facility] HospitalComment on above:ADA recommended reference rangeRandom Glucose Reference Range is dependent on time and content of last meal. Glucose of more than 200 mg/dL in a nonstressed, ambulatory subject supports the diagnosisof Diabetes Mellitus.Hematocrit Auto (Bld) [Volume fraction]Ordered By: James Sands on 14-71-8073Pzmzkhgqfd (Bld) [Volume fraction]39.2 %34.0-46.4FHocking Valley Community HospitalHemoglobin [Mass/volume] in BloodOrdered By: James Sands on 49-02-1513Zloqzjmdaj (Bld) [Mass/Vol]13.1 g/dL11.8-15.4FHocking Valley Community HospitalLeukocytes [#/volume] corrected for nucleated erythrocytes in Blood by Automated coun Ordered By: James Sands on 13-16-8468EKP corrected for nucl RBC Auto (Bld) [#/Vol]5.5 10*3/uL3.8-11.6FHocking Valley Community HospitalLymphocytes Auto (Bld) [#/Vol]Ordered By: James Sands on 99-01-0638Lbsmymtlibc (Bld) [#/Vol] 1.4 10*3/uL1.00-4.8[facility] HospitalLymphocytes/100 WBC Auto (Bld)Ordered By: James Sands on 36-38-3116Wegpzvcjpkq/100 WBC (Bld)25.1 %. [facility] HospitalH Auto (RBC) [Entitic mass]Ordered By: James Sands on 98-88-5447YVD (RBC) [Entitic mass]29.7 pg24.7-34.3FHocking Valley Community HospitalMCHC Auto (RBC) [Mass/Vol]Ordered By: James Sands on 01-11-2024 MCHC (RBC) [Mass/Vol]33.4 g/dL32.0-35.0[facility] HospitalMCV Auto (RBC) [Entitic vol]Ordered By: James Sands on 44-55-6161LHP (RBC) [Entitic vol]89.2 zZ40-504PjwzgnopnVan Wert County HospitalMonocytes Auto (Bld) [#/Vol] Ordered By: James Sands on 46-94-3100Stmgkofzm (Bld) [#/Vol]0.5 10*3/uL 0.0-0.8[facility] HospitalMonocytes/100 WBC Auto (Bld)Ordered By: James Sands on 64-95-7273Hshzciggc/100 WBC (Bld)8.3 %.[facility] HospitalNeutrophils Auto (Bld) [#/Vol]Ordered By: James Sands on 08-87-8352Iknyufvauhr (Bld) [#/Vol]3.4 10*3/uL1.8-7.7FHocking Valley Community HospitalNeutrophils/100 WBC Auto (Bld)Ordered By: James Sands on 01-11-2024 Neutrophils/100 WBC (Bld)62.4 %.[facility] HospitalNo Panel InformationOrdered By: James Sands on 55-38-9019Wjxmhfnac GFR (CKD-EPI)> 60.0 mL/MinVan Wert County HospitalPharmacy Creatinine Clearance (ChemN/A [facility] County HospitalNucleated erythrocytes [Presence] in Blood by Automated countOrdered By: James Sands on 99-20-2149Lbxeifmwx RBC Auto Ql (Bld)0.1 /100{WBC}0-0.5FHocking Valley Community HospitalPlatelet mean volume Auto (Bld) [Entitic vol]Ordered By: James Sands on 91-97-3451Owzfvhjs mean volume (Bld) [Entitic vol]9.0 fL6.3-10.7FHocking Valley Community Hospital Platelets Auto (Bld) [#/Vol]Ordered By: James Sands on 57-14-1645Neqreffcz (Bld) [#/Vol]322 10*3/qW728-056SotknflpwVan Wert County HospitalPotassium [Moles/volume] in Serum or PlasmaOrdered By: James Sands on 01-11-2024 Potassium [Moles/Vol]4.3 mmol/L3.5-5.1FHocking Valley Community HospitalProtein [Mass/volume] in Serum or PlasmaOrdered By: James Sands on 01-98-2706Meaokko [Mass/Vol]6.6 g/dL6.4-8.9[facility] HospitalRBC Auto (Bld) [#/Vol] Ordered By: James Sands on 83-89-3600BAP (Bld) [#/Vol]4.39 10*6/uL3.60-5.00 [facility] Centererum or plasma albumin/globulin mass ratio Ordered By: James Sands on 46-76-5253Oketyvr/Globulin [Mass ratio]1.8 {ratio} [facility] Centererum or plasma anion gap determinationOrdered By: James Sands on 21-01-0038Hzrfq gap [Moles/Vol]8.7 mmol/L6.0-15.0[facility] Centerodium [Moles/volume] in Serum or PlasmaOrdered By: James Sands on 61-04-3920Nhmxfo [Moles/Vol]139 mmol/G281-790MemiznofpVan Wert County HospitalUrea nitrogen [Mass/volume] in Serum or PlasmaOrdered By: James Sands on 03-24-6612Sxym nitrogen [Mass/Vol]18 mg/dL7-25Van Wert County HospitalWBC Auto (Bld) [#/Vol]Ordered By: James Sands on 20-65-7414EDE (Bld) [#/Vol]5.5 10*3/uL3.8-11.6FHocking Valley Community Hospital FSHon 92-71-8189LPK3.7 mIU/mLNormalSelect Medical Specialty Hospital - AkronComment on above:Result Comment: Adult Female: Follicular phase 3.5 - 12.5 Ovulation phase 4.7 - 21.5 Luteal phase 1.7 - 7.7 Postmenopausal 25.8 - 134.8Performed By: #### LBCFSH #### [facility] [facility] [address] [address] [address] Haydee ChenLUTEINIZING HORMONE (LH)on 34-74-0924RS9.1 mIU/mLNormalSelect Medical Specialty Hospital - AkronComment on above:Result Comment: Adult Female: Follicular phase 2.4 - 12.6 Ovulation phase 14.0 - 95.6 Luteal phase 1.0 - 11.4 Postmenopausal 7.7 - 58.5Performed By: #### LBCLH ####[facility] [address] [address]Dr. Haydee Farris AUTO DIFF on 03-00-4424JOBZ #0.1 103/ulNormal0.0-0.1[facility] Hospital - AkronComment on above: Performed By: #### CBC #### [facility] [address] [place] [address] Dr. Haydee ChenBasophils/100 WBC (Bld)1.3 %Normal0.2-2.0[facility] Comment on above:Performed By: #### CBC #### [facility] [address] [address] [address] Haydee Muñoz #0.1 103/ulNormal0.0-0.7The [facility] HospitalComment on above: Performed By: #### CBC #### [facility] [address] [place] [address] Dr. Haydee Carcamoosinophils/100 WBC (Bld)1.3 %Normal0.9-7.0[facility] Comment on above:Performed By: #### CBC #### [facility] [address] [place] [address] Dr. Haydee Carcamorythrocyte distribution width (RBC) [Ratio]12.3 %Hkoikt74.0-15.0 The [facility] HospitalComment on above:Performed By: #### CBC #### [facility] [address] [place] [address] Dr. Haydee ChenHematocrit (Bld) [Volume fraction]37.0 %Soetoh59.0-48.0The [facility] HospitalComment on above:Performed By: #### CBC #### [facility] [address] [place] [address] Dr. Haydee ChenHemoglobin (Bld) [Mass/Vol]12.1 g/bIGusqjv95.0-16.0The [facility] HospitalComment on above:Performed By: #### CBC #### [facility] [address] [place] [address] Dr. Haydee Delaney #0.01 10e3/ulNormal0.00-0.03The [facility] HospitalComment on above:Performed By: #### CBC #### [facility] [address] [place] [address] Dr. Haydee Delaney %0.2 %Normal0.0-0.5The [facility] HospitalComment on above: Performed By: #### CBC #### [facility] [address] [place] [address] Dr. Haydee White #1.6 103/ulNormal1.2-3.8The [facility] HospitalComment on above:Performed By: #### CBC #### [facility] [address] [place] [address] Dr. Haydee Cejahocytes/100 WBC (Bld)29.9 %Gnxfzw92.5-60.0The [facility] HospitalComment on above:Performed By: #### CBC #### [facility] [address] [place] [address] Dr. Haydee MulliganUAL DIFF REQNONormalThe [facility] HospitalComment on above: Performed By: #### CBC #### [facility] [address] [place] [address] (RBC) [Entitic mass]29.6 faEidxtt24.7-34.0The [facility] HospitalComment on above:Performed By: #### CBC #### [facility] [address] [place] [address] Dr. Haydee Nichole (RBC) [Mass/Vol]32.7 g/dSXllsmm63.9-35.2The [facility] HospitalComment on above:Performed By: #### CBC #### [facility] [address] [place] [address] Dr. Haydee Nichole (RBC) [Entitic vol]90.5 pZQenroz15.0-99.0The [facility] HospitalComment on above:Performed By: #### CBC #### [facility] [address] [place] [address] Dr. Haydee Veloz #0.3 103/ulNormal0.3-0.8The [facility] HospitalComment on above:Performed By: #### CBC #### [facility] [address] [place] [address] Dr. Haydee Wickocytes/100 WBC (Bld)6.0 %Normal1.7-12.0The [facility] Comment on above:Performed By: #### CBC #### [facility] [address] [place] [address] Dr. Haydee Tafoya #3.2 103/ulNormal1.4-6.5The [facility] HospitalComment on above:Performed By: #### CBC #### [facility] [address] [place] [address] Dr. Haydee Vorautrophils/100 WBC (Bld)61.3 %Yqqgqd71.0-75.0The [facility] HospitalComment on above:Performed By: #### CBC #### [facility] [address] [place] [address] Dr. Haydee Castillo mean volume (Bld) [Entitic vol]9.8 fLNormal9.5-13.5The [facility] HospitalComment on above:Performed By: #### CBC #### [facility] [address] [place] [address] Dr. Haydee ChenPLT294 103/kgAcnivo742-742Emh [facility] HospitalComment on above: Performed By: #### CBC #### [facility] [address] [place] [address] Dr. Haydee ChenRBC4.09 106/ulCritically low4.20-5.40The [facility] HospitalComment on above:Performed By: #### CBC #### [facility] [address] [place] [address] Dr. Haydee ChenWBC5.2 103/ulNormal4.0-11.0The [facility] HospitalComment on above: Performed By: #### CBC #### [facility] [address] [place] [address] Dr. Haydee ChenFERRITINon 77-53-8351Xmigamma [Mass/Vol]8.0 ng/mLNormal6.2-137.0 The [facility] HospitalComment on above:Performed By: #### FERR, FT4 #### [facility] [address] [place] [address] Dr. Haydee Pena T4on 38-80-5539Fank T4 [Mass/Vol]0.72 ng/dLCritically low 0.76-1.46The [facility] HospitalComment on above:Performed By: #### FERR, FT4 #### [facility] [address] [place] [address] Dr. Haydee ChenTSHon 63-06-7487VFS2.127 uIU/mLNormal0.358-3.740The [facility] HospitalComment on above:Performed By: #### TSH #### [facility] [address] [place] [address] Dr. Haydee ChenMG MAMM DX 3D LT CADon 37-07-3175PD MAMM DX 3D LT CADPatient: AGUSTO KINGAshley Exam Date: 11/30/2022 : 1980 Gender:F Ordering : DR WILBUR MEEKS . Admission #: [id number] Family : Order #: [id number] CLICK HERE TO VIEW EXAM RADIOLOGY REPORT [...] Treatments None Family Cancers None LOCATION: The [facility] BREAST COMPOSITION: Extremely dense, which lowers [...] by: Yolanda Vela M.D. on 11/30/2022 at 10:47[facility] GlenbeighUS BREAST LEFT LIMITEDon 27-67-0877KP BREAST LEFT LIMITEDPatient: AGUSTO KING Exam Date: 11/30/2022 : 1980 Gender:F Ordering : DR WILBUR MEEKS . Admission #: [id number] Family : Order #: [id number] CLICK HERE TO VIEW EXAM RADIOLOGY REPORT [...] Treatments None Family Cancers None LOCATION: The [facility] BREAST COMPOSITION: Extremely dense, which lowers [...] by: Yolanda Vela M.D. on 11/30/2022 at 10:47AC[facility] GlenbeighMG MAMM SCREEN 3D ENIO CADon 20-23-7382MM MAMM SCREEN 3D ENIO CADPatient: AGUSTO KING Exam Date: 08/06/2022 : 1980 Gender:F Ordering : DR WILBUR MEEKS . Admission #: [id number] Family : Order #: [id number] CLICK HERE TO VIEW EXAM RADIOLOGY REPORT [...] Treatments None Family Cancers None LOCATION: The [facility] BREAST COMPOSITION: Extremely dense, which lowers [...] by: Rick Wilson MD on 08/07/2022 at 10:35NoFair[facility] AUTO DIFFon 15-76-4952PSYT #0.1 103/ulNormal0.0-0.1[facility] Hospital - AkronComment on above:Performed By: #### CBC #### [facility] [address] [place] [address] Dr. Haydee ChenBasophils/100 WBC (Bld)1.2 %Normal0.2-2.0[facility] Comment on above:Performed By: #### CBC #### [facility] [address] [place] [address] Dr. Haydee Muñoz #0.1 103/ulNormal0.0-0.7The [facility] HospitalComment on above: Performed By: #### CBC #### [facility] [address] [place] [address] Dr. Haydee Carcamoosinophils/100 WBC (Bld)1.6 %Normal0.9-7.0[facility] Comment on above:Performed By: #### CBC #### [facility] [address] [place] [address] Dr. Haydee Carcamorythrocyte distribution width (RBC) [Ratio]12.2 %Oepaic80.0-15.0 The [facility] HospitalComment on above:Performed By: #### CBC #### [facility] [address] [place] [address] Dr. Haydee ChenHematocrit (Bld) [Volume fraction]36.6 %Uvfkkj66.0-48.0[facility] - AkronComment on above:Performed By: #### CBC #### [facility] [address] [place] [address] Dr. Yilan ChangHemoglobin (Bld) [Mass/Vol]12.1 g/vDYmuqib63.0-16.0The [facility] HospitalComment on above:Performed By: #### CBC #### [facility] [address] [place] [address] Dr. Haydee Delaney #0.01 10e3/ulNormal0.00-0.03The [facility] HospitalComment on above:Performed By: #### CBC #### [facility] [address] [place] [address] Dr. Haydee Delaney %0.2 %Normal0.0-0.5The [facility] HospitalComment on above: Performed By: #### CBC #### [facility] [address] [place] [address] Dr. Haydee White #1.9 103/ulNormal1.2-3.8The [facility] HospitalComment on above:Performed By: #### CBC #### [facility] [address] [place] [address] Dr. Haydee Cejahocytes/100 WBC (Bld)32.2 %Iydddm87.5-60.0The [facility] HospitalComment on above:Performed By: #### CBC #### [facility] [address] [place] [address] Dr. Haydee MulliganUAL DIFF REQNONormalThe [facility] HospitalComment on above: Performed By: #### CBC #### [facility] [address] [place] [address] (RBC) [Entitic mass]29.7 uoSgtacf89.7-34.0The [facility] HospitalComment on above:Performed By: #### CBC #### [facility] [address] [place] [address] Dr. Haydee Nichole (RBC) [Mass/Vol]33.1 g/uNBmkssw47.9-35.2The [facility] HospitalComment on above:Performed By: #### CBC #### [facility] [address] [place] [address] Dr. Haydee Lagos (RBC) [Entitic vol]89.7 iHEnisfu93.0-99.0The [facility] HospitalComment on above:Performed By: #### CBC #### [facility] [address] [place] [address] Dr. Haydee Veloz #0.5 103/ulNormal0.3-0.8The [facility] HospitalComment on above:Performed By: #### CBC #### [facility] [address] [place] [address] Dr. Haydee Wickocytes/100 WBC (Bld)9.2 %Normal1.7-12.0The [facility] Comment on above:Performed By: #### CBC #### [facility] [address] [place] [address] Dr. Haydee Tafoya #3.2 103/ulNormal1.4-6.5The [facility] HospitalComment on above:Performed By: #### CBC #### [facility] [address] [place] [address] Dr. Haydee Vorautrophils/100 WBC (Bld)55.6 %Aybdoz53.0-75.0The [facility] HospitalComment on above:Performed By: #### CBC #### [facility] [address] [place] [address] Dr. Haydee Castillo mean volume (Bld) [Entitic vol]9.4 fLCritically low 9.5-13.5The [facility] HospitalComment on above:Performed By: #### CBC #### [facility] [address] [place] [address] Dr. Haydee ChenPLT316 103/lySoqtay044-062Thb [facility] HospitalComment on above: Performed By: #### CBC #### [facility] [address] [place] [address] Dr. Haydee ChenRBC4.08 106/ulCritically low4.20-5.40The [facility] HospitalComment on above:Performed By: #### CBC #### [facility] [address] [place] [address] Dr. Haydee ChenWBC5.8 103/ulNormal4.0-11.0Veterans Health Administrationment on above: Performed By: #### CBC #### [facility] [address] [place], [place] [address] Dr. Haydee ChenCovid-19 PCR (CVDBRIGHAM [facility] W[facility])on 94-29-2486UBYO-CoV-2 (COVID-19) RNA SARAH+probe Ql (Unsp spec)Not detectedNormalNOT DETECTEDSelect Medical Specialty Hospital [facility] Comment on above:Result Comment: This test is not yet approved or cleared by the [place] FDA. When there are no FDA-approved or cleared tests available, and other criteria are met, FDA can make tests available under an emergency access mechanism called an Emergency Use Authorization (EUA). The EUA for this test is supported by the [employer] of Health and Human Service's (HHS's) declaration that circumstances exist to justify the emergency use of in vitro diagnostics for the detection and/or diagnosis of the virus that causes COVID- 19. This EUA will remain in effect (meaning [...] of clinical signs and symptoms consistent with SARS-CoV-2.Performed By: #### CVDTB ####[facility] [address] [place], [place] [address]LiDr. Haydee ChenPREGrey QUANT HCG on 40-30-7231UDF QUANT<1NormalSelect Medical Specialty Hospital - AkronComment on above:Performed By: #### TSH, PREGQNT ####[facility] [address] [place], [place]Dr. Haydee ChangHCG RANGESEE BELOWNormalThCleveland Clinic Fairview HospitalComment on above:Result Comment: 5-50 0.2-1 WEEK 50-500 1-2 WEEKS 100- 5,000 2-3 WEEKS 500-10,000 3-4 WEEKS 1,000-50,000 4-5 WEEKS 10,000-100,000 5-6 WEEKS 15,000-200,000 6-8 WEEKS 10,000-100,000 2-3 MONTHSPerformed By: #### TSH, PREGQNT ####[facility] [address] [address]. Haydee GoldmanIMEon 88-21-7139ULT Coag (PPP) [Relative time]0.97 {INR} NormalSelect Medical Specialty Hospital - AkronComment on above:Performed By: #### PT, PTT #### [facility] [address] [place] [address] Dr. Haydee Mcknight GUIDELINESSEE The Bellevue HospitalComment on above:Result Comment: DESIRED INR: 2.0 - 3.0 CONDITIONS NOT LISTED BELOW 2.5 - 3.5 FOR PROSTHETIC HEART VALVE REPLACEMENT 2.5 - 3.5 RECURRENT THROMBOSIS Performed By: #### PT, PTT #### [facility] [address] [place] [address] Dr. Haydee Mcnair Coag (PPP) [Time]10.5 sNormal9.0-11.6ThCleveland Clinic Fairview Hospital Comment on above:Performed By: #### PT, PTT #### [facility] [address] [place] [address] Dr. Haydee Ruiz 08-79-1652gVMB Coag (Bld) [Time]30.2 rOrwrmv36.3-36.2[facility] - AkronComment on above:Performed By: #### PT, PTT #### [facility] [address] [place] [address] Dr. Haydee Cowart 69-91-9225TKK4.062 uIU/mLNormal0.358-3.740[facility] Hospital - AkronComment on above:Performed By: #### TSH, PREGQNT ####[facility] [address] [place], [place] [address]Dedinson Girard PELVIS AND TRANSVAGon 54-92-6804KW PELVIS AND TRANSVAGEXAMINATION: US PELVIS AND TRANSVAG HISTORY: Pelvic and [...] Electronically authenticated by: YOLANDA VELA Date: 2022-07-21 11:45[facility] ACOG PANEL 2: 30 to 65on 04-11-2022..NormalThe [facility] HospitalComment on above:Result Comment: Performed at: WBPerformed By: #### [id number] ####[facility] [address] [address]DrAshley Allen Gdln ACOG Vtdiwkb12-80BseljsNjnAvita Health System Ontario HospitalComment on above:Performed By: #### [id number] ####[facility] [address] [address]DrAshley ChenDIAGNOSIS:CommentACMC Healthcare System GlenbeighComment on above:Result Comment: NEGATIVE FOR INTRAEPITHELIAL LESION OR MALIGNANCY. Performed at: WBPerformed By: #### [id number] ####[facility] [address] [address]DrAshley ChenHPV AptimaNegativeNormal NegativeSelect Medical Specialty Hospital - AkronComment on above:Result Comment: This nucleic acid amplification test detects fourteen high-risk HPV types (16,18,31,33,35,39,45,51,52,56,58,59,66,68) without differentiation. Performed at: =[facility] Care Corporationformed By: #### [id number] ####[facility] [address] [place], [place] [address]Dr. Haydee ChenMethodology:CommentKettering Health Main Campus on above:Result Comment: This liquid based ThinPrep(R) pap test was screened with the use of an image guided system. Performed at: WBPerformed By: #### [id number] [address] [address]Dr. Haydee ChenNote:CommentKettering Health Main Campus on above:Result Comment: The Pap smear is a screening test designed to aid in the detection of premalignant and malignant conditions of the uterine cervix. It is not a diagnostic procedure and should not be used as the sole means of detecting cervical cancer. Both false-positive and false-negative reports do occur. . Performed at: WBPerformed By: #### [id number] ####[address] [address]Dr. Haydee ChenPerformed by:CommentKettering Health Main Campus on above:Result Comment: Meredith Sweeney, Sheet Combining Operator (ASCP) Performed at: WBPerformed By: #### [id number] ####[address] [address]Dr. Haydee ChenSpecimen adequacy:Comment [facility] on above:Result Comment: Satisfactory for evaluation. Endocervical and/or squamous metaplastic cells (endocervical component) are present. Performed at: WBPerformed By: #### [id number] ####[facility] [address] [place], [place] [address]DrAshley Chen Vital Signs Date TimeVital SignValuePerforming QwtilnlmyHdzfplvc52-82-2346 15:25-0500Body hktuas186.56 cmTyler Bates MD Work Phone: [facility]11-04-2025 15:25-0500 Body mass index (BMI) [Ratio]20.7 kg/x4VsgpjvTyler Bates MD Work Phone: [facility]11-04-2025 15:25-0500 Body .88 kgTyler Bates MD Work Phone: [phone]11-04-2025 15:25-0500 Diastolic blood mm[Hg]Tyler Bates MD Work Phone: [phone]11-04-2025 15:25-0500 Heart rate75 /minTyler Bates MD Work Phone: [phone]11-04-2025 15:25-0500 Systolic blood mlpmxyoy217 mm[Hg]Tyler Bates MD Work Phone: [phone]01-17-2025 13:07-0500 Body myfvvl440.6 cmPerri Correa MD Work Phone: [phone] [place], [place] [address] HospitalHxmmdhqzla60-80-6474 13:07-0500Body mass index (BMI) [Ratio]19.74 kg/d9GvwsboPerri Correa MD Work Phone: [phone] [place], [place] [address] HospitalZqnvxzxxnj31-35-8387 13:07-0500Body jzvowz48.16 kgPerri Correa MD Work Phone: [phone] [place], [place] [address] HospitalEcdsujmbgd41-50-5885 13:07-0500Diastolic blood bnpzaglc40 mm[Hg]Perri Correa MD Work Phone: [phone] [place], [place] [address] HospitalZfurmeauak09-22-9626 13:07-0500Heart uckx521 /min Perri Correa MD Work Phone: [phone] [place], [place] [address]01-17-2025 13:07-0500Systolic blood ttwyqwkh340 mm[Hg]Perri Correa MD Work Phone: [phone] [place], [place] [address] HospitalXquwkdcqei26-28-4020 08:08-0500Body yfysqu307.6 cmPerri Correa MD Work Phone: [phone] [place], [place] [address] HospitalCsgpsqorft22-10-0960 08:08-0500Body mass index (BMI) [Ratio]19.74 kg/b1XewhadPerri Correa MD Work Phone: [facility] HospitalTjjnsqmmtn09-83-9977 08:08-0500Body .16 kgPerri Correa MD Work Phone: [phone] [place], [place] [address] HospitalUqmdcoyiaz21-96-7749 08:08-0500Diastolic blood actzixiq57 mm[Hg]Perri Correa MD Work Phone: [phone] [place], [place] [address] HospitalFnmjtrtnrt20-62-2209 08:08-0500Heart rate87 /min Perri Correa MD Work Phone: [phone] [place], [place] [address] [address]Vkjbnqcptt88-86-1949 08:08-0500Systolic blood otbxwryt945 mm[Hg]Perri Correa MD Work Phone: [phone] [place], [place] [address] HospitalVqxphswrnd39-57-8972 11:58-0500Heart rate79 /min Perri Timmis [address] [place], [place] 3341712-19-2024 11:58-4078RtO1% (BldA) [Mass fraction]97 %Perri Timmis [address] [place], [place] 3341712-19-2024 11:57-0500 Diastolic blood aizeognu46 mm[Hg]Perri Timmis [address] [place], [place] 334[address]12-19-2024 11:57-0500Mean blood prmqgvit933 mm[Hg]Perri Timmis [address] [place], [place] 334[address]12-19-2024 11:57-0500 Systolic blood baqzwzzm564 mm[Hg]Perri Timmis [address] [place], [place] 334[address]12-19-2024 11:05-0500Heart rate84 /minHilary Timmis [address] [place], [place] 3341712-19-2024 11:05-6528AhU6% (BldA) [Mass fraction]100 %Perri Timmis [address] [place], [place] 3341712-19-2024 11:05-0500 Respiratory rate18 /minHilary Timmis [address] [place], [place] 3341712-19-2024 11:05-0500Blood Pressure LocationHilary Timmis [address] [place], [place] 3341712-19-2024 11:05-0500 Diastolic blood uycbfsjl10 mm[Hg]Perri Timmis [address] [place], [place] 3341712-19-2024 11:05-0500Mean blood nxvplork43 mm[Hg]Perri Timmis [address] [place], [place] 3341712-19-2024 11:05-0500 Systolic blood elwayfrp248 mm[Hg]Perri Timmis [address] [place], [place] 3341712-19-2024 10:58-0500Body hxfbuybtbqi31.7 [degF]Perri Timmis [address] [place], [place] 3341712-19-2024 10:58-0500 Diastolic blood mounamrp47 mm[Hg]Perri Timmis [address] [place], [place] 3341712-19-2024 10:58-0500Heart rate84 /minHilary Timmis [address] [place], [place] 3341712-19-2024 10:58-0500Mean blood ysjuajiq52 mm[Hg]Perri Timmis [address] [place], [place] 3341712-19-2024 10:58-0500 Respiratory rate20 /minHilary Timmis [address] [place], [place] 3341712-19-2024 10:58-3677MwG5% (BldA) [Mass fraction]100 %Perir Timmis [address] [place], [place] 3341712-19-2024 10:58-0500 Systolic blood wxxxvfto008 mm[Hg]Perri Timmis [address] [place], [place] 3341712-19-2024 10:54-0500 Respiratory rate21 /minHilary Timmis [address] [place], [place] 3341712-19-2024 10:50-0500Mean blood elwtgncn26 mm[Hg]Perri Timmis [address] [place], [place] 3341712-19-2024 10:50-0500 Respiratory rate19 /minHilary Timmis [address] [place], [place] 3341712-19-2024 10:45-0500Mean blood tucuefhe615 mm[Hg]Perri Timmis [address] [place], [place] 3341712-19-2024 10:37-0275PPI4 50 1Hilary Timmis [address] [place], [place] 3341712-19-2024 10:35-0500Blood Pressure LocationHilary Timmis [address] [place], [place] 3341712-19-2024 10:35-0500Body ndyajqcloiz60.7 [degF]Perri Timmis [address] [place], [place] 3341712-19-2024 10:30-2990SWZ6 100 1Hilary Timmis [address] [place], [place] 3341712-19-2024 10:25-6919SPP1 100 1Hilary Timmis [address] [place], [place] 3341712-19-2024 10:25-0500 Respiratory rate28 /minHilary Timmis [address] [place], [place] 3341712-19-2024 10:20-0500 Respiratory rate11 /minHilary Timmis [address] [place], [place] 3341712-19-2024 07:54-0500Blood Pressure LocationHilary Timmis [address] [place], [place] 3341712-19-2024 07:54-0500Mean blood qwrccycw84 mm[Hg]Perri Timmis [address] [place], [place] 3341712-19-2024 07:53-0500Body .7 [degF]Perri Timmis [address] [place], [place] 3341712-10-2024 08:45-0500Blood Pressure LocationHilary Timmis [address] [place], [place] 3341712-10-2024 08:45-0500 Diastolic blood mzxfezol93 mm[Hg]Perri Timmis [address] [place] 3341712-10-2024 08:45-0500Heart rate94 /minHilary Timmis [address] [place], [place] 3341712-10-2024 08:45-0500Mean blood yqmiklfz90 mm[Hg]Perri Timmis [address] [place], [place] 3341712-10-2024 08:45-0500 Systolic blood eegvrviu660 mm[Hg]Perri Timmis [address] [place], [place] 3341712-10-2024 08:44-0500Heart pmjw486 /minHilary Timmis [address] [place], [place] 3341712-10-2024 08:44-5931KfT0% (BldA) [Mass fraction]97 %Perri Timmis [address] [place], [place] 3341712-10-2024 08:44-0500 Respiratory rate18 /minHilary Timmis [address] [place], [place] 3341712-10-2024 08:44-0500Blood Pressure LocationHilary Timmis [address] [place], [place] 3341712-10-2024 08:44-0500 Diastolic blood erkplefp24 mm[Hg]Perri Timmis [address] [place], [place] 3341712-10-2024 08:44-0500Mean blood sysiedne45 mm[Hg]Perri Timmis [address] [place], [place] 3341712-10-2024 08:44-0500 Systolic blood qhtanlje951 mm[Hg]Perri Correa [facility]12-03-2024 08:40-0500Body .6 Berto Correa MD Work Phone: [facility] HospitalXjsrdkfiic25-48-4937 08:40-0500Body mass index (BMI) [Ratio]19.74 kg/c9GcfogkPerri Correa MD Work Phone: [phone] [place], [place] [address]Xfhhbakhhr73-50-9621 08:40-0500Body byfgpv63.16 kgPerri Correa MD Work Phone: [phone] HospitalPut[facility] HospitalFddiwhdwpf40-84-3875 08:40-0500Diastolic blood mm[Hg]Perri Correa MD Work Phone: [facility] HospitalWmcrursavn24-12-4772 08:40-0500Systolic blood plbmdiwm865 mm[Hg]Perri Correa MD Work Phone: [phone])[address]10-14-2024 10:09-0400Body hwbhec792.6 cmPerri Correa MD Work Phone: [facility] HospitalOxsoisnsrv18-64-3991 10:09-0400Body mass index (BMI) [Ratio]19.4 kg/m0TpyaxsPerri Correa MD Work Phone: [facility] HospitalJjgtonwoxw96-85-6118 10:09-0400Body .26 kgPerri Correa MD Work Phone: [phone])[address]10-14-2024 10:09-0400Diastolic blood pnvxseig64 mm[Hg]Perri Correa MD Work Phone: [facility] HospitalYktnkcpkga46-16-9199 10:09-0400Systolic blood hzndmuaf893 mm[Hg]Perri Correa MD Work Phone: [facility] HospitalAtrzlvsijo40-38-3499 11:37-0500Body lremrb334.56 cmMD Tyler Bates Work Phone: [facility]03-05-2024 11:37-0500 Body mass index (BMI) [Ratio]19.1 kg/m2MD Tyler Bates Work Phone: [facility]03-05-2024 11:37-0500 Body .4 kgMD Tyler Bates Work Phone: [facility]03-05-2024 11:37-0500 Diastolic blood eywspghx22 mm[Hg]MD Tyler Bates Work Phone: [facility]03-05-2024 11:37-0500 Heart rate96 /minMD Tyler Bates Work Phone: [phone]03-05-2024 11:37-0500 Systolic blood rplikxna209 mm[Hg]MD Tyler Bates Work Phone: [phone]11-03-2023 11:45-0400 Body zhnexg631.56 cmTyler Bates Other [facility] Other 379820-09-6066 11:45-0400Body mass index (BMI) [Ratio] 19.36 kg/p0GvfcqtTyler Bates Other [employer] Other 11-03-2023 11:45-0400Body gjlraa65.17 kgTyler Bates Other [employer] Other 11-03-2023 11:45-0400Diastolic blood mm[Hg] Tyler Bates Other [employer] Other 11-03-2023 11:45-0400Systolic blood aqtjcqgp649 mm[Hg] Tyler Bates Other [employer] Other 09-28-2023 15:40-0400Body .56 cmAfidel Newell Other [facility] Other 09-28-2023 15:40-0400Body mass index (BMI) [Ratio] 19.12 kg/i2CulhgLorena Newell Other [employer] [employer] Other 09-28-2023 15:40-0400Body .8 [degF]Lorena Newell Other [facility] Other 09-28-2023 15:40-0400Body capphg11.53 kgLorena Newell Other [facility] Other 09-28-2023 15:40-0400Diastolic blood iiavygqi85 mm[Hg] Lorena Newell Other [facility] Other 09-28-2023 15:40-0400Respiratory rate18 /minAmbyinka Newell Other [facility] Other 09-28-2023 15:40-9514MdY8% (BldA) [Mass fraction]98 % Lorena Newell Other [facility] Other 09-28-2023 15:40-0400Systolic blood fsrflcop166 mm[Hg] Lorena Newell Other [facility] Other 04-27-2023 15:45-0400Body jutrlw884.56 cmTyler Bates Other [employer] Other 04-27-2023 15:45-0400Body mass index (BMI) [Ratio] 19.39 kg/d6PeuxkxTyler Bates Other [employer] Other 04-27-2023 15:45-0400Body jrzsne20.26 kgTyler Bates Other [employer] Other 04-27-2023 15:45-0400Diastolic blood cinldhaj36 mm[Hg] Tyler Bates Other [facility] [employer] Other 04-27-2023 15:45-4542QxH5% (BldA) [Mass fraction]99 % Tyler Bates Other [facility] [employer] Other 04-27-2023 15:45-0400Systolic blood mm[Hg] Tyler Bates Other [facility] [employer] Other Encounters Encounter DateEncounter TypeCare ProviderFacilityStart: 07-24-2025 End: 72-89-2079nhreccccpjFctccs E Braun MD Work Phone: -[facility] Chapeltart: 07-24-2025 End: 35-92-5299Xxftbfh encounter procedureTyler Bates MD-[facility] Work Phone: Start: 06-07-2025 End: 62-64-1659Ycrehx flowsheetZaira BUSTILLOS Work Phone: [facility] OBGYNStart: 06-07-2025 End: 25-68-5564Gywdcu flowsheetZaira BUSTILLOS Work Phone: [facility] OBGYNStart: 06-07-2025 End: 69-54-7170Vdxskigme Result EncounterZaira BUSTILLOS Work Phone: noms External Department UnsolicitedStart: 06-07-2025 End: 46-87-5696Ylulgpr encounter procedureZaira BUSTILLOS Work Phone: [facility] Work Phone: Start: 06-07-2025 End: 61-69-0951Rnlykmun preventive med est patient 40-64yrsAmy Anupama BUSTILLOS Work Phone: n[facility]ya OBGYNComment on above:Well woman exam with routine gynecological exam; Breast cancer screening by mammogram; Mood changesStart: 96-21-7945Exq-patient / Non-visitZaira BUSTILLOS-[facility] Work Phone: Start: 06-07-2025 End: 86-70-9035ndianrbtoyPBO RAMEYNot AvailableStart: 10-06-2024 End: 72-75-0187Rtlhpi Femi Correa MD Work Phone: noms SHENA BISHOPKStart: 10-06-2024 End: 54-63-4736Iwdned Femi Correa MD Work Phone: noms SHENA BISHOPKStart: 10-06-2024 End: 26-70-8315Xntbyl follow up visit related to original Marilyn Correa MD Work Phone: noms SHENA Mcbride on above:Atypical face pain (CMS/HCC) (Primary Dx)Start: 10-06-2024 End: 70-72-7577dayrpeaxowUJCKOWWhitney Burnham AvailableStart: 09-15-2024 End: 72-35-1497Qsiabcchristine Correa MD Work Phone: noms SHENA COLEStart: 09-15-2024 End: 40-70-0945Mlxyvcchristine Correa MD Work Phone: noms SHENA BISHOPKStart: 09-15-2024 End: 98-09-0489unthmtjstzSRCDEF H TIMMISNot AvailableStart: 09-15-2024 End: 57-68-0155Wqyrdw follow up visit related to original Marilyn Correa MD Work Phone: noms SHENA Mcbride on above:Hypertrophy of inferior nasal turbinate (Primary Dx); Alvaro bullosa; DNS (deviated nasal septum)Start: 09-07-2024 End: 60-81-9725Qeqlosovh to same day surgery centerPerri Correa [facility] Start: 09-07-2024 End: 92-86-0949rdwacxilvtUhglcq H TimmisFacility:FTMCStart: 08-29-2024 End: 04-83-3016Tlhvuyxib Result EncounterHikaren Correa MD Work Phone: noms External Department UnsolicitedStart: 08-29-2024 End: 69-97-4550Veddnipsw Result EncounterPerri Correa MD Work Phone: noms External Department UnsolicitedStart: 08-29-2024 End: 79-03-8756ceyxpshthdEhnqep H TimmisFacility:FTMCStart: 08-29-2024 End: 67-28-9059Uodxapc encounter procedurePerri Correa [facility] Start: 08-22-2024 End: 11-26-8877Jyruvy flowsheetPerri Correa MD Work Phone: noms CI ENTStart: 08-22-2024 End: 83-26-0017Zwmlvl Femi Correa MD Work Phone: noms CI ENTStart: 08-22-2024 End: 52-65-3192Lqipit outpatient visit 40 minutesPerri Correa MD Work Phone: noms CI ENTComment on above:Nonintractable headache, unspecified chronicity pattern, unspecified headache type (Primary Dx); DNS (deviated nasal septum); Alvaro bullosa; Hypertrophy of inferior nasal turbinateStart: 08-22-2024 End: 37-95-4984qwlimkwrmkWQULJC H TIMMISNot AvailableStart: 08-10-2024 End: 54-06-5688olgfccetwkJINGWS H TIMMISNot AvailableStart: 07-03-2024 End: 77-76-6839Rqgxtz flowsheetPerri Correa MD Work Phone: [facility]art: 07-03-2024 End: 48-18-2549Bbpcfe flowsheetPerri Correa MD Work Phone: [facility]tart: 07-03-2024 End: 45-39-7052Vfvxqd outpatient new 45 minutesPerri Correa MD Work Phone: [facility] E[facility] on above:Chronic pansinusitis (Primary Dx); Bilateral hearing loss, unspecified hearing loss type; Nonintractable headache, unspecified chronicity pattern, unspecified headache typeStart: 07-03-2024 End: 64-78-6441ylhdejwbzlAOPXFQ H JUAN RMISNot AvailableStart: 01-11-2024 End: 22-91-3329uplslmxfveVysknx E BraunFacility:[facility] Centertart: 01-11-2024 End: 54-49-8497rreprixdrrKO Marcia E Braun Work Phone: [facility] Work Phone: Start: 01-11-2024 End: 88-32-6861Fsogpdw encounter procedureMD Tyler Bates Work Phone: [facility] [address] Work Phone: Start: 11-23-2023 End: 22-20-4663Cinuthd encounter procedureMD Tyler Bates Work Phone: [facility] Work Phone: Start: 50-76-5125Zra-patient / Non-visitMD Tyler Bates Work Phone: [facility] Work Phone: Start: 10-08-2023 End: 98-19-7107ggtharvqvmEblumf Braun Other [employer] Other Start: 30-22-1584Gizuodfhr by computer linkTyler BatesParkview Health [facility] Hospital ClinicStart: 09-09-2023 End: 85-06-0825qpoqcbnitxEcydvo Bates Other [employer] Other Start: 00-57-2401Nbaulsmoz by computer linkTyler [facility] ClinicStart: 08-13-2023 End: 45-20-7911yjtshuqkvxHxpbin Bates Other [employer] Other Start: 02-50-3961Daiclelem encounterMarcia [facility] ClinicStart: 08-05-2023 End: 11-53-6938yybmzgokhmYboybp Bates Other [employer] Other Start: 99-42-0837Zbadutbhx encounterMarcia [facility] ClinicStart: 07-27-2023 End: 22-60-5051qrwgpqvzxhVxuats Bates Other [employer] Other Start: 83-28-2283Ngmvwaliz encounterMarcia [facility] ClinicStart: 07-23-2023 End: 86-98-7349uxgxjdqjkxOzzqsn Bates Other [employer] Other Start: 52-95-9876Gkudha outpatient visit 15 minutes Tyler [facility] ClinicStart: 07-20-2023 End: 34-33-4642dnbtzzdryoVrlupl Bates Other [employer] Other Start: 53-26-5084Uzuohkmeh encounterMarcia [facility] [place]kyStart: 07-16-2023 End: 96-29-7458jgvvrlplqcWguoso Bates Other [employer] Other Start: 48-98-8195Kaywpvkqp encounterMarcia [facility] ClinicStart: 06-17-2023 End: 98-15-5148xlnaciqogaVvjrm Keller Other [employer] Other Start: 40-15-3837Zsumgv outpatient visit 15 minutes Lorena ReeceGrey Urgent Care ClydeStart: 05-26-2023 End: 21-40-9262ncbeufesfrJuzsdo Bates Other [employer] Other Start: 67-29-7878Wkdskb outpatient visit 15 minutes Tyler BatesKING[facility] ClinicStart: 05-17-2023 End: 53-34-3564ephznoogjiIucqey Bates Other [employer] Other Start: 77-59-3460Smwxwntry by computer linkAdelinetoan [facility]ardo Medical ClinicStart: 05-04-2023 End: 66-46-9516iskepyzjutXffvsk Bates Other [employer] Other Start: 46-92-0369Duygcgbhd encounterMarcia JanaG [facility] ClinicStart: 04-21-2023 End: 59-51-2275tdvgepkbgnHtcstqqu Ball Other [employer] Other Start: 61-08-3483Ltmetxfhl encounterBenjamin SamiG [facility] ClinicStart: 02-22-2023 End: 18-92-5610zbdmgexqxxNjivni Bates Other [employer] Other Start: 41-99-2436Sjpqrmvpp encounterMarcia JimenezG [facility] ClinicStart: 01-28-2023 End: 82-92-3377bjqbpzkgdxMimvrl Bates Other [employer] Other Start: 41-44-8482Dzarkgjjd encounterMarciangel Gallardo [facility] ClinicStart: 01-22-2023 End: 08-24-1382qldlababmiMrobym Bates Other [employer] Other Start: 56-73-6558Faxfnknvt encounterMarciangel [facility]ardo Medical ClinicStart: 01-19-2023 End: 18-02-0584rtuagdxwftFisxeg Bates Other [employer] Other Start: 42-55-6940Ctxcpjzup encounterMarciangel Gallardo [facility] ClinicStart: 01-18-2023 End: 51-33-1712vqmwsnykkuIX TYLER BATESFacility:Y8Nsmcn: 01-14-2023 End: 75-71-9073yzousuwnyfZhbtrm Bates Other [employer] Other Start: 47-09-1645Rlpbxa outpatient visit 25 minutes Tyler Gallardo [facility] ClinicStart: 11-30-2022 End: 57-69-0441tlpzemfievTQ WILBUR LEONA .Facility:D5Bpshl: 09-13-2022 Gynecological examination normalBensuleman Gallardo Other [employer] Other Start: 38-50-2416Phj-procedure evaluation check Jesús Gallardo Other [employer] Other Start: 08-06-2022 End: 11-85-6454jyobefjlrhWS WILBUR LEONA .Facility:K8Tbtdq: 00-38-5730Wugvkaicr for preprocedural laboratory examinationDR WILBUR LEONA .[facility] Start: 07-31-2022 End: 67-40-0692vxxwejwjocJG WILBUR LEONA .Facility:E3Dxdfq: 07-29-2022 End: 74-10-5923twtuztcltySX WILBUR LEONA .Facility:H1Qvyit: 07-29-2022 End: 56-51-1535Cgwfmrmnj for preprocedural laboratory examinationDR WILBUR LEONA .Facility:P7Joeah: 55-41-7694Sgyxatkgv for other preprocedural examinationDR WILBUR LEONA .[facility]: 07[facility]21[facility]2022 End: 04-17-9855btlmxsbmmeOK WILBUR LEONA .Facility:S7Lcaux: 07-21-2022 End: 41-15-8454Dlnindshs for other preprocedural examinationDR WILBUR LEONA . Facility:E2Qcbfv: 05-87-0497Tnocs health examinationBecindi Gallardo Other [facility] [employer] Other Start: 04-07-2022 End: 45-99-8254izsyowvdewYT WILBUR LEONA .Facility:H1 Procedures DateProcedureProcedure DetailPerforming ClinicianStart: 18-03-8817CDL,APTIMA HPV,AGE GDLNAmy Anupama BUSTILLOS Work Phone: Start: 19-34-2016Mfnpikpra of noseHilary Timmiarturo Start: 23-85-5608LGZI CBC W/ AUTO DIFFHilakarla Correa MD Work Phone: Start: 86-83-0779Cdfnxyeygkl observation [Identifier] in Cervix by Cyto stainPerri Correa MD Work Phone: Start: 94-47-0488ZcmvewjbfzjLafvid Timmis MD Work Phone: Cesarean sectionPerri Correa comment on above:2007Depression screeningBecindi Gallardo Other Extraction of wisdom toothHilary Timmis comment on above:1994Laps abltj uterine fibroids w/intraop us gdnHilarantionette Correa comment on above:creening for malignant neoplasm of breastBecindi Gallardo Other Viral screeningBecindi Gallardo Other Plan of Treatment DateCare ActivityDetailAuthorStart: 27-94-4458Wxrbdodps for malignant neoplasm of cervixASHLEY [facility]AL [facility] HealthcareStart: 06-12-2026 End: 99-19-8252Ngqmoyh encounter dynwchxjr55/23/2026 11:00 AM EDT Procedure Visit NELY OJEDA [address] [place], [id number] Zaira Altman, PA [address] [place], [place] [id number] NOMArturo Kerns OBGYNStart: 08-27-2025 End: 23-24-0416Dlmntci encounter ozsytoyce88/08/2025 8:50 AM EST Consult NELY OJEDA [address] [place] [address] [place] [address] Wilbur Meeks DO [address] [place], [place] [id number] NELY COLEMANGYNStart: 06-07-2025 End: 51-75-4886GQ Breast - bilateral ScreeningBilateral screening mammogram Imaging Routine Breast cancer screening by mammogram Expected: 06/07/2025 (Approximate), Expires: 08/07/2026[facility] Work Phone: comment on above:Expected: 06/07/2025 (Approximate), Expires: 08/07/2026Start: 06-07-2025 End: 70-88-4768Abnnyuh encounter izfgvdqbz96/18/2025 9:30 AM EDT Procedure Visit NELY OJEDA [address] [place] [address] Zaira Altman, PA [address] [place], [place] [id number] ArrivedNOMS Kerns OBGYNComment on above:ArrivedStart: 32-33-7130Soaczcxkd vaccinationInfluenza Vaccine (#1)[facility] HealthcareStart: 03-12-2025 End: 36-19-9110Keispzy encounter mfugsqlnt31/23/2025 11:00 AM EDT Office Visit [facility] [address] [place] [phone] Wilbur Meeks DO [address] [place] [address] NOMS BCP OBStart: 10-06-2024 End: 00-84-0829Lsrsdkb encounter wvefqqifl46/17/2025 1:00 PM EST Office Visit [facility] [place] [address] [place] [phone] Perri Correa MD [address] [facility] [address] [place] [address] ArrivedNOMS ENT NORWALKComment on above:ArrivedStart: 09-15-2024 End: 90-74-5964Sdbxnfs encounter yzqkugzeo88/27/2024 8:00 AM EST Office Visit [facility] [place] [address] [place] [address] Perri Correa MD [address] [facility] [address] [place] [address] N[facility] E[facility] NORWALKStart: 07-03-2024 End: 08-83-2188Ksivpmk encounter jixknreeb40/14/2024 10:00 AM EDT Office Visit [facility] [place] [address] [facility] [place] [address] Perri Correa MD [address] [facility] [address] [place] [address] ArrivedNOMS ENT NORWALKComment on above:ArrivedStart: 55-22-4352Hgfcntiec vaccinationInfluenza Vaccine (#1)[facility] HealthcareStart: 19-84-8151Tqmdjordn for malignant neoplasm of breastMammogramNOMS Healthcare Start: 03-46-1787Fbigbjl referralOhio [facility]tr Work Phone: Start: 27-24-3652Esxghdewb for malignant neoplasm of cervixHPV/CotestNOMS HealthcareStart: 39-79-6369Fnhqsefkg for malignant neoplasm of colonNOMS HealthcareCT Neck WO [facility] CenterCT Sinuses WO [facility] CenterMG Breast - bilateral ScreeningVan Wert County HospitalPatient referralOhio Valley Hospital Ctr Work Phone: THIN PREP TIS PAP AND HR HPV DNATHIN PREP TIS PAP AND HR HPV DNA Pathology and Cytology Routine Well woman exam with routine gynecol ogical exam Ordered: 06/07/2025NOWV HealthcareComment on above:Ordered: 06/07/2025 Immunizations Immunization DateImmunizationNotesCare PivpakwiOsjtfebn15-28-9167fmpdxzzfn virus vaccine, split virus (incl. purified surface antigen)Jesús Gallardo Other [facility] Other 0539090-07-2098cnibgekau virus vaccine, unspecified formulationMD Tyler Bates Work Phone: [facility]09-05-2020influenza, injectable, quadrivalent, preservative Nilton Correa MD Work Phone: [facility] HospitalMdjzfymnkl78-93-3393mjbwwsurc, injectable, quadrivalent, preservative Nilton Correa MD Work Phone: [facility] HospitalIuliezjlji46-75-8563ahwbzfjnt, seasonal, injectableTyler Bates Other [facility] HospitalNEGATED: Highlighted row has not occurred!13-88-4819heivgtvbazpa polysaccharide vaccine, 23 valent Tyler Bates Other [facility] Other Payers DatePayer CategoryPayerPolicy [id number]-[id number] Health InsuranceCHILLICOTHE VA MEDICAL CENTERCAL MUTUAL Member Subscriber Plan / Payer (Effective 2023- Present) Name: Agusto King MMember ID: [id number] Relation to Subscriber: Spouse Name: DOUGLAS KING Date of : 1975 (Home) Address: [address] [place] [id number] ID: Not on file Group ID: [id number] Type: Not on file Address: [address] [id number] [id number] 2.0.1.011550.3.57[id number] 2.0.1.209616.3.57[id number] 2.0.1.263307.3.57[id number] 2.0.1.744513.3.57[id number] 2.0.1.677830.3.57[id number] 2.160.1.984751.3.579.[id number] 2.160.1.687125.3.57[id number] 2.16840.1.542592.3.57[id number] 2.160.1.556833.3.57[id number] 2.16.840.1.045410.3.57[id number] 2.16.840.1.344249.3.57[id number] 2.16.840.1.856977.3.57[id number] 2.16.840.1.717099.3.57[id number] 2.16.840.1.313100.3.57[id number] 2..840.1.170560.3.57[id number] 2..0.1.159781.3.579.2.[id number] 2.16.840.1.506683.19 [id number] 2.0.1.069567.3.579.2.531 Social History DateTypeDetailFacilityStart: 02-29-2024 End: 31-70-2085Nmc [facility] CenterStart: 07-31-1994 End: 75-94-5831Onnkpzf smoking status NHISSmoker (finding)[facility] CenterStart: 87-25-8644Cej [facility]igned At [facility] CenterStart: 22-13-3877Temgdkq smoking status NHISEx-smokerNOWV HealthcareStart: 07-31-1994 End: 25-84-5308Kalfdxy of tobacco useCigarette SmokerASHLEY REGIONAL MEDICAL [facility]ENTER HealthcareStart: 02-29-2024 End: 22-89-8117Bfugomlkfd smoked current (pack per day) - Reported0.5NOWV HealthcareStart: 53-30-6775Twyilru use and exposureSmokeless tobacco non-user [facility]OM[facility] HealthcareStart: 03-07-2024 End: 28-18-2925Smfwnersn beverage intakeEx-drinker (finding)[facility] Start: 83-46-5009Fnvmsf identityIdentifies as female gender (finding)[facility] HealthcareStart: 74-81-0131Totfxo orientationHeterosexual (finding)[facility] HealthcareTobaccDayton Children's Hospital Comment on above:former smoker quit 1 year agoTobacco smoking statusNo Smoking Status [facility] Centertart: 07-23-2023 Tobacco smoking status NHISSmokes tobacco daily (finding)[facility] CenterexFemale (finding)[facility] Functional Status ZmluMxizmitsugTvslegDcdjsyfj40-27-5638Gzftvzuocj StatusOhioHealth [facility] Clinical Notes 07-31-2022 to 07-24-2025 Note Date & NvrwHgqzRjkdkdbb09-70-5680 Hospital Discharge instructionsAmbulatory Orders* Referral to Gastroenterology Time Frame: 07/24/25, Location: None Selected [facility] Work Phone: 1(967) 825-863709-18-2025 History of Present illness Narrative* TRESSA Lord - 06/07/2025 9:30 AM EDT Reason for Appointment: Patient ID: Agusto King is a 44 y.o. female who presents for [facility] Women Visit Patient presents today for Annual [...] Disc Disease) Maternal Grandmother Cancer Paternal Grandmother [place] Samuel Alcohol abuse Paternal Grandfather Cancer Mother's Brother Felipe Tea Thyroid disease Father's Sister Mikaela Fields Rashes / Skin problems Sister Mayuri Lo SURGICAL HISTORY Past Surgical History: Procedure Laterality [...] nursing note reviewed. Exam conducted with a clinical unit educator present. Vitals: Estimated body mass index is [...] the Hysterectomy procedure. Pt will see our batch freezer operator at this visit to set up a [...] behalf of: TRESSA Lord documented in this encounterPutnam County Memorial HospitalRrustffplb98-22-1577 History of Present illness Narrative* Perri Correa MD - 10/06/2024 1:00 PM EST Subjective Patient ID: Agusto King is a 44 y.o. female who presents for Facial Pain (Facial swelling) Pt reports 2 days ago she developed left facial pain and swelling, as well as gum tenderness. Started on augmentin Family History Problem Relation Name Age of Onset Hyperlipidemia Mother Venus Gressman Hypertension Mother Venus Mendoza Migraines Mother Venus Mendoza Breast cancer Mother Venus Gressman Cancer Mother Venus Mendoza Rashes / Skin problems Mother Venus Gressman Hypertension Father Carlyle Samuel Hyperlipidemia Father Carlyle Samuel Hearing loss Father Carlyle Samuel Arthritis Maternal Grandmother Depression Maternal Grandmother Other (Degenerative Disc Disease) Maternal Grandmother Cancer Paternal Grandmother [place] Alcohol abuse Paternal Grandfather Cancer Mother's Brother Felipe Watters Thyroid disease Father's Sister Mikaela Fields Rashes / Skin problems Sister Mayuri Lo Active Ambulatory Problems Diagnosis Date Noted Abnormal mammogram of left breast 06/22/2024 Adult ADHD (CMS/HCC) 06/22/2024 Anxiety 06/22/2024 Cervical lymphadenitis 06/22/2024 Chronic sinusitis 06/22/2024 Cyst of ovary 06/22/2024 Resolved Ambulatory Problems Diagnosis Date Noted No Resolved Ambulatory Problems Past Medical History: Diagnosis Date ADHD (attention deficit hyperactivity disorder) (CMS/HCC) Allergic rhinitis 2008 Dental disease 2007 Dizziness Occasionally since childhood [...] looks great. [facility] [id number] History of Present illness Narrative* Perri Correa MD - 09/15/2024 8:00 AM EST Subjective Patient ID: Agusto King is a 44 y.o. female who presents for Sinusitis and Allergic Rhinitis (S/p sinus surgery [facility] 09/07/24) Pt has no more left facial and head pain Family History Problem Relation Name Age of Onset Hyperlipidemia Mother Venus Mendoza Hypertension Mother Venus Mendoza Migraines Mother Venus Mendoza Breast cancer Mother Venus Gremendyman Cancer Mother Venus Mendoza Rashes / Skin problems Mother Venus Valeman Hypertension Father Carlyle Samuel Hyperlipidemia Father Carlyle Samuel Hearing loss Father Carlyle Samuel Arthritis Maternal Grandmother Depression Maternal Grandmother Other (Degenerative Disc Disease) Maternal Grandmother Cancer Paternal Grandmother [place] Samuel Alcohol abuse Paternal Grandfather Cancer Mother's [...] this visit: Hypertrophy of inferior nasal turbinate Alvaro bullosa DNS (deviated nasal septum) Excellent surgical result so far. Start saline irrigations and BID abx oint to each side of the nose documented in this encounterPutnam County Memorial [id number] Evaluation + Plan note Extracted from:Title:ANES Post-operative Note---GeneralAuthor:Samm Figueroa MD. Date:09/07/24 Plan Transfer/Discharge: Transfer/Discharge Discharge when meets criteria ( To home ). Extracted from:Title:ANES Pre-operative Note uthor:Samm Figueroa MDDate: 09/07/24 Plan [place] [employer]esthesi[employer] (ASA) physical status classification: Class II. Anesthetic Preoperative Plan: Anesthesia General.[facility] [id number] NoteProgress Note-Physician Patient: AGUSTO KING Age: 44 years Sex: Female : 1980 Associated Diagnoses: None Author: Samm Figueroa MD Postoperative Information Postoperative disposition: Postoperative disposition: To PACU. Optimetrix number: Optimetrix number [id number]. Anesthetic utilized: General. Health Status Allergies: Allergic [...] Discharge when meets criteria ( To home ).[facility] HospitalComment on above:Result Comment: Electronically Signed By: [...] mL, IV, 150 mL/hr, Routine, Start date :30:00 EST, 6.7 hour(s), Total volume (mL): 1,000, [...] ADD (attention deficit disorder) / SNOMED CT 25140485 / Confirmed Anxiety / SNOMED CT 35948308 / Confirmed Autoimmune disease / SNOMED CT 853163762 / Confirmed Depression / SNOMED CT 83166361 / Confirmed Migraines / SNOMED CT 79646255 / Confirmed, Active Problems (5) ADD (attention deficit disorder) Anxiety Autoimmune disease Depression Migraines Histories Past Medical History: No active or resolved past medical history items have been selected or recorded. Family History: No family history items have been selected or recorded. Procedure history: Septoplasty, Right removal, conchae bullosa, Right inferior turbinate submucosal resection ([id number]) on 09/07/2024 at 44 Years. Extraction of wisdom tooth ([id number]). Comments: 08/29/2024 8:50 Krissy Weaver RN 1994 section ([id number]). Comments: 08/29/2024 8:49 Krissy Weaver RN 2006 Uterine ablation (56135). Comments: 08/29/2024 8:49 Krissy Weaver RN 2021 Social History Social & Psychosocial Habits Alcohol 08/29/2024 Risk Assessment: Denies Alcohol Use Substance Abuse 08/29/2024 Risk Assessment: Denies Substance Abuse Tobacco Comment: former smoker quit 1 year ago - 08/29/2024 08:55 Krissy Baker RN 08/29/2024 Risk Assessment: Denies Tobacco Use [...] Blood Pressure 80 mmHg (more content not included)...[facility] HospitalComment on above:Result Comment: Electronically Signed By: Henry SAMANIEGO, Samm Ordaz\.br\Date and Time Signed: 09/07/24 13:26 [id number] Hospital Discharge instructions Patient Education 09/07/2024 11:25:09 [...] Follow these instructions at home: Medicines Take fjyu-xnk-eicixxb and prescription medicines only as told by [...] to keep your urine pale yellow. ?Take razj-nta-zgbvcqa or prescription medicines. ?Eat foods that are [...] provider. Document Revised: 05/04/2022 Document Reviewed: 05/04/2022 NuLabel Patient Education 2023 SeeClickFix. 09/07/2024 11:24:38 Post Op Patient Instructions - FT (CUSTOM) Follow Up Care 08/22/2024 09:17:04 With:Perri Correa Address: [address] [place] [address], [address] [place] [address]- Business (1) When:09/15/2024 [facility] 12-19-2024 NotePatient Education - Text ENT Septoplasty, [...] these instructions at home: Medicines ??? Take arqk-ebo-iupajhc and prescription medicines only as told by [...] keep your urine pale yellow. ? Take bvpv-irq-vmepknj or prescription medicines. ? Eat foods that [...] provider. Document Revised: 05/04/2022 Document Reviewed: 05/04/2022 ElseElectroJet Patient Education ??? 2023 SeeClickFix.[facility] 08-22-2024 History of Present illness Narrative* Perri Correa MD - 08/22/2024 8:40 AM EST Subjective [...] Disc Disease) Maternal Grandmother Cancer Paternal Grandmother [place] Samuel Alcohol abuse Paternal Grandfather Cancer Mother's [...] SURGICAL HISTORY 07/31/2022 Ablation WISDOM TOOTH EXTRACTION 1994 wisdom teeth No [...] appearance of her nose. documented in this encounterPutnam County Memorial [id number] History of Present illness Narrative* Perri Correa MD - 07/03/2024 10:00 AM EDT Subjective [...] Disc Disease) Maternal Grandmother Cancer Paternal Grandmother [place] Samuel Alcohol abuse Paternal Grandfather Cancer Mother's Brother Bill Tea Thyroid disease Father's Sister Mikaela Geen Active Ambulatory Problems Diagnosis Date Noted Abnormal mammogram of left breast 06/22/2024 Adult ADHD (CMS/HCC) 06/22/2024 Anxiety 06/22/2024 Cervical lymphadenitis 06/22/2024 Chronic sinusitis 06/22/2024 Cyst of ovary 06/22/2024 Resolved Ambulatory Problems Diagnosis Date Noted No Resolved Ambulatory Problems Past Medical History: Diagnosis Date ADHD (attention deficit hyperactivity disorder) (CMS/[facility]) Dysmenorrhea Fibroid Fibromyalgia Hyperthyroidism (CMS/HCC) Irritable bowel syndrome Menorrhagia Ovarian cyst, left [...] night time mouth guard documented in this encounterPutnam County Memorial HospitalIoatsrrgbo08-10-0842 Evaluation note* Encounter Date Diagnosis Assessment Notes Treatment Notes Treatment Clinical Notes Sep, Adult ADHD (ICD-10 - F90.9) [facility] Other 12-21-2023 Evaluation note* Encounter Date Diagnosis Assessment Notes Treatment Notes Treatment Clinical Notes Aug, Adult ADHD (ICD-10 - F90.9) [facility] Other 11-24-2023 Evaluation note* Encounter Date Diagnosis Assessment Notes Treatment Notes Treatment Clinical Notes Jul, Adult ADHD (ICD-10 - F90.9) [facility] Other 11-03-2023 Evaluation note* Encounter Date Diagnosis Assessment Notes Treatment Notes Treatment Clinical Notes Jul, Autoimmune disorder (ICD-10 - D8 9.89) She has been to dermatology several times. [...] area in the center of her scalp. Jul,Rash and nonspecific skin eruption (ICD-10 - R21)Advise she is very mild shampoo such as baby shampoo or dove products Gave her the number for Dr. Chavarria's office for a second opinion. No further antifungal creams orshampoos on her scalp at this time she gave me verbal consent to forward this information to Dr. Chavarria [facility] Other 10-27-2023 Evaluation note* Encounter Date Diagnosis Assessment Notes Treatment Notes Treatment Clinical Notes Jun, Adult ADHD (ICD-10 - F90.9) [facility] Other 09-28-2023 Evaluation note* Encounter Date Diagnosis Assessment Notes Treatment Notes Treatment Clinical Notes May, Rash and nonspecific skin erupti on (ICD-10 - R21) Discussed diagnosis with patient [...] Advised patient that we can send in Rxof ketoconazole shampoo to see if this improves symptoms overall. Recommended follow-up with PCP orDerm in 1 week. Advised patient that she needs to monitor for worsening signs/symptoms of infection, pus or drainage from site, odor, red streaking, fevers, or if any new or concerning symptoms arise. Patient verbalizes understanding and is agreeable with treatment plan [facility] Other 09-06-2023 Evaluation note* Encounter Date Diagnosis Assessment Notes Treatment Notes Treatment Clinical Notes May, Impetigo (ICD-10 - L01.00) Discussed differential. Unsure how she could have impetigo but will treat based on the yellow appearance at the surface of the dermis. She will call and followup w dermatology. [facility] Other 08-28-2023 Evaluation note* Encounter Date Diagnosis Assessment Notes Treatment Notes Treatment Clinical Notes Apr, Adult ADHD (ICD-10 - F90.9) [facility] Other 08-15-2023 Evaluation note* Encounter Date Diagnosis Assessment Notes Treatment Notes Treatment Clinical Notes Apr, Contact dermatitis, unspecified contact dermatitis type, unspecified trigger (ICD-10 - L25.9) [facility] Other 08-02-2023 Evaluation note* Encounter Date Diagnosis Assessment Notes Treatment Notes Treatment Clinical Notes Apr, Adult ADHD (ICD-10 - F90.9) [facility] Other 06-05-2023 Evaluation note* Encounter Date Diagnosis Assessment Notes Treatment Notes Treatment Clinical Notes Feb, Adult ADHD (ICD-10 - F90.9) [facility] Other 05-05-2023 Evaluation note* Encounter Date Diagnosis Assessment Notes Treatment Notes Treatment Clinical Notes January, Adult ADHD (ICD-10 - F90.9) [facility] Other 04-27-2023 Evaluation note* Encounter Date Diagnosis Assessment Notes Treatment Notes Treatment Clinical Notes Dec, Other fatigue (ICD-10 - R53.83) Discussed possible metabolic causes Dec,Irregular menses (ICD-10 - N92.6)will check hormones - followup w irrigation equipment installer Dec,dult ADHD (ICD-10 - F90.9)will increase dose with next rx Dec,ervical lymphadenitis (ICD-10 - I88.9)antibiotic prescribed. Work note given. [facility] Other 11-11-2022 NoteOPERATIVE NOTE OPERATION DATE: 07/31/2022 PROCEDURE: Kathe endometrial ablation. PREOPERATIVE DIAGNOSIS: Menorrhagia. POSTOPERATIVE DIAGNOSIS: Menorrhagia. ANESTHESIA: General. SURGEON: Wilbur Meeks D.O. FRONT DESK PERSON: None. BLOOD LOSS: 5 mL. URINE OUTPUT: [...] Patient taken to recovery in stable condition.[facility] complaint+Reason for visit Narrative* Chief Complaint Amb Documentation autoimmune issues - referralsReason for VisitAutoimmune disorder [facility] Work Phone: Evaluation + Plan note Future Appointments Appointment Date:09/07/2024 01:15:00 PM Scheduled Provider: Location:[facility] Services Appointment Type:Surgery FT [facility] Evaluation noteNo InformationNortAllegheny [facility] Other Evaluation note* Diagnosis Onset Date Resolution Status Autoimmune disorder acute [facility] Work Phone: Evaluation note* Diagnosis Chronic pansinusitis- [...] mood disorder documented in this encounter [facility] HealthcareEvaluation [facility]* Diagnosis Onset Date Resolution Status Admit Date Chronic sinusitis acuteNovember 2024 3:19pmColon cancer screeningacuteNovember 2024 3:19pmMass of soft tissue of neckacuteNovember 2024 3:19pmNasal septal deformityacuteNovember 2024 3:19pmScreening mammogram for breast cancer acuteNovember 2024 3:19pm [facility] Work Phone: History general Narrative - Reported* Type Description Date Medical History ANXIETY Medical HistoryFATIGUEMedical HistoryMIGRAINEMedical Historysubclinical hyperthyroidismSurgical HistoryC-[id number] HistorySEE SURGICAL [facility] Other Hospital course Narrative No data available for this section [facility] Discharge instructions No data available for this section [facility] Progress note No data available for this section [facility] Summary Purpose Family History Relationship Condition Age at Onset Recorded Date/T laury Not Specified Hypertension Unknown Family history of mental disorderUnknown Relationship Condition Age at Onset Recorded Date/T laury mother Hypertension Unknown Family history of mental disorderUnknown Advance Directives Advance Directive Response Recorded Date/ Time Advance Directives No November 22 10:18am Advance Directive Response Recorded Date/ Time Advance Directives No November 22 9:18am Reason for Referral Reason *FU 05/11 Puritis and response from OV on 04/30. Diagnosis 1 Contact dermatitis, unspecified contact dermatitis type, unspecified trigger (L25.9) Referral Organization [facility] seamus Referring Provider First Name Tyler Referring Provider Last Name Jana Referring Provider Specialty Family Medi cine Referred Organization Dermatology Denisse schafer Referred Provider Kim Fuentes Referred Address [address],[place], [place],[address] Referred Provider Specialty Dermatology Referral Priority Routine General Notes BooEma hughes 12:57:31 PM >received today, attachments made, notes locked, referral faxed Chief Complaint and Reason for Visit Chief Complaint Admit Date Wellness July 24, 2025 3 :19pm Reason for Visit Admit Date Chronic sinusitis July 24, 2025 3 :19pm Colon cancer screening July 24 3:19pm Mass of soft tissue of neck July 3:19pm Nasal septal deformity July 24 3:19pm Screening mammogram for breast cancer No vem2024 3:19pm Additional Source Comments REASON FOR VISIT (unrecogniz ed section and content) ReasonCommentsSinusitisSpecialtyDiagnoses / ProceduresReferred By Contact Referred To ContactOtolaryngology Diagnoses Nonspecific lymphadenitis, unspecified Chronic sinusitis, unspecified Procedures [place] UNLISTED EVALUATION AND MANAGEMENT [facility] [address] [place] [address] Perri Correa MD [address] [facility] [address] [place] [address] Phone: tel: fax: Referral IDStatusReasonStart DateExpiration DateVisits RequestedVisits [id number]nirot up CT [facility] 11/21/24ReasonCommentsSinusitisAllergic RhinitisS/p sinus surgery [facility] 09/07/24ReasonCommentsFacial PainFacial swellingReasonCommentsWell Women Visit INFORMATION SOURCE (unrecogn ized section and content) DATE CREATED AUTHOR 01/23/2023 [facility] DATE CREATED AUTHOR AUTHOR'S ORGANIZ ATION 01/18/2024 [facility] DATE CREATED AUTHOR AUTHOR'S ORGANIZ ATION 09/01/2024 [facility] DATE CREATED AUTHOR AUTHOR'S ORGANIZ ATION 09/10/2024 [facility] DATE CREATED AUTHOR AUTHOR'S ORGANIZ ATION 09/12/2024 [facility] DATE CREATED AUTHOR AUTHOR'S ORGANIZ ATION 10/03/2024 [facility] DATE CREATED AUTHOR AUTHOR'S ORGANIZ ATION 06/08/2025 [facility] EPIC Care Teams (unrecognized sec tion and content) Team Status: Active Member Role Status Dates Tyler Bates MD Primary Care Provider Active Team Status: Active Member Role Status Dates Tyler Bates MD Primary Care Provider Active Start: November 09, 2023 EVANGELIST LindseyAAtsebas ProviderActiveStart: November 09, 2023 Team Status: Inactive Member Role Status Dates Tyler Bates MD Primary Care Provide r, Attending Provider Active Start: November 23, 2023 End: November 23, 2023 Team Status: Inactive Member Role Status Dates Tyler Bates MD Primary Care Provider Active Start: January 11, 2024 End: January 10Kindra Chappell ProviderActiveStart: January 11, 2024 End: January 11, 2024Team MemberRelationshipSpecialtyStart DateEnd Date Tyler Bates MD [address] [place] [address] Referring PhysicianFamily Qlgaiqke78/14/24Team MemberRelationshipSpecialtyStart DateEnd Date Tyler Bates MD [address] [place] [address] Referring PhysicianFamily Gkoramwn44/14/24Team MemberRelationshipSpecialtyStart DateEnd Date Tyler Bates MD [address] [facility] [place] [address] Referring PhysicianFamily Zajlsshg36/14/24Team MemberRelationshipSpecialtyStart DateEnd Date Tyler Bates MD [address] [facility] [place] [address] PCP - GeneralFamily Qeczdbwb72/3/24 Tyler Bates MD [address] [facility] [place] [address] Referring PhysicianFamily Tgtimfus09/14/24Team MemberRelationshipSpecialtyStart DateEnd Date Tyler Bates MD [address] [place] [facility] [place] [address] PCP - GeneralFamily Scwelepl71/3/24 Tyler Bates MD [address] [facility] [place] [address] Referring PhysicianFamily Wvkoaacp50/14/24Team MemberRelationshipSpecialtyStart DateEnd Date Tyler Bates MD [address] [place] [facility] [place] [address] PCP - GeneralFamily Cxxlxamj76/3/24 Tyler Bates MD [address] [facility] [place] [address] Referring PhysicianFamily Qcwzifek53/14/24Team MemberRelationshipSpecialtyStart DateEnd Date Tyler Bates MD [address] [place] [facility] [place] [address] PCP - GeneralFamily Fgwbfaav07/3/24 Tyler Bates MD [address] [place] [facility] [place] [address] Referring PhysicianFamily Vuveylhv22/14/24Team MemberRelationshipSpecialtyStart DateEnd Date Tyler Bates MD [address] [place] [facility] [place] [address] PCP - GeneralFami Zhcesueq99/3/24 Tyler Bates MD [address] [place] [facility] [place] [address] Referring PhysicianFamily Tybewpah05/14/24Team MemberRelationshipSpecialtyStart DateEnd Date Tyler Bates MD [address] [place] [facility] [place] [address] PCP - GeneralFamily Crszahuk45/3/24 Tyler Bates MD Referring PhysicianFamily Fzmhkpey56/14/24Team MemberRelationshipSpecialtyStart DateEnd Date Tyler Bates MD [address] [place] [facility] [place] [address] PCP - GeneralFamily Hixmlliw79/3/24 Tyler Bates MD Referring PhysicianFamily Ztswcpeh24/14/24Team MemberRelationshipSpecialtyStart DateEnd Date Tyler Bates MD [address] [place] [address] PCP - GeneralFamily Dgntrdxh72/3/24 Tyler Bates MD Referring PhysicianFanorthampton state hospital Gmlvusio15/14/24 Team Status: Active Member Role/Relationship Status Dates Tyler Bates MD Primary Care Provider Active Team Status: Active Member Role/Relationship Status Dates Tyler Bates MD Primary Care Provider Active Start: June 07, 2025 TRESSA Lord-[facility] ProviderActiveStart: June 07, 2025 Team Status: Inactive Member Role/Relationship Status Dates Tyler Bates MD Primary Care Provider Active Start: July 24, 2025 End: July 24, 2025Tyler Bates MDAttcaromont regional medical center [facility] ProviderActiveStart: July 24, 2025 End: July 24, 2025 Goals (unrecognized section and content) Goals may [...] BE BASED ON THE PRIMARY CLINICAL RECORDS. [employer] provides no warranty or guarantee of the accuracy or completeness of information in this document.
--- NOTE | 2025-08-13 14:07 | CT_ITS ---
The [address] [address] Patient Name: AGUSTO MADDOX MRN: [id number] date: 1980 Sex: F Assigned Patient Location: [facility] Current Patient Location: [facility] Accession/Order Number: [id number] Exam Date: 08/13/2025 14:28 Report Date: 08/13/2025 20:11 At the request of: TYLER BATES MD Procedure: CT sinus wo con CT PARANASAL SINUSES WITHOUT CONTRAST: CLINICAL HISTORY: Chronic Sinusitis COMPARISON: None TECHNIQUE: Contiguous axial unenhanced images were obtained through the paranasal sinuses. Coronal reconstructions were also performed. This CT exam was performed using one or more following dose reduction techniques: Automated exposure control, adjustment of the mA and/or kV according to patient size, or use of iterative reconstruction technique. FINDINGS: There is appropriate development and pneumatization. There is no mucosal thickening or air-fluid levels. The ostiomeatal complexes are patent. There is no bony destruction. Intraoral foreign body on the left. CT/CT sinus wo con IMPRESSION: No CT evidence of acute bacterial sinusitis. Impression dictated by: Jonah Abarca M.D. 08/13/2025 8:11 PM Dictation Location: [place] [address] Electronically authenticated by: [id number] Y Date: 08/13/2025 20:11
--- NOTE | 2025-08-13 14:07 | CT_ITS ---
The [address] [address] Patient Name: AGUSTO MADDOX MRN: [id number] date: 1980 Sex: F Assigned Patient Location: [facility] Current Patient Location: [facility] Accession/Order Number: [id number] Exam Date: 08/13/2025 14:28 Report Date: 08/13/2025 18:13 At the request of: TYLER BATES MD Procedure: CT soft tissue neck wo con CT soft tissue neck wo con 08/13/2025 2:36 PM SIGNS AND SYMPTOMS: ^Mass Of Soft Tissue Neck TECHNIQUE: Multidetector CT axial slices of the soft tissues of the neck were obtained without IV contrast . Sagittal and coronal reformats were reconstructed. CT was performed with one or more of the following dose reduction techniques: Automated exposure control, adjustment of the mA and/or kV according to patient size, or use of iterative reconstruction technique. COMPARISON: None FINDINGS: Radiopaque markers overlie retroauricular soft tissues along the sternocleidomastoid muscle/mastoids. No discrete underlying mass lesion identified. Right buccal ovoid density likely intraoral, suspected intraoral foreign body The nasopharynx, oropharynx, hypopharynx, glottic, and subglottic regions are unremarkable. The parotid glands, submandibular, and the thyroid gland are within normal limits. The visualized lung parenchyma shows no acute pathology. Multilevel degenerative changes notably from C5 through 7 CT/CT soft tissue neck wo con IMPRESSION: No suspicious soft tissue abnormality identified at the site of clinical concern. Intraoral/buccal foreign body in the right. Impression dictated by: Jonah Abarca M.D. 08/13/2025 6:13 PM Dictation Location: [place] [address] Electronically authenticated by: [id number] Y Date: 08/13/2025 18:13
== END 2025-08-13 13:55 | disposition home or self-care (01) ==
LOC: MAMMO 13:54
PROVIDERS: PCP Family Medicine; Visit Provider Family Medicine
DX: J32.9 Chronic sinusitis, unspecified (principal); M79.89 Other specified soft tissue disorders; J34.2 Deviated nasal septum; Z12.31 Encounter for screening mammogram for malignant neoplasm of breast
CPT/HCPCS: 70486; 70490; 77063; 77067

== ENCOUNTER 2025-09-17 10:45 | Outpatient (OUT) | payer OTHER, SELFPAY ==
--- OUTSIDE RECORDS SUMMARY | 2025-09-17 10:49 | XMS_ITS | Clinical Summary ---
Author Organization [facility] Address [address] [place] [address] Care Team Providers Care Advertising Space Clerk Name Role Phone Leslie Norman MD Primary Care Provider [phone] Maikel Church MD Unavailable [phone] Allergies No known active allergies Medications [...] as needed for Anxiety.. Reported on 01/06/2017Active sasfwbdhfq-afxnhmy-cthlfbps (FIORINAL) 50-325-40 MG Cap take 1 capsule by mouth every 12 hours as needed for Headaches..Active cyproheptadine 4 MG Tab take 4 mg by mouth daily.. Reported on 01/06/2017Active Wlgaklx-Atkzigiioatjv-Sclpwdrh (EXCEDRIN PO) take by mouth as needed..Active Loratadine-Pseudoephedrine (CLARITIN-D 12 HOUR PO) take by mouth as needed..Active Active Problems ProblemNoted DateDiagnosed DateNonspecific abnormal results of thyroid function study01/06/20172011Chapweqcvuckpxu20/13/2016 Family History Medical HistoryRelationNameCommentsHypertensionFatherWayneOsteoporosisMaternal GrandmotherLuettaUterine CancerMaternal GrandmotherLuettaDiabetesMaternal [...] Last Filed Vital Signs Vital SignReadingTime TakenCommentsBlood Pcqjnfdy070/8404 1:22 PM EDT Llxdk550501/06/2017 1:22 PM EDTTemperature--Respiratory Rate--Oxygen Saturation-- Inhaled Oxygen Concentration--Svumbn82.8 kg (105 lb 6.4 oz)01/06/2017 1:22 PM BQHUcgngd273.6 cm (5' 4.02 )09/01/2016 9:20 AM ESTBody Mass Index18.0809/01/2016 9:20 AM EST Plan of Treatment Health MaintenanceDue DateLast DoneCommentsHEPATITIS C VIRUS YIZAAGCWD1978 DTTJOCC32 1978HIV SCREENING MIXPMHBYSS96/02/1993HEP B VACCINE (1 of 3 - 19+ 3-dose series)1997TDAP (ADULT)1997CERVICAL CANCER SCREENING UGYDNVEFEG76/02/1999LIPID RECZVAIJP95/02/2018MAMMOGRAM SCREENING DISCUSSION 2018COLORECTAL CANCER SCREENING OSVWGUVOLN29/02/2023COVID-19 VACCINE ( season)2025INFLUENZA VACCINE (#1)2025PNEUMOCOCCAL VACCINE SERIESAged OutNo longer eligible based on patient's age to complete this topic Insurance Care Teams Team MemberRelationshipSpecialtyStart DateEnd Date Leslie Norman MD PCP - GeneralFamily Nnsjoirk21/13/16 Maikel Church MD [address] [facility], [facility] [address] [place] [address] UdczayvegwzxyyhElfpgngqbwj66/13/16
--- OUTSIDE RECORDS SUMMARY | 2025-09-17 10:49 | XMS_ITS | Clinical Summary ---
Author Organization [facility] Address [address] [place] [address] Care Team Providers Care Global Cmo Name Role Phone Leslie Norman MD Unavailable Leslie Norman MD Primary Care Provider [phone] Allergies No known active allergies Medications MedicationSigDispense QuantityRefillsLast FilledStart DateEnd DateStatus Ubrogepant (UBRELVY PO) Take by mouth if [...] not crush, chew, or split. 30 tablet 1109/264962/18ctive venlafaxine XR (Effexor XR) 150 MG 24 hr capsule Indications:Depression with anxietyTake 1 capsule (150 mg) by mouth Daily Do not crush or chew. 90 capsule 310//327008/ctive amphetamine-dextroamphetamine (Adderall) 20 MG tablet Take 1 tablet by mouth in the morning and 1 tablet before bedtime.11/09/2023 08/27/2025Discontinued Active Problems ProblemNoted DateDiagnosed DateAbnormal mammogram of left qntigv5506/22/2024dult ADHD06/22/20243505Tptrmgc69/03/2024ervical jzlayxvwddasa17/03/2024hronic sinusitis 06/22/2024yst of ovary06/22/2024 Encounters DateTypeDepartmentCare BvxqLipdyrrhhym66/09/2025bstract [facility] [address] [place] [id number] Fabian Meeks DO 08/27/2025 1:10 PM ESTConsult [facility] [address] [place] [address] Fabian Meeks, Pre-op examination; Menorrhagia with regular cycle; Pelvic pain in female; Dyspareunia, female; Ygnucufxexya20/08/2025amboo flowsheet [facility] [address] [place] [address] Fabian Meeks DO 07/18/2025Refill [facility] [address] [place] [address] Rosemarie Carpenter LPN Depression with lvbhcge1207/17/2025Refill [facility] [address] [place] [address] Alice Buchanan MA Depression with anxietyfrom Last 3 Months Immunizations ImmunizationAdministration DatesNext DueInfluenza, [...] alcohol)CommentsNoSex and Gender InformationValueDate RecordedSex Assigned at PrwkyYfutqu10/09/2023 2:02 PM EDTLegal LiwJktjbt94/15/2023 7:12 PM EDTGender JxfejpnfQzkzvg25/09/2023 2:02 PM EDTSexual OrientationStraight 06/28/2023 2:02 PM EDT Last Filed Vital Signs Vital SignReadingTime TakenCommentsBlood Bspuljlt579/80110/28/2024 12:57 PM EST Gtxga26286/17/2025 1:07 PM ESTTemperature--Respiratory Rate--Oxygen Saturation-- Inhaled Oxygen Concentration--[place]30 kg (116 lb 12 oz)08/27/2025 12:57 PM EST Wficmn277.6 cm (5' 4 )10/06/2024 1:07 PM ESTBody Mass Index20.04010/06/2024 1:07 PM EST Plan of Treatment DateTypeDepartmentCare Team (Latest Contact Info)Ppyjdpwlohm43/23/2026 11:00 AM EDTProcedure Visit [facility] [address] [place] [address] [place] [address] Zaira Altman PA [address] [place] [address] [place] [address] Health MaintenanceDue DateLast DoneCommentsCT Etvjmuerchzk1978Colonoscopy 1978Colorectal Cancer Snieahwcb1978FIT-DNA1978FIT1978 FOBT1978 7659Ldokpborinwor1978HPV/Uazhki8106/21/20089017Fjdfsunph12/13/2024 11/30/2022, 08/17/2022, 08/06/2022Influenza Vaccine (#1)509/01/2020, 05/22/2019, 05/22/2014, Additional history existsCervical Cancer Screening 06/07/2028Pap Smear8006/07/2025, 03/07/2024neumococcal Vaccine: Pediatrics (0 to 5 Years) and At-Risk Patients (6 to 64 Years)Aged OutNo longer eligible based on patient's age to complete this topic Procedures Procedure NamePriorityDate/TimeAssociated DiagnosisCommentsPAP SMEARRoutine 06/07/2025 12:00 AM EDTBI MAMMOGRAM DIAGNOSTIC TOMOSYNTHESIS LEFTRoutine 11/30/2022 from Last 3 Months or Most Recently Relevant to Health Maintenance Results * Pap Smear (06/07/2025 12:00 AM EDT)Specimen (Source)Anatomical Location / LateralityCollection Method / VolumeCollection TimeReceived TimeSwabCervical swab / Unknown Narrative Authorizing ProviderResult TypeResult StatusAmy Anupama CALVILLO CYTOLOGY ORDERABLES Final ResultPerforming OrganizationAddressCity/State/ZIP CodePhone Number EXTERNAL LAB * Left diagnostic mammogram with tomosynthesis (11/30/2022)Anatomical Region LateralityModalityBreastLeftMammographySpecimen (Source)Anatomical Location / LateralityCollection Method / VolumeCollection TimeReceived Time Narrative 11/30/2022 12:00 AM EDT PERFORMED AT [facility] LOCATION:[facility] [address] Patient: ? FERNANDO Sandra ? Exam Date: ? 11/30/2022 : ? 1980 ?Gender:F ? Ordering : ? DR FABIAN MEEKS . ? Admission #: ? [id number] Family : ?Order #: ? [id number] ? CLICK HERE TO VIEW EXAM RADIOLOGY REPORT PROCEDURE: ? MAMMOGRAM DIAGNOSTIC 3D LEFT CAD 11/30/2022 09:57 ULTRASOUND BREAST LEFT LIMITED 11/30/2022 10:40 COMPARISON: ? MG MAMM SCREEN HARMONY W CAD 04/25/2020. ??MG MAMM SCREEN HARMONY W CAD 11/11/2018. ??MG MAMM HARMONY SCRN [...] Family Cancers ? None LOCATION: ? [facility] BREAST COMPOSITION: ? Extremely dense which [...] Note CONVERSION, GENERIC - 03/26/2023 PERFORMED AT [facility] LOCATION:[address] Patient: FERNANDO Sandra Exam Date: 11/30/2022 : 1980 Gender:F Ordering : DR FABIAN MEEKS . Admission #: [id number] Family : Order #: [id number] CLICK HERE TO VIEW EXAM RADIOLOGY REPORT [...] Treatments None Family Cancers None LOCATION: [facility] BREAST COMPOSITION: Extremely dense which lowers [...] DateEnd Date Leslie Norman MD [address] [place] [id number] PCP - GeneralFamily Ctofkhzh02/3/24 Leslie Norman MD [address] [place] [address] Referring PhysicianFamily Yugudhiv62/14/24
--- OUTSIDE RECORDS SUMMARY | 2025-09-17 10:49 | XMS_ITS | Clinical Summary ---
Author Organization [facility] tem Address [id number] [address] [place] [address] Care Team Providers Care Manager Pipeline Name Role Phone Unavailable Primary Care Provider Unavailabl e Social History Tobacco UseTypesPacks/DayYears UsedDateSmoking Tobacco: Never AssessedChildcare AnswerDate QakqbetqWevprhqfhJxjbisl78/12/2019EmploymentAnswerDate Recorded BivoxbplgdGmixrtz31/12/2019CommentsUnknownSex and Gender Information ValueDate RecordedSex Assigned at BirthNot on fileLegal CupQlsjew35/06/2015 12:08 PM EDTGender IdentityNot on fileSexual OrientationNot on file Plan of Treatment Health MaintenanceDue DateLast DoneCommentsDepression Znterkswo68/02/1990Tobacco Xsafqdlfg12/02/1990Adult BMI Etxfocmgx10/02/1996DTaP,Tdap and Td Vaccines (1 - Tdap)1997Pap Smear1999Influenza Bourxrp2405/21/2025 Medical Devices Not on file
--- NOTE | 2025-09-17 10:51 | ECG_ITS ---
[facility] Test Date: 2025-09-17 Pat Name: AGUSTO MADDOX Department: Room: - Gender: Female Air Bag Builder: : 1980 Requested By: TYLER BATES Order Number: [id number] Makayla MD: MARLYN ALVAREZ M.D. Measurements Intervals [place] Rate: 63 P: 69 PA: 148 QRS: 79 QRSD: 85 T: 80 QT: 416 QTc: 427 Interpretive Statements SINUS RHYTHM LEFT ATRIAL ENLARGEMENT [-0.15mV P WAVE IN V1/V2] Abnormal ECG No previous ECG available for comparison Electronically Signed On 09-17-2025 14:24:10 EST by MARLYN ALVAREZ M.D.
--- OUTSIDE RECORDS SUMMARY | 2025-09-17 11:06 | XMS_ITS | CCD ---
Author Organization [facility] CliniSyal Care Team Providers Care Dry Cleaner Presser Name Role Phone Tyler Bates Unavailable LEONA [...] LEONA ., DR PERALTA Primary Care Unavailable AINSWORTH, DR RICK [employer] Unavailable LEONA ., [...] MD Tyler Bates Primary Care Provider MD James Sands Attending Provider [phone] Tyler Bates Primary Care Unavailable James Sands [...] reviewed by nurse or physiciaPropensity to adverse [id number]:[facility]Time[facility] Other (3 sources)Allergies ReconciledPropensity to adverse wyuenqrjs77-80-2507Jzlizit [employer]Lynes Other (1 source)No Known Medication Allergies; Translations: [No Known Medication Allergies]Propensity to adverse reactions (disorder)[facility] Repository Medications Current Medications MedicationDrug Class(es)DatesSig (Normalized)Sig (Original)amoxicillin 500 mg oral capsule (4 sources)Penicillin-class AntibacterialStart: 06-19-2024 End: 81-33-5147gggcnfxpjbf (Amoxil) 500 MG capsule Twice daily 06/19/2024 07/03/2024 Discontinued (Therapy completed)amoxicillin 875 mg / clavulanate 125 mg oral tablet (7 sources)Penicillin-class AntibacterialStart: 10-04-2024 End: 74-84-7378zfsk 1 tablet by mouth in the morningamoxicillin-clavulanate (Augmentin) 875-125 MG tablet Indications: Chronic pansinusitis Take 1 tablet (875 mg) by mouth in the morning and 1 tablet (875 mg) before bedtime. Do all this for 14 days. 28 tablet 10/04/2024 10/18/2024 ActiveStart: 07-03-2024 End: 97-86-2308pewo 1 tablet by mouth in the morningamoxicillin-clavulanate (Augmentin) 875-125 MG tablet Indications: Chronic pansinusitis Take 1 tablet (875 mg) by mouth in the morning and 1 tablet (875 mg) before bedtime. 60 tablet 07/03/2024 08/02/2024 ActiveStart: 11-23-2023 End: 70-77-9734ivsc 1 tablet by mouth twice dailyAmoxicillin-Pot Clavulanate 875-125 mg tablet Discontinued 1 TAB PO Twice daily 20 0 November 23, 2023 12:00am March 07, 2024 2:04pmAspirin / butalbital / Caffeine (18 sources)take 1 capsule by mouth every four hours as neededFiorinal 50-325-40 MG 1 capsule as needed Orally every 4 hrs Ujfpjm30 hr buPROPion hydrochloride 150 mg extended release oral tablet (20 sources)AminoketoneStart: 03-84-8877uyci 1 tablet by mouth once daily in the morningBupropion Hcl 150 mg tablet extended release 24 hr Active 150 MG PO Every morning July 24, 2025 12:00am Complies with drug therapyStart: 06-07-2025 End: 84-13-1115ajqg 2 tablets by mouth every twelve hours at bedtimebuPROPion SR (Wellbutrin SR) 150 MG 12 hr tablet Indications: Mood changes Take 2 tablets (300 mg) by mouth at bedtime Do not crush, chew, or split. 30 tablet 11 06/07/2025 06/07/2026 ActiveStart: 75-53-1510mkpe 1 tablet by mouth once daily buPROPion 150 mg ER Tab 150 mg = 1 tab(s), Oral, Daily, Refills(s) 0, Depression Start Date: 08/29/24 Status: OrderedStart: 05-08-2024 End: 24-93-7439wagl 1 tablet by mouth every twelve hours at bedtimebuPROPion SR (Wellbutrin SR) 150 MG 12 hr tablet Indications: Mood changes Take 1 tablet (150 mg) by mouth at bedtime Do not crush, chew, or split. 30 tablet 11 05/07/2025 06/07/2025 Discontinued (Reorder)cetirizine hydrochloride 10 mg oral tablet (3 sources)Histamine-1 Receptor Antagonist End: 44-10-0148tilsiymoht (ZyrTEC) 10 MG tablet Take by mouth. 07/03/2024 DiscontinuedZyrtec-D (17 sources)alpha-Adrenergic Agonist, Histamine-1 Receptor AntagonistStart: 36-06-5694dzeo 1 tablet by mouth once dailyZyrtec-D 1 tab(s), Oral, Daily, Refill(s) 0, Allergy symptoms Start Date: 08/29/24 Status: OrderedStart: 07-03-2024 End: 60-47-3428bcns 1 tablet by mouth once in the morning, then take 1 tablet by mouth every twelve hours at bedtimecetirizine-pseudoephedrine (ZyrTEC-D) 5-120 MG 12 hr tablet Indications: Chronic pansinusitis Take 1 tablet by mouth in the morning and 1 tablet before bedtime. 60 tablet 11 07/03/2024 07/03/2025 Active ciprofloxacin 3 mg/ml ophthalmic solution (15 sources)Quinolone AntimicrobialStart: 75-82-2294Fqxdt: 20-24-2238Vwtwleme-D 12 Hour 5-120 MG (15 sources)Start: 00-77-0402dnvh 5-120 mg by mouth twice dailyClaritin-D 12 Hour 5-120 MG 1 tablet Orally twice a day for 30 days January, ActiveFlonase (17 sources)CorticosteroidStart: 20-57-0972Oqrtplt Refill(s) 0, Allergy symptoms Start Date: 08/29/24 Status: OrderedStart: 07-03-2024 End: 71-81-1938xscr 2 spray(s) nasal route once dailyfluticasone (Flonase) 50 MCG/ACT nasal spray Indications: Chronic pansinusitis Administer 2 sprays into each nostril Daily Shake gently. Before first use, prime pump. After use, clean tip and replacecap. 48 g 3 07/03/2024 07/03/2025 Jfnigq85 hr loratadine 5 mg / pseudoephedrine sulfate 120 mg extended release oral tablet (2 sources)alpha-Adrenergic AgonistStart: 26-01-7621lwbg 1 tablet by mouth every twelve hoursClaritin-D 12 Hour 5-120 MG 1 tablet Orally twice a day for 30 days January, ActivepredniSONE 20 mg oral tablet (8 sources)Start: 07-03-2024 End: 99-33-7862apjn 1 tablet by mouth in the morningpredniSONE (Deltasone) 20 MG tablet Indications: Chronic pansinusitis Take 1 tablet (20 mg) by mouth in the morning and 1 tablet (20 mg) before bedtime. Do all this for 6 days. 12 tablet 07/03/2024 07/09/2024 ActiveStart: 02-36-9318xbbn 1 tablet by mouth every twenty-four hourspredniSONE 20 MG 1 tablet with food or milk Orally Once a day for 30 days Nov, Not-TakingProbiotic Formula (Bacillus Coagulans) (2 sources)Start: 07-84-1281Rgamqhmok Formula (Bacillus Coagulans) Refill(s) 0, Prophylaxis Start Date: 08/29/24 Status: OrderedUbrogepant (UBRELVY PO) (16 sources)Ubrogepant (UBRELVY PO) Take by mouth if needed Mdcebi22 hr venlafaxine 75 mg extended release oral capsule (20 sources)Serotonin and Norepinephrine Reuptake InhibitorStart: 03-88-0352mgve 1 capsule by mouth once dailyvenlafaxine XR (Effexor XR) 150 MG 24 hr capsule Indications: Depression with anxiety Take 1 capsule (150 mg) by mouth Daily Do not crush or chew. 30 capsule 3 02/21/2025 ActiveStart: 05-17-2024 End: 18-26-3944nhjh 1 capsule by mouth once dailyvenlafaxine XR (Effexor XR) 150 MG 24 hr capsule Indications: Depression with anxiety Take 1 capsule (150 mg) by mouth Daily Do not crush or chew. 30 capsule 3 07/17/2024 10/15/2024 Active Start: 11-23-2023 End: 16-23-8017xtbg 1 capsule by mouth once dailyVenlafaxine (Effexor Xr) 75 mg capsule,extended release 24hr Active 75 MG PO Daily 7 0 April 1:03pm Complies with drug therapytake 1 capsule by mouth every twenty-four hoursEffexor XR 75 MG 1 capsule with food Orally Once a day Active Completed/Discontinued Medications MedicationDrug Class(es)DatesSig (Normalized)Sig (Original)[id number] 200 actuat albuterol 0.09 mg/actuat metered dose inhaler (20 sources)beta2-Adrenergic AgonistStart: 11-23-2023 End: 74-43-7491wtvd 1 puff(s) by inhalation every four hoursAlbuterol Sulfate 90 mcg/actuation HFA aerosol inhaler Discontinued 2 PUFF INHALATION Every 4 hours November 23, 2023 12:00am July 24, 2025 2:09pmStart: 74-78-5336vjgb 2 puff(s) by inhalation every four hours as neededAlbuterol Sulfate HFA 108 (90 Base) MCG/ACT 2 puff Inhalation every 4 hrs prn Sep, Not-Taking/PRNStart: 24-12-4107tpwl 2 puff(s) by inhalation every four hours as neededAlbuterol Sulfate HFA 108 (90 Base) MCG/ACT 2 puff Inhalation every 4 hrs prn Sep, Not-TakingStart: 52-40-3413mlpx 2 puff(s) by inhalation every four hours as neededAlbuterol Sulfate HFA 108 (90 Base) MCG/ACT 2 puff Inhalation every 4 hrs prn Sep, Not-TakingALPRAZolam 0.25 mg oral tablet (20 sources)BenzodiazepineStart: 11-23-2023 End: 43-77-6279mxnl 1 tablet by mouth four times daily as neededAlprazolam 0.25 mg tablet Discontinued 0.25 MG PO Four times daily as needed November 23, 2023 12:00am April 04, 2024 12:53pmStart: 82-25-1835cofa 1 tablet by mouth four times dailyALPRAZolam 0.25 MG take 1 tablet by mouth four times a day if needeD for 7 Mar, ActiveStart: 59-56-1032fcbb 1 tablet by mouth four times dailyALPRAZolam 0.25 MG take 1 tablet by mouth four times a day if needed for 7 Dec, Activeamphetamine aspartate 5 mg / amphetamine sulfate 5 mg / dextroamphetamine saccharate 5 mg / dextroamphetamine sulfate 5 mg oral tablet (20 sources)Central Nervous System StimulantStart: 07-30-2024 End: 77-62-7629cygi 1 tablet by mouth twice dailyDextroamphetamine-Amphetamine 20 mg tablet Discontinued 20 MG PO Twice daily 60 30 0 AugustDecember 15, 2024 8:45am Attention deficit disorder of adult with hyperactivity Attention-deficit hyperactivity disorder, unspecified typeStart: 11-09-2023 End: 72-36-0464rade 1 tablet by mouth twice dailyDextroamphetamine-Amphetamine 20 mg tablet Discontinued 1 TAB PO Twice daily 60 30 0 OctoberNovember 12, 2023 10:05am Attention deficit disorder of adult with hyperactivity Attention-deficit hyperactivity disorder, unspecified type FreeTextSi tablet Orally Twice a day; Note: Source Status: Refill; Refills: 0; Provider: Jana Nelson EStart: 13-76-1703bsws 1 tablet by mouth every twelve hoursAdderall 20 MG 1 tablet Orally Twice a day for 30 days Sep, Active Start: 72-14-6211eqmd 1 tablet by mouth every twelve hoursAdderall 20 MG 1 tablet Orally Twice a day for 30 days Aug, ActiveStart: 26-92-4854dvaj 1 tablet by mouth every twelve hoursAdderall 20 MG 1 tablet Orally Twice a day for 30 days Jul, ActiveStart: 82-87-0750rqzh 1 tablet by mouth every twelve hoursAdderall 20 MG 1 tablet Orally Twice a day for 30 days Jun, Active Start: 73-81-9928dfnv 1 tablet by mouth every twelve hoursAdderall 20 MG 1 tablet Orally Twice a day for 30 days May, ActiveStart: 86-44-2876kohp 1 tablet by mouth every twelve hoursAdderall 20 MG 1 tablet Orally Twice a day for 30 days Apr, ActiveStart: 01-21-4141mnbl 1 tablet by mouth every twelve hoursAdderall 20 MG 1 tablet Orally Twice a day for 30 days Apr, Active Start: 23-90-8394tqae 1 tablet by mouth every twelve hoursAdderall 20 MG 1 tablet Orally Twice a day for 30 days Feb, ActiveStart: 41-78-1184pcxe 1 tablet by mouth every twelve hoursAdderall 20 MG 1 tablet Orally Twice a day for 30 days January, ActiveStart: 33-64-8122vvkz 1 tablet by mouth every twelve hoursAdderall 20 MG 1 tablet Orally Twice a day for 30 days Dec, Active Start: 26-37-5853fcqq 1 tablet by mouth every twelve hoursAdderall 15 MG 1 tablet Orally Twice a day for 30 days Dec, Activeaspirin 325 mg / butalbital 50 mg / caffeine 40 mg oral capsule (2 sources)Platelet Aggregation Inhibitor, Barbiturate, Nonsteroidal Anti- inflammatory Drug, Central Nervous System Stimulant, MethylxanthineStart: 11-23-2023 End: 40-97-6540kdeb 1 capsule by mouth every four hours Jhcqzhazvq-Phblahy-Fezcmlfw 50-325-40 mg capsule Discontinued 1 CAP PO Every 4 hours November 23, 2023 12:00am March 07, 2024 2:04pmazithromycin 250 mg oral tablet (6 sources)Macrolide AntimicrobialStart: 26-90-9155Qackdgylsrpi 250 MG as directed Orally 2 tabs po today, then 1 tab daily x 4 more days for 5 Sep, Not-Takingbiotin 1 mg oral tablet (6 sources)take 1 tablet by mouth every twelve hoursBiotin 1000 MCG 1 tablet Orally bid Not-Takingcefdinir 300 mg oral capsule (18 sources)Cephalosporin AntibacterialStart: 62-48-8114Onqrgnzd 300 MG as directed Orally bid for 7 days Dec, Not-Taking/PRNcyproheptadine hydrochloride 4 mg oral tablet (6 sources)take 1 tablet by mouth once daily at bedtimeCyproheptadine HCl 4 mg 1 tablet Orally qhs Not-Takingketoconazole 20 mg/ml medicated shampoo (11 sources)Azole AntifungalStart: 11-23-2023 End: 59-70-1273Nyttzjmctfej 2 % shampoo Discontinued 1 APPLIC TOPICAL EVERY 2 WEEKS November 23, 2023 12:00am July 24, 2025 2:09pmStart: 06-17-2023 Ketoconazole 2 % as directed Externally twice a week for 30 days May, ActiveStart: 21-34-5724Jvkpxdrtadby 2 % as directed Externally twice a week for 30 days May, ActivemethIMAzole 5 mg oral tablet (6 sources)Thyroid Hormone Synthesis InhibitorStart: 39-72-2402wpxq 1 tablet by mouth once daily at mealtimemethIMAzole 5 mg 1 tablet with food Orally Once a day except Wednesday for 30 day(s) Nov, Not-TakingmethylPREDNISolone 4 mg oral tablet (18 sources)CorticosteroidStart: 29-42-6367dohcnfPDSAMSNqdrov 4 MG as directed Orally daily for 6 days Apr, Not-Taking/PRNStart: 09-28-2022 methylPREDNISolone 4 MG as directed Orally for 6 days Sep, Not-Flyihg01 hr metoprolol succinate 25 mg extended release oral tablet (6 sources)beta-Adrenergic BlockerStart: 01-95-7253stwb 1 tablet by mouth every twelve hoursToprol XL 25 MG 1 tablet Orally bid for 90 days Nov, Not-Takingmupirocin 0.02 mg/mg topical ointment (11 sources)RNA Synthetase Inhibitor AntibacterialStart: 11-23-2023 End: 30-32-3465Xjbviksyv 2 % ointment Discontinued 1 APPLIC TOPICAL Three times daily November 23, 2023 12:00am December 15, 2024 8:45amStart: 39-38-9932Lnamoozvm 2 % 1 application Externally Three times a day for 10 days May, Active ondansetron 4 mg oral tablet (6 sources)Serotonin-3 Receptor AntagonistStart: 39-45-1765dimt 1 tablet by mouth three times daily as neededOndansetron HCl 4 MG 1 tablet Orally tid prn for 5 days Sep, Not-Takingsulfamethoxazole 800 mg / trimethoprim 160 mg oral tablet (10 sources)Dihydrofolate Reductase Inhibitor Antibacterial, Sulfonamide AntimicrobialStart: 08-67-0266krxq 1 tablet by mouth every twelve hoursBactrim DS 800-160 MG 1 tablet Orally Twice a day for 10 day(s) May, Not-Taking/PRNtiZANidine 4 mg oral tablet (20 sources)Central alpha-2 Adrenergic AgonistStart: 11-23-2023 End: 60-37-7358kqiz 1 tablet by mouth once daily at [...] acetonide 1 mg/ml topical cream (12 sources)CorticosteroidStart: 70-72-8768Zzdlsynkocgms Acetonide 0.1 % 1 application Externally Twice a day for 10 days Apr, Not-Taking/PRNStart: 07-60-6046Nzjrlsfwqoccg Acetonide 0.1 % 1 application Externally Twice a day for 10 days Apr, Not-Taking Problems Active Problems Problem ClassificationProblemDateDocumented DateEpisodic/ChronicAbdominal pain (3 sources)Pelvic and perineal pain; Translations: [Pelvic and perineal pain] EpisodicAllergic reactions (1 source)Unspecified contact dermatitis, unspecified causeEpisodicAnxiety disorders (20 sources)Anxiety disorder; Translations: [Anxiety disorder, unspecified] Onset: 573146-41-3777QgtabrrTxhqnkoyi-xrpttiu, conduct, and disruptive behavior disorders (20 sources)Adult attention deficit hyperactivity disorder ; Translations: [Attention-deficit hyperactivity disorder, unspecified type]Onset: 06-22-2024 62-06-2226PqymegjAtjqzkohi-deficit, conduct, and disruptive behavior disorders (9 sources)Attention-deficit hyperactivity disorder, unspecified typeChronic Attention-deficit, conduct, and disruptive behavior disorders (3 sources)Attention deficit hyperactivity disorder; Translations: [Attention- deficit hyperactivity disorder, unspecified type]ChronicAttention-deficit, conduct, and disruptive behavior disorders (2 sources)Attention deficit hyperactivity disorder, predominantly inattentive tnjy46-11-0825TrzroulLxwjnxd dysrhythmias (20 sources)Palpitations; Translations: [Palpitations]Onset: 04-20-2017 25-91-2075JjwalrjoDfccwhg obstructive pulmonary disease and bronchiectasis (3 sources)Bronchitis; Translations: [Bronchitis, not specified as acute or chronic]EpisodicGenitourinary symptoms and ill-defined conditions (3 sources)Genuine stress incontinence; Translations: [Stress incontinence (female) (male)]ChronicHeadache; including migraine (7 sources)Migraine without aura, not refractory ; Translations: [Migraine, unspecified, not intractable, without status migrainosus]Onset: 10-11-2015 91-36-4961JdhhykwArkyxhvw; including migraine (4 sources)Headache; Translations: [Nonintractable headache, unspecified chronicity pattern, unspecified headache type]49-13-6165QcabzenxSihgoaht disorders (12 sources)Autoimmune disease; Translations: [Other specified disorders involving the immune mechanism, not elsewhere classified]ChronicImmunizations and screening for infectious disease (2 sources)Encounter for screening for human papillomavirus (HPV); Translations: [Anti-nuclear factor positive]Onset: 855312-35-8026NhpobeypBdhfwtoblczcd (18 sources)Nonspecific lymphadenitis, unspecified; Translations: [Cervical lymphadenitis]Onset: 33-27-5961VztswipzInrgomx and fatigue (13 sources)Other fatigue; Translations: [Malaise and fatigue]Onset: 10-11-2015 EpisodicMenstrual disorders (20 sources)Irregular periods; Translations: [Irregular menstruation, unspecified]Onset: 58-54-7671GxlnrygJfbd disorders (6 sources)Premenstrual dysphoric disorder; Translations: [Premenstrual dysphoric disorder]Onset: 694179-40-8104WklenamQrsf disorders (1 source)Disturbance in mood; Translations: [Emotional lability]06-07-2025 EpisodicNausea and vomiting (3 sources)Nausea; Translations: [Nausea]EpisodicOther connective tissue disease (1 source)Myalgia, unspecified site; Translations: [Myalgia, unspecified site] Onset: 70-02-8814UtoppvjnEfcky connective tissue disease (2 sources)Mass of neck; Translations: [Other specified soft tissue disorders] 87-77-4909CacqmlduClkja ear and sense organ disorders (2 sources)Bilateral hearing loss; Translations: [Unspecified hearing loss, bilateral]58-90-9850GytkoikCkscw female genital disorders (1 source)Abnormal uterine and vaginal bleeding, unspecified; Translations: [ABNORMAL UTERINE VAGINAL BLEED UNS]Onset: 97-24-0193VsopbqfEkgzw female genital disorders (3 sources)Premenstrual tension syndrome; Translations: [Premenstrual tension syndromes]Onset: 55-58-5111LvtyeloZcrua female genital disorders (3 sources)Abnormal uterine bleeding; Translations: [Abnormal uterine and vaginal bleeding, unspecified]ChronicOther gastrointestinal disorders (1 source)Irritable bowel syndrome with diarrhea; Translations: [IRRITABLE BOWEL SYND W/DIARRHEA]Onset: 72-80-1050LcgtgqhYocrh gastrointestinal disorders (3 sources)Irritable bowel syndrome with [...] disorders (19 sources)Weight loss; Translations: [Abnormal weight loss]52-94-9135Hdejapyr Other nutritional; endocrine; and metabolic disorders (3 [...] screening mammogram for malignant neoplasm of breast]Onset: 70-28-3036JlpwjdpeAowxx skin disorders (2 sources)Rash and other nonspecific skin eruptionEpisodicOther upper respiratory disease (3 sources)Allergic rhinitis; Translations: [Allergic rhinitis, unspecified] ChronicOther upper respiratory disease (5 sources)Deviated nasal septum; Translations: [Deviated nasal septum]Onset: 604442-79-4194LjfhvntbUyvwv upper respiratory disease (4 sources)Alvaro bullosa; Translations: [Other specified disorders of nose and nasal sinuses]38-91-4805JouwpaoeHouft upper respiratory disease (5 sources)Hypertrophy of nasal turbinates; Translations: [Hypertrophy of nasal turbinates]Onset: 525230-17-0090AtbwjulcUgygd upper respiratory disease (1 source)Disorder of the nose; Translations: [Other specified disorders of nose and nasal sinuses]Onset: 49-63-1050NennhtzjUudqk upper respiratory disease (2 sources)Disorder of nasal septum; Translations: [Deviated nasal septum] 00-06-1957FshkhbqqLbcec upper respiratory infections (20 sources)Chronic sinusitis; Translations: [Chronic sinusitis, unspecified] Onset: 745897-36-5479JlgjohnHsilc upper respiratory infections (6 sources)Acute pharyngitis; Translations: [Acute pharyngitis, unspecified] Onset: 91-78-2320ExqegnqpWgtd and subcutaneous tissue infections (1 source)Impetigo, unspecifiedEpisodicSubstance-related disorders (4 sources)Nicotine dependence, cigarettes, uncomplicated; Translations: [Tobacco user]Onset: 51-28-9244QvnumtaPprbfgh disorders (20 sources)Subclinical hyperthyroidism; Translations: [Thyrotoxicosis, unspecified without thyrotoxic crisis or storm]Onset: ChronicUnclassified (1 source)CONTACT W/AND (SUSP) EXPOS COVID-19; Translations: [CONTACT W/AND (SUSP) EXPOS COVID-19]Onset: 76-22-8739Tquamvwfuxqs (1 source)Patient encounter statusUnclassified (2 sources)Z12.11 - Encounter for screening for malignant neoplasm of colon Past or Other Problems Problem ClassificationProblemDateDocumented DateEpisodic/ChronicAcute bronchitis (3 sources)Acute bronchitis; Translations: [Acute bronchitis, unspecified]Onset: 22-16-3165IatrvcwjEdjmpokvp (3 sources)Upper respiratory tract infection due to Influenza; Translations: [Influenza due to unidentified influenza virus with other respiratory manifestations]Onset: 47-38-7162QhdxfnvgMjbea nutritional; endocrine; and metabolic disorders (3 sources)Underweight; Translations: [Underweight]Onset: 66-92-7307Naiwffqs Other nutritional; endocrine; and metabolic disorders (3 sources)Abnormal weight loss; Translations: [Abnormal weight loss]Onset: 62-35-1617BxveiqlqVynrsag cyst (20 sources)Unspecified ovarian cyst, left side; Translations: [Cyst of left ovary]Onset: 921676-20-5222PomjyizmJrkyiykq codes; unclassified (3 sources)Sleep disorder; Translations: [Persistent disorder of initiating or maintaining sleep]Onset: 93-23-9256ZaqrmpocHekdelwmzlrg (3 sources) care; Translations: [Supervision of other normal ] Onset: 02-02-2007 Results Test NameValueInterpretationReference RangeFacilityIGP,APTIMA HPV,AGE GDLNon 04-47-0595LQB GDLN ACOG TESTINGNote.NOMS HealthcareComment on above:TESTS RESULT FLAG UNITS REF RANGE LAB Clinician Provided Cytology Information Source.............Cervix;Endocervix No. of containers..01 ThinPrep Vial Age Algo ACOG Mihaela... [age] FLAG LEGEND: L-Low Normal,H-High Normal,LL-Alert Low,HH-Alert High <-Panic Low,>-Panic High,A-Abnormal,AA-Critical Abnormal Performed at: 01 =[address] [address] Taylor Ahn MD, HPV APTIMANegativeNegativeNOMS HealthcareComment on above:This nucleic acid amplification test detects fourteen high- risk HPV types (16,18,31,33,35,39,45,51,52,56,58,59,66,68) without differentiation. Performed at: =[address] [id number] Engineer System Administrator: Taylor Ahn MD, Phone: [phone] Performed at: [address] [id number] Engineer System Administrator: Taylor Ahn MD, Phone: [phone] IGP, APTIMA HPV, RFX 16/18,45Note.NOMS HealthcareComment on above:TESTS RESULT FLAG UNITS REF RANGE LAB DIAGNOSIS: 02 NEGATIVE FOR INTRAEPITHELIAL LESION OR MALIGNANCY. Specimen adequacy: 02 Satisfactory for evaluation. No endocervical component is identified. Performed by: April Weston, Art Therapy Specialist ([facility]) . 02 Note: Note 02 The Pap [...] <-Panic Low,>-Panic High,A-Abnormal,AA-Critical Abnormal Performed at: [address] [address] Taylor Ahn MD, BRUSH-SPATULA CERVIX ENDOCERVIX CLINISYNCNOMS [facility] papilloma virus 16+18+31+33+35+39+45+51+52+56+58+59+66+68 DNA [Presence] in CerOrdered By: Zaira Altman on 89-77-4346FDK 16+18+31+33+35+39+45+51+52+56+58+59+66+68 DNA Probe+sig amp Ql (Cvx)NegativeNegativeWilson Memorial HospitalComment on above: This nucleic acid amplification test detects fourteen high-risk HPV types (16,18,31,33,35,39,45,51,52,56,58,59,66,68)without differentiation.Performed at: = - [facility] [id number] Director: Taylor Ahn MD, Phone: [phone] at: - [facility] [id number] Director: Taylor Ahn MD, Phone: [phone] Panel InformationOrdered By: Zaira Altman on 14-19-3777LCJ High Risk Other CommentNote.[facility] Memorial HospitalComment on above:TESTS RESULT FLAG UNITS REF RANGE LAB DIAGNOSIS: 02 NEGATIVE FOR INTRAEPITHELIAL LESION OR MALIGNANCY.Specimen adequacy: 02 Satisfactory forevaluation. No endocervical component is identified.Performed by: 02 Jennifer Weston Art Therapy Specialist ([facility]). 02Note: Note 02 The Pap smear is [...] <-Panic Low,>-Panic High,A-Abnormal,AA-Critical Abnormal Performed at:[address] [place] [address] Taylor Ahn MD, Phnukbmul Lab Test Patient AgeNote.[facility] Memorial HospitalComment on above:TESTS RESULT FLAG UNITS REF RANGE LAB Clinician Provided Cytology Information Source.............Cervix;Endocervix No. of containers..01 ThinPrep VialAge Emileo THAOOG Mihaela... 28 FLAG LEGEND: L-Low Normal,H-High Normal,LL-Alert Low,HH-Alert High <-Panic Low,>-Panic High,A- Abnormal,AA-Critical Abnormal Performed a t:01 =[address] [address] Taylor Ahn MD, Txydczjzt Reporton [id number] Report Operative Report SURGERY DATE: 09/07/2024 PREOPERATIVE [...] with a long nasal speculum. A left-sided [place] [place] incision was then made, and a mucoperichondrial and mucoperiosteal flap was elevated on the left-hand side. The bony cartilaginous junctionwas then , and the mucoperiosteal flap was elevated on the right-hand side. Then, using cutting and grabbing Mills[place]- Bill forceps, the bony septum was removed. [...] the nose were then copiously irrigated. The [place] incision was closed with a 5-0 Caprosyn [...] good condition. Padma Pedroza Jr. Dictated: 09/07/2024 [id number] Transcribed: 09/07/2024NoFisher-Titus Medical CenterComment on above:Result Comment: Electronically Signed By: Madeline SAMANIEGO, Perri Phelps\.br\Date and Time Signed: 09/28/24 08:31 ESTSurgical Pathology Reporton [id number] Pathology ReportAvita Health System [facility] [place] [address]- Surgical Pathology Report Collected Date/Time: 09/07/2024 09:54 [...] is entirely submitted in one cassette. (DC) DC:[facility] Microscopic Description Microscopic examination performed unless gross only specified.[facility] CenterComment on above:Performed By: #### [id number] #### [facility] [address] [place], [place] [address]Fpkt OR Intraoperative Recordon [id number] OR Intraoperative RecordMain OR Intraoperative Record IntraOp Document Type FT Summary Primary Physician: Perri Correa MD Finalized Date/Time: 09/11/24 07:22:26 Pt. Name: AGUSTO KING Amie/Sex: 1980 Female Med Rec #: [id number] Physician: Perri Correa MD Financial #: [id number] Pt. Type: A Room/Bed: [facility] Admit/Disch: 09/07/24 07:36:37 - 09/07/24 12:25:00 [...] MD, Alfons Ii F N. Role Performed OTR VAN CDL TRUCK DRIVER Surgeon - Primary Range Examiner - Primary Time In 09/07/24 09:24:00 09/07/24 09:24:00 09/07/24 09:25:00 Time Out 09/07/24 10:28:00 09/07/24 10:28:00 09/07/24 10:28:00 Procedure SEPTOPLASTY(.), SEPTOPLASTY(.), SEPTOPLASTY(.), ANTROSTOMY TURBINECTOMY ANTROSTOMY TURBINECTOMY ANTROSTOMY TURBINECTOMY ETHMOIDECTOMY(Right) ETHMOIDECTOMY(Right) ETHMOIDECTOMY(Right) Comments , ANESTHESIA PRECEPTOR CONTINUOUS WASHER OPERATOR Last Modified By: Jones PLAN CHECKER, Demetrius Friend Ii, Alfons Ii F 09/11/24 07:15:35 09/07/24 10:28:20 09/07/24 10:28:20 Entry 4 Entry 5 Entry 6 Case Attendee Myke RN, Lucero Castillo CST, Marianna Hamm RN, Fritz Norman Role Performed Range Examiner - Primary Scrub - Primary Range Examiner - Relief Time In 09/07/24 09:24:00 09/07/24 [...] PreOp Antibiotic No Time Out Candie TAO, OTR VAN CDL TRUCK DRIVER, Queen Fernando Lugo, Madeline SAMANIEGO, Perri Phelps, [...] Met? Yes Last Modified By: CecilleDemetrius Dayton eHrnandez 09/07/24 09:13:49 Post-Care Text: The patient received [...] Assessment (Pre Procedure) FT (more content not included)...NormalSouthview Medical CenterB hCG Qualon 26-48-9719Dmgt HCG ( test) QlNegativeNormalSouthview Medical Center Comment on above:Performed By: #### [id number] #### [facility] [address], [place] [address]Qtluepwux Instructionson [id number] Instructions Discharge Instructions AGUSTO KING :1980 Visit [...] When: In 8 days 09/15/2024 EST Where: [address] [place] [address], [address] [place] [id number] Business (1) Medications What How Much When [...] these instructions at home: Medicines ??? Take xkfg-ata-gxkliny and prescription medicines only as told by [...] keep your urine pale yellow. ? Take kdka-umz-kdipciw or prescription medicines. ? Eat foods that [...] nose. ??? Have yel (more content not included)...[facility] CenterComment on above:Result Comment: Electronically Signed By: Mattie LAMBERT, Vida Hernandez\.br\Date and Time Signed: 09/07/24 11:26 ESTInpatient Patient Summaryon [id number] Patient SummaryInpatient Patient Summary [address] [address] [facility] Clinical Discharge Instructions PERSON INFORMATION Name: AGUSTO KING PHYSICIANS Admitting Physician: Perri Correa MD Attending Physician: Perri Correa MD PCP: TYLER BATES MD Discharge Diagnosis: Alvaro bullosa; DNS (deviated nasal septum); Hypertrophy of inferior nasal turbinate Comment: PATIENT EDUCATION INFORMATION Instructions: Medication Leaflets: Follow up: With: Address: When: Perri Correa [address] [place] [address], [address] [place] [address] Business (1) In 8 days [...] Cap-ER) 1 Capsules By Mouth every day. Comment:[facility] Medical CenterMain OR PACU I Recordon 76-14-5096Vkpj OR PACU I RecordMain OR PACU I Record PACU Phase I Document Type FT Summary Primary Physician: Perri Correa MD Finalized Date/Time: 09/07/24 10:57:55 Pt. Name: AGUSTO KING Amie/Sex: 1980 Female Med Rec #: [id number] Physician: Perri Correa MD Financial #: [id number] Pt. Type: A Room/Bed: [facility] Admit/Disch: 09/07/24 07:36:37 - Institution: Case [...] Level Acuity Level I Last Modified By: aNdine Joyce RN 09/07/24 10:57:47 Finalized By: Nadine Joyce RN Document Signatures Signed By: Nadine Joyce RN 09/07/24 10:57 Nadine Joyce RN 09/07/24 10:57GenevieveSouthview Medical CenterMain OR PACU II Recordon [id number] OR PACU II Record Main OR PACU II Record PACU Phase II Document Type FT Summary Primary Physician: Perri Correa MD Finalized Date/Time: 09/07/24 12:26:42 Pt. Name: AGUSTO KING/Sex: 1980 Female Med Rec #: [id number] Physician: Perri Correa MD Financial #: [id number] Pt. Type: A Room/Bed: [facility] Admit/Disch: 09/07/24 07:36:37 - Institution: Case [...] Signatures Signed By: Maddi Lau RN 09/07/24 12:26[facility] CenterMain OR Preoperative Recordon [id number] OR Preoperative RecordMain OR Preoperative Record PreOp Document Type FT Summary Primary Physician: Perri Correa MD Finalized Date/Time: 09/07/24 10:28:36 Pt. Name: AGUSTO KING /Sex: 1980 Female Med Rec #: [id number] Physician: Perri Correa MD Financial #: [id number] Pt. Type: A Room/Bed: 05/21 Admit/Disch: 09/07/24 [...] Signatures Signed By: Demetrius Oden Ii 09/07/24 10:28GenevieveSouthview Medical CenterOutpatient Surgery Discharge Instructionon 96-53-7825Fwlardbdhr Surgery Discharge InstructionOutpatient Surgery Discharge Instruction [address] [address] Patient Discharge Instructions PERSON INFORMATION Name: AGUSTO [...] Follow up: With: Address: When: Perri Correa [address] [place] [address], [facility] [address], [address] [place] [address] Business (1) In 8 days 09/15/2024 Pharmacy Information: You may receive a survey from [employer] asking you to rate your care experience. Your feedback is important and will help us understand what we do well and how we can improve the quality of care we provide to you, your loved ones and our community. It???s an honor to serve you. Thank you for choosing [facility] HERE ARE THE MEDICATION CHANGES THAT OCCURRED [...] every day. PATIENT EDUCATION INFORMATION Instructions: Medication Leaflets:[facility] Community HospitalEROLOGYOrdered By: Antonella Lou on 17-76-0972Tzpc HCG ( test) QlNegative (09/07/24 8:19 AM)[facility] Man SeroBMPon 52-44-9987Tcedj gap [Moles/Vol]10 mmol/LNormal6-16Southview Medical CenterComment on above:Performed By: #### [id number] #### [facility] [address], [place] [address]Oqliiel [Mass/Vol]8.9 mg/dLNormal8.9-11.1FOhioHealth Mansfield HospitalComment on above:Performed By: #### [id number] #### [facility] [address], [place] [address]Pflbkwyq [Moles/Vol]105 mmol/DExiqoh031-116PfrjihSouthview Medical CenterComment on above:Performed By: #### [id number] #### [facility] [address], [place] [address]ZW3 [Moles/Vol]27 mmol/AQnbwuy07-15MmhdqoSouthview Medical Center Comment on above:Performed By: #### [id number] #### [facility] [address], [place] [address]Jitsbzcblh [Mass/Vol]0.6 mg/dLNormal0.5-1.3FOhioHealth Mansfield HospitalComment on above:Performed By: #### [id number] #### [facility] [address], [place] [address]Nmrhvtu [Mass/Vol]112 mg/jBJhqmms08-714VdzhmdSouthview Medical CenterComment on above:Performed By: #### [id number] #### [facility] [address], [place] [address]Jebdhkqgt [Moles/Vol]3.5 mmol/LNormal3.5-5.3FOhioHealth Mansfield HospitalComment on above:Performed By: #### [id number] #### [facility] [address], [place] [address]Nagxyt [Moles/Vol]138 mmol/SVbxqtb594-445KkrgxtSouthview Medical CenterComment on above:Performed By: #### [id number] #### [facility] [address], [place] [address]Irtv nitrogen [Mass/Vol]16 mg/dLNormal5-21Southview Medical CenterComment on above:Performed By: #### [id number] #### [facility] [address], [place] [address]Pheo nitrogen/Creatinine [Mass ratio]27 No YtdviBhym77-56YlgzgySouthview Medical CenterComment on above:Performed By: #### [id number] #### [facility] [address] [place] [address]WQG w/ Auto Diffon 93-89-5079Dcnrfuvws/100 WBC (Bld)1.5 %Normal 0.0-2.0NOMS HealthcareComment on above:Performed By: #### [id number] #### [facility] [address] [place] [address]Gmislrqcf/Leukocytes Auto (Bld) [Pure # fraction]0.1 E9/LNormal 0.0-0.2FOhioHealth Mansfield HospitalComment on above:Performed By: #### [id number] #### [facility] [address] [place] [address]Qgmdhrkqfyt (Bld) [#/Vol]0.1 E9/LNormal0.0-0.5Fisher [facility] HospitalComment on above:Performed By: #### [id number] #### [facility] [address] [place] [address]Znrxxphdmrg/100 WBC (Bld)2.2 %Normal0.0-8.0Southview Medical CenterComment on above:Performed By: #### [id number] #### [facility] [address] [place] [address]Ufhckufhxmj distribution width (RBC) [Ratio]13.2 %Normal 10.9-14.2NOMS HealthcareComment on above:Performed By: #### [id number] #### [facility] [address] [place] [address]Yvoddbkcnz (Bld) [Volume fraction]39.8 %Wywjfb03.0-46.0NOMS HealthcareComment on above:Performed By: #### [id number] #### [facility] [address] [place] [address]Wrhdbeycbv (Bld) [Mass/Vol]13.7 g/lFNomneb19.0-16.0Southview Medical CenterComment on above:Performed By: #### [id number] #### [facility] [address] [place] [address]Yfbcpmuswkf (Bld) [#/Vol]1.3 E9/LNormal1.0-4.0Southview Medical CenterComment on above:Performed By: #### [id number] #### [facility] [address] [place] [address]Oeyzvbnzjpj/100 WBC (Bld)21.9 %Ljaemx85.0-50.0[facility] Comment on above:Performed By: #### [id number] #### [facility] [address] [place] [address]DME (RBC) [Entitic mass]31.3 rcWubjwz74.0-34.0Southview Medical CenterComment on above:Performed By: #### [id number] #### [facility] [address] [place] [address]EKJK (RBC) [Mass/Vol]34.4 g/jDMzwrbe04.4-36.0Southview Medical CenterComment on above:Performed By: #### [id number] #### [facility] [address] [place] [address]GQT (RBC) [Entitic vol]90.9 mHIfskvf60.0-100.0Southview Medical CenterComment on above:Performed By: #### [id number] #### [facility] [address] [place] [address]Wvgnuzaez (Bld) [#/Vol]0.4 E9/LNormal0.2-1.0Southview Medical CenterComment on above:Performed By: #### [id number] #### [facility] [address] [place] [address]Artpfyixuyy (Bld) [#/Vol]3.8 E9/LNormal2.0-7.5FOhioHealth Mansfield HospitalComment on above:Performed By: #### [id number] #### [facility] [address] [place] [address]Dlrjpuypioa/100 WBC (Bld)67.2 %Rhzgie74.0-75.0[facility] Comment on above:Performed By: #### [id number] #### [facility] [address], [place] [address]Xwsqoxzj mean volume (Bld) [Entitic vol]8.4 fLNormal6.4-10.8 NOMS HealthcareComment on above:Performed By: #### [id number] #### [facility] [address] [place] [address]Riiwntdkz (Bld) [#/Vol]330.0 E9/OYpjntf793.0-500.0Southview Medical CenterComment on above:Performed By: #### [id number] #### [facility] [address] [place] [address]HMA (Bld) [#/Vol]4.4 E12/LNormal4.3-5.9Southview Medical CenterComment on above:Performed By: #### [id number] #### [facility] [address] [place] [address]CFW corrected for nucl RBC Auto (Bld) [#/Vol]5.7 E9/LNormal 4.0-11.0[facility]view Medical CenterComment on above:Performed By: #### [id number] #### [facility] [address] [place] [address]JLKPMEMLHEqjsoaq By: SYSTEM SYSTEM on 61-21-1382Fwfmh gap [Moles/Vol]10 mmol/LNormal6 - 16 mEq/LRemisol ChemCalcium [Mass/Vol]8.9 mg/dL Normal8.9 - 11.1 mg/dLRemisol ChemChloride [Moles/Vol]105 mmol/JBdlhgz123 - 111 mmol/LRemisol ChemCO2 [Moles/Vol]27 mmol/ADefpst47 - 31 mmol/LRemisol Chem Creatinine [Mass/Vol]0.6 mg/dLNormal0.5 - 1.3 mg/dLRemisol TvxyzOPC153 mL/min/1.73 v8Hjkjlv>=59mL/min/1.73 j1Vytskon ChemGlucose [Mass/Vol]112 mg/dL Objcvx24 - 199 mg/dLRemisol ChemPotassium [Moles/Vol]3.5 mmol/LNormal3.5 - 5.3 mmol/LRemisol ChemSodium [Moles/Vol]138 mmol/IYpvpdo941 - 145 mmol/LRemisol Chem Urea nitrogen [Mass/Vol]16 mg/dLNormal5 - 21 mg/dLRemisol ChemUrea nitrogen/Creatinine [Mass ratio]27 mg/lgGjqy57 - 20Remisol ChemCOAGULATION Ordered By: Keyonna Arellano on 73-89-1296lMRM Coag (PPP) [Time]31.2 xWbduaf06.1 - 36.5 second(s)[facility] Auto CoagComment on above:Interpretive Data: Parameter 15 [...] the same coagulation reagent and instrumentation as [facility]. Currently there are no coagulation studies available worldwide for children to 14 days, andno normal ranges. Heparin therapeutic range (represented by Anti-Factor Xa activity of 0.2 - 0.4 U/mL) corresponds to PTT of 56.6 - 109.0 sec.INR Coag (PPP) [Relative time]0.89 {INR}Invalid Interpretation CodeMEMORIAL HOSPITAL OF ST[facility] Auto CoagComment on above:Interpretive Data: INR results are specifically intended to assess patients stabilized on long-term Anticoagulation therapy suggested INR s Less Intensive Anticoagulation 2.0 3.0 Conventional Range 3.0 4.5PT Coag (PPP) [Time]10.0 sNormal9.4 - 12.5 second(s) [facility] Auto CoagComment on above:Interpretive Data: 15 days [...] the same coagulation reagent and instrumentation as [facility]. Currently there are no coagulation studies available worldwide for children to 14 days, andno normal ranges.[facility] CBC W/ AUTO DIFFon 44-97-5375DTRBLDXUUQN/100 LEUKOCYTES:NFR:PT:BLD:QN:AUTOMATED COUNT2.2 %0.0 - 8.0 %[facility] EOSINOPHILS:NCNC:PT:BLD:QN:0.1[facility] BASOPHILS/LEUKOCYTES:NFR.DF:PT:BLD:QN:AUTOMATED COUNT0.1[facility] ERYTHROCYTE MEAN CORPUSCULAR HEMOGLOBIN CONCENTRATION:MCNC:PT:RBC:QN34.4NOLakeland Regional Hospital ERYTHROCYTE MEAN CORPUSCULAR HEMOGLOBIN:ENTMASS:PT:RBC:QN31.3 pg 27.0 - 34.0 pgSoutheast Missouri Community Treatment Center ERYTHROCYTE MEAN CORPUSCULAR VOLUME:ENTVOL:PT:RBC:QN:AUTOMATED COUNT90.9 fL80.0 - 100.0 fLSoutheast Missouri Community Treatment Center ERYTHROCYTES:NCNC:PT:BLD:QN:AUTOMATED COUNT4.4NOLakeland [facility] Hospital HEMOGLOBIN:MCNC:PT:BLD:QN:13.7NOLakeland Regional Hospital LEUKOCYTES5.7NOProMedica [facility] MONOCYTES:NCNC:PT:BLD:QN:AUTOMATED COUNT0.4[facility]OLakeland [facility] Hospital NEUTROPHILS:NCNC:PT:BLD:QN:AUTOMATED COUNT3.8NOLakeland Regional Hospital PLATELETS:NCNC:PT:BLD:QN:AUTOMATED GDWKU956SHPCSaint Alexius Hospital LYMPHOCYTES:NCNC:PT:BLD:QN:1.3NOSaint Alexius HospitalOriginal Ordering Provider: MD Perri Mcmullen [facility] HospitalHEMATOLOGYOrdered By: SYSTEM SYSTEM on 88-54-9152Jgqialnuk/100 WBC (Bld)1.5 %Normal0.0 - 2.0 %Remisol Heme Basophils/Leukocytes Auto (Bld) [Pure # fraction]0.1 E9/LNormal0.0 - 0.2 E9/L Remisol HemeEosinophils (Bld) [#/Vol]0.1 E9/LNormal0.0 - 0.5 E9/LRemisol Heme Eosinophils/100 WBC (Bld)2.2 %Normal0.0 - 8.0 %Remisol HemeErythrocyte distribution width (RBC) [Ratio]13.2 %Jlemat25.9 - 14.2 %Remisol HemeHematocrit (Bld) [Volume fraction]39.8 %Ppwzjx64.0 - 46.0 %Remisol HemeHemoglobin (Bld) [Mass/Vol]13.7 g/kYWkzwyf48.0 - 16.0 gm/dLRemisol HemeLymphocytes (Bld) [#/Vol] 1.3 E9/LNormal1.0 - 4.0 E9/LRemisol HemeLymphocytes/100 WBC (Bld)21.9 %Normal 14.0 - 50.0 %Remisol HemeMCH (RBC) [Entitic mass]31.3 hlSlhirr68.0 - 34.0 pg Remisol HemeMCHC (RBC) [Mass/Vol]34.4 g/sLPvwbkk35.4 - 36.0 gm/dLRemisol HemeMCV (RBC) [Entitic vol]90.9 kOWiuskb31.0 - 100.0 fLRemisol HemeMonocytes (Bld) [#/Vol]0.4 E9/LNormal0.2 - 1.0 E9/LRemisol HemeMonocytes/100 WBC (Bld)7.2 % Normal4.0 - 14.0 %Remisol HemeNeutrophils (Bld) [#/Vol]3.8 E9/LNormal2.0 - 7.5 E9/LRemisol HemeNeutrophils/100 WBC (Bld)67.2 %Doqouu53.0 - 75.0 %Remisol Heme Platelet mean volume (Bld) [Entitic vol]8.4 fLNormal6.4 - 10.8 fLRemisol Heme Platelets (Bld) [#/Vol]330.0 E9/BOlfxhc040.0 - 500.0 E9/LRemisol HemeRBC (Bld) [#/Vol]4.4 E12/LNormal4.3 - 5.9 E12/LRemisol HemeWBC corrected for nucl RBC Auto (Bld) [#/Vol]5.7 E9/LNormal4.0 - 11.0 E9/LRemisol HemePT & PTTon 42-08-6330bEUI Coag (PPP) [Time]31.2 second(s)Gdsuik66.1-36.5[facility] Comment on above:Result Comment: Parameter 15 [...] the same coagulation reagent and instrumentation as [facility]. Currently there are no coagulation studies available worldwide for children to 14 days, andno normal ranges. Heparin therapeutic range (represented by Anti-Factor Xa activity of 0.2 - 0.4 U/mL) corresponds to PTT of 56.6 - 109.0 sec.Performed By: #### [id number] #### [facility] [address], [place] [address]FQQ Coag (PPP) [Relative time]0.89 {INR}Invalid Interpretation [facility] HospitalComment on above:Result Comment: INR results are specifically intended to assess patients stabilized on long-term Anticoagulation therapy suggested INR???s ???Less Intensive Anticoagulation??? 2.0 ??? 3.0 Conventional Range 3.0 ??? 4.5Performed By: #### [id number] #### [facility] [address], [place] [address]BJ Coag (PPP) [Time]10.0 second(s)Normal9.4-12.5Fisher [facility] Hopkins HospitalComment on above:Result Comment: 15 days - [...] the same coagulation reagent and instrumentation as [facility]. Currently there are no coagulation studies available worldwide for children to 14 days, andno normal ranges.Performed By: #### [id number] #### [facility] [address], [place] [address]eMYIzk 32-92-6679oBOO229 mL/min/1.73 s2Djbwiv>=59Fisher [facility] HospitalComment on above:Performed By: #### [id number] #### [facility] [address], [place] [address]NG MAXILLOFACIAL WO IV CONTRASTon 93-68-2509ZO MAXILLOFACIAL WO IV CONTRASTCT MAXILLOFACIAL WO IV [...] on above:Order Comment: Please schedule pt for Mantis Deposition CT maxillofacial without contrast at [facility] for mid lanine aminotransferase [Enzymatic activity/volume] in Serum or Plasma Ordered By: James Sands on 69-74-7474YMU [Catalytic activity/Vol]24 U/L7-52 [facility] HospitalAlbumin [Mass/volume] in Serum or Plasma by Bromocresol green (BCG) dye binding methoOrdered By: James Sands on 88-25-3412Vfjhdqq BCG dye [Mass/Vol]4.2 g/dL3.5-5.7FGenesis HospitalAlkaline phosphatase [Enzymatic activity/volume] in Serum or PlasmaOrdered By: James Sands on 28-70-9055ARH [Catalytic activity/Vol]65 U/L34-104 [facility] HospitalAspartate aminotransferase [Enzymatic activity/volume] in Serum or PlasmaOrdered By: James Sands on 97-59-1922BTE [Catalytic activity/Vol]22 U/F41-03DecvylzgpWilson Memorial HospitalBasophils Auto (Bld) [#/Vol]Ordered By: James Sands on 71-02-1082Kvhjduhfq (Bld) [#/Vol]0.1 10*3/uL0.0-0.2FGenesis HospitalBasophils/100 WBC Auto (Bld)Ordered By: James Sands on 47-50-7669Kiujpxxpm/100 WBC (Bld)2.4 %. [facility] HospitalBilirubin.total [Mass/volume] in Serum or PlasmaOrdered By: James Sands on 62-06-0238Vddzmsbjo [Mass/Vol]0.3 mg/dL 0.3-1.0[facility] HospitalC reactive protein [Mass/volume] in Serum or PlasmaOrdered By: James Sands on 53-59-1166VCO [Mass/Vol]< 0.5 mg/dL 0.0-0.5FGenesis HospitalC-Reactive Proteinon 52-39-3307YLP [Mass/Vol]mg/LNormal0.0-0.5[facility] Physician GroupComment on above:Result Comment: PERFORMED BY: [facility] [address] [place] [address] PATHOLOGIST [employer] REFINISHER DARIUS LOPEZ M.D.Performed By: #### ESR, CK, CMP, CRP, CBC #### [facility] [address] [place] [address] USACalcium [Mass/volume] in Serum or PlasmaOrdered By: James Sands on 42-72-1767Jnehuge [Mass/Vol]8.9 mg/dL8.6-10.3FGenesis HospitalCarbon dioxide, total [Moles/volume] in Serum or PlasmaOrdered By: James Sands on 86-80-6430CZ0 [Moles/Vol]31.6 mmol/L21.0-31.0[facility] HospitalChloride [Moles/volume] in Serum or PlasmaOrdered By: James Sands on 92-90-3176Zqdkwbyi [Moles/Vol]103 mmol/T00-360GnwkzwkocWilson Memorial HospitalComplete Blood Count Auto Diffon 41-09-0899Rgsudmcdd (Bld) [#/Vol]0.1 10*3/uLNormal0.0-0.2The [facility] Physician GroupComment on above:Performed By: #### ESR, CK, CMP, CRP, CBC #### [facility] [address] [place] [address] USABasophils/100 WBC (Bld)2.4 %Normal.The [facility] Physician GroupComment on above:Performed By: #### ESR, CK, CMP, CRP, CBC #### [facility] [address] [place] [address] USAEosinophils (Bld) [#/Vol]0.1 10*3/uLNormal0.0-0.45The [facility] Physician GroupComment on above:Performed By: #### ESR, CK, CMP, CRP, CBC #### [place] [address] USAEosinophils/100 WBC (Bld)1.8 %Normal.The [facility] Physician GroupComment on above:Performed By: #### ESR, CK, CMP, CRP, CBC #### [place] [address] USAErythrocyte distribution width (RBC) [Ratio]13.4 %Normal 11.9-15.3The [facility] Physician GroupComment on above:Performed By: #### ESR, CK, CMP, CRP, CBC #### [place] [address] USAHematocrit (Bld) [Volume fraction]39.2 %Cprhxj06.0-46.4The [facility] Physician GroupComment on above:Performed By: #### ESR, CK, CMP, CRP, CBC #### [place] [address] USAHemoglobin (Bld) [Mass/Vol]13.1 g/bZKhedgb17.8-15.4The [facility] Physician GroupComment on above:Performed By: #### ESR, CK, CMP, CRP, CBC #### [place] [address] USALymphocytes (Bld) [#/Vol]1.4 10*3/uLNormal1.00-4.8The [facility] Physician GroupComment on above:Performed By: #### ESR, CK, CMP, CRP, CBC #### [place] [address] USALymphocytes/100 WBC (Bld)25.1 %Normal.The [facility] Physician GroupComment on above:Performed By: #### ESR, CK, CMP, CRP, CBC #### [place] [address] USAMCH (RBC) [Entitic mass]29.7 zkNjhguq57.7-34.3The [facility] Physician GroupComment on above:Performed By: #### ESR, CK, CMP, CRP, CBC #### [facility] [address] [place] [address] USAMCV (RBC) [Entitic vol]89.2 wVSxaebt59-235Bdd [facility] Physician GroupComment on above:Performed By: #### ESR, CK, CMP, CRP, CBC #### [place] [address] USAMean Corpuscular HGB Conc33.4 g/yBLpeecp65.0-35.0The [facility] Physician GroupComment on above:Performed By: #### ESR, CK, CMP, CRP, CBC #### [place] [address] USAMonocytes (Bld) [#/Vol]0.5 10*3/uLNormal0.0-0.8The [facility] Physician GroupComment on above:Performed By: #### ESR, CK, CMP, CRP, CBC #### [place] [address] USAMonocytes/100 WBC (Bld)8.3 %Normal.The [facility] Physician GroupComment on above:Performed By: #### ESR, CK, CMP, CRP, CBC #### [place] [address] USANeutrophils (Bld) [#/Vol]3.4 10*3/uLNormal1.8-7.7The [facility] Physician GroupComment on above:Performed By: #### ESR, CK, CMP, CRP, CBC #### [place], [place] [address] USANeutrophils/100 WBC (Bld)62.4 %Normal.[facility] Physician GroupComment on above:Performed By: #### ESR, CK, CMP, CRP, CBC #### [place] [address] USANRBC%0.1 /100{WBC}Normal0-0.5[facility] Comment on above:Performed By: #### ESR, CK, CMP, CRP, CBC #### [place] [address] USAPlatelet mean volume (Bld) [Entitic vol]9.0 fLNormal 6.3-10.7The [facility] Physician GroupComment on above:Performed By: #### ESR, CK, CMP, CRP, CBC #### [place] [address] USAPlatelets (Bld) [#/Vol]322 10*3/lKWhzdnn488-076Tzu [facility] Physician GroupComment on above:Performed By: #### ESR, CK, CMP, CRP, CBC #### [place] [address] USARBC (Bld) [#/Vol]4.39 10*6/uLNormal3.60-5.00The [facility] Physician GroupComment on above:Performed By: #### ESR, CK, CMP, CRP, CBC #### [place] [address] USAWBC (Bld) [#/Vol]5.5 10*3/uLNormal3.8-11.6The [facility] Physician GroupComment on above:Performed By: #### ESR, CK, CMP, CRP, CBC #### [place] [address] USAComprehensive Metabolic Panelon 57-69-9631Truwpvl [Mass/Vol]4.2 g/dLNormal3.5-5.7The [facility] Physician GroupComment on above: Performed By: #### ESR, CK, CMP, CRP, CBC #### [place] [address] USAAlbumin/Globulin [Mass ratio]1.8 {ratio}NormalThe [facility] Physician GroupComment on above:Performed By: #### ESR, CK, CMP, CRP, CBC #### [place] [address] USAALP [Catalytic activity/Vol]65 U/KCqcjox90-744Zns [facility] Physician GroupComment on above:Performed By: #### ESR, CK, CMP, CRP, CBC #### [facility] [address] [place] [address] USAALT [Catalytic activity/Vol]24 U/LNormal7-52The [facility] Physician GroupComment on above:Performed By: #### ESR, CK, CMP, CRP, CBC #### [facility] [address] [place] [address] USAAnion gap [Moles/Vol]8.7 mmol/LNormal6.0-15.0The [facility] Physician GroupComment on above:Performed By: #### ESR, CK, CMP, CRP, CBC #### [facility] [address] [place] [address] USAAST [Catalytic activity/Vol]22 U/JEwffyp10-27Tdr [facility] Physician GroupComment on above:Performed By: #### ESR, CK, CMP, CRP, CBC #### [facility] [address] [place] [address] USABilirubin [Mass/Vol]0.3 mg/dLNormal0.3-1.0The [facility] Physician GroupComment on above:Performed By: #### ESR, CK, CMP, CRP, CBC #### [facility] [address] [place] [address] USACalcium [Mass/Vol]8.9 mg/dLNormal8.6-10.3The [facility] Physician GroupComment on above:Performed By: #### ESR, CK, CMP, CRP, CBC #### [facility] [address] [place] [address] USAChloride [Moles/Vol]103 mmol/CScnjpt41-875Qvj [facility] Physician GroupComment on above:Performed By: #### ESR, CK, CMP, CRP, CBC #### [facility] [address] [place] [address] USACO2 [Moles/Vol]31.6 mmol/LHigh21.0-31.0The [facility] Physician GroupComment on above:Performed By: #### ESR, CK, CMP, CRP, CBC #### [facility] [address] [place] [address] USACreatinine [Mass/Vol]0.60 mg/dLNormal0.60-1.20The [facility] Physician GroupComment on above:Performed By: #### ESR, CK, CMP, CRP, CBC #### [facility] [address] [place] [address] USAGFR/1.73 sq M.predicted MDRD (S/P/Bld) [Vol rate/Area] mL/min/{1.73_m2}NormalThe [facility] Physician GroupComment on above:Performed By: #### ESR, CK, CMP, CRP, CBC #### [facility] [address] [place] [address] USAGlobulin (S) [Mass/Vol]2.4 g/dLNormalThe [facility] Physician GroupComment on above:Performed By: #### ESR, CK, CMP, CRP, CBC #### [place] [address] USAGlucose [Mass/Vol]82 mg/gOYunqep99-968Qch [facility] Physician GroupComment on above:Result Comment: Random Glucose Reference Range is dependent on time and content of last meal. Glucose of more than 200 mg/dL in a nonstressed, ambulatory subject supports the diagnosis of Diabetes Mellitus. ADA recommended reference rangePerformed By: #### ESR, CK, CMP, CRP, CBC #### [place] [address] USAPotassium [Moles/Vol]4.3 mmol/LNormal3.5-5.1The [facility] Physician GroupComment on above:Performed By: #### ESR, CK, CMP, CRP, CBC #### [place] [address] USAProtein [Mass/Vol]6.6 g/dLNormal6.4-8.9The [facility] Physician GroupComment on above:Performed By: #### ESR, CK, CMP, CRP, CBC #### [place] [address] USASodium [Moles/Vol]139 mmol/MSjtyhi968-422Bwv [facility] Physician GroupComment on above:Performed By: #### ESR, CK, CMP, CRP, CBC #### [facility] [address] [place] [address] USAUrea nitrogen [Mass/Vol]18 mg/dLNormale [facility] Physician GroupComment on above:Performed By: #### ESR, CK, CMP, CRP, CBC #### [facility] [address] [place] [address] USACreatine Kinaseon 00-44-5561JI [Catalytic activity/Vol]257 U/VNlxe07-090Zat [facility] Physician GroupComment on above:Result Comment: PERFORMED BY: [place] [address] PATHOLOGIST [employer] DARIUS LOPEZ M.D.Performed By: #### ESR, CK, CMP, CRP, CBC #### [facility] [address] [place] [id number] USACreatine kinase [Enzymatic activity/volume] in Serum or PlasmaOrdered By: James Sands on 28-02-0180LM [Catalytic activity/Vol]257 U/L [facility] HospitalCreatinine [Mass/volume] in Serum or PlasmaOrdered By: James Sands on 77-64-1619Bnfmaqudke [Mass/Vol]0.60 mg/dL 0.60-1.20[facility] HospitalEosinophils Auto (Bld) [#/Vol]Ordered By: James Sands on 11-73-4839Gilyikrrkyg (Bld) [#/Vol]0.1 10*3/uL0.0-0.45 [facility] HospitalEosinophils/100 WBC Auto (Bld)Ordered By: James Sands on 48-90-1949Xoaixoxdjxq/100 WBC (Bld)1.8 %.[facility] HospitalErythrocyte Sedimentation Rateon 64-92-6831HXN (Bld) [Velocity]3 mm/hNormal0-19The [facility] Physician GroupComment on above:Result Comment: PERFORMED BY: [place] [id number] PATHOLOGIST [employer] DARIUS LOPEZ M.D.Performed By: #### ESR, CK, CMP, CRP, CBC #### [facility] [address] [place] [id number] [facility] CENTERErythrocyte distribution width Auto (RBC) [Ratio]Ordered By: James Sands on 63-38-6569Wpqrehhxkwm distribution width (RBC) [Ratio]13.4 %11.9-15.3FGenesis HospitalErythrocyte sedimentation rate by Photometric methodOrdered By: James Sands on 20-97-9670ACS Photometric method (Bld) [Velocity]3 mm/hr0-19[facility] HospitalGlobulin Calc (S) [Mass/Vol]Ordered By: James Sands on 26-55-7888Xzttbnsf (S) [Mass/Vol]2.4 g/dLWilson Memorial HospitalGlucose [Mass/volume] in Serum or Plasma Ordered By: James Sands on 02-90-6854Kqetzrl [Mass/Vol]82 mg/uU36-809 [facility] HospitalComment on above:ADA recommended reference rangeRandom Glucose Reference Range is dependent on time and content of last meal. Glucose of more than 200 mg/dL in a nonstressed, ambulatory subject supports the diagnosisof Diabetes Mellitus.Hematocrit Auto (Bld) [Volume fraction]Ordered By: James Sands on 79-13-2369Qvfnfkyqnz (Bld) [Volume fraction]39.2 %34.0-46.4FGenesis HospitalHemoglobin [Mass/volume] in BloodOrdered By: James Sands on 49-66-0653Wrqoneqvwu (Bld) [Mass/Vol]13.1 g/dL11.8-15.4FGenesis HospitalLeukocytes [#/volume] corrected for nucleated erythrocytes in Blood by Automated coun Ordered By: James Sands on 25-52-8178SQU corrected for nucl RBC Auto (Bld) [#/Vol]5.5 10*3/uL3.8-11.6FGenesis HospitalLymphocytes Auto (Bld) [#/Vol]Ordered By: James Sands on 66-80-6641Rvykppcgwer (Bld) [#/Vol] 1.4 10*3/uL1.00-4.8[facility] HospitalLymphocytes/100 WBC Auto (Bld)Ordered By: James Sands on 61-22-2700Vccpbcocagx/100 WBC (Bld)25.1 %. [facility] HospitalH Auto (RBC) [Entitic mass]Ordered By: James Sands on 38-31-9045SLY (RBC) [Entitic mass]29.7 pg24.7-34.3FGenesis HospitalMCHC Auto (RBC) [Mass/Vol]Ordered By: James Sands on 01-11-2024 MCHC (RBC) [Mass/Vol]33.4 g/dL32.0-35.0[facility] HospitalMCV Auto (RBC) [Entitic vol]Ordered By: James Sands on 34-54-8159UWS (RBC) [Entitic vol]89.2 sH12-269HlmyetgvxWilson Memorial HospitalMonocytes Auto (Bld) [#/Vol] Ordered By: James Sands on 17-52-1948Mbrvgrbfx (Bld) [#/Vol]0.5 10*3/uL 0.0-0.8[facility] HospitalMonocytes/100 WBC Auto (Bld)Ordered By: aJmes Sands on 65-75-9604Uydvfnmfa/100 WBC (Bld)8.3 %.[facility] HospitalNeutrophils Auto (Bld) [#/Vol]Ordered By: James Sands on 43-27-9137Fhzimmzlpzn (Bld) [#/Vol]3.4 10*3/uL1.8-7.7FGenesis HospitalNeutrophils/100 WBC Auto (Bld)Ordered By: James Sands on 01-11-2024 Neutrophils/100 WBC (Bld)62.4 %.[facility] HospitalNo Panel InformationOrdered By: James Sands on 02-43-4966Hkiamghdk GFR (CKD-EPI)> 60.0 mL/MinWilson Memorial HospitalPharmacy Creatinine Clearance (ChemN/A [facility] HospitalNucleated erythrocytes [Presence] in Blood by Automated countOrdered By: James Sands on 93-76-4034Npdhnazin RBC Auto Ql (Bld)0.1 /100{WBC}0-0.5FGenesis HospitalPlatelet mean volume Auto (Bld) [Entitic vol]Ordered By: James Sands on 61-59-2987Vnvutpnz mean volume (Bld) [Entitic vol]9.0 fL6.3-10.7FGenesis Hospital Platelets Auto (Bld) [#/Vol]Ordered By: James Sands on 00-56-4509Fdujwxiix (Bld) [#/Vol]322 10*3/wK997-714VybpncabdWilson Memorial HospitalPotassium [Moles/volume] in Serum or PlasmaOrdered By: James Sands on 01-11-2024 Potassium [Moles/Vol]4.3 mmol/L3.5-5.1FGenesis HospitalProtein [Mass/volume] in Serum or PlasmaOrdered By: James Sands on 06-06-2646Lmkiwes [Mass/Vol]6.6 g/dL6.4-8.9[facility] HospitalRBC Auto (Bld) [#/Vol] Ordered By: James Sands on 77-24-7313FRY (Bld) [#/Vol]4.39 10*6/uL3.60-5.00 [facility] Hospitalerum or plasma albumin/globulin mass ratio Ordered By: James Sands on 66-07-9917Klgamdf/Globulin [Mass ratio]1.8 {ratio} [facility] Hospitalerum or plasma anion gap determinationOrdered By: James Sands on 59-41-6428Nmmag gap [Moles/Vol]8.7 mmol/L6.0-15.0[facility] Flower Hospitalodium [Moles/volume] in Serum or PlasmaOrdered By: James Sands on 48-67-3659Qcolig [Moles/Vol]139 mmol/G736-990OlnosrlwtWilson Memorial HospitalUrea nitrogen [Mass/volume] in Serum or PlasmaOrdered By: James Sands on 24-16-6264Sbcn nitrogen [Mass/Vol]18 mg/dL7-25[facility] HospitalWBC Auto (Bld) [#/Vol]Ordered By: James Sands on 88-76-0449TWY (Bld) [#/Vol]5.5 10*3/uL3.8-11.6FGenesis Hospital FSHon 06-08-3678FDV4.7 mIU/mLNormalSelect Medical Specialty Hospital - Cleveland-FairhillComment on above:Result Comment: Adult Female: Follicular phase 3.5 - 12.5 Ovulation phase 4.7 - 21.5 Luteal phase 1.7 - 7.7 Postmenopausal 25.8 - 134.8Performed By: #### LBCFSH #### [facility] [address] [place] [address] [address] Haydee ChenLUTEINIZING HORMONE (LH)on 08-64-4563WJ2.1 mIU/mLNormalSelect Medical Specialty Hospital - Cleveland-FairhillComment on above:Result Comment: Adult Female: Follicular phase 2.4 - 12.6 Ovulation phase 14.0 - 95.6 Luteal phase 1.0 - 11.4 Postmenopausal 7.7 - 58.5Performed By: #### LBCLH ####[facility] [address] [place] [address]Dr. Haydee Farris AUTO DIFF on 31-90-0240TSAU #0.1 103/ulNormal0.0-0.1[facility] Cleveland-FairhillComment on above: Performed By: #### CBC #### [facility] [address] [place] [address] Dr. Haydee ChenBasophils/100 WBC (Bld)1.3 %Normal0.2-2.0[facility] Comment on above:Performed By: #### CBC #### [facility] [address] [address] [address] Haydee Muñoz #0.1 103/ulNormal0.0-0.7The [facility] For RehabilitationComment on above: Performed By: #### CBC #### [facility] [address] [place] [address] Dr. Haydee Carcamoosinophils/100 WBC (Bld)1.3 %Normal0.9-7.0[facility] Comment on above:Performed By: #### CBC #### [facility] [address] [place] [address] Dr. Haydee Carcamorythrocyte distribution width (RBC) [Ratio]12.3 %Vzuhiv68.0-15.0 The [facility] For RehabilitationComment on above:Performed By: #### CBC #### [facility] [address] [place] [address] Dr. Haydee ChenHematocrit (Bld) [Volume fraction]37.0 %Nosmax05.0-48.0The [facility] For RehabilitationComment on above:Performed By: #### CBC #### [facility] [address] [place] [address] Dr. Haydee ChenHemoglobin (Bld) [Mass/Vol]12.1 g/xSSvdrbj36.0-16.0The [facility] For RehabilitationComment on above:Performed By: #### CBC #### [facility] [address] [place] [address] Dr. Haydee Delaney #0.01 10e3/ulNormal0.00-0.03The [facility] For RehabilitationComment on above:Performed By: #### CBC #### [facility] [address] [place] [address] Dr. Haydee Delaney %0.2 %Normal0.0-0.5The [facility] For RehabilitationComment on above: Performed By: #### CBC #### [facility] [address] [place] [address] Dr. Haydee White #1.6 103/ulNormal1.2-3.8The [facility] For RehabilitationComment on above:Performed By: #### CBC #### [facility] [address] [place] [address] Dr. Haydee Cejahocytes/100 WBC (Bld)29.9 %Xvfzsg55.5-60.0The [facility] For RehabilitationComment on above:Performed By: #### CBC #### [facility] [address] [place] [address] Dr. Haydee MulliganUAL DIFF REQNONormalThe [facility] For RehabilitationComment on above: Performed By: #### CBC #### [facility] [address] [place] [address] (RBC) [Entitic mass]29.6 kcWpyblw28.7-34.0The [facility] For RehabilitationComment on above:Performed By: #### CBC #### [facility] [address] [place] [address] Dr. Haydee Nichole (RBC) [Mass/Vol]32.7 g/qWFdrncv02.9-35.2The [facility] For RehabilitationComment on above:Performed By: #### CBC #### [facility] [address] [place] [address] Dr. Haydee Nichole (RBC) [Entitic vol]90.5 sHDkcqyk83.0-99.0The [facility] For RehabilitationComment on above:Performed By: #### CBC #### [facility] [address] [place] [address] Dr. Haydee Veloz #0.3 103/ulNormal0.3-0.8The [facility] For RehabilitationComment on above:Performed By: #### CBC #### [facility] [address] [place] [address] Dr. Haydee Wickocytes/100 WBC (Bld)6.0 %Normal1.7-12.0The [facility] Comment on above:Performed By: #### CBC #### [facility] [address] [place] [address] Dr. Haydee Tafoya #3.2 103/ulNormal1.4-6.5The [facility] For RehabilitationComment on above:Performed By: #### CBC #### [facility] [address] [place] [address] Dr. Haydee Vorautrophils/100 WBC (Bld)61.3 %Gvuxnp35.0-75.0The [facility] For RehabilitationComment on above:Performed By: #### CBC #### [facility] [address] [place] [address] Dr. Haydee Castillo mean volume (Bld) [Entitic vol]9.8 fLNormal9.5-13.5The [facility] For RehabilitationComment on above:Performed By: #### CBC #### [facility] [address] [place] [address] Dr. Haydee ChenPLT294 103/rlLyhykp976-123Zlv [facility] For RehabilitationComment on above: Performed By: #### CBC #### [facility] [address] [place] [address] Dr. Haydee ChenRBC4.09 106/ulCritically low4.20-5.40The [facility] For RehabilitationComment on above:Performed By: #### CBC #### [facility] [address] [place] [address] Dr. Haydee ChenWBC5.2 103/ulNormal4.0-11.0The [facility] For RehabilitationComment on above: Performed By: #### CBC #### [facility] [address] [place] [address] Dr. Haydee ChenFERRITINon 23-16-5678Ghamaecq [Mass/Vol]8.0 ng/mLNormal6.2-137.0 The [facility] For RehabilitationComment on above:Performed By: #### FERR, FT4 #### [facility] [address] [place] [address] Dr. Haydee Pena T4on 11-55-2415Mizo T4 [Mass/Vol]0.72 ng/dLCritically low 0.76-1.46The [facility] RehabilitationComment on above:Performed By: #### FERR, FT4 #### [facility] [address] [place] [address] Dr. Haydee ChenTSHon 90-70-6083SCC9.127 uIU/mLNormal0.358-3.740The [facility] For RehabilitationComment on above:Performed By: #### TSH #### [facility] [address] [place] [address] Dr. Haydee ChenMG MAMM DX 3D LT CADon 76-94-2358EO MAMM DX 3D LT CADPatient: AGUSTO KINGAshley Exam Date: 11/30/2022 : 1980 Gender:F Ordering : DR WILBUR MEEKS . Admission #: [id number] Family : Order #: [id number] CLICK HERE TO VIEW EXAM RADIOLOGY REPORT [...] Family Cancers None LOCATION: [facility] BREAST COMPOSITION: Extremely dense, which lowers the [...] by: Yolanda Vela M.D. on 11/30/2022 at 10:47[facility] HospitalUS BREAST LEFT LIMITEDon 68-00-2496ZD BREAST LEFT LIMITEDPatient: AGUSTO KING Exam Date: 11/30/2022 : 1980 Gender:F Ordering : DR WILBUR MEEKS . Admission #: [id number] Family : Order #: [id number] CLICK HERE TO VIEW EXAM RADIOLOGY REPORT [...] Family Cancers None LOCATION: [facility] BREAST COMPOSITION: Extremely dense, which lowers the [...] by: Yolanda Vela M.D. on 11/30/2022 at 10:47[facility] HospitalMG MAMM SCREEN 3D ENIO CADon 36-42-2570TR MAMM SCREEN 3D ENIO CADPatient: AGUSTO KING Exam Date: 08/06/2022 : 1980 Gender:F Ordering : DR WILBUR MEEKS . Admission #: [id number] Family : Order #: [id number] CLICK HERE TO VIEW EXAM RADIOLOGY REPORT [...] Family Cancers None LOCATION: [facility] BREAST COMPOSITION: Extremely dense, which lowers the [...] by: Rick Wilson MD on 08/07/2022 at 10:35NoTr[facility] AUTO DIFFon 37-57-7321AKUV #0.1 103/ulNormal0.0-0.1[facility]-FairhillComment on above:Performed By: #### CBC #### [facility] [address] [place] [address] Dr. Haydee ChenBasophils/100 WBC (Bld)1.2 %Normal0.2-2.0[facility] Comment on above:Performed By: #### CBC #### [facility] [address] [place] [address] Dr. Haydee Muñoz #0.1 103/ulNormal0.0-0.7The [facility] For RehabilitationComment on above: Performed By: #### CBC #### [facility] [address] [place] [address] Dr. Haydee Carcamoosinophils/100 WBC (Bld)1.6 %Normal0.9-7.0[facility] Comment on above:Performed By: #### CBC #### [facility] [address] [place] [address] Dr. Haydee Carcamorythrocyte distribution width (RBC) [Ratio]12.2 %Mxrdks21.0-15.0 The [facility] For RehabilitationComment on above:Performed By: #### CBC #### [facility] [address] [place] [address] Dr. Haydee ChenHematocrit (Bld) [Volume fraction]36.6 %Mnvxyn97.0-48.0[facility]-FairhillComment on above:Performed By: #### CBC #### [facility] [address] [place] [address] Dr. Yilan ChangHemoglobin (Bld) [Mass/Vol]12.1 g/tPEcxkhx48.0-16.0The [facility] For RehabilitationComment on above:Performed By: #### CBC #### [facility] [address] [place] [address] Dr. Haydee Delaney #0.01 10e3/ulNormal0.00-0.03The [facility] For RehabilitationComment on above:Performed By: #### CBC #### [facility] [address] [place] [address] Dr. Haydee Delaney %0.2 %Normal0.0-0.5The [facility] For RehabilitationComment on above: Performed By: #### CBC #### [facility] [address] [place] [address] Dr. Haydee White #1.9 103/ulNormal1.2-3.8The [facility] For RehabilitationComment on above:Performed By: #### CBC #### [facility] [address] [place] [address] Dr. Haydee Cejahocytes/100 WBC (Bld)32.2 %Nhjwlb89.5-60.0The [facility] For RehabilitationComment on above:Performed By: #### CBC #### [facility] [address] [place] [address] Dr. Haydee MulliganUAL DIFF REQNONormalThe [facility] For RehabilitationComment on above: Performed By: #### CBC #### [facility] [address] [place] [address] (RBC) [Entitic mass]29.7 azNntmra36.7-34.0The [facility] For RehabilitationComment on above:Performed By: #### CBC #### [facility] [address] [place] [address] Dr. Haydee Nichole (RBC) [Mass/Vol]33.1 g/iDIbpbkk75.9-35.2The Snyder HospitalComment on above:Performed By: #### CBC #### [facility] [address] [place] [address] Dr. Haydee Lagos (RBC) [Entitic vol]89.7 yOJrnhwn56.0-99.0The [facility] For RehabilitationComment on above:Performed By: #### CBC #### [facility] [address] [place] [address] Dr. Haydee Veloz #0.5 103/ulNormal0.3-0.8The [facility] For RehabilitationComment on above:Performed By: #### CBC #### [facility] [address] [place] [address] Dr. Haydee Wickocytes/100 WBC (Bld)9.2 %Normal1.7-12.0The [facility] Comment on above:Performed By: #### CBC #### [facility] [address] [place] [address] Dr. Haydee Tafoya #3.2 103/ulNormal1.4-6.5[facility] Hospital For RehabilitationComment on above:Performed By: #### CBC #### [facility] Laboratory [address] [place] [address] Dr. Haydee Vorautrophils/100 WBC (Bld)55.6 %Jedxek19.0-75.0The [facility] For RehabilitationComment on above:Performed By: #### CBC #### [facility] [address] [place] [address] Dr. Haydee Castillo mean volume (Bld) [Entitic vol]9.4 fLCritically low 9.5-13.5The [facility] For RehabilitationComment on above:Performed By: #### CBC #### [facility] [address] [place] [address] Dr. Haydee ChenPLT316 103/zjHaqtee589-589Lgd [facility] For RehabilitationComment on above: Performed By: #### CBC #### [facility] [address] [place] [address] Dr. Haydee ChenRBC4.08 106/ulCritically low4.20-5.40The [facility] For RehabilitationComment on above:Performed By: #### CBC #### [facility] [address] [place] [address] Dr. Haydee ChenWBC5.8 103/ulNormal4.0-11.0[facility] Hospitalment on above: Performed By: #### CBC #### [facility] Laboratory [address], [place] [address] Dr. Haydee ChenCovid-19 PCR ([facility])on 28-69-1296TQOZ-CoV-2 (COVID-19) RNA SARAH+probe Ql (Unsp spec)Not detectedNormalNOT DETECTEDSelect Medical Specialty Hospital - [facility] Comment on above:Result Comment: This test is not yet approved or cleared by the [place] FDA. When there are no FDA-approved or cleared tests available, and other criteria are met, FDA can make tests available under an emergency access mechanism called an Emergency Use Authorization (EUA). The EUA for this test is supported by the Baseball Player of Health and Human Service's (HHS's) declaration [...] symptoms consistent with SARS-CoV-2.Performed By: #### CVDTB ####[facility] [address] [place], [place] [address]WkDr. Haydee ChenPREGrey QUANT HCG on 10-75-6767NZW QUANT<1NormalSelect Medical Specialty Hospital - Cleveland-FairhillComment on above:Performed By: #### TSH, PREGQNT ####[facility] [address] [place], [place]Dr. Haydee ChangHCG RANGESEE BELOWNormalThCommunity Regional Medical CenterComment on above:Result Comment: 5-50 0.2-1 WEEK 50-500 1-2 WEEKS 100- 5,000 2-3 WEEKS 500-10,000 3-4 WEEKS 1,000-50,000 4-5 WEEKS 10,000-100,000 5-6 WEEKS 15,000-200,000 6-8 WEEKS 10,000-100,000 2-3 MONTHSPerformed By: #### TSH, PREGQNT ####[facility] [address] [place] [address]Dr. Haydee GoldmanIMEon 83-28-7736UYH Coag (PPP) [Relative time]0.97 {INR} NormalSelect Medical Specialty Hospital - Cleveland-FairhillComment on above:Performed By: #### PT, PTT #### [facility] Laboratory [address] [place] [address] Dr. Haydee Mcknight GUIDELINESSEE [facility]aug[facility] Medical CenterComment on above:Result Comment: DESIRED INR: 2.0 - 3.0 CONDITIONS NOT LISTED BELOW 2.5 - 3.5 FOR PROSTHETIC HEART VALVE REPLACEMENT 2.5 - 3.5 RECURRENT THROMBOSIS Performed By: #### PT, PTT #### [facility] [address] [place] [address] Dr. Haydee Mcnair Coag (PPP) [Time]10.5 sNormal9.0-11.6ThCommunity Regional Medical Center Comment on above:Performed By: #### PT, PTT #### [facility] Laboratory [address] [place] [address] Dr. Haydee Ruiz 77-29-5514uCTB Coag (Bld) [Time]30.2 jBkhkal04.3-36.2[facility]-FairhillComment on above:Performed By: #### PT, PTT #### [facility] Laboratory [address] [place] [address] Dr. Haydee Cowart 07-27-6731LBN9.062 uIU/mLNormal0.358-3.740[facility] - [facility]-FairhillComment on above:Performed By: #### TSH, PREGQNT ####[facility] [address] [place], [place] [id number] Girard PELVIS AND TRANSVAGon 19-94-9104CP PELVIS AND TRANSVAGEXAMINATION: US PELVIS AND TRANSVAG [...] Electronically authenticated by: YOLANDA VELA Date: 2022-07-21 11:45[facility] ACOG PANEL 2: 30 to 65on 04-11-2022..NormalThe [facility] Hospital For RehabilitationComment on above:Result Comment: Performed at: WBPerformed By: #### [id number] ####[facility] [address] [place] [address]DrAshley Allen Gdln ACOG Rqtehjb54-50RgsevbLfmChillicothe VA Medical CenterComment on above:Performed By: #### [id number] ####[facility] [address] [place] [address]DrAshley ChenDIAGNOSIS:CommentMercy Health St. Joseph Warren HospitalComment on above:Result Comment: NEGATIVE FOR INTRAEPITHELIAL LESION OR MALIGNANCY. Performed at: WBPerformed By: #### [id number] ####[facility] [address] [place] [address]DrAshley ChenHPV AptimaNegativeNormal NegativeSelect Medical Specialty Hospital - Cleveland-FairhillComment on above:Result Comment: This nucleic acid amplification test detects fourteen high-risk HPV types (16,18,31,33,35,39,45,51,52,56,58,59,66,68) without differentiation. Performed at: =[facility] Care Centerformed By: #### [id number] ####[facility] Errpgrx[address] [place], [place] [address]Dr. Haydee ChenMethodology:CommentProMedica Memorial Hospital on above:Result Comment: This liquid based ThinPrep(R) pap test was screened with the use of an image guided system. Performed at: WBPerformed By: #### [id number] ####[place] [address]Dr. Haydee ChenNote:CommentProMedica Memorial Hospital on above:Result Comment: The Pap smear is a screening test designed to aid in the detection of premalignant and malignant conditions of the uterine cervix. It is not a diagnostic procedure and should not be used as the sole means of detecting cervical cancer. Both false-positive and false-negative reports do occur. . Performed at: WBPerformed By: #### [id number] ####[place] [address]Dr. Haydee ChenPerformed by:CommentProMedica Memorial Hospital on above:Result Comment: Meredith Sweeney, Meat Press Operator (ASCP) Performed at: WBPerformed By: #### [id number] ####[place] [address]Dr. Haydee ChenSpecimen adequacy:Comment [facility] on above:Result Comment: Satisfactory for evaluation. Endocervical and/or squamous metaplastic cells (endocervical component) are present. Performed at: WBPerformed By: #### [id number] ####[facility] X[address] [place], [place] [address]DrAshley Chen Vital Signs Date TimeVital SignValuePerforming OmulbtldsByjrzlxj86-74-3808 15:25-0500Body aglceg860.56 cmTyler Bates MD Work Phone: [facility]11-04-2025 15:25-0500 Body mass index (BMI) [Ratio]20.7 kg/i6RtpiwjTyler Bates MD Work Phone: [facility]11-04-2025 15:25-0500 Body dffagl90.88 kgTyler Bates MD Work Phone: [phone]11-04-2025 15:25-0500 Diastolic blood eyyjualz35 mm[Hg]Tyler Bates MD Work Phone: [phone]11-04-2025 15:25-0500 Heart rate75 /minTyler Bates MD Work Phone: [phone]11-04-2025 15:25-0500 Systolic blood eydhagrw208 mm[Hg]Tyler Bates MD Work Phone: [phone]01-17-2025 13:07-0500 Body ouaigs071.6 cmPerri Correa MD Work Phone: [phone] [place], [place] [address] HospitalYrqskqinld70-48-3622 13:07-0500Body mass index (BMI) [Ratio]19.74 kg/j9XixezePerri Correa MD Work Phone: [phone] [place], [place] [address] HospitalBqfwdwmsdk93-99-4469 13:07-0500Body axksfg30.16 kgPerri Correa MD Work Phone: [phone] [place], [place] [address] HospitalDgzorzrcsj31-54-5824 13:07-0500Diastolic blood qywpcyzk85 mm[Hg]Perri Correa MD Work Phone: [phone] [place], [place] [address] HospitalWyoczexskj47-91-2510 13:07-0500Heart bhoj184 /min Perri Correa MD Work Phone: [phone] [place], [place] [address]201-17-2025 13:07-0500Systolic blood bhjabjwi772 mm[Hg]Perri Correa MD Work Phone: [phone] [place], [place] [address] HospitalBxskkwjdbs51-68-6041 08:08-0500Body wujvpt891.6 cmPerri Correa MD Work Phone: [phone] [place], [place] [address] HospitalFwqfcoukkb37-27-2758 08:08-0500Body mass index (BMI) [Ratio]19.74 kg/x2AepspzPerri Correa MD Work Phone: [facility] HospitalHhqqivnrfw98-24-7015 08:08-0500Body resqrj70.16 kgPerri Correa MD Work Phone: [phone] [place], [place] [address] HospitalVptnodupry70-78-1626 08:08-0500Diastolic blood agcdgjbj31 mm[Hg]Perri Correa MD Work Phone: [phone] [place], [place] [address] HospitalOjtjphpesa16-16-7474 08:08-0500Heart rate87 /min Perri Correa MD Work Phone: [phone] [place], [place] [address] [address]Jrgkbssgvh36-57-2401 08:08-0500Systolic blood iwkmbupp906 mm[Hg]Perri Correa MD Work Phone: [phone] [place], [place] [address] HospitalCijuxlmaly41-35-5489 11:58-0500Heart rate79 /min Perri Timmis [address] [place], [place] 1000412-19-2024 11:58-8172ChW3% (BldA) [Mass fraction]97 %Perri Timmis [address] [place], [place] 1000412-19-2024 11:57-0500 Diastolic blood mgeucull05 mm[Hg]Perri Timmis [address] [place], [place] 1000412-19-2024 11:57-0500Mean blood dvddxdod432 mm[Hg]Perri Timmis [address] [place], [place] 1000412-19-2024 11:57-0500 Systolic blood kdfdoziu282 mm[Hg]Perri Timmis [address] [place], [place] 1000412-19-2024 11:05-0500Heart rate84 /minHilary Timmis [address] [place], [place] 1000412-19-2024 11:05-3158FmY4% (BldA) [Mass fraction]100 %Perri Timmis [address] [place], [place] 1000412-19-2024 11:05-0500 Respiratory rate18 /minHilary Timmis [address] [place], [place] 1000412-19-2024 11:05-0500Blood Pressure LocationHilary Timmis [address] [place], [place] 1000412-19-2024 11:05-0500 Diastolic blood ybwiromu53 mm[Hg]Perri Timmis [address] [place], [place] 1000412-19-2024 11:05-0500Mean blood mm[Hg]Perri Timmis [address] [place], [place] 1000412-19-2024 11:05-0500 Systolic blood qlarbnar819 mm[Hg]Perri Timmis [address] [place], [place] 1000412-19-2024 10:58-0500Body emkvwnwdkzu09.7 [degF]Perri Timmis [address] [place], [place] 1000412-19-2024 10:58-0500 Diastolic blood kanbnjtv71 mm[Hg]Perri Timmis [address] [place], [place] 1000412-19-2024 10:58-0500Heart rate84 /minHilary Timmis [address] [place], [place] 1000412-19-2024 10:58-0500Mean blood ashsrrqv06 mm[Hg]Perri Timmis [address] [place], [place] 1000412-19-2024 10:58-0500 Respiratory rate20 /minHilary Timmis [address] [place], [place] 1000412-19-2024 10:58-6031GyM3% (BldA) [Mass fraction]100 %Perri Timmis [address] [place], [place] 1000412-19-2024 10:58-0500 Systolic blood qfzddutt178 mm[Hg]Perri Timmis [address] [place], [place] 1000412-19-2024 10:54-0500 Respiratory rate21 /minHilary Timmis [address] [place], [place] 1000412-19-2024 10:50-0500Mean blood amkmwxpv36 mm[Hg]Perri Timmis [address] [place], [place] 1000412-19-2024 10:50-0500 Respiratory rate19 /minHilary Timmis [address] [place], [place] 1000412-19-2024 10:45-0500Mean blood vvgyipvo508 mm[Hg]Perri Timmis [address] [place], [place] 1000412-19-2024 10:37-7627RIM9 50 1Hilary Timmis [address] [place], [place] 1000412-19-2024 10:35-0500Blood Pressure LocationHilary Timmis [address] [place], [place] 1000412-19-2024 10:35-0500Body bbwzcjeroyo77.7 [degF]Perri Timmis [address] [place], [place] 1000412-19-2024 10:30-3520TSJ5 100 1Hilary Timmis [address] [place], [place] 1000412-19-2024 10:25-7226PSI8 100 1Hilary Timmis [address] [place], [place] 1000412-19-2024 10:25-0500 Respiratory rate28 /minHilary Timmis [address] [place], [place] 1000412-19-2024 10:20-0500 Respiratory rate11 /minHilary Timmis [address] [place], [place] 1000412-19-2024 07:54-0500Blood Pressure LocationHilary Timmis [address] [place], [place] 1000412-19-2024 07:54-0500Mean blood qivwkuov99 mm[Hg]Perri Timmis [address] [place], [place] 1000412-19-2024 07:53-0500Body peibtcrcguv03.7 [degF]Perri Timmis [address] [place], [place] 1000412-10-2024 08:45-0500Blood Pressure LocationHilary Timmis [address] [place], [place] 1000412-10-2024 08:45-0500 Diastolic blood ustxmujp65 mm[Hg]Perri Timmis [address] [place], [place] 1000412-10-2024 08:45-0500Heart rate94 /minHilary Timmis [address] [place], [place] 1000412-10-2024 08:45-0500Mean blood zloanmfb05 mm[Hg]Perri Timmis [address] [place], [place] 1000412-10-2024 08:45-0500 Systolic blood xufxembn320 mm[Hg]Perri Timmis [address] [place], [place] 1000412-10-2024 08:44-0500Heart expb265 /minHilary Timmis [address] [place], [place] 1000412-10-2024 08:44-7317WbC6% (BldA) [Mass fraction]97 %Perri Timmis [address] [place], [place] 1000412-10-2024 08:44-0500 Respiratory rate18 /minHilary Timmis [address] [place], [place] 1000412-10-2024 08:44-0500Blood Pressure LocationHilary Timmis [address] [place], [place] 1000412-10-2024 08:44-0500 Diastolic blood pougopuq35 mm[Hg]Perri Timmis [address] [place], [place] 1000412-10-2024 08:44-0500Mean blood obvoxfee37 mm[Hg]Perri Timmis [address] [place], [place] 1000412-10-2024 08:44-0500 Systolic blood xnbuquih244 mm[Hg]Perri Correa [facility]12-03-2024 08:40-0500Body usujju698.6 Berto Correa MD Work Phone: [facility] HospitalImrugmkpxl64-07-0004 08:40-0500Body mass index (BMI) [Ratio]19.74 kg/k6TfedlxPerri Correa MD Work Phone: [phone] [place], [place] [address]Tbyeqnkcre71-06-7399 08:40-0500Body vydatr21.16 kgPerri Correa MD Work Phone: [phone] HospitalZrzhmgkqfv52-94-9461 08:40-0500Diastolic blood hylvmkoq59 mm[Hg]Perri Correa MD Work Phone: [facility] HospitalXghwesqfoj92-29-7611 08:40-0500Systolic blood lglrqkex188 mm[Hg]Perri Correa MD Work Phone: 1(291)[address]10-14-2024 10:09-0400Body .6 cmPerri Correa MD Work Phone: [facility] HospitalQcyqyxpwys99-70-3911 10:09-0400Body mass index (BMI) [Ratio]19.4 kg/l4MvkwbwPerri Correa MD Work Phone: [facility] HospitalSlxtdnmeri56-97-2937 10:09-0400Body yrrdrg21.26 kgPerri Correa MD Work Phone: 1(416)[address]10-14-2024 10:09-0400Diastolic blood mm[Hg]Perri Correa MD Work Phone: [facility] HospitalZyogrkrhgm54-07-4060 10:09-0400Systolic blood lorrnkdx118 mm[Hg]Perri Correa MD Work Phone: [facility] HospitalKnrrkptcti91-88-0053 11:37-0500Body biuqbg695.56 cmMD Tyler Bates Work Phone: [facility]03-05-2024 11:37-0500 Body mass index (BMI) [Ratio]19.1 kg/m2MD Tyler Bates Work Phone: [facility]03-05-2024 11:37-0500 Body .4 kgMD Tyler Bates Work Phone: [facility]03-05-2024 11:37-0500 Diastolic blood mm[Hg]MD Tyler Bates Work Phone: [facility]03-05-2024 11:37-0500 Heart rate96 /minMD Tyler Bates Work Phone: [phone]03-05-2024 11:37-0500 Systolic blood psohdaie732 mm[Hg]MD Tyler Bates Work Phone: [phone]11-03-2023 11:45-0400 Body qefpor018.56 cmTyler Bates Other [employer] Other 837753-96-7182 11:45-0400Body mass index (BMI) [Ratio] 19.36 kg/a8NmnyvaTyler Bates Other [employer] Other 11-03-2023 11:45-0400Body qhalpb26.17 kgTyler Bates Other [employer] Other 11-03-2023 11:45-0400Diastolic blood ymkkukqk63 mm[Hg] Tyler Bates Other [employer] Other 11-03-2023 11:45-0400Systolic blood npugwlon315 mm[Hg] Tyler Bates Other [employer] Other 09-28-2023 15:40-0400Body ydvyex418.56 cmAfidel Newell Other [employer] Other 09-28-2023 15:40-0400Body mass index (BMI) [Ratio] 19.12 kg/f4KlkuvLorena Newell Other [employer] Other 09-28-2023 15:40-0400Body dpnacwrkfln89.8 [degF]Lorena Newell Other [employer] Other 09-28-2023 15:40-0400Body iywcik28.53 kgLorena Newell Other [employer] Other 09-28-2023 15:40-0400Diastolic blood vrsrescv13 mm[Hg] Lorena Newell Other [employer] Other 09-28-2023 15:40-0400Respiratory rate18 /minAmbyinka Newell Other [employer] Other 09-28-2023 15:40-4983QhX2% (BldA) [Mass fraction]98 % Lorena Newell Other [employer] Other 09-28-2023 15:40-0400Systolic blood jepkrolm752 mm[Hg] Lorena Newell Other [employer] Other 04-27-2023 15:45-0400Body cbrjak627.56 cmTyler Bates Other [employer] Other 04-27-2023 15:45-0400Body mass index (BMI) [Ratio] 19.39 kg/g7YmsuyoTyler Bates Other [employer] Other 04-27-2023 15:45-0400Body zdlzob25.26 kgTyler Bates Other [employer] Other 04-27-2023 15:45-0400Diastolic blood qzuiwhue64 mm[Hg] [facility] [employer] Other 04-27-2023 15:45-2466OeO4% (BldA) [Mass fraction]99 % Tyler Bates [facility] [employer] Other 04-27-2023 15:45-0400Systolic blood nyrayyik608 mm[Hg] Tyler Bates Other [facility] [employer] Other Encounters Encounter DateEncounter TypeCare ProviderFacilityStart: 07-24-2025 End: 53-23-6987ybdzciadalYkxrxy E Braun MD Work Phone: -[facility] Centertart: 07-24-2025 End: 57-39-4873Edqosfn encounter procedureTyler Bates MD-[facility] Work Phone: Start: 06-07-2025 End: 73-42-7851Soowda flowsheetZaira BUSTILLOS Work Phone: [facility] OBGYNStart: 06-07-2025 End: 13-23-9682Uoztpg flowsheetZaira BUSTILLOS Work Phone: [facility] OBGYNStart: 06-07-2025 End: 55-16-4252Qkmronvqz Result EncounterZaira BUSTILLOS Work Phone: noms External Department UnsolicitedStart: 06-07-2025 End: 90-40-5102Bzifflz encounter procedureZaira BUSTILLOS Work Phone: [facility] Work Phone: Start: 06-07-2025 End: 05-50-5180Fmvkjvzs preventive med est patient 40-64yrsAmy Anupama BUSTILLOS Work Phone: [facility] OBGYNComment on above:Well woman exam with routine gynecological exam; Breast cancer screening by mammogram; Mood changesStart: 88-80-1058Fzy-patient / Non-visitZaira BUSTILLOS-[facility] Work Phone: Start: 06-07-2025 End: 37-94-6660stnmclwtdiBDM RAMEYNot AvailableStart: 10-06-2024 End: 47-84-7481Kextni Femi Correa MD Work Phone: noms SHENA BISHOPKStart: 10-06-2024 End: 23-56-2153Zffmmx Femi Correa MD Work Phone: noms SHENA BISHOPKStart: 10-06-2024 End: 15-16-0338Oggcmx follow up visit related to original Marilyn Correa MD Work Phone: noms SHENA Mcbride on above:Atypical face pain (CMS/HCC) (Primary Dx)Start: 10-06-2024 End: 52-76-4141jwufjasakoPPUNHCWhitney Burnham AvailableStart: 09-15-2024 End: 05-29-4048Siaaaschristine Correa MD Work Phone: noms SHENA COLEStart: 09-15-2024 End: 07-20-0406Kqahnochristine Correa MD Work Phone: noms SHENA BISHOPKStart: 09-15-2024 End: 19-79-1417urkmshpulvXDSHBZ H TIMMISNot AvailableStart: 09-15-2024 End: 43-26-9066Mintvr follow up visit related to original Marilyn Correa MD Work Phone: noms SHENA Mcbride on above:Hypertrophy of inferior nasal turbinate (Primary Dx); Alvaro bullosa; DNS (deviated nasal septum)Start: 09-07-2024 End: 48-46-6367Nwtwmhaux to same day surgery centerPerri Correa [facility] Start: 09-07-2024 End: 84-82-8213rnuvknhybyKolsdv H TimmisFacility:FTMCStart: 08-29-2024 End: 25-15-7350Wmitcyuqs Result EncounterHikaren Correa MD Work Phone: noms External Department UnsolicitedStart: 08-29-2024 End: 13-17-8433Gtvvynuas Result EncounterPerri Correa MD Work Phone: noms External Department UnsolicitedStart: 08-29-2024 End: 66-90-8014oqshexbenuRbqeda H TimmisFacility:FTMCStart: 08-29-2024 End: 60-04-0979Etalmki encounter procedurePerri Correa [facility] Start: 08-22-2024 End: 92-07-1996Jninva flowsheetPerri Correa MD Work Phone: noms CI ENTStart: 08-22-2024 End: 18-85-6175Zagwag Femi Correa MD Work Phone: noms CI ENTStart: 08-22-2024 End: 32-14-6011Sudtih outpatient visit 40 minutesPerri Correa MD Work Phone: noms CI ENTComment on above:Nonintractable headache, unspecified chronicity pattern, unspecified headache type (Primary Dx); DNS (deviated nasal septum); Alvaro bullosa; Hypertrophy of inferior nasal turbinateStart: 08-22-2024 End: 52-48-6098xlzltkwpjgTVEDCT H TIMMISNot AvailableStart: 08-10-2024 End: 13-33-5412orezazefzfFIEBVA H TIMMISNot AvailableStart: 07-03-2024 End: 33-75-4243Ffqrcv flowsheetPerri Correa MD Work Phone: [facility]: 07-03-2024 End: 89-75-1094Wsxlno flowsheetPerri Correa MD Work Phone: [facility]: 07-03-2024 End: 90-50-8919Mjkpot outpatient new 45 minutesPerri Correa MD Work Phone: [facility]NT [facility] on above:Chronic pansinusitis (Primary Dx); Bilateral hearing loss, unspecified hearing loss type; Nonintractable headache, unspecified chronicity pattern, unspecified headache typeStart: 07-03-2024 End: 58-85-3756sdbqthbaywJOUTBT H JUAN RMISNot AvailableStart: 01-11-2024 End: 30-37-2025qdlrpzpsbtWcrrgz E BraunFacility:[facility] Hospitaltart: 01-11-2024 End: 10-08-6500ginpnslcuuOE Marcia E Braun Work Phone: [facility] Work Phone: Start: 01-11-2024 End: 21-65-6713Aaxhsqc encounter procedureMD Tyler Bates Work Phone: [facility] [address] Work Phone: Start: 11-23-2023 End: 64-88-2543Uhzjonb encounter procedureMD Tyler Bates Work Phone: [facility] Work Phone: Start: 22-20-6789Zcj-patient / Non-visitMD Tyler Bates Work Phone: [facility] Work Phone: Start: 10-08-2023 End: 62-79-3581cprznobaueLgcpwz Braun Other [employer] Other Start: 07-41-0635Rtysufrla by computer linkTyler BatesElyria Memorial Hospital ClinicStart: 09-09-2023 End: 52-44-4685ztlanpmhjwVwzagg Bates Other [employer] Other Start: 60-24-8848Cjqsnhfpq by computer linkTyler [facility] ClinicStart: 08-13-2023 End: 41-02-6306iiqdxcygynHjrvpc Bates Other [employer] Other Start: 21-36-9474Qtsqnthgl encounterMarcia [facility] ClinicStart: 08-05-2023 End: 69-03-4942bexccggkxrWlwxdd Bates Other [employer] Other Start: 45-48-8035Ovprrmnia encounterMarcia [facility] Medical ClinicStart: 07-27-2023 End: 55-81-1198lidzsobgwvTthfwi Bates Other [employer] Other Start: 54-96-5922Umwnsxmwq encounterMarcia [facility] ClinicStart: 07-23-2023 End: 34-35-9338zgguyipdccSjxwgx Bates Other [employer] Other Start: 57-14-3910Hwsvop outpatient visit 15 minutes Tyler [facility] Medical ClinicStart: 07-20-2023 End: 20-08-2971hqdybmmqlsSaolej Bates Other [employer] Other Start: 83-85-7092Yylwcmvkw encounterMarcia [facility] [place]Start: 07-16-2023 End: 08-44-0662yjjhohekwtAhgteh Bates Other [employer] Other Start: 79-92-8389Mzjbqymww encounterMarcia [facility] ClinicStart: 06-17-2023 End: 81-31-8666uuybiwgyoqKprmy Keller Other [employer] Other Start: 72-90-3084Gaajnv outpatient visit 15 minutes Lorena ReeceGrey Urgent Care ClydeStart: 05-26-2023 End: 69-86-8748vfcznuunddHkmyfx Bates Other [employer] Other Start: 29-26-3547Pvzrvd outpatient visit 15 minutes Tyler BatesTU[facility]ON [facility] Sami Medical ClinicStart: 05-17-2023 End: 98-59-9476pnijbbnhflLxzyya Bates Other [employer] Other Start: 30-27-7119Alnpocqgc by computer linkAdelinetoan Gallardo Medical ClinicStart: 05-04-2023 End: 27-70-2298aplvqlaqklZwbgpz Bates Other noQyuki [employer] Other Start: 61-14-9580Arbvhmwha encounterMarcia JanaG [facility] Medical ClinicStart: 04-21-2023 End: 38-27-8239kkjakbzxwoWjnxozyv Ball Other [employer] Other Start: 01-21-8649Oluysvsji encounterBenjamin SamiG [facility]i Medical ClinicStart: 02-22-2023 End: 09-87-9798uxwnyexdxkErcvxi Bates Other [employer] Other Start: 83-11-6712Smwgxlvcn encounterMarcia JimenezG [facility] Medical ClinicStart: 01-28-2023 End: 89-95-6118djoafpizrdQetuya Bates Other [employer] Other Start: 05-19-8113Xmvlgkycs encounterMarciangel Gallardo [facility] ClinicStart: 01-22-2023 End: 54-35-3254xtunwvkwnkZjmeew Bates Other [employer] Other Start: 54-45-7701Atbonhqds encounterMarciangel Gallardo Medical ClinicStart: 01-19-2023 End: 1978tijimnumkpUnkvjk Bates Other [employer] Other Start: 66-36-8926Ikunyqmif encounterMarciangel Gallardo [facility] ClinicStart: 01-18-2023 End: 46-06-5012oxmnmsdgviGJ TYLER BATESFacility:K5Hwlcu: 01-14-2023 End: 84-40-2535kxmwtkhecsZkrsim Bates Other [employer] Other Start: 28-79-9339Gjgsyl outpatient visit 25 minutes Tyler Gallardo [facility] ClinicStart: 11-30-2022 End: 01-30-8160aqqkmcvuomXU WILBUR LEONA .Facility:K3Fpmuv: 09-13-2022 Gynecological examination normalBensuleman Gallardo Other [employer] Other Start: 93-63-3174Vdk-procedure evaluation check Jesús Gallardo Other [employer] Other Start: 08-06-2022 End: 98-07-9319xpxoyqglcbBL WILBUR LEONA .Facility:G5Vejhv: 89-02-9638Aikbnxcbj for preprocedural laboratory examinationDR WILBUR LEONA .[facility] Start: 07-31-2022 End: 30-22-9330gekbggbpggXA WILBUR LEONA .Facility:E2Oyjlb: 07-29-2022 End: 27-93-1247xewqshshaoXR WILBUR LEONA .Facility:R8Fbnyg: 07-29-2022 End: 46-74-4749Wocjmnjuf for preprocedural laboratory examinationDR WILBUR LEONA .Facility:F9Wcwop: 74-32-9846Tjlzoznxn for other preprocedural examinationDR WILBUR LEONA .[facility]: [facility] End: 36-24-6171mljjbognysBH WILBUR LEONA .Facility:Q6Ewbmz: 07-21-2022 End: 36-67-4249Zkiyrckqr for other preprocedural examinationDR WILBUR LEONA . Facility:W2Kdpgb: 14-94-1205Btvgs health examinationBecindi Gallardo Other [facility] [employer] Other Start: 04-07-2022 End: 96-88-4463gqpnzcvsggIC WILBUR LEONA .Facility:H1 Procedures DateProcedureProcedure DetailPerforming ClinicianStart: 33-39-8995IXX,APTIMA HPV,AGE GDLNAmy Anupama BUSTILLOS Work Phone: Start: 27-32-4220Alcathltj of noseHilary Timmiarturo Start: 73-82-2870EDJW CBC W/ AUTO DIFFHilakarla Correa MD Work Phone: Start: 15-80-9678Katgveqkrvf observation [Identifier] in Cervix by Cyto stainPerri Correa MD Work Phone: Start: 03-21-6714BbsnemvmhvyPhlkzu Timmis MD Work Phone: Cesarean sectionPerri Correa comment on above:2007Depression screeningBecindi Gallardo Other Extraction of wisdom toothHilary Timmis comment on above:1994Laps abltj uterine fibroids w/intraop us gdnHilarantionette Correa comment on above:creening for malignant neoplasm of breastBecindi Gallardo Other Viral screeningBecindi Gallardo Other Plan of Treatment DateCare ActivityDetailAuthorStart: 51-29-9713Bbwdhonbt for malignant neoplasm of cervixBLUE MOUNTAIN [facility], INC. HealthcareStart: 06-12-2026 End: 31-95-0969Gtbbyap encounter ziladxfrp60/23/2026 11:00 AM EDT Procedure Visit NELY OJEDA [address] [place], [phone] Zaira Altman, PA [address] [place], [place] [phone] NOMArturo Kerns OBGYNStart: 08-27-2025 End: 00-52-0951Ffrhwde encounter uoekzzlzu54/08/2025 8:50 AM EST Consult NELY OJEDA [address] [place] [address] [place] [address] Wilbur Meeks DO [address] [place], [place] [address] NELY COLEMANGYNStart: 06-07-2025 End: 68-65-1962IK Breast - bilateral ScreeningBilateral screening mammogram Imaging Routine Breast cancer screening by mammogram Expected: 06/07/2025 (Approximate), Expires: 08/07/2026[facility] Work Phone: comment on above:Expected: 06/07/2025 (Approximate), Expires: 08/07/2026Start: 06-07-2025 End: 87-17-3479Harxmnk encounter /18/2025 9:30 AM EDT Procedure Visit NELY OJEDA [address] [place] [address] Zaira Altman, PA [address] [place], [place] [address] ArrivedNOMS Kerns OBGYNComment on above:ArrivedStart: 91-67-1003Skhbkqmpe vaccinationInfluenza Vaccine (#1)[facility] HealthcareStart: 03-12-2025 End: 70-93-0656Bqspgpp encounter bqosvyrln90/23/2025 11:00 AM EDT Office Visit [facility] [address] [place] [phone] Wilbur Meeks DO [address] [place] [address] NOMS BCP OBStart: 10-06-2024 End: 24-46-4202Hdkkrvi encounter /17/2025 1:00 PM EST Office Visit [facility] [address] [place] [address] Perri Correa MD [address] [facility] [address] [place] [address] ArrivedNOMS ENT NORWALKComment on above:ArrivedStart: 09-15-2024 End: 18-05-1566Tgwirbn encounter wrbgweqmd23/27/2024 8:00 AM EST Office Visit [facility] [address] [place] [address] Perri Correa MD [address] [facility] [address] [place] [address] N[facility]S ENT NORWALKStart: 07-03-2024 End: 44-34-3634Cgnetll encounter meocsqwym90/14/2024 10:00 AM EDT Office Visit [facility] [address] [place] [address] Perri Correa MD [address] [facility] [address] [place] [address] ArrivedNOMS ENT NORWALKComment on above:ArrivedStart: 69-30-3416Qslgqzqcz vaccinationInfluenza Vaccine (#1)[facility] HealthcareStart: 13-98-0873Dhfvciluw for malignant neoplasm of breastMammogramNOMS Healthcare Start: 85-33-9568Azsfcrr referralOhiohealth Van [facility] Work Phone: Start: 61-61-3126Lfzbpseii for malignant neoplasm of cervixHPV/CotestNOMS HealthcareStart: 83-49-1327Rdrjyhyvp for malignant neoplasm of colonNOMS HealthcareCT Neck WO [facility] SystemCT Sinuses WO [facility] SystemMG Breast - bilateral ScreeningWilson Memorial HospitalPatient referralOhiohealth Van Wert Hospital Ctr Work Phone: THIN PREP TIS PAP AND HR HPV DNATHIN PREP TIS PAP AND HR HPV DNA Pathology and Cytology Routine Well woman exam with routine gynecol ogical exam Ordered: 06/07/2025NOTN HealthcareComment on above:Ordered: 06/07/2025 Immunizations Immunization DateImmunizationNotesCare ZvstojunGrdleezn71-99-3138qalrzggzb virus vaccine, split virus (incl. purified surface antigen)Jesús Gallardo Other [employer] Other 0948006-10-8753mxzatsdeh virus vaccine, unspecified formulationMD Tyler Bates Work Phone: [facility]09-05-2020influenza, injectable, quadrivalent, preservative Nilton Correa MD Work Phone: [facility] HospitalEfmnbnvuoy14-17-2476paoqnpbwy, injectable, quadrivalent, preservative Nilton Correa MD Work Phone: [facility]iatric HospitalBtddyvhmsv51-71-9640upwgcqgqd, seasonal, injectableTyler Bates Other [facility] HospitalNEGATED: Highlighted row has not occurred!64-45-5860hnzbthqakdhf polysaccharide vaccine, 23 valent Tyler Bates Other [employer] Other Payers DatePayer CategoryPayerPolicy [id number] Health InsuranceMERCY HEALTH ST. CHARLES HOSPITALCAL MUTUAL Member Subscriber Plan / Payer (Effective 2023- Present) Name: Agusto King MMember ID: [id number] Relation to Subscriber: Spouse Name: DOUGLAS KING Date of : 1975 (Home) Address: [address] [place] [address]Rlfta ID: Not on file Group ID: [id number] Type: Not on file Address: [address] [id number] [id number] 2.0.1.586456.3.57[id number] 2.0.1.043492.3.57[id number] 2.0.1.156821.3.57[id number] 2.0.1.259654.3.579.2.43411-78-4773Nxxkuyv6070001 2.0.1.272147.3.57[id number] 2.160.1.529405.3.57[id number] 2.160.1.166694.3.579.[id number] 2.16840.1.316549.3.579.[id number] 2.160.1.748586.3.579.[id number] 2.16.840.1.459722.3.57[id number] 2.16.840.1.412011.3.579.[id number] 2.16.840.1.521281.3.57[id number] 2.16.840.1.078840.3.57[id number] 2.16.840.1.010781.3.57[id number] 2..840.1.294816.3.57[id number] 2..0.1.878683.3.57[id number] 2.16.840.1.345509.19 [id number] 2.0.1.239256.3.579.2.531 Social History DateTypeDetailFacilityStart: 02-29-2024 End: 20-25-4356Bbe [facility] At [facility] CenterStart: [facility]1994 End: 23-60-4952Krcyjcs smoking status NHISSmoker (finding)[facility] CenterStart: 30-57-0788Wbd Assigned At [facility] CenterStart: 80-27-1586Glnghkl smoking status NHISEx-smokerNOTN HealthcareStart: 07-31-1994 End: 80-27-4782Hdbffzw of tobacco useCigarette SmokerBLUE MOUNTAIN HOSPITAL, INC. HealthcareStart: 02-29-2024 End: 59-47-5882Sdnrkiexaf smoked current (pack per day) - Reported0.5NOTN HealthcareStart: 83-23-7587Sjlldnb use and exposureSmokeless tobacco non-user [facility] HealthcareStart: 03-07-2024 End: 24-85-2538Zclapoikd beverage intakeEx-drinker (finding)[facility] Start: 53-72-2444Yhnnad identityIdentifies as female gender (finding)[facility] HealthcareStart: 16-22-5530Uivbgh orientationHeterosexual (finding)[facility]OM[facility] HealthcareTobaccCleveland Clinic Luther[facility] Hospital Comment on above:former smoker quit 1 year agoTobacco smoking statusNo Smoking Status [facility]rontart: 07-23-2023 Tobacco smoking status NHISSmokes tobacco daily (finding)[facility] HospitalexFemale (finding)[facility] Functional Status CnpuPjtqvgokleRslhuuDgwunjhs23-67-7879Krrvhxblox StatusMartins Ferry Hospital Clinical Notes 07-31-2022 to 07-24-2025 Note Date & ByvnGzskYaepuwpy92-90-1380 Hospital Discharge instructionsAmbulatory Orders* Referral to Gastroenterology Time Frame: 07/24/25, Location: None Selected [facility] Work Phone: 1(189) 782-387709-18-2025 History of Present illness Narrative* TRESSA Lord - 06/07/2025 9:30 AM EDT Reason for Appointment: Patient ID: Agusto King is a 44 y.o. female who presents for [facility] Women Visit Patient presents today for Annual [...] Disc Disease) Maternal Grandmother Cancer Paternal Grandmother [place] Alcohol abuse Paternal Grandfather Cancer Mother's [...] nursing note reviewed. Exam conducted with a journeyman wireman present. Vitals: Estimated body mass index is [...] the Hysterectomy procedure. Pt will see our receptionist scheduler at this visit to set up a [...] behalf of: TRESSA Lord documented in this encounterHawthorn Children's Psychiatric HospitalOojmtveoau15-33-9074 History of Present illness Narrative* Perri Correa [...] Disc Disease) Maternal Grandmother Cancer Paternal Grandmother [place] Alcohol abuse Paternal Grandfather Cancer Mother's [...] looks great. F/U prn documented in this encounterHawthorn Children's Psychiatric HospitalTyvqlelrwj61-81-9616 History of Present illness Narrative* Perri Correa MD - 09/15/2024 8:00 AM EST Subjective Patient ID: Agusto King is a 44 y.o. 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 Date:09/07/24 Plan Transfer/Discharge: Transfer/Discharge Discharge when meets criteria ( To home ). Extracted from:Title:ANES Pre-operative Note uthor:Samm Figueroa MDDate: 09/07/24 Plan [place] [employer] Anesthesiologists (ASA) physical status classification: Class II. Anesthetic Preoperative Plan: Anesthesia General.[facility] [id number] NoteProgress Note-Physician Patient: AGUSTO KING Age: 44 years Sex: Female : 1980 Associated Diagnoses: None Author: Samm Figueroa MD Postoperative Information Postoperative disposition: Postoperative disposition: To PACU. Optimetrix number: Optimetrix number [id number]. Anesthetic utilized: General. Health Status Allergies: Allergic [...] Discharge when meets criteria ( To home ).[facility] CenterComment on above:Result Comment: Electronically Signed By: Samm [...] ADD (attention deficit disorder) / SNOMED CT 46642854 / Confirmed Anxiety / SNOMED CT 09307984 / Confirmed Autoimmune disease / SNOMED CT 643088032 / Confirmed Depression / SNOMED CT 63665864 / Confirmed Migraines / SNOMED CT 45291454 / Confirmed, Active Problems (5) ADD (attention deficit disorder) Anxiety Autoimmune disease Depression Migraines Histories Past Medical History: No active or resolved past medical history items have been selected or recorded. Family History: No family history items have been selected or recorded. Procedure history: Septoplasty, Right removal, conchae bullosa, Right inferior turbinate submucosal resection (34172526) on 09/07/2024 at 44 Years. Extraction of wisdom tooth ([id number]). Comments: 08/29/2024 8:50 Krissy Weaver RN 1994 section (84199536). Comments: 08/29/2024 8:49 Krissy Weaver RN 2006 Uterine ablation (80994). Comments: 08/29/2024 8:49 Krissy Weaver RN 2021 [...] Blood Pressure 80 mmHg (more content not included)...[facility] CenterComment on above:Result Comment: Electronically Signed By: Henry SAMANIEGO, Samm Ordaz\.br\Date and Time Signed: 09/07/24 13:26 HSY68-29-6196 Hospital Discharge instructions Patient Education 09/07/2024 11:25:09 [...] Follow these instructions at home: Medicines Take jkdx-wju-biijmji and prescription medicines only as told by [...] to keep your urine pale yellow. ?Take qiab-wlr-ivqpdpv or prescription medicines. ?Eat foods that are [...] provider. Document Revised: 05/04/2022 Document Reviewed: 05/04/2022 [employer] Patient Education 2023 OPHTHONIX. 09/07/2024 11:24:38 Post Op Patient Instructions - FT (CUSTOM) Follow Up Care 08/22/2024 09:17:04 With:Perri Correa Address: [address] [place] [address], [address] [place] [address]- Business (1) When:09/15/2024 [facility] 12-19-2024 NotePatient Education - Text ENT [...] these instructions at home: Medicines ??? Take wxtv-dgs-irovwyb and prescription medicines only as told by [...] keep your urine pale yellow. ? Take cgmu-ibd-lqpomjy or prescription medicines. ? Eat foods that [...] provider. Document Revised: 05/04/2022 Document Reviewed: 05/04/2022 [employer] Patient Education ??? 2023 OPHTHONIX.[facility] 08-22-2024 History of Present illness Narrative* Perri [...] Disc Disease) Maternal Grandmother Cancer Paternal Grandmother [place] Alcohol abuse Paternal Grandfather Cancer Mother's [...] appearance of her nose. documented in this encounterHawthorn Children's Psychiatric HospitalRipdxzjtey91-67-8852 History of Present illness Narrative* Perri Correa [...] Disc Disease) Maternal Grandmother Cancer Paternal Grandmother [place] Alcohol abuse Paternal Grandfather Cancer Mother's [...] Diagnosis Date ADHD (attention deficit hyperactivity disorder) (CMS/[facility]) Dysmenorrhea Fibroid Fibromyalgia Hyperthyroidism (CMS/HCC) Irritable bowel [...] night time mouth guard documented in this encounterHawthorn Children's Psychiatric HospitalOwwbsrmzvu83-88-3741 Evaluation note* Encounter Date Diagnosis Assessment Notes Treatment Notes Treatment Clinical Notes Sep, Adult ADHD (ICD-10 - F90.9) [employer] Other 12-21-2023 Evaluation note* Encounter Date Diagnosis Assessment Notes Treatment Notes Treatment Clinical Notes Aug, Adult ADHD (ICD-10 - F90.9) [employer] Other 11-24-2023 Evaluation note* Encounter Date Diagnosis Assessment Notes Treatment Notes Treatment Clinical Notes Jul, Adult ADHD (ICD-10 - F90.9) [employer] Other 11-03-2023 Evaluation note* Encounter Date Diagnosis [...] to forward this information to Dr. Chavarria [employer] Other 10-27-2023 Evaluation note* Encounter Date Diagnosis Assessment Notes Treatment Notes Treatment Clinical Notes Jun, Adult ADHD (ICD-10 - F90.9) [employer] Other 09-28-2023 Evaluation note* Encounter Date Diagnosis [...] understanding and is agreeable with treatment plan [employer] Other 09-06-2023 Evaluation note* Encounter Date Diagnosis Assessment Notes Treatment Notes Treatment Clinical Notes May, Impetigo (ICD-10 - L01.00) Discussed differential. Unsure how she could have impetigo but will treat based on the yellow appearance at the surface of the dermis. She will call and followup w dermatology. [employer] Other 08-28-2023 Evaluation note* Encounter Date Diagnosis Assessment Notes Treatment Notes Treatment Clinical Notes Apr, Adult ADHD (ICD-10 - F90.9) [employer] Other 08-15-2023 Evaluation note* Encounter Date Diagnosis Assessment Notes Treatment Notes Treatment Clinical Notes Apr, Contact dermatitis, unspecified contact dermatitis type, unspecified trigger (ICD-10 - L25.9) [employer] Other 08-02-2023 Evaluation note* Encounter Date Diagnosis Assessment Notes Treatment Notes Treatment Clinical Notes Apr, Adult ADHD (ICD-10 - F90.9) [employer] Other 06-05-2023 Evaluation note* Encounter Date Diagnosis Assessment Notes Treatment Notes Treatment Clinical Notes Feb, Adult ADHD (ICD-10 - F90.9) [employer] Other 05-05-2023 Evaluation note* Encounter Date Diagnosis Assessment Notes Treatment Notes Treatment Clinical Notes January, Adult ADHD (ICD-10 - F90.9) [employer] Other 04-27-2023 Evaluation note* Encounter Date Diagnosis Assessment Notes Treatment Notes Treatment Clinical Notes Dec, Other fatigue (ICD-10 - R53.83) Discussed possible metabolic causes Dec,Irregular menses (ICD-10 - N92.6)will check hormones - followup w machine setter Dec,dult ADHD (ICD-10 - F90.9)will increase dose with next rx Dec,ervical lymphadenitis (ICD-10 - I88.9)antibiotic prescribed. Work note given. [facility] Other 11-11-2022 NoteOPERATIVE NOTE OPERATION DATE: 07/31/2022 PROCEDURE: Kathe endometrial ablation. PREOPERATIVE DIAGNOSIS: Menorrhagia. POSTOPERATIVE DIAGNOSIS: Menorrhagia. ANESTHESIA: General. SURGEON: Wilbur Meeks D.O. MILK RECEIVER: None. BLOOD LOSS: 5 mL. URINE OUTPUT: [...] Patient taken to recovery in stable condition.[facility] complaint+Reason for visit Narrative* Chief Complaint Amb Documentation autoimmune issues - referralsReason for VisitAutoimmune disorder [facility] Work Phone: Evaluation + Plan note Future Appointments Appointment Date:09/07/2024 01:15:00 PM Scheduled Provider: Location:[facility] Appointment Type:Surgery FT [facility] Evaluation noteNo InformationNortBucktail Medical Center PPS Other Evaluation note* Diagnosis Onset Date Resolution Status Autoimmune disorder acute [facility] Work Phone: Evaluation note* Diagnosis Chronic pansinusitis- [...] mammogram for breast cancer acuteNovember 2024 3:19pm [facility] Work Phone: History general Narrative - Reported* Type Description Date Medical History ANXIETY Medical HistoryFATIGUEMedical HistoryMIGRAINEMedical Historysubclinical hyperthyroidismSurgical HistoryC-Tivffwe1944Cqxcrkbwhwhqxpb HistorySEE SURGICAL [employer] Other Hospital course Narrative No data available for this section [facility] Hospital Discharge instructions No data available for this section [facility] Progress note No data available for this section [facility] Summary Purpose Family History Relationship Condition [...] type, unspecified trigger (L25.9) Referral Organization [facility] seamus Referring Provider First Name Tyler Referring Provider Last Name Jana Referring Provider Specialty Family Medi cine Referred Organization Dermatology Denisse schafer Referred Provider Kim Fuentes Referred Address [address],[place], [place],[address] Referred Provider Specialty Dermatology Referral Priority Routine [...] Nonspecific lymphadenitis, unspecified Chronic sinusitis, unspecified Procedures [place] UNLISTED EVALUATION AND MANAGEMENT [facility] [address] [place] [address] Perri Correa MD [address] [facility] [address] [place] [address] Phone: tel: fax: Referral IDStatusReasonStart DateExpiration DateVisits RequestedVisits [id number]/1/20243/[id number]xQeuxzp up CT [facility] 11/21/24ReasonCommentsSinusitisAllergic RhinitisS/p sinus surgery [facility] 09/07/24ReasonCommentsFacial PainFacial swellingReasonCommentsWell Women Visit INFORMATION SOURCE (unrecogn ized section and content) DATE CREATED AUTHOR 01/23/2023 [facility] DATE CREATED AUTHOR AUTHOR'S ORGANIZ ATION 01/18/2024 [facility] DATE CREATED AUTHOR AUTHOR'S ORGANIZ ATION 09/01/2024 [facility] DATE CREATED AUTHOR AUTHOR'S ORGANIZ ATION 09/10/2024 [facility] DATE CREATED AUTHOR AUTHOR'S ORGANIZ ATION 09/12/2024 [facility] DATE CREATED AUTHOR AUTHOR'S ORGANIZ ATION 10/03/2024 [facility] DATE CREATED AUTHOR AUTHOR'S ORGANIZ ATION 06/08/2025 [facility] EPIC Care Teams [...] DateEnd Date Tyler Bates MD [address] [place] [address] Referring PhysicianFamily Sytscppn96/14/24Team MemberRelationshipSpecialtyStart DateEnd Date Tyler Bates MD [address] [place] [address] Referring PhysicianFamily Watjcewe61/14/24Team MemberRelationshipSpecialtyStart DateEnd Date Tyler Bates MD [address] [place] [address] Referring PhysicianFamily Jjnvhbtp33/14/24Team MemberRelationshipSpecialtyStart DateEnd Date Tyler Bates MD [address] [place] [address] PCP - GeneralFamily Dfxkpobt16/3/24 Tyler Bates MD [address] [facility] [place] [address] Referring PhysicianFamily Hrcxzlgg65/14/24Team MemberRelationshipSpecialtyStart DateEnd Date Tyler Bates MD [address] [facility] [place] [address] PCP - GeneralFamily Uistwvvf76/3/24 Tyler Bates MD [address] [facility] [place] [address] Referring PhysicianFamily Tvixcbah59/14/24Team MemberRelationshipSpecialtyStart DateEnd Date Tyler Bates MD [address] [place] [facility] [place] [address] PCP - GeneralFamily Xzwkmrbe11/3/24 Tyler Bates MD [address] [facility] [place] [address] Referring PhysicianFamily Eaduetcw78/14/24Team MemberRelationshipSpecialtyStart DateEnd Date Tyler Bates MD [address] [facility] [place] [address] PCP - GeneralFamily Rgsbwbsd87/3/24 Tyler Bates MD [address] [facility] [place] [address] Referring PhysicianFamily Lvlqeahq56/14/24Team MemberRelationshipSpecialtyStart DateEnd Date Tyler Bates MD [address] [facility] [place] [address] PCP - GeneralFami Iwseuxxc97/3/24 Tyler Bates MD [address] [facility] [place] [address] Referring PhysicianFamily Zhpgncqr83/14/24Team MemberRelationshipSpecialtyStart DateEnd Date Tyler Bates MD [address] [facility] [place] [address] PCP - GeneralFamily Fyxsrauh11/3/24 Tyler Bates MD Referring PhysicianFamily Anrjnfwy45/14/24Team MemberRelationshipSpecialtyStart DateEnd Date Tyler Bates MD [address] [facility] [place] [address] PCP - GeneralFamily Pebkahxh65/3/24 Tyler Bates MD Referring PhysicianFamily Kkvqqpvo48/14/24Team MemberRelationshipSpecialtyStart DateEnd Date Tyler Bates MD [address] [facility] [place] [address] PCP - GeneralFamily Xzhfvqnc00/3/24 Tyler Bates MD Referring PhysicianFamiravista [facility] center Djxalmiu73/14/24 Team Status: Active Member Role/Relationship Status Dates Tyler Bates MD Primary Care Provider Active Team Status: Active Member Role/Relationship Status Dates Tyler Bates MD Primary Care Provider Active Start: June 07, 2025 [facility] ProviderActiveStart: June 07, 2025 Team Status: Inactive Member Role/Relationship Status Dates Tyler Bates MD Primary Care Provider Active Start: July 24, 2025 End: July 24, 2025Tyler Bates MDAttcritical access hospital ProviderActiveStart: July 24, 2025 End: July 24, [...] BE BASED ON THE PRIMARY CLINICAL RECORDS. [employer] provides no warranty or guarantee of the accuracy or completeness of information in this document.
[2025-09-17 11:41] LABS: Hematocrit 42.5 % (36.0-48.0); Hemoglobin 13.9 g/dL (12.0-16.0); Immature Granulocytes Abs Auto 0.01 10^3/uL (0.00-0.03); Immature Granulocytes Pct Auto 0.2 % (0.0-0.5); Lymphocytes Absolute Auto 1.5 10^3/uL (1.2-3.8); Mean Corpuscular HGB Conc 32.7 g/dL (29.9-35.2); Mean Corpuscular Hemoglobin 29.7 pg (26.7-34.0); Mean Corpuscular Volume 90.8 fL (81.0-99.0); Platelet Count 323 10^3/uL (150-450); Red Blood Count 4.68 10^6/uL (4.20-5.40); White Blood Count 4.6 10^3/uL (4.0-11.0)
[2025-09-17 11:59] LABS: INR 0.99; Partial Thromboplastin Time 30.5 sec (22.3-36.2); Prothrombin Time 10.4 sec (9.0-11.6)
[2025-09-17 12:16] LABS: Alanine Aminotransferase 35 U/L (14-59); Albumin Globulin Ratio 1.1; Albumin Level 3.6 g/dL (3.4-5.0); Alkaline Phosphatase 75 U/L (46-116); Anion Gap 12.1; Aspartate Amino Transferase 32 U/L (15-37); Blood Urea Nitrogen 15.0 mg/dL (7.0-18.0); Calcium 8.6 mg/dL (8.5-10.1); Carbon Dioxide 28.9 mmol/L (21.0-32.0); Chloride 105 mmol/L (98-107); Estimated GFR (African America >60 (>=60 mL/min/1.73m^2); Estimated GFR (Non-African Ame >60 (>=60 mL/min/1.73m^2); Globulin 3.3 g/dL; Glucose 101 mg/dL (74-106); Potassium 4.0 mmol/L (3.5-5.1); Sodium 142 mmol/L (136-145); Total Protein 6.9 g/dL (6.4-8.2)
== END 2025-09-17 10:46 | disposition home or self-care (01) ==
LOC: PST 10:46
PROVIDERS: PCP Family Medicine; Visit Provider Obstetrics & Gynecology
DX: Z01.810 Encounter for preprocedural cardiovascular examination (principal); Z01.812 Encounter for preprocedural laboratory examination; N92.0 Excessive and frequent menstruation with regular cycle; R10.20 Pelvic and perineal pain unspecified side; N94.6 Dysmenorrhea, unspecified; N94.10 Unspecified dyspareunia
CPT/HCPCS: 80048; 80076; 85025; 85610; 85730; 86850; 86900; 86901; 93005